=== PATIENT | male | born 1960 | race Caucasian/White ===

== ENCOUNTER 2020-01-16 15:46 | Outpatient (REF) | payer MEDICARE, MEDICAID, SELFPAY ==
[2020-01-16 16:21] LABS: MANUAL DIFF FLAG NO
[2020-01-16 16:27] LABS: Basophils Percent Auto 0.3 % (0-2); Eosinophils Absolute Auto 0.1 X10*3/uL (0.0-0.4); Eosinophils Percent Auto 1.3 % (0-4); Hematocrit 46.7 % (42-52); Hemoglobin 15.1 g/dl (14.0-18.0); Imm Gran Abs Auto 0.04 X10*3/uL (0.00-0.03); Imm Gran Pct Auto 0.4 % (0.0-0.4); Lymphocytes Absolute Auto 2.9 X10*3/uL (1.2-4.9); Lymphocytes Percent Auto 30.2 % (20-40); Mean Corpuscular HGB Conc 32.3 g/dl (31.0-36.0); Mean Corpuscular Hemoglobin 29.9 pg (27.0-33.0); Mean Corpuscular Volume 92.5 fL (80-98); Mean Platelet Volume 12.1 fL (9.4-12.4); Monocytes Absolute Auto 0.7 X10*3/uL (0.1-1.2); Monocytes Percent Auto 6.8 % (2-11); Neutrophils Absolute Auto 5.8 X10*3/uL (2.0-8.3); Platelet Count 210 X10*3/uL (160-400); Red Blood Count 5.05 X10*6/uL (4.60-5.80); Red Cell Distribution Width 13.1 % (11.0-16.0); White Blood Count 9.5 X10*3/uL (4.8-10.8)
[2020-01-16 16:33] LABS: Estimated Average Glucose 209 mg/dL; Hemoglobin A1c % 8.9 %
[2020-01-16 16:48] LABS: Alanine Aminotransferase 24 U/L (0-40); Albumin Level 4.4 g/dL (3.5-5.0); Alkaline Phosphatase 80 U/L (39-117); Anion Gap 12 (12-20); Aspartate Amino Transferase 26 U/L (5-37); Bilirubin Total 0.2 mg/dL (0.0-1.0); Blood Urea Nitrogen 23 mg/dL (9-16); Calcium 9.6 mg/dL (8.4-10.2); Carbon Dioxide 28 mmol/L (22-29); Chloride 101 mmol/L (96-108); Cholesterol 169 mg/dL; Estimated Glomerular Filt Rate 48; Glucose Fasting 219 mg/dL (60-99); HDL Cholesterol 34 mg/dL; LDL Cholesterol Calculated 86 mg/dl; Potassium 4.7 mmol/l (3.3-5.1); Sodium 136 mmol/L (135-145); Total Protein 7.5 g/dL (6.5-8.0); Triglycerides 247 mg/dL
[2020-01-16 17:10] LABS: Prostate Specific Antigen 0.42 ng/mL (<0.05-4.0); TSH reflex Free T4 1.29 mIU/mL (0.32-4.0)
[2020-01-16 17:21] LABS: Folate 9.7 ng/mL (> or = 4.0); Vitamin B12 456 pg/mL (200-900)
[2020-01-16 18:05] LABS: Appearance Urine CLEAR; Color Urine YELLOW; Glucose Urine UA 100 MG/DL (NEG); Leukocyte Esterase Urine NEG (NEG); Nitrite Urine NEG (NEG); PH 5.5 (5.0-8.0); Urine Blood NEG (NEG); Urine Ketones NEG (NEG); Urine Protein NEG (NEG-TRACE)
[2020-01-16 18:33] LABS: Creatinine Urine 167.74 mg/dL; Microalbum/Creatinine Ratio Ur 5.9 ug/mg cr
[2020-01-17 18:37] LABS: Follicle Stimulating Hormone 8.8 mIU/mL (1.6-8.0); Lutenizing Hormone 9.3 mIU/mL (1.6-15.2)
[2020-01-22 12:36] LABS: Testosterone, Total 694 ng/dL (250-1100)
== END 2020-01-16 15:47 | disposition home or self-care (01) ==
LOC: HO.LAB 15:46
PROVIDERS: Absent Provider Urology; PCP Internal Medicine; Visit Provider Internal Medicine
DX: R79.89 Other specified abnormal findings of blood chemistry (principal); E11.22 Type 2 diabetes mellitus with diabetic chronic kidney disease; I12.9 Hypertensive chronic kidney disease with stage 1 through stage 4 chronic kidney disease, or unspecified chronic kidney disease; N18.2 Chronic kidney disease, stage 2 (mild); E78.1 Pure hyperglyceridemia; G62.9 Polyneuropathy, unspecified; K29.50 Unspecified chronic gastritis without bleeding; E66.9 Obesity, unspecified
CPT/HCPCS: 36415; 80053; 80061; 81003; 82043; 82607; 82746; 83001; 83002; 83036; 84153; 84403; 84443; 85025

== ENCOUNTER → 2020-01-27 09:38 | Outpatient (BNVA) | payer MEDICARE, MEDICAID, SELFPAY | PROVIDERS: PCP Internal Medicine; Referring Provider Internal Medicine; Visit Provider Urology | DX: E29.1 Testicular hypofunction (principal); N52.9 Male erectile dysfunction, unspecified | CPT/HCPCS: Q3014 ==

== ENCOUNTER 2020-02-21 14:08 | Outpatient (REF) | payer MEDICARE, MEDICAID, SELFPAY | END 2020-02-21 14:09 | disposition home or self-care (01) | LOC: HO.LAB 14:08 | PROVIDERS: PCP Internal Medicine; Visit Provider Internal Medicine | DX: Z20.828 Contact with and (suspected) exposure to other viral communicable diseases (principal) | CPT/HCPCS: C9803; U0003 ==

== ENCOUNTER 2020-03-05 13:09 | Outpatient (REF) | payer MEDICARE, MEDICAID, SELFPAY ==
--- NOTE | 2020-03-05 13:16 | XR_ITS ---
EXAMINATION: XR CHEST CLINICAL INFORMATION: Cough. COMPARISON: 04/28/2016 chest exam. TECHNIQUE: 2 views of the chest were obtained. FINDINGS: Lungs are well-expanded and clear. The heart size and pulmonary vascularity is normal. Mild spondylosis of dorsal spine is noted. No lytic process. XR/XR chest 2V IMPRESSION: Unremarkable chest exam.
== END 2020-03-05 13:10 | disposition home or self-care (01) ==
LOC: HO.XRAY 13:09
PROVIDERS: PCP Internal Medicine; Visit Provider Internal Medicine
DX: R05 Cough (principal)
CPT/HCPCS: 71046

== ENCOUNTER 2020-05-18 10:48 | Outpatient (REF) | payer MEDICARE, MEDICAID, SELFPAY ==
[2020-05-18 11:27] LABS: MANUAL DIFF FLAG NO
[2020-05-18 11:28] LABS: Basophils Percent Auto 0.4 % (0-2); Eosinophils Absolute Auto 0.1 X10*3/uL (0.0-0.4); Eosinophils Percent Auto 1.4 % (0-4); Hematocrit 43.8 % (42-52); Hemoglobin 14.4 g/dl (14.0-18.0); Imm Gran Abs Auto 0.03 X10*3/uL (0.00-0.03); Imm Gran Pct Auto 0.4 % (0.0-0.4); Lymphocytes Absolute Auto 2.7 X10*3/uL (1.2-4.9); Lymphocytes Percent Auto 36.2 % (20-40); Mean Corpuscular HGB Conc 32.9 g/dl (31.0-36.0); Mean Corpuscular Hemoglobin 30.3 pg (27.0-33.0); Mean Platelet Volume 12.2 fL (9.4-12.4); Monocytes Absolute Auto 0.5 X10*3/uL (0.1-1.2); Monocytes Percent Auto 6.7 % (2-11); Neutrophils Percent Auto 54.9 % (45-73); Platelet Count 236 X10*3/uL (160-400); Red Blood Count 4.76 X10*6/uL (4.60-5.80); Red Cell Distribution Width 13.8 % (11.0-16.0); White Blood Count 7.3 X10*3/uL (4.8-10.8)
[2020-05-18 11:38] LABS: Estimated Average Glucose 283 mg/dL; Hemoglobin A1c % 11.5 %
[2020-05-18 12:13] LABS: Alanine Aminotransferase 19 U/L (0-40); Albumin Level 4.2 g/dL (3.5-5.0); Alkaline Phosphatase 59 U/L (39-117); Anion Gap 15 (12-20); Aspartate Amino Transferase 25 U/L (5-37); Bilirubin Total 0.2 mg/dL (0.0-1.0); Blood Urea Nitrogen 25 mg/dL (9-16); Carbon Dioxide 26 mmol/L (22-29); Chloride 104 mmol/L (96-108); Cholesterol 155 mg/dL; Estimated Glomerular Filt Rate > 60; Glucose Fasting 138 mg/dL (60-99); HDL Cholesterol 33 mg/dL; LDL Cholesterol Calculated 76 mg/dl; Potassium 4.8 mmol/L (3.3-5.1); Sodium 140 mmol/L (135-145); Triglycerides 230 mg/dL
[2020-05-18 12:18] LABS: TSH reflex Free T4 1.18 uIU/mL (0.32-4.0)
[2020-05-18 12:33] LABS: Folate 16.8 ng/mL (> or = 4.0); Vitamin B12 387 pg/mL (200-900)
[2020-05-18 12:39] LABS: Glucose Urine UA NEG (NEG); Leukocyte Esterase Urine NEG (NEG); Nitrite Urine NEG (NEG); Specific Gravity - Urine 1.025 (1.005-1.025); Urine Blood NEG (NEG); Urine Ketones NEG (NEG); Urine Protein NEG (NEG-TRACE)
[2020-05-18 12:51] LABS: Appearance Urine CLEAR; Color Urine YELLOW
== END 2020-05-18 10:49 | disposition home or self-care (01) ==
LOC: HO.LAB 10:48
PROVIDERS: PCP Internal Medicine; Visit Provider Internal Medicine
DX: I12.9 Hypertensive chronic kidney disease with stage 1 through stage 4 chronic kidney disease, or unspecified chronic kidney disease (principal); N18.2 Chronic kidney disease, stage 2 (mild); E11.22 Type 2 diabetes mellitus with diabetic chronic kidney disease; E78.1 Pure hyperglyceridemia; G62.9 Polyneuropathy, unspecified; K29.50 Unspecified chronic gastritis without bleeding; E66.9 Obesity, unspecified; Z79.4 Long term (current) use of insulin
CPT/HCPCS: 36415; 80053; 80061; 81003; 82607; 82746; 83036; 84443; 85025

== ENCOUNTER 2020-10-15 08:04 | Outpatient (REF) | payer MEDICARE, MEDICAID, SELFPAY | END 2020-10-15 08:05 | disposition home or self-care (01) | LOC: HO.HOSX 08:04 | PROVIDERS: Visit Provider Orthopaedic Surgery | DX: Z13.89 Encounter for screening for other disorder (principal) ==

== ENCOUNTER 2020-10-15 10:19 | Emergency (ER) | payer MEDICARE, MEDICAID, SELFPAY ==
--- NOTE | ~2020-10-15 | CT_ITS ---
EXAMINATION: CT HEAD WITHOUT CONTRAST (STROKE PROTOCOL) CLINICAL INFORMATION: Stroke protocol. Left-sided numbness COMPARISON: CT brain 01/20/2016 TECHNIQUE: Contiguous axial imaging was performed from the skull base to vertex without intravenous administration of contrast. This CT examination was performed using dose optimization techniques as appropriate, variously including the following: *Automated exposure control *Adjustment of mA and/or kV according to patient size (this includes techniques or standardized protocols for targeted exams where dose is matched to indication/reason for exam; i.e. extremities or head) *Use of iterative reconstruction technique DLP: 7:30 mGy-cm FINDINGS: There is no intracranial hemorrhage, hematoma, or extra-axial fluid collection. The ventricles are symmetrical and normal size.. There is no hydrocephalus, edema, or mass effect. The aguilera-white matter differentiation appears symmetric. There is no acute infarct in evolution. No edema. There is a hypodense 9 mm lesion in the left CP angle /Ponto cerebellar subarachnoid cyst. Intra-axial parenchymal lesion is considered less likely. The calvarium appears intact. There is no pneumocephalus or orbital emphysema. The visualized sinuses and middle ears and mastoid air cells show no significant mucosal thickening. There are no air-fluid levels. CT/CT head for stroke IMPRESSION: No acute intracranial process seen. Small hypodense round lesion left CP angle/[place]onto cerebellar junction question subarachnoid cyst. Likely more prominent than the previous study. This critical result was discussed with Dr. Ada Ren at 10:58 AM hours on 10/15/2020. It was ascertained that the content and urgency of the report was understood at the time of direct communication.
--- NOTE | ~2020-10-15 | MR_ITS ---
EXAMINATION: MR BRAIN WITHOUT CONTRAST CLINICAL INFORMATION: Paresthesia. Transient ischemic attack. COMPARISON: CT head from 10/15/2020. TECHNIQUE: MRI of the brain was obtained using routine sequences without contrast. FINDINGS: No focal restricted diffusion is demonstrated to suggest acute or subacute cerebral ischemia. No evidence of acute or chronic hemorrhagic products on heme-sensitive imaging. Scattered periventricular and deep white matter T2 FLAIR hyperintensities consistent with mild underlying microangiopathy. Proportional prominence of the ventricles and sulcal spaces without evidence of obstructive hydrocephalus. No abnormal mass effect. No midline shift. Normal appearance of the pituitary gland. No abnormalities of the posterior fossa with normal appearance of the brainstem and cerebellum. Normal arterial and venous vascular flow voids are present. Normal, homogeneous marrow signal. Moderate degenerative spondyloarthropathy at C4-C5. Mild mucosal thickening of the paranasal sinuses. No signal abnormalities within the mastoids. MR/MR head/brain wo con IMPRESSION: 1. No acute intracranial abnormalities. 2. Mild underlying microangiopathy and generalized cerebral volume loss.
--- NOTE | ~2020-10-15 | XR_ITS ---
EXAMINATION: XR CHEST CLINICAL INFORMATION: Stroke symptoms COMPARISON: None TECHNIQUE: Frontal view of the chest was obtained. FINDINGS: No significant abnormality is noted involving the heart, lungs, mediastinum, bony thorax or soft tissues. XR/XR chest 1V IMPRESSION: Unremarkable chest examination.
[2020-10-15 10:33] VITALS: BP 165/100; PULSE 91; RESP 18; TEMP 36.9; O2SAT 99; BMI 31.3
--- NOTE | 2020-10-15 10:36 | ECG_ITS ---
Test Reason : STROKE Blood Pressure : / mmHG Vent. Rate : 090 BPM Atrial Rate : 090 BPM P-R Int : 192 ms QRS Dur : 088 ms QT Int : 354 ms P-R-T Axes : 063 -50 045 degrees QTc Int : 433 ms Normal sinus rhythm Left axis deviation Cannot rule out Anteroseptal infarct (cited on or before 06-MAY-2017) Abnormal ECG When compared with ECG of 06-MAY-2017 11:55, No significant change was found Referred By: Ada Ren Electronically Signed By:MICHAEL LOPEZ
--- NOTE | 2020-10-15 10:40 | ED.NEUROSD ---
HPI - Neuro Symptoms/Deficit General Chief Complaint: Weakness Stated Complaint: facial numbness weakness Time Seen by Provider: 10/15/20 10:24 Source: patient Mode of arrival: ambulatory Limitations: no limitations History of Present Illness HPI Narrative: 59 yo male with hx of HTN, DM - still working on better control, GERD, HLD, pain issues comes in with c/o having an episode of feeling like he was being held down in bed and an electric shock to the point he thought a spirit was in his house, this started at 430am. He also stated he couldn't talk initially. He notes he has been having nightmares recently. Currently he still feels weird, L sided tingling on left face as well as his body feels tight and he has pain in his L elbow. His lyrica Rx wasn't refilled and he hasn't taken it in 2 weeks. Onset (ago): hour(s) (430 am today) Timing confirmed by: other (self) Location: left face and left arm History of same: No Severity: mild Quality: tingling and other (feels pain in left hand) Relieving factors: none Exacerbating factors: none Context: sudden onset and change in medication On Anticoagulants: No Associated symptoms: other (overall doesn't feel well , weird aches, doesn't feel fully back to himself, shaky) Treatments Prior to Arrival: none Related Data Previous Rx's Medication Instructions Recorded lisinopril 30 mg tablet 30 mg PO DAILY 90 Days #90 tab 12/28/19 pen needle, diabetic 31 gauge x #100 ea 12/29/19 5/16 (Ultra-Thin II (Short) Pen NDL) clomiphene citrate 50 mg tablet 25 mg PO .mon,wed,thu 90 Days #45 01/27/20 tab fluticasone propionate 50 2 spray INTRANASAL DAILY PRN 30 05/16/20 mcg/actuation nasal Days #16 g spray,suspension metformin 500 mg tablet 500 mg PO BID #180 tab 07/25/20 tadalafil 20 mg tablet 20 mg PO DAILY 30 Days #30 tab 08/02/20 insulin glargine U-300 conc 300 90 unit SUBCUT BEDTIME #4.5 ml 08/24/20 unit/mL (1.5 mL) subcutaneous pen ([place] SoloStar U-300 Insulin) pioglitazone 45 mg tablet 45 mg PO DAILY #90 tab 08/24/20 famotidine 20 mg tablet 20 mg PO BID PRN #180 tab 09/05/20 oxycodone 15 mg tablet 15 mg PO Q8H PRN 28 Days #84 tab 09/21/20 ibuprofen 800 mg tablet 800 mg PO TID PRN #90 tab 10/02/20 pregabalin 50 mg capsule (Lyrica) 50 mg PO DAILY 30 Days #30 cap 10/02/20 Allergies Allergy/AdvReac Type Severity Reaction Status Date / Time clindamycin [CLINDAMYCIN] Allergy Severe rash Verified 09/26/20 08:51 shellfish derived Allergy Severe ANAPHYLAXIS Verified 09/26/20 08:51 penicillin G Allergy Intermediate HIVES Verified 09/26/20 08:51 Clindamycin HCl Allergy Unknown rash, hives Verified 09/26/20 08:51 Iodinated Contrast Media Allergy Unknown SWELLING Verified 09/26/20 08:51 [IV CONTRAST] penicillin V Allergy Unknown rash, hives Verified 09/26/20 08:51 Review of Systems Review of Systems: Constitutional : No Fever, No Chills, No Fatigue ENT/Mouth : No sore throat, No Rhinorrhea Eyes: No Eye Pain, No Swelling, No Redness Cardiovascular : No Chest Pain, No SOB, No Dyspnea on Exertion Respiratory : No Cough, No Sputum Gastrointestinal : No Nausea, No Vomiting, No Diarrhea, No abdominal Pain Genitourinary : No Dysuria, No Urinary Frequency, No Hematuria, Musculoskeletal : No joint pain, pos Myalgias, No Joint Swelling Skin : No Skin Lesions, No rash Neuro : No Weakness, No Numbness, No Dizziness, positive Headache Psych : pos Anxiety/Panic, No Depression Heme/Lymph: No Bruising, No Bleeding,No Lymphadenopathy Endocrine : No Polyuria, No Polydipsia All other systems reviewed and are negative [facility] Past Medical History Attestation statement: The following information was validated with the patient. Medical History Allergic rhinitis Benign essential hypertension Bilateral knee pain Chronic gastritis without bleeding Chronic kidney disease (CKD), stage II (mild) Constipation Cough Degenerative arthritis of cervical spine Diabetes mellitus Hypertriglyceridemia Lumbar degenerative disc disease Neuropathy Obesity (BMI 30-39.9) Type 2 diabetes mellitus with diabetic chronic kidney disease Surgical History History of colonoscopy History of esophagogastroduodenoscopy (EGD) History of hernia repair History of surgery Family History Family History Father Leukemia Mother Alzheimers disease Daughter Overweight Prediabetes Brother Prostate cancer Other Mental health problem Social History Social History Housing: House Alcohol intake: current Alcohol intake frequency: holidays/special occasions only Patient Tobacco Use Status: Never used Tobacco Second Hand Smoke Exposure: Yes Advance Directives: No Advance Directives Information Provided: No service: Yes Current occupational status: retired and disabled Physical Exam Vital Signs: Vital Signs: Last Vital Signs Temp 98.8 F 10/15/20 14:15 Pulse 88 10/15/20 14:15 Resp 18 10/15/20 14:15 BP 172/96 H 10/15/20 14:15 Pulse Ox 100 10/15/20 14:15 Body Mass Index 31.3 Appearance: Alert. Oriented X3. No acute distress. Anxious, shaking Eyes: Pupils equal, round and reactive to light. ENT: Pharynx normal. Neck: Normal inspection. Neck supple. CVS: Normal heart rate and rhythm. Pulses normal. Respiratory: No respiratory distress. Breath sounds normal. Abdomen: Soft and non-tender. Skin: Skin warm and dry. Normal skin color. Normal skin turgor. Extremities: No lower extremity edema. No calf ttp Neuro: Oriented X 3. No motor deficit. No sensory deficit. Gait steady, no drift Course Course Course Narrative: Radiology 1058am negative for acute pathology, small CP angle 9mm cyst more prominent from 2018 L sided subarachnoid cyst still c/o feeling parasthesias - MRI ordered repeat trop negative, dispo pending MRI if MRI negative would DC home - signed out to Dr. Vigil pending MRI pateint aware of cocaine found in his system MDM - Neuro Symptoms/Deficit MDM Narrative Medical decision making narrative: 59 yo male with HTN, HLD, DM here with vague not feeling well L sided facial numbness - his story seems somewhat concerning for night terror or sleep paralysis. Given his age and risk factors though NIH 0 CT head for stroke ordered, he is allergic IV dye cannot obtain CTA but I doubt LVO, basic labs, EKG, IV ativan for anxiety. Could also be symptoms due to lack of lyrica. Dispo per results and findings. Patient would not be a tPa candidate given onset of 6 hour [employer] Lab Data Result diagrams: 10/15/20 11:11 10/15/20 11:11 Labs: Lab Results 10/15/20 10/15/20 10/15/20 Range/Units 11:11 11:11 11:11 WBC 7.5 (4.8-10.8) X10*3/uL RBC 5.28 (4.60-5.80) X10*6/uL Hgb 16.2 (14.0-18.0) g/dl Hct 47.6 (42-52) % MCV 90.2 (80-98) fL MCH 30.7 (27.0-33.0) pg MCHC 34.0 (31.0-36.0) g/dl RDW 13.0 (11.0-16.0) % Plt Count 226 (160-400) X10*3/uL MPV 11.9 (9.4-12.4) fL Immature Gran % (Auto) 0.7 H (0.0-0.4) % Neut % (Auto) 45.4 (45-73) % Lymph % (Auto) 42.3 H (20-40) % [place] % (Auto) 9.1 (2-11) % Eos % (Auto) 2.1 (0-4) % Baso % (Auto) 0.4 (0-2) % Lymph # (Auto) 3.2 (1.2-4.9) X10*3/uL [place] # (Auto) 0.7 (0.1-1.2) X10*3/uL Eos # (Auto) 0.2 (0.0-0.4) X10*3/uL Baso # (Auto) 0.0 (0.0-0.2) X10*3/uL Abs Immat Gran (auto) 0.05 H (0.00-0.03) X10*3/uL Absolute Neuts (auto) 3.4 (2.0-8.3) X10*3/uL Absolute Nucleated RBC 0.000 (0.0-0.012) X10*3/uL Nucleated RBC % (auto) 0.0 (0.0-0.2) /100WBC PT 10.5 (9.9-13.0) SEC INR 0.9 (0.9-1.1) APTT 33.2 (24.1-38.0) SEC Sodium 141 (135-145) mmol/L Potassium 4.3 (3.3-5.1) mmol/L Chloride 106 (96-108) mmol/L Carbon Dioxide 27 (22-29) mmol/L Anion Gap 12 (12-20) BUN 24 H (9-16) mg/dL Creatinine 1.22 (0.5-1.4) mg/dL Estim Creat Clear Calc 73.6 Estimated GFR > 60 Random Glucose 159 H (60-115) mg/dL Calcium 10.1 D (8.4-10.2) mg/dL Magnesium 1.9 (1.6-2.6) mg/dL Total Bilirubin 0.4 (0.0-1.0) mg/dL Direct Bilirubin < 0.2 (0.0-0.5) mg/dL AST 52 H (5-37) U/L ALT 92 H (0-40) U/L Alkaline Phosphatase 87 D (39-117) U/L Troponin I High Sens (<3.5-35.0) ng/L Total Protein 8.2 H (6.5-8.0) g/dL Albumin 4.8 (3.5-5.0) g/dL Lipase 41 (8-78) U/L TSH 1.92 (0.32-4.0) uIU/mL Urine Color Urine Appearance Urine pH (5.0-8.0) Ur Specific [place] (1.005-1.025) Urine Protein (NEG-TRACE) MG/DL Urine Glucose (UA) (NEG) MG/DL Urine Ketones (NEG) MG/DL Urine Blood (NEG) Urine Nitrite (NEG) Ur Leukocyte Esterase (NEG) Urine Opiates Screen (Not Detect) Urine Fentanyl Screen (Not Detect) Ur Barbiturates Screen (Not Detect) Ur Phencyclidine Scrn (Not Detect) Ur Amphetamines Screen (Not Detect) U Benzodiazepines Scrn (Not Detect) Urine Cocaine Screen (Not Detect) U Marijuana (THC) Screen (Not Detect) COVID-19 (VIRY) (Negative) COVID-19 Clin Com 10/15/20 10/15/20 10/15/20 Range/Units 11:12 11:12 13:06 WBC (4.8-10.8) X10*3/uL RBC (4.60-5.80) X10*6/uL Hgb (14.0-18.0) g/dl Hct (42-52) % MCV (80-98) fL MCH (27.0-33.0) pg MCHC (31.0-36.0) g/dl RDW (11.0-16.0) % Plt Count (160-400) X10*3/uL MPV (9.4-12.4) fL Immature Gran % (Auto) (0.0-0.4) % Neut % (Auto) (45-73) % Lymph % (Auto) (20-40) % [place] % (Auto) (2-11) % Eos % (Auto) (0-4) % Baso % (Auto) (0-2) % Lymph # (Auto) (1.2-4.9) X10*3/uL [place] # (Auto) (0.1-1.2) X10*3/uL Eos # (Auto) (0.0-0.4) X10*3/uL Baso # (Auto) (0.0-0.2) X10*3/uL Abs Immat Gran (auto) (0.00-0.03) X10*3/uL Absolute Neuts (auto) (2.0-8.3) X10*3/uL Absolute Nucleated RBC (0.0-0.012) X10*3/uL Nucleated RBC % (auto) (0.0-0.2) /100WBC PT (9.9-13.0) SEC INR (0.9-1.1) APTT (24.1-38.0) SEC Sodium (135-145) mmol/L Potassium (3.3-5.1) mmol/L Chloride (96-108) mmol/L Carbon Dioxide (22-29) mmol/L Anion Gap (12-20) BUN (9-16) mg/dL Creatinine (0.5-1.4) mg/dL Estim Creat Clear Calc Estimated GFR Random Glucose (60-115) mg/dL Calcium (8.4-10.2) mg/dL Magnesium (1.6-2.6) mg/dL Total Bilirubin (0.0-1.0) mg/dL Direct Bilirubin (0.0-0.5) mg/dL AST (5-37) U/L ALT (0-40) U/L Alkaline Phosphatase (39-117) U/L Troponin I High Sens < 3.5 < 3.5 (<3.5-35.0) ng/L Total Protein (6.5-8.0) g/dL Albumin (3.5-5.0) g/dL Lipase (8-78) U/L TSH (0.32-4.0) uIU/mL Urine Color Urine Appearance Urine pH (5.0-8.0) Ur Specific [place] (1.005-1.025) Urine Protein (NEG-TRACE) MG/DL Urine Glucose (UA) (NEG) MG/DL Urine Ketones (NEG) MG/DL Urine Blood (NEG) Urine Nitrite (NEG) Ur Leukocyte Esterase (NEG) Urine Opiates Screen (Not Detect) Urine Fentanyl Screen (Not Detect) Ur Barbiturates Screen (Not Detect) Ur Phencyclidine Scrn (Not Detect) Ur Amphetamines Screen (Not Detect) U Benzodiazepines Scrn (Not Detect) Urine Cocaine Screen (Not Detect) U Marijuana (THC) Screen (Not Detect) COVID-19 (VIRY) Negative (Negative) COVID-19 Clin Com See Note 10/15/20 10/15/20 Range/Units 13:06 13:06 WBC (4.8-10.8) X10*3/uL RBC (4.60-5.80) X10*6/uL Hgb (14.0-18.0) g/dl Hct (42-52) % MCV (80-98) fL MCH (27.0-33.0) pg MCHC (31.0-36.0) g/dl RDW (11.0-16.0) % Plt Count (160-400) X10*3/uL MPV (9.4-12.4) fL Immature Gran % (Auto) (0.0-0.4) % Neut % (Auto) (45-73) % Lymph % (Auto) (20-40) % [place] % (Auto) (2-11) % Eos % (Auto) (0-4) % Baso % (Auto) (0-2) % Lymph # (Auto) (1.2-4.9) X10*3/uL [place] # (Auto) (0.1-1.2) X10*3/uL Eos # (Auto) (0.0-0.4) X10*3/uL Baso # (Auto) (0.0-0.2) X10*3/uL Abs Immat Gran (auto) (0.00-0.03) X10*3/uL Absolute Neuts (auto) (2.0-8.3) X10*3/uL Absolute Nucleated RBC (0.0-0.012) X10*3/uL Nucleated RBC % (auto) (0.0-0.2) /100WBC PT (9.9-13.0) SEC INR (0.9-1.1) APTT (24.1-38.0) SEC Sodium (135-145) mmol/L Potassium (3.3-5.1) mmol/L Chloride (96-108) mmol/L Carbon Dioxide (22-29) mmol/L Anion Gap (12-20) BUN (9-16) mg/dL Creatinine (0.5-1.4) mg/dL Estim Creat Clear Calc Estimated GFR Random Glucose (60-115) mg/dL Calcium (8.4-10.2) mg/dL Magnesium (1.6-2.6) mg/dL Total Bilirubin (0.0-1.0) mg/dL Direct Bilirubin (0.0-0.5) mg/dL AST (5-37) U/L ALT (0-40) U/L Alkaline Phosphatase (39-117) U/L Troponin I High Sens (<3.5-35.0) ng/L Total Protein (6.5-8.0) g/dL Albumin (3.5-5.0) g/dL Lipase (8-78) U/L TSH (0.32-4.0) uIU/mL Urine Color YELLOW Urine Appearance CLEAR Urine pH 6.0 (5.0-8.0) Ur Specific [place] 1.020 (1.005-1.025) Urine Protein NEG (NEG-TRACE) MG/DL Urine Glucose (UA) 250 H (NEG) MG/DL Urine Ketones NEG (NEG) MG/DL Urine Blood NEG (NEG) Urine Nitrite NEG (NEG) Ur Leukocyte Esterase NEG (NEG) Urine Opiates Screen Not Detected (Not Detect) Urine Fentanyl Screen Not Detected (Not Detect) Ur Barbiturates Screen Not Detected (Not Detect) Ur Phencyclidine Scrn Not Detected (Not Detect) Ur Amphetamines Screen Not Detected (Not Detect) U Benzodiazepines Scrn Not Detected (Not Detect) Urine Cocaine Screen POSITIVE H (Not Detect) U Marijuana (THC) Screen Not Detected (Not Detect) COVID-19 (VIRY) (Negative) COVID-19 Clin Com ECG Data Attestation: I personally reviewed and interpreted this ECG as follows: ECG interpretation date: 10/15/20 ECG interpretation time: 11:11 Interpretation: Rate: 90 Rhythm: NSR [place]: left Normal P waves. Normal SHAUN. Normal QRS complex. Poor R wave progression ST T wave : nonspecific, no CUONG some changes in v1-V2 t waves tall in anterior leads qTC: normal prior studies: no acute ischemia The study has been interpreted contemporaneously by me. . EKG#2 1141am 10/15 Rate: 87 Rhythm: NSR [place]: left Normal P waves. Normal SHAUN. Normal QRS complex. ST T wave : nonspecific, no CUONG qTC: normal prior studies: no acute ischemia The study has been interpreted contemporaneously by me. . NIH Stroke Scale Internal: Initial- Upon Arrival Level of Consciousness: Alert Level of Consciousness Questions: Answers both questions correctly Level of Consciousness Commands: Performs both tasks correctly Best Gaze: Normal Visual: No visual loss Facial Palsy: Normal Motor Arm (Right): No drift Motor Arm (Left): No drift Motor Leg (Right): No drift Motor Leg (Left): No drift Limb Ataxia: Absent Sensory: Normal Best Language: No aphasia Dysarthia: Normal Extinction and Inattention: No abnormality Score: 0 Discharge Plan Discharge Clinical Impression: Paresthesia, Cocaine use Prescriptions: No Action lisinopril 30 mg tablet 30 mg PO DAILY 90 Days Qty: 90 RF: 12 (DME) pen needle, diabetic [Ultra-Thin II (Short) Pen NDL] 31 gauge x 5/16 needle See Rx Instructions .ROUTE .MEDSUPPLY Qty: 100 RF: 12 fluticasone propionate 50 mcg/actuation spray,suspension 2 spray intranasal DAILY PRN (Reason: allergy symptoms) 30 Days Qty: 16 RF: 5 metformin 500 mg tablet 500 mg PO BID Qty: 180 RF: 1 tadalafil 20 mg tablet 20 mg PO DAILY 30 Days Qty: 30 RF: 3 insulin glargine U-300 conc [[place] SoloStar U-300 Insulin] 300 unit/mL (1.5 mL) insulin pen 90 unit subcut BEDTIME Qty: 4.5 RF: 1 pioglitazone 45 mg tablet 45 mg PO DAILY Qty: 90 RF: 1 famotidine 20 mg tablet 20 mg PO BID PRN (Reason: for heartburn) Qty: 180 RF: 1 oxycodone 15 mg tablet 15 mg PO Q8H PRN (Reason: pain) 28 Days Qty: 84 RF: 0 pregabalin [Lyrica] 50 mg capsule 50 mg PO DAILY 30 Days Qty: 30 RF: 0 ibuprofen 800 mg tablet 800 mg PO TID PRN (Reason: for fever) Qty: 90 RF: 1 clomiphene citrate 50 mg tablet 25 mg PO .mon,wed,fri 90 Days Qty: 45 RF: 0
[2020-10-15 11:18] LABS: MANUAL DIFF FLAG NO
[2020-10-15 11:24] LABS: Basophils Percent Auto 0.4 % (0-2); Eosinophils Absolute Auto 0.2 X10*3/uL (0.0-0.4); Eosinophils Percent Auto 2.1 % (0-4); Hematocrit 47.6 % (42-52); Hemoglobin 16.2 g/dl (14.0-18.0); Imm Gran Abs Auto 0.05 X10*3/uL (0.00-0.03); Imm Gran Pct Auto 0.7 % (0.0-0.4); Lymphocytes Absolute Auto 3.2 X10*3/uL (1.2-4.9); Lymphocytes Percent Auto 42.3 % (20-40); Mean Corpuscular Hemoglobin 30.7 pg (27.0-33.0); Mean Corpuscular Volume 90.2 fL (80-98); Mean Platelet Volume 11.9 fL (9.4-12.4); Monocytes Absolute Auto 0.7 X10*3/uL (0.1-1.2); Monocytes Percent Auto 9.1 % (2-11); Neutrophils Absolute Auto 3.4 X10*3/uL (2.0-8.3); Neutrophils Percent Auto 45.4 % (45-73); Platelet Count 226 X10*3/uL (160-400); Red Blood Count 5.28 X10*6/uL (4.60-5.80); White Blood Count 7.5 X10*3/uL (4.8-10.8)
[2020-10-15 11:30] LABS: INTERNATIONAL NORM RATIO 0.9 (0.9-1.1); Prothrombin Time 10.5 SEC (9.9-13.0)
[2020-10-15 11:33] LABS: Partial Thromboplastin Time 33.2 SEC (24.1-38.0)
[2020-10-15 11:40] LABS: COVID-19 Test Negative (Negative)
[2020-10-15] MEDS: 0.9 % Sodium Chloride 1,000 ML 999 ML IVCONT (11:42)
[2020-10-15] MEDS: LORazepam 2 MG/ML VIAL 1 MG IVPUSH ×2 (11:42→16:55)
[2020-10-15 11:44] LABS: Alanine Aminotransferase 92 U/L (0-40); Albumin Level 4.8 g/dL (3.5-5.0); Alkaline Phosphatase 87 U/L (39-117); Anion Gap 12 (12-20); Aspartate Amino Transferase 52 U/L (5-37); Bilirubin Direct < 0.2 mg/dL (0.0-0.5); Bilirubin Total 0.4 mg/dL (0.0-1.0); Blood Urea Nitrogen 24 mg/dL (9-16); Calcium 10.1 mg/dL (8.4-10.2); Carbon Dioxide 27 mmol/L (22-29); Chloride 106 mmol/L (96-108); Creatinine Clr Calc Pharmacy 73.6; Estimated Glomerular Filt Rate > 60; Glucose Random 159 mg/dL (60-115); Lipase 41 U/L (8-78); Magnesium 1.9 mg/dL (1.6-2.6); Potassium 4.3 mmol/L (3.3-5.1); Sodium 141 mmol/L (135-145); Total Protein 8.2 g/dL (6.5-8.0)
[2020-10-15 11:47] LABS: Troponin-I High Sensitivity < 3.5 ng/L (<3.5-35.0)
[2020-10-15 12:05] LABS: TSH reflex Free T4 1.92 uIU/mL (0.32-4.0)
[2020-10-15 13:19] LABS: Glucose Urine UA 250 MG/DL (NEG); Leukocyte Esterase Urine NEG (NEG); Nitrite Urine NEG (NEG); Urine Blood NEG (NEG); Urine Ketones NEG (NEG); Urine Protein NEG (NEG-TRACE)
[2020-10-15 13:20] LABS: Appearance Urine CLEAR; Color Urine YELLOW
[2020-10-15 13:44] LABS: Amphetamine Screen Urine Not Detected (Not Detect); Barbiturates, Urine Not Detected (Not Detect); Benzodiazepines Screen Urine Not Detected (Not Detect); Cannabinoid Screen Urine Not Detected (Not Detect); Cocaine Screen Urine POSITIVE (Not Detect); Fentanyl, urine Not Detected (Not Detect); Opiate Screen Urine Not Detected (Not Detect); Phencyclidine Screen Urine Not Detected (Not Detect)
--- NOTE | 2020-10-15 14:00 | MHC.STROKE ---
I MET WITH THE PATIENT, HE HAD A NORMAL DAY YESTERDAY, WENT TO BED ABOUT 0000 AND WOKE AT 0130 WITH NUMBNESS, AND SLURRED SPEECH ON THE LEFT. HE DID NOT COME TO THE HOSPITAL UNTIL 1019. AT THIS TIME HIS NIHSS = 1 FOR NUMBNESS OTHER SYMPTOMS RESOLVED. HE IS C/O LEFT SIDED CHEST DISCOMFORT THAT HAS ALSO BEEN GOING ON FOR HOURS. WE DID A CT HEAD FOR STROKE. NO BLEED. HE PASSED HIS SWALLOW SCREEN. HE WILL NEED AND MRI BUT IS VERY CLAUSTROPHOBIC. HE WILL BE PRE-MEDICATED. HE IS NOT A CANDIDATE FOR TPA DUE TO DELAY IN ARRIVAL AND + COCAINE SCREEN WHICH JUST CAME BACK. SEE DR CONNELLY'S NOTE.
[2020-10-15] MEDS: oxyCODONE HCl Immed Release 15 MG TABLET PO (14:03)
[2020-10-15 14:14] LABS: Troponin-I High Sensitivity < 3.5 ng/L (<3.5-35.0)
[2020-10-15 14:15] VITALS: BP 172/96; PULSE 88; RESP 18; TEMP 37.1; O2SAT 100
[2020-10-15 16:33] VITALS: BP 160/92; PULSE 86; RESP 15; TEMP 36.4; O2SAT 100
[2020-10-15] MEDS: ondansetron HCL 4 MG/2 ML VIAL IVPUSH (16:55)
[2020-10-15] MEDS: diphenhydrAMINE HCL 50 MG/ML VIAL 25 MG IVPUSH (16:55)
[2020-10-15 18:22] VITALS: BP 159/89; PULSE 87; RESP 18; TEMP 36.4; O2SAT 95
[2020-10-16 12:47] LABS: Lyme Abs Screen <0.90 index
== END 2020-10-15 19:13 | disposition home or self-care (01) ==
PROVIDERS: Emergency Provider Emergency Medicine; PCP Internal Medicine
DX: R20.2 Paresthesia of skin (principal); R53.1 Weakness; F14.10 Cocaine abuse, uncomplicated; E11.9 Type 2 diabetes mellitus without complications; R51.9 Headache, unspecified; I10 Essential (primary) hypertension; R29.700 NIHSS score 0; Z20.822 Contact with and (suspected) exposure to COVID-19; Z79.899 Other long term (current) drug therapy
CPT/HCPCS: 36415; 70450; 70551; 71045; 80048; 80076; 80307; 81003; 83690; 83735; 84443; 84484; 85025; 85610; 85730; 86617; 86618; 87635; 93005; 96361; 96374; 96375; 96376; 99284; 99285; J1200; J2060; J2405

== ENCOUNTER → 2020-10-24 09:11 | Outpatient (BNVA) | payer MEDICARE, MEDICAID, SELFPAY | PROVIDERS: PCP Internal Medicine; Visit Provider Nurse Practitioner Family | DX: M47.812 Spondylosis without myelopathy or radiculopathy, cervical region (principal); M17.0 Bilateral primary osteoarthritis of knee; M96.1 Postlaminectomy syndrome, not elsewhere classified; M47.22 Other spondylosis with radiculopathy, cervical region; G89.29 Other chronic pain | CPT/HCPCS: 99212 ==

== ENCOUNTER 2020-10-26 08:57 | Outpatient (REF) | payer MEDICARE, MEDICAID, SELFPAY ==
--- NOTE | ~2020-10-26 | XR_ITS ---
EXAMINATION: XR KNEE STANDING, BILATERAL XR KNEE, BILATERAL CLINICAL INFORMATION: Bilateral knee pain. COMPARISON: 02/12/2017 and 11/22/2016 TECHNIQUE: AP standing view of both knees. [place] and lateral views of both knees. FINDINGS: There is no evidence of acute fracture or dislocation of the right or left knees. Knee joint spaces are maintained bilaterally. No knee effusion is noted. Patellar spurs sites of insertion of quadriceps tendon seen bilaterally. Spurring about the inferior patella at the patellar tendon insertion noted with some fragmentation which may be related to previous trauma or secondary ossification center. There are small patellar spurs seen about the lateral facets bilaterally with joint spaces maintained. XR/XR knee standing BI IMPRESSION: Small patellar spurs lateral facets bilaterally. Patellar spurs sites of insertion quadriceps tendon and patellar tendon.
--- NOTE | ~2020-10-26 | XR_ITS ---
EXAMINATION: XR KNEE STANDING, BILATERAL XR KNEE, BILATERAL CLINICAL INFORMATION: Bilateral knee pain. COMPARISON: 02/12/2017 and 11/22/2016 TECHNIQUE: AP standing view of both knees. [place] and lateral views of both knees. FINDINGS: There is no evidence of acute fracture or dislocation of the right or left knees. Knee joint spaces are maintained bilaterally. No knee effusion is noted. Patellar spurs sites of insertion of quadriceps tendon seen bilaterally. Spurring about the inferior patella at the patellar tendon insertion noted with some fragmentation which may be related to previous trauma or secondary ossification center. There are small patellar spurs seen about the lateral facets bilaterally with joint spaces maintained. XR/XR knee RT 2V IMPRESSION: Small patellar spurs lateral facets bilaterally. Patellar spurs sites of insertion quadriceps tendon and patellar tendon.
--- NOTE | ~2020-10-26 | XR_ITS ---
EXAMINATION: XR KNEE STANDING, BILATERAL XR KNEE, BILATERAL CLINICAL INFORMATION: Bilateral knee pain. COMPARISON: 02/12/2017 and 11/22/2016 TECHNIQUE: AP standing view of both knees. [place] and lateral views of both knees. FINDINGS: There is no evidence of acute fracture or dislocation of the right or left knees. Knee joint spaces are maintained bilaterally. No knee effusion is noted. Patellar spurs sites of insertion of quadriceps tendon seen bilaterally. Spurring about the inferior patella at the patellar tendon insertion noted with some fragmentation which may be related to previous trauma or secondary ossification center. There are small patellar spurs seen about the lateral facets bilaterally with joint spaces maintained. XR/XR knee LT 2V IMPRESSION: Small patellar spurs lateral facets bilaterally. Patellar spurs sites of insertion quadriceps tendon and patellar tendon.
== END 2020-10-26 08:58 | disposition home or self-care (01) ==
LOC: HO.HOSX 08:57
PROVIDERS: PCP Internal Medicine; Visit Provider Orthopaedic Surgery
DX: M17.0 Bilateral primary osteoarthritis of knee (principal); M47.22 Other spondylosis with radiculopathy, cervical region; M96.1 Postlaminectomy syndrome, not elsewhere classified
CPT/HCPCS: 73560; 73565; 99202

== ENCOUNTER 2020-11-19 12:47 | Outpatient (REF) | payer MEDICARE, MEDICAID, SELFPAY ==
[2020-11-21 04:22] LABS: Follicle Stimulating Hormone 4.6 mIU/mL (1.6-8.0)
[2020-11-23 09:07] LABS: Testosterone, Total 450 ng/dL (250-1100)
== END 2020-11-19 12:48 | disposition home or self-care (01) ==
LOC: HO.LAB 12:47
PROVIDERS: PCP Internal Medicine; Visit Provider Urology
DX: E29.1 Testicular hypofunction (principal)
CPT/HCPCS: 36415; 83001; 84403

== ENCOUNTER 2020-11-23 09:35 | Outpatient (REF) | payer MEDICARE, MEDICAID, SELFPAY ==
--- NOTE | ~2020-11-23 | MR_ITS ---
EXAMINATION: MRI CERVICAL SPINE WITHOUT CONTRAST MRI THORACIC SPINE WITHOUT CONTRAST CLINICAL INFORMATION: Spondylosis with radiculopathy. COMPARISON: Cervical spine radiographs 05/18/2018. Cervical spine CT scan 11/22/2016. TECHNIQUE: Multiplanar MR imaging of the cervical and thoracic spine was performed without contrast. FINDINGS: Cervical spine: There is nonspecific reversal of the cervical lordosis. Slight retrolisthesis of C5 on C6 and slight anterolisthesis of C7 on T1. Vertebral body heights are preserved. Bridging bone fuses the C4 and C5 vertebral segments. There are mixed predominantly type II degenerative endplate changes at C6-C7. There is loss of intervertebral disc height and T2 signal intensity at multiple levels related to disc degeneration. The cervicomedullary junction is normal. Limited visualization of the posterior fossa reveals no abnormal finding. The occipital condyles and lateral C1 masses are intact. There is degenerative arthrosis of the atlantodental joint. C1-C2 articular facets are unremarkable. At C2-C3 the annular contour is normal. No canal or neuroforaminal compromise. At C3-C4 there is a shallow left central protrusion superimposed upon a bulging disc causing mild to moderate canal stenosis. Uncovertebral joint spurring and facet degenerative change causes mild left neuroforaminal encroachment. At C4-C5 there is no canal or neuroforaminal compromise. At C5-C6 there is a diffusely bulging disc causing severe canal stenosis and compression of the cervical spinal cord. There is a short segment of increased intramedullary T2 signal intensity at this level indicating edema or myelomalacia. Uncovertebral joint spurring and facet degenerative change causes severe bilateral neuroforaminal encroachment. At C6-C7 there is a diffusely bulging disc causing severe canal stenosis. Equivocal intramedullary T2 signal hyperintensity. Uncovertebral joint spurring and facet degenerative change causes severe bilateral neuroforaminal encroachment. At C7-T1 there is a bulging disc. Advanced bilateral facet degenerative change. No canal stenosis. Mild bilateral neuroforaminal encroachment. Visualized soft tissues of the neck are normal. Thoracic spine: Alignment is normal. Vertebral body heights are preserved. No acute bone marrow signal changes. There is loss of intervertebral disc height and T2 signal intensity at multiple levels related to disc degeneration. There are a few shallow protrusions and/or bulging discs at multiple levels within the thoracic spine causing indentation of the thecal sac and in some instances abutment on the ventral surface of the thoracic cord. No canal or neuroforaminal compromise. No cord compression or abnormal intramedullary signal changes. Limited visualization of the intrathoracic anatomy reveals no abnormal finding. No paraspinal soft tissue mass or collection. MR/MR cervical spine wo con IMPRESSION: There is multilevel degenerative spondylosis of the cervical spine with slight retrolisthesis of C5 on C6 and slight anterolisthesis of C7 on T1. There is severe canal stenosis and compression of the spinal cord at levels of C5-C6 and C6-C7 and there is a short segment of increased intramedullary T2 signal intensity at C5-C6 that may represent a manifestation of edema or myelomalacia. Mild to moderate canal stenosis at C3-C4 is also noted. There are varying degrees of neuroforaminal encroachment within the cervical spine related to uncovertebral joint spurring and facet degenerative change as described above. Otherwise no canal or neuroforaminal compromise within the thoracic spine. This critical result was discussed with Shanti HUGHES at 11:58 AM on 11/23/2020 and it was ascertained that the content and urgency of the report was understood at the time of direct communication.
== END 2020-11-23 09:36 | disposition home or self-care (01) ==
LOC: HO.MRI 09:35
PROVIDERS: PCP Internal Medicine; Visit Provider Nurse Practitioner Family
DX: M47.22 Other spondylosis with radiculopathy, cervical region (principal); M54.6 Pain in thoracic spine
CPT/HCPCS: 72141; 72146

== ENCOUNTER → 2020-12-04 14:09 | Outpatient (BNVA) | payer MEDICARE, MEDICAID, SELFPAY | PROVIDERS: PCP Internal Medicine; Visit Provider Nurse Practitioner Gerontology | DX: E11.65 Type 2 diabetes mellitus with hyperglycemia (principal); E11.42 Type 2 diabetes mellitus with diabetic polyneuropathy; E11.22 Type 2 diabetes mellitus with diabetic chronic kidney disease; N18.2 Chronic kidney disease, stage 2 (mild); I10 Essential (primary) hypertension; E78.1 Pure hyperglyceridemia; E66.3 Overweight; R35.0 Frequency of micturition; R20.0 Anesthesia of skin; F14.10 Cocaine abuse, uncomplicated; F15.10 Other stimulant abuse, uncomplicated; F12.11 Cannabis abuse, in remission; F19.11 Other psychoactive substance abuse, in remission; Z79.4 Long term (current) use of insulin; Z79.84 Long term (current) use of oral hypoglycemic drugs | CPT/HCPCS: 82947; 99212 ==

== ENCOUNTER → 2020-12-21 10:58 | Outpatient (BNVA) | payer MEDICARE, MEDICAID, SELFPAY | PROVIDERS: PCP Internal Medicine; Visit Provider Urology | DX: Z13.89 Encounter for screening for other disorder (principal) | CPT/HCPCS: Q3014 ==

== ENCOUNTER → 2021-02-25 08:29 | Outpatient (BNVA) | payer MEDICARE, MEDICAID, SELFPAY | PROVIDERS: PCP Internal Medicine; Referring Provider Internal Medicine; Visit Provider Internal Medicine | DX: R07.2 Precordial pain (principal); R94.31 Abnormal electrocardiogram [ECG] [EKG]; I10 Essential (primary) hypertension; E11.8 Type 2 diabetes mellitus with unspecified complications | CPT/HCPCS: 93005; 99202 ==

== ENCOUNTER → 2021-03-04 09:00 | Outpatient (REF) | payer MEDICARE, MEDICAID, SELFPAY ==
--- NOTE | ~2021-03-04 | NM_ITS ---
Exercise Myocardial perfusion study Indication: Precordial chest pain to evaluate for myocardial ischemia Technique: The patient was brought in for an exercise perfusion study on 03/04/2021. Patient performed exercise as per Patrick protocol and was injected 30 mCi of sestamibi was given intravenously one target HR was achieved. Images were obtained using the SPECT gamma camera interlaced with the gating device. Images were obtained in supine position. Resting perfusion study was performed on 03/05/2021. Patient was administered 30 mCi of sestamibi intravenously at rest. Images were then obtained in supine position. Images obtained with and without CT attenuation. Total DLP 95 mGy-cm. Images were processed with the software and compared side to side in short axis, horizontal long axis and vertical long axis views. Findings: The stress perfusion study showed non attenuated images show normal uptake of radiotracer in all segments of LV myocardium. Attenuation corrected images show minimally reduced uptake in the apex of the LV myocardium. The gated study shows normal LV systolic function with calculated LVEF of 64%. LV cavity is normal in size. The gated study shows normal systolic wall thickening and contraction of all segments. There is no transient ischemic dilation. Resting study shows no change in perfusion pattern compared to stress perfusion study. Gating at rest reveals normal systolic wall motion with ejection fraction at 72%. The findings are consistent with normal myocardial perfusion. NM/NM cardiolite stress test Impression: 1. Normal myocardial perfusion 2. Gated LVEF is 64% 3. Transient ischemic dilatation not present Stress EKG is negative for ischemia
--- NOTE | 2021-03-04 09:12 | CA_ITS ---
Acquisition Time: 2021-03-04 09:20:58 Total Exercise Time: 00:06:00 Test Indications: CP Medications: SEE CHART Protocol: YUE Max HR: 144 BPM 90% of Pred: 159 BPM Max BP: 224/084 mmHG Max Work Load: 7.0 METS Exercise stress test with exercise 6 min of Yue protocol, with mild sob, no chest discomfort, with isolated PVC, with hypertensive response to exercise with maxBP 224/84, without EKG changes meeting criteria for ischemia. In recovery BP returned to baseline. He did not take his am Lisinopril. Nuclear images pending. Test reviewed with Dr Aguilar. Referred By: Adithya Aguilar Overread By: RONEY MYERS
== END ==
LOC: HO.CARD 09:00
PROVIDERS: PCP Internal Medicine; Visit Provider Internal Medicine
DX: R07.2 Precordial pain (principal)
CPT/HCPCS: 78452; 93017; A9500

== ENCOUNTER → 2021-04-19 10:41 | Outpatient (BNVA) | payer MEDICARE, MEDICAID, SELFPAY | PROVIDERS: PCP Internal Medicine; Visit Provider Urology | DX: E29.1 Testicular hypofunction (principal); E11.69 Type 2 diabetes mellitus with other specified complication; N52.1 Erectile dysfunction due to diseases classified elsewhere | CPT/HCPCS: Q3014 ==

== ENCOUNTER 2021-04-22 08:01 | Day surgery (SDC) | payer MEDICARE, MEDICAID, SELFPAY ==
--- NOTE | 2021-04-19 10:28 | HO.ANESPROP2 ---
Documented by User: Sandy Ribera NP 04/19/21 10:31 HPI - Anesthesia Eval Consult details Narrative: 60yo M for Colonoscopy Seen by cardiol 02/2021 for CP. Negative stress 02/2021. Previous echo unremarkable. [facility] Active Problems Active Problems: All Active Problems (Updated 04/16/21 @ 10:56 by Shantal Kirkpatrick, SHAHLA) Hypogonadism in male (Acute) Diabetes mellitus (Acute) Bilateral primary osteoarthritis of knee (Acute) Postlaminectomy syndrome, lumbar (Acute) Chronic pain (Acute) Spondylosis of cervical spine with radiculopathy (Acute) Right knee pain (Acute) Right leg weakness (Acute) Subarachnoid cyst (Acute) Cervical spinal cord compression (Acute) Erectile dysfunction associated with type 2 diabetes mellitus (Acute) Precordial chest pain (Acute) Type 2 diabetes mellitus with unspecified complications (Acute) Abnormal EKG (Acute) Essential hypertension (Acute) Long-term current use of insulin for diabetes mellitus (Acute) DM2 (diabetes mellitus, type 2) (Acute) Overweight (BMI 25.0-29.9) (Acute) Type 2 diabetes mellitus with diabetic polyneuropathy (Acute) Bilateral knee pain (Acute) Constipation (Acute) Allergic rhinitis (Acute) Chronic kidney disease (CKD), stage II (mild) (Acute) Obesity (BMI 30-39.9) (Acute) Neuropathy (Acute) Chronic gastritis without bleeding (Acute) Hypertriglyceridemia (Acute) Benign essential hypertension (Acute) Degenerative arthritis of cervical spine (Acute) Type 2 diabetes mellitus with diabetic chronic kidney disease (Acute) Cough (Acute) Lumbar degenerative disc disease (Acute) Past Medical History Medical History Allergic rhinitis Arthritis Benign essential hypertension Bilateral knee pain Chest pain Chronic gastritis without bleeding Chronic kidney disease (CKD), stage II (mild) Constipation Cough Degenerative arthritis of cervical spine DJD (degenerative joint disease) DM2 (diabetes mellitus, type 2) GERD (gastroesophageal reflux disease) HTN (hypertension) Hypertriglyceridemia Long-term current use of insulin for diabetes mellitus Lumbar degenerative disc disease Neuropathy Obesity (BMI 30-39.9) Overweight (BMI 25.0-29.9) 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 Family History Family History Father Leukemia Mother Alzheimers disease Daughter Overweight Prediabetes Brother Prostate cancer Other Mental health problem Surgical History Surgical History History of colonoscopy History of esophagogastroduodenoscopy (EGD) History of hernia repair History of surgery Social History Social History Household Members: None Housing: House Alcohol intake: current Alcohol intake frequency: holidays/special occasions only Patient Tobacco Use Status: Never used Tobacco Second Hand Smoke Exposure: Yes Use of substances other than those prescribed or required for medical reasons: No Substance Use Type: Crack/Cocaine, Former Substance User, Marijuana and Painkillers Advance Directives: No Advance Directives Information Provided: Yes Recently lost weight without trying: No Nutrition Risks: No Nutritional Risk Poor oral hygiene: No service: Yes Current occupational status: retired and disabled Meds Allergies Allergy/AdvReac Type Severity Reaction Status Date / Time clindamycin [CLINDAMYCIN] Allergy Severe rash Verified 04/19/21 11:54 shellfish derived Allergy Severe ANAPHYLAXIS Verified 04/19/21 11:54 Penicillins Allergy Intermediate hives Verified 04/19/21 11:54 Iodinated Contrast Media Allergy Unknown SWELLING Verified 04/19/21 11:54 [IV CONTRAST] dulaglutide [From Trulicity] AdvReac Severe CP, SOB, Verified 04/19/21 11:54 GI UPSET Home Medications Medication Instructions Recorded Confirmed Last Taken Type omeprazole 40 mg capsule,delayed 40 mg PO DAILY 04/16/21 04/16/21 Unknown History release dulaglutide 0.75 mg/0.5 mL mg SUBCUT 04/19/21 Unknown History subcutaneous pen injector ([employer]) gabapentin 300 mg capsule 300 mg PO TID 04/19/21 Unknown History Exam Exam Date and Time: April 19, 2021 1028 Pertinent Lab Results Pertinent Lab Results: Laboratory Tests 10/15/20 10/15/20 11:11 11:11 WBC 7.5 Hgb 16.2 Hct 47.6 Plt Count 226 Sodium 141 Potassium 4.3 Chloride 106 Carbon Dioxide 27 BUN 24 H Creatinine 1.22 Narrative Narrative: EKG 02/2021 sinus tachycardia, 103/Min; left anterior fascicular block and cannot exclude old anterior infarct; normal [place]/QTc NM cardiolite stress test 02/2021 Impression: ? 1.? Normal myocardial perfusion 2.? Gated LVEF is 64% 3. Transient ischemic dilatation not present ? ? Stress EKG is negative for ischemia Echocardiogram from 2018-LVEF 60-65%, mild diastolic dysfunction but otherwise unremarkable. Assessment and Plan Assessment Anesthesia Assessment: Chart Reviewed Documented by User: Ila Crum MD 04/22/21 08:45 [facility] Past Medical History Medical History Allergic rhinitis Arthritis Benign essential hypertension Bilateral knee pain Chest pain Chronic gastritis without bleeding Chronic kidney disease (CKD), stage II (mild) Constipation Cough Degenerative arthritis of cervical spine DJD (degenerative joint disease) DM2 (diabetes mellitus, type 2) GERD (gastroesophageal reflux disease) HTN (hypertension) Hypertriglyceridemia Long-term current use of insulin for diabetes mellitus Lumbar degenerative disc disease Neuropathy Obesity (BMI 30-39.9) Overweight (BMI 25.0-29.9) 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 Functional capacity: independent ambulation Family History Family History Father Leukemia Mother Alzheimers disease Daughter Overweight Prediabetes Brother Prostate cancer Other Mental health problem Family history of problems with anesthesia: No Surgical History Surgical History History of colonoscopy History of esophagogastroduodenoscopy (EGD) History of hernia repair History of surgery History of Problems with Anesthesia: No Social History Social History Household Members: None Housing: House Alcohol intake: current Alcohol intake frequency: holidays/special occasions only Patient Tobacco Use Status: Never used Tobacco Second Hand Smoke Exposure: Yes Use of substances other than those prescribed or required for medical reasons: No Substance Use Type: Crack/Cocaine, Former Substance User, Marijuana and Painkillers Advance Directives: No Advance Directives Information Provided: Yes Recently lost weight without trying: No Nutrition Risks: No Nutritional Risk Poor oral hygiene: No service: Yes Current occupational status: retired and disabled Meds Allergies Allergy/AdvReac Type Severity Reaction Status Date / Time clindamycin [CLINDAMYCIN] Allergy Severe rash Verified 04/19/21 11:54 shellfish derived Allergy Severe ANAPHYLAXIS Verified 04/19/21 11:54 Penicillins Allergy Intermediate hives Verified 04/19/21 11:54 Iodinated Contrast Media Allergy Unknown SWELLING Verified 04/19/21 11:54 [IV CONTRAST] dulaglutide [From Trulicity] AdvReac Severe CP, SOB, Verified 04/19/21 11:54 GI UPSET Home Medications Medication Instructions Recorded Confirmed Last Taken Type omeprazole 40 mg capsule,delayed 40 mg PO DAILY 04/16/21 04/16/21 Unknown History release dulaglutide 0.75 mg/0.5 mL mg SUBCUT 04/19/21 Unknown History subcutaneous pen injector ([employer]) gabapentin 300 mg capsule 300 mg PO TID 04/19/21 Unknown History Exam Airway Mallampati Class: II TM Dist: >3cm Neck ROM: Full Heart: RRR Lungs: CTA Assessment and Plan Final Anesthetic Review Family History of Problems with Anesthesia: No History of Problems with Anesthesia: No ASA Class: II Final Preanesthetic Review: No Changes in Pt Med Stat, Meds/Allgs Chart Reviewed, Consent Obtained/Reviewed and Anes Risks/Benef Reviewed Patient Risk: Low Procedure Risk: Low Anesthetic Plan Anesthetic Plan: MAC: Disposition: Standard PACU
[2021-04-22 08:16] VITALS: BP 145/92; PULSE 100; RESP 17; TEMP 36.2; O2SAT 97; BMI 31.1
[2021-04-22 08:24] LABS: Glucose, Whole Blood 145 mg/dL (60-115)
[2021-04-22] MEDS: Lactated Ringers 1,000 ML 100 ML IVCONT (08:32)
[2021-04-22 09:31] VITALS: BP 101/71; PULSE 93; RESP 16; TEMP 36.1; O2SAT 96
--- NOTE | 2021-04-22 09:36 | PM.OP ---
Brief Operative Note Date of Service: 04/22/21 Pre-op diagnosis: Screening Post-op diagnosis: other (Polyps) Procedure: Colonoscopy to the cecum with hot snare polypectomy of rectal polyp, and bx/removal of polyps Surgeon: Myron Esposito Anesthesia: MAC Was an Intermediate Teacher used for this Procedure?: No Estimated blood loss (mL): 2.0 Pathology: other (A. Ascending colon polyp B. Polyps at 20cm C. Rectal polyp) Condition: stable Disposition: PACU
[2021-04-22 09:45] VITALS: BP 101/70; PULSE 90; RESP 16; TEMP 36.1; O2SAT 97
--- NOTE | 2021-04-22 14:38 | HO.POSTANES ---
Post Anesthesia Evaluation Post Anesthesia Evaluation Vital Signs: Vital Signs Temp Pulse Resp BP Pulse Ox 04/22/21 09:45 97 F 90 16 101/70 97 04/22/21 09:31 96.9 F 93 16 101/71 96 04/22/21 08:16 97.2 F 100 17 145/92 H 97 Anesthesia: Monitored Mental Status: Awake Pain Control: Satisfactory Nausea/Vomiting: None Hydration: Adequate Anesthesia-Related Issues: No Anes. Related Issues
--- NOTE | 2021-04-22 20:29 | OP_ITS ---
SURGEON: Myron Esposito MD INDICATIONS: The patient presents for evaluation of colorectal cancer screening, personal history of tubular adenoma, and family history of colon cancer. Full consent was obtained from him for this, including risks of bleeding and perforation. PREOPERATIVE DIAGNOSIS: POSTOPERATIVE DIAGNOSIS: Colorectal cancer screening, personal history of tubular adenoma of the colon, family history of colon cancer, colon polyps, diverticulosis, and internal hemorrhoids. PROCEDURE PERFORMED: Colonoscopy to the cecum with biopsy and removal of polyps, and hot snare polypectomy. ESTIMATED BLOOD LOSS: COMPLICATIONS: ANESTHESIA: Preop medication used, monitored anesthesia care. ASSISTANTS: SPECIMENS: PREOPERATIVE DIAGNOSES: Colorectal cancer screening, personal history of tubular adenoma of the colon, family history of colon cancer. DESCRIPTION OF PROCEDURE: The patient was placed in the left lateral decubitus position. The digital rectal exam revealed no abnormalities. The Olympus video pediatric colonoscope was entered into the rectum advanced easily to the cecum. Once in the cecum, I did identify a cecal pouch with appendiceal orifice and a normal-appearing ileocecal valve. There was transillumination of light deep in the right lower quadrant. The entire cecum and ileocecal valve appeared normal. The scope was slowly withdrawn assessing all mucosal surfaces carefully. For the most part, preparation was very good, but there were some areas of some liquid stool, which were irrigated and suctioned away as best as possible. In the ascending colon and at 20 cm where less than 5 mm polyps, which were all biopsied and completely removed with the cold biopsy forceps. There was a mild amount of sigmoid diverticulosis. I did not visualize any sign of colitis nor angiodysplasia. In the distal rectum, seen best in the retroflexed position, was an approximately 8 mm polyp, which was removed with a hot snare polypectomy and recovered by suction. The polypectomy site appeared clean, without any sign of residual polyp nor bleeding. There were small internal hemorrhoids noted as well. The scope was straightened and withdrawn from the patient. He tolerated the procedure well and was returned to the recovery area in stable condition. IMPRESSION: 1. Colon polyps. 2. Diverticulosis. 3. Internal hemorrhoids. PLAN: The results of the pathology will be checked. Given his previous history and family history, I would recommend a repeat colonoscopy in 3 years for further surveillance. He was advised not to use any aspirin and NSAIDs for 1 week. He will otherwise see me on a p.r.n. basis. MD DONNIE Jacobs/REYES / [phone]
== END 2021-04-22 10:24 | disposition home or self-care (01) ==
PROVIDERS: PCP Internal Medicine; Visit Provider Internal Medicine
PROC: 0DJD8ZZ Inspection of Lower Intestinal Tract, Via Natural or Artificial Opening Endoscopic (ICD-10-PCS; CPT 45378; principal; 2021-04-22 09:20)
DX: Z12.11 Encounter for screening for malignant neoplasm of colon (principal); Z86.010 Personal history of colon polyps; Z80.0 Family history of malignant neoplasm of digestive organs; D12.2 Benign neoplasm of ascending colon; D12.5 Benign neoplasm of sigmoid colon; D12.8 Benign neoplasm of rectum; K57.30 Diverticulosis of large intestine without perforation or abscess without bleeding; K64.8 Other hemorrhoids; K21.9 Gastro-esophageal reflux disease without esophagitis; I10 Essential (primary) hypertension; E11.22 Type 2 diabetes mellitus with diabetic chronic kidney disease; E11.40 Type 2 diabetes mellitus with diabetic neuropathy, unspecified; I12.9 Hypertensive chronic kidney disease with stage 1 through stage 4 chronic kidney disease, or unspecified chronic kidney disease; N18.2 Chronic kidney disease, stage 2 (mild); Z79.4 Long term (current) use of insulin; Z79.899 Other long term (current) drug therapy; Z88.0 Allergy status to penicillin; Z88.1 Allergy status to other antibiotic agents; Z91.041 Radiographic dye allergy status
CPT/HCPCS: 45385; 45380; 82947; 88305

== ENCOUNTER 2021-10-16 11:20 | Outpatient (REF) | payer MEDICARE, MEDICAID, SELFPAY ==
[2021-10-16 12:44] LABS: Hematocrit 42.5 % (42.0-52.0); Hemoglobin 14.1 g/dl (14.0-18.0); Mean Corpuscular HGB Conc 33.2 g/dl (31.0-36.0); Mean Corpuscular Volume 90.4 fL (80.0-98.0); Mean Platelet Volume 12.2 fL (9.4-12.4); Platelet Count 271 X10*3/uL (160-400); Red Cell Distribution Width 13.2 % (11.0-16.0); White Blood Count 9.9 X10*3/uL (4.8-10.8)
[2021-10-16 13:24] LABS: PSA,Total (Free>4and<10) 0.31 ng/mL (0.00-4.00)
[2021-10-21 17:47] LABS: Testosterone, Total 416 ng/dL (250-1100)
== END 2021-10-16 11:21 | disposition home or self-care (01) ==
LOC: HO.LAB 11:20
PROVIDERS: PCP Internal Medicine; Visit Provider Urology
DX: Z12.5 Encounter for screening for malignant neoplasm of prostate (principal); E29.1 Testicular hypofunction
CPT/HCPCS: 36415; 84153; 84402; 84403; 85027

== ENCOUNTER → 2021-10-22 15:38 | Outpatient (BNVA) | payer MEDICARE, MEDICAID, SELFPAY | PROVIDERS: Visit Provider Urology | DX: E11.69 Type 2 diabetes mellitus with other specified complication (principal); N52.1 Erectile dysfunction due to diseases classified elsewhere | CPT/HCPCS: 99212 ==

== ENCOUNTER 2021-12-04 15:47 | Outpatient (REF) | payer MEDICARE, MEDICAID, SELFPAY ==
--- NOTE | ~2021-12-04 | XR_ITS ---
EXAMINATION: XR LUMBAR AND CERVICAL SPINE. CLINICAL INFORMATION: Low back pain and neck pain. COMPARISON: None TECHNIQUE: Lumbar spine 5 views. Cervical spine 5 views. FINDINGS: LUMBAR SPINE: There is maintained lumbar lordosis. The vertebral heights and alignment is normal. There is loss of L5/S1 disc height with vacuum disc phenomena. No visible acute fracture, subluxation or listhesis seen on oblique views. The paravertebral soft tissues are normal. The SI joints are symmetrical and normal. CERVICAL SPINE: There is mild straightening of the cervical lordosis. There are 0 profile disc prosthesis at C5-C6 and C6-C7 disc levels. Loss of C4-C5 disc height with mild ventral spondylosis noted. The rest of the disc heights are normal. The craniovertebral junction and the C1-C2 alignment is normal. The neural foramina are patent bilaterally on oblique views. The prevertebral soft tissues are normal. Bilateral mastoid sinuses are well-aerated and clear. XR/XR lumbar spine 4V min IMPRESSION: 1. Degenerative disc changes L5-S1 disc level. No visible acute fracture, subluxation or dislocation seen. 2. Disc prosthesis C5-C6 and C6-C7 disc levels with mild ventral spondylosis. No visible acute fracture or dislocation seen. The neural foramina are patent bilaterally. There are degenerative disc changes C4-C5 disc level with ventral spondylosis.
--- NOTE | ~2021-12-04 | XR_ITS ---
EXAMINATION: XR LUMBAR AND CERVICAL SPINE. CLINICAL INFORMATION: Low back pain and neck pain. COMPARISON: None TECHNIQUE: Lumbar spine 5 views. Cervical spine 5 views. FINDINGS: LUMBAR SPINE: There is maintained lumbar lordosis. The vertebral heights and alignment is normal. There is loss of L5/S1 disc height with vacuum disc phenomena. No visible acute fracture, subluxation or listhesis seen on oblique views. The paravertebral soft tissues are normal. The SI joints are symmetrical and normal. CERVICAL SPINE: There is mild straightening of the cervical lordosis. There are 0 profile disc prosthesis at C5-C6 and C6-C7 disc levels. Loss of C4-C5 disc height with mild ventral spondylosis noted. The rest of the disc heights are normal. The craniovertebral junction and the C1-C2 alignment is normal. The neural foramina are patent bilaterally on oblique views. The prevertebral soft tissues are normal. Bilateral mastoid sinuses are well-aerated and clear. XR/XR cervical spine 4V IMPRESSION: 1. Degenerative disc changes L5-S1 disc level. No visible acute fracture, subluxation or dislocation seen. 2. Disc prosthesis C5-C6 and C6-C7 disc levels with mild ventral spondylosis. No visible acute fracture or dislocation seen. The neural foramina are patent bilaterally. There are degenerative disc changes C4-C5 disc level with ventral spondylosis.
== END 2021-12-04 15:48 | disposition home or self-care (01) ==
LOC: HO.XRAY 15:47
PROVIDERS: Visit Provider Psychiatry & Neurology Neurology
DX: M50.90 Cervical disc disorder, unspecified, unspecified cervical region (principal); M51.9 Unspecified thoracic, thoracolumbar and lumbosacral intervertebral disc disorder
CPT/HCPCS: 72050; 72110

== ENCOUNTER 2022-02-04 14:21 | Outpatient (REF) | payer MEDICARE, MEDICAID, SELFPAY ==
--- NOTE | ~2022-02-04 | MR_ITS ---
EXAMINATION: MR LUMBAR SPINE WITHOUT AND WITH CONTRAST CLINICAL INFORMATION: Lumbar disc disease. Bilateral lower extremity numbness and pain. COMPARISON: Lumbar spine radiographs 12/04/2021. Lumbar spine MRI 01/08/2017. TECHNIQUE: Multiplanar MR imaging of the lumbar spine was performed without and with contrast. A total of 10 mL Gadavist was utilized for this examination. FINDINGS: Alignment is normal. Vertebral heights are preserved. There are mixed degenerative endplate changes at L5-S1. There is loss of intervertebral disc height and T2 signal intensity at L5-S1 related to disc degeneration. Disc desiccation at multiple additional levels. The tip of the conus medullaris is located at L1. No mass effect on the conus. Visualized distal cord signal intensity is normal. At L1-L2 there is a slightly bulging disc. No canal stenosis. No mass effect on the traversing or foraminal nerve roots. At L2-L3 there is a slightly bulging disc. Bilateral facet degenerative change. No canal stenosis. No mass effect on the traversing or foraminal nerve roots. At L3-L4 there is a bulging disc. Bilateral facet degenerative change. Moderate canal stenosis. No mass effect on the traversing or foraminal nerve roots. At L4-L5 there are chronic changes of a right hemilaminectomy. There is moderate to severe residual canal stenosis and moderate compression of both L4 foraminal nerve roots. Eccentric epidural enhancement along the right lateral aspect of the canal and encases a short segment of the right traversing L5 nerve root that may represent a manifestation of perineural fibrosis. There is also residual medial displacement and possible compression of the left traversing L5 nerve roots. At L5-S1 there is a diffusely bulging disc abutting facet degenerative change. No canal stenosis. Symmetric subarticular zone narrowing causes displacement and possible compression of both traversing S1 nerve roots. Mild mass effect on both L5 foraminal nerve roots, greater on the right. Limited visualization of the retroperitoneal anatomy reveals no abnormal finding. Psoas and paraspinal muscle groups are symmetric. MR/MR lumbar spine wo/w con IMPRESSION: There are chronic postoperative changes of a right hemilaminectomy at L4-L5. There is moderate to severe residual canal stenosis at L4-L5. Moderate canal stenosis at L3-L4. There are varying degrees of mass effect on the traversing and foraminal segments of the nerve roots as described above. For instance there is moderate compression of both L4 foraminal nerve roots related to degenerative changes at L4-L5. There is eccentric epidural enhancement along the right lateral aspect of the canal at this level that encases a short segment of the right traversing L5 nerve root that may represent a manifestation of perineural fibrosis. No evidence of recurrent disc herniation.
== END 2022-02-04 14:22 | disposition home or self-care (01) ==
LOC: HO.MRI 14:21
PROVIDERS: Visit Provider Psychiatry & Neurology Neurology
DX: M51.9 Unspecified thoracic, thoracolumbar and lumbosacral intervertebral disc disorder (principal)
CPT/HCPCS: 72158

== ENCOUNTER → 2022-05-29 13:20 | Outpatient (BNVA) | payer MEDICARE, MEDICAID, SELFPAY | PROVIDERS: PCP Internal Medicine; Visit Provider Physician Assistant | DX: Z47.89 Encounter for other orthopedic aftercare (principal); M51.36 Other intervertebral disc degeneration, lumbar region | CPT/HCPCS: 99212 ==

== ENCOUNTER 2022-09-04 13:36 | Outpatient (AMB) | payer MEDICARE, MEDICAID, SELFPAY ==
--- NOTE | 2022-09-04 13:38 | MHC.PC.OV ---
Vital Signs 09/04/22 13:40 Height 5 ft 9 in Weight 175 lb 2 oz BMI 25.9 BP 130/70 Blood Pressure Location Lt brachial Position Sitting Pulse 92 Pulse Source Pulse Oximeter Pulse Oximetry (%) 99 Oxygen Delivery Method Room Air Intake Visit Reasons: Follow up on diabetes Intake Note: Patient is here to follow up on DM. Field Service Manager Required: No Narcotics And Vice Detective: Not Required per policy Accompanied by: Self / Same As Patient Allergies clindamycin [CLINDAMYCIN] Allergy (Severe, Verified 09/04/22 14:33) rash shellfish derived Allergy (Severe, Verified 09/04/22 14:33) ANAPHYLAXIS Penicillins Allergy (Intermediate, Verified 09/04/22 14:33) hives Iodinated Contrast Media [IV CONTRAST] Allergy (Unknown, Verified 09/04/22 14:33) SWELLING dulaglutide [From Trulicity] Adverse Reaction (Severe, Verified 09/04/22 14:33) CP, SOB, GI UPSET Medication List - Last Reconciled 09/04/22 by Lico Francisco MD atorvastatin 10 mg PO BEDTIME famotidine 20 mg PO BID PRN flash glucose scanning reader Continuous glucose monitor flash glucose sensor (FreeStyle Lexii 2 Sensor kit) As directed fluticasone propionate 50 mcg/actuation 2 sprays intranasal DAILY PRN gabapentin 300 mg PO TID hydrochlorothiazide 25 mg PO DAILY ibuprofen 800 mg PO TID PRN insulin aspart U-100 (Novolog FlexPen U-100 Insulin aspart) 10 units (0.1 mL) subcut TID insulin glargine U-300 conc (Toujeo Max U-300 SoloStar) 60 units (0.2 mL) subcut DAILY lancets (FreeStyle Lancets) Three times a day lisinopril 30 mg PO DAILY 90 days metformin 1,000 mg (2 x 500 mg) PO BID 90 days omeprazole 40 mg PO DAILY pen needle, diabetic (Ultra-Thin II (Short) Pen NDL) test 4 x a day pioglitazone 30 mg PO DAILY tadalafil 20 mg PO DAILY 90 days Tobacco use date assessed: 09/04/22 Dental Screening Dental Screen Date: 09/04/22 Did you have a dental visit in the last 12 months?: No Did you have a dental problem in the last 6 months where you did not have access to dental care?: No Was dental information given to patient?: Patient has dentist HPI Follow up on diabetes HPI Details 61-year-old male presents to the office to discuss his chronic medical conditions. Patient continues to have pain in the neck and chest area. Sometimes he feels the pain radiating all the way to the leg. Complains of distention in the abdomen with minimal vomiting. No diarrhea. Not sure the dosage of his medications, especially his insulin dosage. Not checking his blood sugars often. [facility] Medical History (Updated 09/04/22 @ 14:38 by Lico Francisco MD) Allergic rhinitis Arthritis Benign essential hypertension Bilateral knee pain Chest pain Chronic gastritis without bleeding Chronic kidney disease (CKD), stage II (mild) Constipation Cough Degenerative arthritis of cervical spine DJD (degenerative joint disease) DM2 (diabetes mellitus, type 2) GERD (gastroesophageal reflux disease) HTN (hypertension) Hypertriglyceridemia Long-term current use of insulin for diabetes mellitus Lumbar degenerative disc disease Neuropathy Obesity (BMI 30-39.9) Overweight (BMI 25.0-29.9) 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 Surgical History History of colonoscopy History of esophagogastroduodenoscopy (EGD) History of hernia repair History of neck surgery History of surgery Family History Father Leukemia Mother Alzheimers disease Daughter Overweight Prediabetes Brother Prostate cancer Other Mental health problem Social History Household Members: None Housing: House Alcohol intake: current Alcohol intake frequency: holidays/special occasions only Patient Tobacco Use Status: Never used Tobacco e-Cigarette/Vaping Use: Never Used Second Hand Smoke Exposure: Yes Substance Use Type: Crack/Cocaine, Former Substance User, Marijuana and Painkillers service: Yes Current occupational status: retired and disabled Cognitive needs: No Hearing needs: No Vision needs: Yes (glasses) Questionnaire PHQ-9 Over the last 2 weeks, how often have you been bothered by any of the following problems? 1. Little interest or pleasure in doing things: not at all 2. Feeling down, depressed, or hopeless: not at all 3. Trouble falling or staying asleep, or sleeping too much: not at all 4. Feeling tired or having little energy: not at all 5. Poor appetite or overeating: not at all 6. Feeling bad about yourself - or that you are a failure or have let yourself or your family down: not at all 7. Trouble concentrating on things, such as reading the newspaper or watching television: not at all 8. Moving or speaking so slowly that other people could have noticed. Or the opposite - being so fidgety or restless that you have been moving around a lot more than usual: not at all 9. Thoughts that you would be better off or of hurting yourself in some way: not at all Total score: 0 Depression Screening Interpretation: Negative Source: Developed by Drs. Myron Jiang, Brinda Stock, Jimmie Alfaro and colleagues, with an educational briana from [employer]. Thrive Questionnaire Date Thrive assessed: 09/04/22 I am a: Patient What is your living situation today?: I have a steady place to live Within the past 12 months, did the food you bought not last and you didn't have the money to get more?: Never true Within the past 12 months, did you worry whether your food would run out before you got money to buy more?: Never true Do you have trouble paying for medicines?: No Do you have trouble getting transportation to medical appointments?: No Do you have trouble paying your heating and electricity bill?: No Do you have trouble taking care of your child, family member or friend?: No Do you have trouble with day-to-day activities such as bathing, preparing meals, shopping, managing finances, etc.?: No Are you currently unemployed and looking for a job?: No Are you interested in more education?: No Currently or been in a relationship where the following occur: no concerns reported AUDIT C Alcohol Use Questionnaire (AUDIT-C) 1. How often do you have a drink containing alcohol?: Monthly or less 2. How many drinks containing alcohol do you have on a typical day when you are drinking?: 1 or 2 Total Score: 1 BASHIR-7 AMB Questionnaire BASHIR-7 Date BASHIR - 7 assessed: 09/04/22 Feeling nervous, anxious, or on edge: 0 = Not at all Not being able to stop or control worryin = Not at all Worrying too much about different things: 0 = Not at all Trouble relaxin = Not at all Being so restless that it is hard to sit still: 0 = Not at all Becoming easily annoyed or irritable: 0 = Not at all Feeling afraid as if something awful might happen: 0 = Not at all Total BASHIR-7 score (0-4 normal; 5-9 mild; 10-14 moderate; 15-21 severe): 0 Source: Developed by Drs. Myron Jiang, Brinda Stock, Jimmie Alfaro and colleagues, with an educational briana from [employer]. Physical exam (Primary Care) Vital Signs: Last Vital Signs Pulse 92 09/04/22 13:40 BP 130/70 09/04/22 13:40 Pulse Ox 99 09/04/22 13:40 Oxygen Delivery Method Room Air 09/04/22 13:40 BMI result Body Mass Index 25.9 Tobacco/Smoking Status: Tobacco use Status Tobacco use date assessed 09/04/22 09/04/22 13:51 Patient Tobacco Use Status Never used Tobacco 09/04/22 13:51 e-Cigarette/Vaping Use Never Used 09/04/22 13:51 PHQ-9: PHQ-9 Score PHQ-9: Total score 0 09/04/22 13:51 Depression Screening Interpretation: Negative Thrive Assessment: Date of Thrive Assessment Date Thrive assessed 09/04/22 09/04/22 13:51 Currently or been in a relationship where the following occur: no concerns reported Const General: cooperative, healthy appearing and comfortable [facility] Head: Yes normal to inspection and Yes atraumatic Eyes General: appearance normal, both eyes and all related structures Neck Neck: Yes normal visual inspection and Yes full ROM Chest Chest palpation & inspection: normal inspection of the chest Resp Effort & Inspection: normal respiratory effort Auscultation: clear to auscultation bilaterally Cardio Jugular venous distension: no JVD Palpation: normal PMI Rate: regular rate Heart sounds: S1 normal heart sound present and S2 normal heart sound present GI Palpation (GI): Soft to palpation and No hepatosplenomegaly present Extrem General: Yes normal to inspection and Yes full ROM Results AMB Hemoglobin A1c AMB Hemoglobin A1c 10.8 % Last Edit by JOYCE rGeene on 09/04/22 13:51 Results Reviewed Results Reviewed: Laboratory Last Values Hgb A1c (Clinic) 10.8 % (4.0-6.0) H 09/04/22 13:38 Assessment and Plan Assessment & Plan (1) Diabetes mellitus: Code(s): E11.9 - Type 2 diabetes mellitus without complications Plan: Patient has uncontrolled blood sugars. He does not seem to understand the various complications of diabetes and uncontrolled blood sugars. I have suggested that he come back in 2 weeks with all his medications and a family member. Spoke at length on the phone with his ex and explained the disease. I suspect patient is also using street drugs. Orders: Orders AMB Hemoglobin A1c Today E11.9 - Type 2 diabetes mellitus without complications Medications: Refilled fluticasone propionate 50 mcg/actuation 2 sprays intranasal DAILY PRN 48 mL 1RF for allergies J30.9 - Allergic rhinitis, unspecified Coding Level of Care Code Est Pt Level 4 (65217) Diagnoses Diabetes mellitus E11.9
[2022-09-04 13:40] VITALS: BP 130/70; PULSE 92; O2SAT 99; BMI 25.9
== END 2022-09-04 14:27 | disposition home or self-care (01) ==
PROVIDERS: PCP Internal Medicine; Visit Provider Internal Medicine
DX: E11.9 Type 2 diabetes mellitus without complications (principal)
CPT/HCPCS: 83036; 99214

== ENCOUNTER 2022-09-05 12:59 | Outpatient (REF) | payer MEDICARE, MEDICAID, SELFPAY ==
[2022-09-05 14:29] LABS: Hematocrit 43.4 % (42.0-52.0); Hemoglobin 14.6 g/dl (14.0-18.0); Mean Corpuscular HGB Conc 33.6 g/dl (31.0-36.0); Mean Corpuscular Hemoglobin 29.6 pg (27.0-33.0); Mean Corpuscular Volume 87.9 fL (80.0-98.0); Mean Platelet Volume 12.8 fL (9.4-12.4); Platelet Count 242 X10*3/uL (160-400); Red Blood Count 4.94 X10*6/uL (4.60-5.80); Red Cell Distribution Width 12.2 % (11.0-16.0); White Blood Count 13.4 X10*3/uL (4.8-10.8)
[2022-09-05 14:33] LABS: Estimated Average Glucose 275 mg/dL; Hemoglobin A1c % 11.2 %
[2022-09-05 15:28] LABS: Alanine Aminotransferase 17 U/L (0-40); Albumin Level 4.3 g/dL (3.5-5.0); Alkaline Phosphatase 66 U/L (39-117); Anion Gap 16 (12-20); Aspartate Amino Transferase 21 U/L (5-37); Blood Urea Nitrogen 45 mg/dL (9-16); Calcium 10.6 mg/dL (8.4-10.2); Carbon Dioxide 27 mmol/L (22-29); Chloride 97 mmol/L (96-108); Cholesterol 141 mg/dL; Estimated Glomerular Filt Rate 36; Glucose Random 231 mg/dL (60-115); HDL Cholesterol 34 mg/dL; LDL Cholesterol Calculated 55 mg/dl; Potassium 4.6 mmol/L (3.3-5.1); Sodium 135 mmol/L (135-145); Total Protein 7.4 g/dL (6.5-8.0); Triglycerides 264 mg/dL
[2022-09-05 15:45] LABS: Creatinine Urine 204.43 mg/dL; Microalbum/Creatinine Ratio Ur 31.3 ug/mg cr
[2022-09-05 15:53] LABS: Thyroid Stimulating Hormone 1.47 uIU/mL (0.32-4.0)
[2022-09-05 16:32] LABS: Bilirubin Direct 0.1 mg/dL (0.0-0.5); Bilirubin Total 0.4 mg/dL (0.0-1.0)
== END 2022-09-05 13:00 | disposition home or self-care (01) ==
LOC: HO.LAB 12:59
PROVIDERS: PCP Internal Medicine; Visit Provider Internal Medicine
DX: E11.9 Type 2 diabetes mellitus without complications (principal); M47.22 Other spondylosis with radiculopathy, cervical region
CPT/HCPCS: 36415; 80048; 80061; 80076; 82043; 83036; 84443; 85027

== ENCOUNTER 2022-10-09 08:52 | Outpatient (AMB) | payer MEDICARE, MEDICAID, SELFPAY ==
--- NOTE | 2022-10-09 09:00 | A.OFFPC_ITS ---
Vital Signs 10/09/22 09:01 Height 5 ft 9 in Weight 186 lb 6 oz BMI 27.5 BP 132/78 Blood Pressure Location Lt brachial Position Sitting Pulse 89 Pulse Source Pulse Oximeter Pulse Oximetry (%) 100 Oxygen Delivery Method Room Air Intake Visit Reasons: worsening kidney function Intake Note: Patient is here to follow up on worsening kidney function. Netbackup Administrator Required: No Lead Quality Control Technician: Not Required per policy Accompanied by: Self / Same As Patient Allergies clindamycin [CLINDAMYCIN] Allergy (Severe, Verified 10/09/22 09:53) rash shellfish derived Allergy (Severe, Verified 10/09/22 09:53) ANAPHYLAXIS Penicillins Allergy (Intermediate, Verified 10/09/22 09:53) hives Iodinated Contrast Media [IV CONTRAST] Allergy (Unknown, Verified 10/09/22 09:53) SWELLING dulaglutide [From Trulicity] Adverse Reaction (Severe, Verified 10/09/22 09:53) CP, SOB, GI UPSET Medication List - Last Reconciled 10/09/22 by Lico Francisco MD atorvastatin 10 mg PO BEDTIME blood sugar diagnostic (FreeStyle Lite Strips) test 3 times per day famotidine 20 mg PO BID PRN flash glucose scanning reader Continuous glucose monitor flash glucose sensor (FreeStyle Lexii 2 Sensor kit) As directed fluticasone propionate 50 mcg/actuation 2 sprays intranasal DAILY PRN gabapentin 300 mg PO TID hydrochlorothiazide 25 mg PO DAILY ibuprofen 800 mg PO TID PRN insulin aspart U-100 (Novolog FlexPen U-100 Insulin aspart) 10 units (0.1 mL) subcut TID insulin glargine U-300 conc (Toujeo Max U-300 SoloStar) 60 units (0.2 mL) subcut DAILY lancets (FreeStyle Lancets) Three times a day lisinopril 30 mg PO DAILY 90 days metformin 1,000 mg (2 x 500 mg) PO BID 90 days omeprazole 40 mg PO DAILY pen needle, diabetic (Ultra-Thin II (Short) Pen NDL) test 4 x a day pioglitazone 30 mg PO DAILY tadalafil 20 mg PO DAILY 90 days Tobacco use date assessed: 09/04/22 HPI worsening kidney function HPI Details 61-year-old male presents to the office to discuss his chronic medical conditions. At my suggestion, I invited his ex- who is very involved in his medical care into the examination room. Patient reports that he has been compliant with his insulin over the last month. His A1c was greater than 10 when it was checked last. Now he is reporting blood sugars in the 120-130 range. [facility] Medical History Allergic rhinitis Arthritis Benign essential hypertension Bilateral knee pain Chest pain Chronic gastritis without bleeding Chronic kidney disease (CKD), stage II (mild) Constipation Cough Degenerative arthritis of cervical spine DJD (degenerative joint disease) DM2 (diabetes mellitus, type 2) GERD (gastroesophageal reflux disease) HTN (hypertension) Hypertriglyceridemia Long-term current use of insulin for diabetes mellitus Lumbar degenerative disc disease Neuropathy Obesity (BMI 30-39.9) Overweight (BMI 25.0-29.9) 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 Surgical History History of colonoscopy History of esophagogastroduodenoscopy (EGD) History of hernia repair History of neck surgery History of surgery Family History Father Leukemia Mother Alzheimers disease Daughter Overweight Prediabetes Brother Prostate cancer Other Mental health problem Social History Household Members: None Housing: House Alcohol intake: current Alcohol intake frequency: holidays/special occasions only Patient Tobacco Use Status: Never used Tobacco e-Cigarette/Vaping Use: Never Used Second Hand Smoke Exposure: Yes Substance Use Type: Crack/Cocaine, Former Substance User, Marijuana and Painkillers service: Yes Current occupational status: retired and disabled Cognitive needs: No Hearing needs: No Vision needs: Yes (glasses) Questionnaire Thrive Questionnaire Date Thrive assessed: 09/04/22 BASHIR-7 AMB Questionnaire BASHIR-7 Date BASHIR - 7 assessed: 09/04/22 Source: Developed by Drs. Myron Jiang, Brinda Stock, Jimmie Alfaro and colleagues, with an educational briana from [employer]. Physical exam (Primary Care) Vital Signs: Last Vital Signs Pulse 89 10/09/22 09:01 BP 132/78 10/09/22 09:01 Pulse Ox 100 10/09/22 09:01 Oxygen Delivery Method Room Air 10/09/22 09:01 Care Plan Goal for BP management: Blood pressure is in range. BMI result Body Mass Index 27.5 Tobacco/Smoking Status: Tobacco use Status Tobacco use date assessed 09/04/22 10/09/22 09:04 Patient Tobacco Use Status Never used Tobacco 10/09/22 09:04 e-Cigarette/Vaping Use Never Used 10/09/22 09:04 Thrive Assessment: Date of Thrive Assessment Date Thrive assessed 09/04/22 10/09/22 09:04 Const General: cooperative, healthy appearing and comfortable HENMT Head: Yes normal to inspection and Yes atraumatic Eyes General: appearance normal, both eyes and all related structures Neck Neck: Yes normal visual inspection and Yes full ROM Chest Chest palpation & inspection: normal inspection of the chest and crepitus Resp Effort & Inspection: normal respiratory effort Auscultation: clear to auscultation bilaterally Cardio Jugular venous distension: no JVD Palpation: normal PMI Rate: regular rate Heart sounds: S1 normal heart sound present and S2 normal heart sound present GI Palpation (GI): Soft to palpation and No hepatosplenomegaly present Extrem General: Yes normal to inspection and Yes full ROM Results AMB Hemoglobin A1c AMB Hemoglobin A1c 8.5 % Last Edit by JOYCE Greene on 10/09/22 09:45 Results Reviewed Results Reviewed: Laboratory Last Values Hgb A1c (Clinic) 8.5 % (4.0-6.0) H 10/09/22 09:37 Assessment and Plan Assessment & Plan (1) Type 2 diabetes mellitus with diabetic chronic kidney disease: Code(s): E11.22 - Type 2 diabetes mellitus with diabetic chronic kidney disease Qualifiers: Diabetes mellitus terminal operations manager insulin use: with assisted use Chronic kidney disease stage: stage 2 (mild) Qualified Code(s): E11.22 - Type 2 diabetes mellitus with diabetic chronic kidney disease; N18.2 - Chronic kidney disease, stage 2 (mild); Z79.4 - assisted (current) use of insulin Plan: Repeat A1c is 8.2. Metformin and pioglitazone have been put on hold. I have increased the insulin to 70 units a day on the long-acting one. Short-acting insulin has been increased to 15 units 3 times of day. Patient was advised to return in 2 weeks with his blood sugar monitor. 20 minutes spent on counseling the importance of adequate diet and exercise. (2) Benign essential hypertension: Code(s): I10 - Essential (primary) hypertension Plan: Blood pressure is in range. Orders: Orders AMB Hemoglobin A1c Today E11.8 - Type 2 diabetes mellitus with unspecified complications, E11.9 - Type 2 diabetes mellitus without complications Coding Level of Care Code Est Pt Level 4 (79497) Diagnoses Type 2 diabetes mellitus with diabetic chronic kidney disease E11.22; N18.2; Z79.4 Diabetes mellitus assisted insulin use: with terminal operations manager use Chronic kidney disease stage: stage 2 (mild) Benign essential hypertension I10
[2022-10-09 09:01] VITALS: BP 132/78; PULSE 89; O2SAT 100; BMI 27.5
== END 2022-10-09 09:50 | disposition home or self-care (01) ==
PROVIDERS: PCP Internal Medicine; Visit Provider Internal Medicine
DX: E11.22 Type 2 diabetes mellitus with diabetic chronic kidney disease (principal); N18.2 Chronic kidney disease, stage 2 (mild); Z79.4 Long term (current) use of insulin; I12.9 Hypertensive chronic kidney disease with stage 1 through stage 4 chronic kidney disease, or unspecified chronic kidney disease
CPT/HCPCS: 83036; 99214

== ENCOUNTER 2022-10-23 08:54 | Outpatient (AMB) | payer MEDICARE, MEDICAID, SELFPAY ==
--- NOTE | 2022-10-23 09:15 | A.OFFPC_ITS ---
Vital Signs 10/23/22 09:16 Height 5 ft 9 in Weight 188 lb 8 oz BMI 27.8 BP 128/72 Blood Pressure Location Lt brachial Position Sitting Pulse 80 Pulse Source Pulse Oximeter Pulse Oximetry (%) 99 Oxygen Delivery Method Room Air Intake Visit Reasons: 2 week f/u Intake Note: Patient is here to follow up on DM. Correspondence Specialist Required: No Ham Boner: Not Required per policy Accompanied by: Self / Same As Patient Allergies clindamycin [CLINDAMYCIN] Allergy (Severe, Verified 10/23/22 10:19) rash shellfish derived Allergy (Severe, Verified 10/23/22 10:19) ANAPHYLAXIS Penicillins Allergy (Intermediate, Verified 10/23/22 10:19) hives Iodinated Contrast Media [IV CONTRAST] Allergy (Unknown, Verified 10/23/22 10:19) SWELLING dulaglutide [From Trulicity] Adverse Reaction (Severe, Verified 10/23/22 10:19) CP, SOB, GI UPSET Medication List - Last Reconciled 10/23/22 by Lico Francisco MD atorvastatin 10 mg PO BEDTIME blood sugar diagnostic (FreeStyle Lite Strips) test 3 times per day famotidine 20 mg PO BID PRN flash glucose scanning reader Continuous glucose monitor flash glucose sensor (FreeStyle Lexii 2 Sensor kit) As directed fluticasone propionate 50 mcg/actuation 2 sprays intranasal DAILY PRN gabapentin 300 mg PO TID hydrochlorothiazide 25 mg PO DAILY ibuprofen 800 mg PO TID PRN insulin aspart U-100 (Novolog FlexPen U-100 Insulin aspart) 15 units (0.15 mL) subcut TID insulin glargine U-300 conc (Toujeo Max U-300 SoloStar) 70 units (0.2333 mL) subcut DAILY lancets (FreeStyle Lancets) Three times a day lisinopril 30 mg PO DAILY 90 days metformin 1,000 mg (2 x 500 mg) PO BID 90 days omeprazole 40 mg PO DAILY pen needle, diabetic (Ultra-Thin II (Short) Pen NDL) test 4 x a day pioglitazone 30 mg PO DAILY tadalafil 20 mg PO DAILY 90 days Tobacco use date assessed: 09/04/22 HPI 2 week f/u HPI Details 61-year-old male presents to the office for a follow-up visit. Since last office visit he has been very compliant with his medications. Returns with his blood sugar machine. His blood sugars have been consistently less than 200. He has stopped the metformin and pioglitazone. [facility] Medical History Allergic rhinitis Arthritis Benign essential hypertension Bilateral knee pain Chest pain Chronic gastritis without bleeding Chronic kidney disease (CKD), stage II (mild) Constipation Cough Degenerative arthritis of cervical spine DJD (degenerative joint disease) DM2 (diabetes mellitus, type 2) GERD (gastroesophageal reflux disease) HTN (hypertension) Hypertriglyceridemia Long-term current use of insulin for diabetes mellitus Lumbar degenerative disc disease Neuropathy Obesity (BMI 30-39.9) Overweight (BMI 25.0-29.9) 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 Surgical History History of colonoscopy History of esophagogastroduodenoscopy (EGD) History of hernia repair History of neck surgery History of surgery Family History Father Leukemia Mother Alzheimers disease Daughter Overweight Prediabetes Brother Prostate cancer Other Mental health problem Social History Household Members: None Housing: House Alcohol intake: current Alcohol intake frequency: holidays/special occasions only Patient Tobacco Use Status: Never used Tobacco e-Cigarette/Vaping Use: Never Used Second Hand Smoke Exposure: Yes Substance Use Type: Crack/Cocaine, Former Substance User, Marijuana and Painkillers service: Yes Current occupational status: retired and disabled Cognitive needs: No Hearing needs: No Vision needs: Yes (glasses) Questionnaire Thrive Questionnaire Date Thrive assessed: 09/04/22 BASHIR-7 AMB Questionnaire BASHIR-7 Date BASHIR - 7 assessed: 09/04/22 Source: Developed by Drs. Myron Jiang, Brinda Stock, Jimmie Alfaro and colleagues, with an educational briana from [employer]. Physical exam (Primary Care) Vital Signs: Last Vital Signs Pulse 80 10/23/22 09:16 BP 128/72 10/23/22 09:16 Pulse Ox 99 10/23/22 09:16 Oxygen Delivery Method Room Air 10/23/22 09:16 BMI result Body Mass Index 27.8 Tobacco/Smoking Status: Tobacco use Status Tobacco use date assessed 09/04/22 10/23/22 09:30 Patient Tobacco Use Status Never used Tobacco 10/23/22 09:30 e-Cigarette/Vaping Use Never Used 10/23/22 09:30 Thrive Assessment: Date of Thrive Assessment Date Thrive assessed 09/04/22 10/23/22 09:30 Const General: cooperative, healthy appearing and comfortable HENNJ Head: Yes normal to inspection and Yes atraumatic Eyes General: appearance normal, both eyes and all related structures Neck Neck: Yes normal visual inspection and Yes full ROM Chest Chest palpation & inspection: normal inspection of the chest Resp Effort & Inspection: normal respiratory effort Auscultation: clear to auscultation bilaterally Cardio Jugular venous distension: no JVD Palpation: normal PMI Rate: regular rate Heart sounds: S1 normal heart sound present and S2 normal heart sound present GI Palpation (GI): Soft to palpation and No hepatosplenomegaly present Extrem General: Yes normal to inspection and Yes full ROM Assessment and Plan Assessment & Plan (1) Type 2 diabetes mellitus with unspecified complications: Code(s): E11.8 - Type 2 diabetes mellitus with unspecified complications Plan: Continue medications at same dosage. Patient was advised to return in a month. A new glucometer will be prescribed. (2) Chronic kidney disease (CKD), stage II (mild): Code(s): N18.2 - Chronic kidney disease, stage 2 (mild) Plan: A nephrology consult has been requested. Orders: Referrals Nephrology Referral E11.8 - Type 2 diabetes mellitus with unspecified complications, N18.2 - Chronic kidney disease, stage 2 (mild) Coding Level of Care Code Est Pt Level 3 (22968) Diagnoses Type 2 diabetes mellitus with unspecified complications E11.8 Chronic kidney disease (CKD), stage II (mild) N18.2
[2022-10-23 09:16] VITALS: BP 128/72; PULSE 80; O2SAT 99; BMI 27.8
== END 2022-10-23 10:07 | disposition home or self-care (01) ==
PROVIDERS: PCP Internal Medicine; Visit Provider Internal Medicine
DX: E11.8 Type 2 diabetes mellitus with unspecified complications (principal); N18.2 Chronic kidney disease, stage 2 (mild)
CPT/HCPCS: 99213

== ENCOUNTER 2022-12-11 09:25 | Outpatient (AMB) | payer MEDICARE, MEDICAID, SELFPAY ==
--- NOTE | 2022-12-11 09:37 | A.OFFPC_ITS ---
Vital Signs 12/11/22 09:38 Height 5 ft 9 in Weight 187 lb 8 oz BMI 27.7 BP 120/70 Blood Pressure Location Lt brachial Position Sitting Pulse 91 Pulse Source Pulse Oximeter Pulse Oximetry (%) 99 Oxygen Delivery Method Room Air Intake Visit Reasons: Annual Exam Intake Note: Patient is here today for a physical. Retail Sales Representative Required: No Senior Systems Architect: Not Required per policy Accompanied by: Self / Same As Patient Allergies clindamycin [CLINDAMYCIN] Allergy (Severe, Verified 12/11/22 10:16) rash shellfish derived Allergy (Severe, Verified 12/11/22 10:16) ANAPHYLAXIS Penicillins Allergy (Intermediate, Verified 12/11/22 10:16) hives Iodinated Contrast Media [IV CONTRAST] Allergy (Unknown, Verified 12/11/22 10:16) SWELLING dulaglutide [[facility]] Adverse Reaction (Severe, Verified 12/11/22 10:16) CP, SOB, GI UPSET Medication List - Last Reconciled 12/11/22 by Lico Francisco MD amlodipine 10 mg PO DAILY atorvastatin 10 mg PO BEDTIME blood sugar diagnostic (FreeStyle Lite Strips) test 3 times per day blood-glucose meter (FreeStyle Lite Meter kit) test 3 times per day dapagliflozin propanediol (Farxiga) 10 mg PO DAILY famotidine 20 mg PO BID PRN flash glucose scanning reader Continuous glucose monitor flash glucose sensor (FreeStyle Lexii 2 Sensor kit) As directed fluticasone propionate 50 mcg/actuation 2 sprays intranasal DAILY PRN gabapentin 300 mg PO TID hydrochlorothiazide 25 mg PO DAILY ibuprofen 800 mg PO TID PRN insulin aspart U-100 (Novolog FlexPen U-100 Insulin aspart) 15 units (0.15 mL) subcut TID insulin glargine U-300 conc (Toujeo Max U-300 SoloStar) 70 units (0.2333 mL) subcut DAILY lancets (FreeStyle Lancets) Three times a day lisinopril 30 mg PO DAILY 90 days omeprazole 40 mg PO DAILY pen needle, diabetic (Ultra-Thin II (Short) Pen NDL) test 4 x a day tadalafil 20 mg PO DAILY 90 days varicella-zoster gE-AS01B (PF) 50 mcg/0.5 mL (Shingrix (PF)) 0.5 mL IM ONCE Tobacco use date assessed: 12/11/22 HPI Annual Exam HPI Details 62-year-old male presents to the office for a follow-up visit. Since last office visit patient has seen the building operator who is monitoring his serum creatinine. He is scheduled for an ultrasound today. Amlodipine and Farxiga have been added to his medications. He is checking his blood sugars at home. Did not bring the machine for my review. He reports that his sugars are less than 200 at all times. He is able to function and do all activities of daily living patient is requesting the flu and shingles vaccination. [facility] Medical History GERD (gastroesophageal reflux disease) DJD (degenerative joint disease) Arthritis Chest pain HTN (hypertension) Long-term current use of insulin for diabetes mellitus DM2 (diabetes mellitus, type 2) Overweight (BMI 25.0-29.9) Type 2 diabetes mellitus with diabetic polyneuropathy Bilateral knee pain Constipation Allergic rhinitis Chronic kidney disease (CKD), stage II (mild) Obesity (BMI 30-39.9) Neuropathy Chronic gastritis without bleeding Hypertriglyceridemia Benign essential hypertension 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 Cough Lumbar degenerative disc disease Surgical History History of neck surgery History of surgery History of colonoscopy History of esophagogastroduodenoscopy (EGD) History of hernia repair Family History Father Leukemia Mother Alzheimers disease Daughter Overweight Prediabetes Brother Prostate cancer Other Mental health problem Social History Household Members: None Housing: House Alcohol intake: current Alcohol intake frequency: holidays/special occasions only Patient Tobacco Use Status: Never used Tobacco e-Cigarette/Vaping Use: Never Used Second Hand Smoke Exposure: Yes Substance Use Type: Crack/Cocaine, Former Substance User, Marijuana and Painkillers service: Yes Current occupational status: retired and disabled Cognitive needs: No Hearing needs: No Vision needs: Yes (glasses) Questionnaire Thrive Questionnaire Date Thrive assessed: 09/04/22 BASHIR-7 AMB Questionnaire BASHIR-7 Date BASHIR - 7 assessed: 09/04/22 Source: Developed by Drs. Myron Jiang, Brinda Stock, Jimmie Alfaro and colleagues, with an educational briana from [employer]. Physical exam (Primary Care) Vital Signs: Last Vital Signs Pulse 91 12/11/22 09:38 BP 120/70 12/11/22 09:38 Pulse Ox 99 12/11/22 09:38 Oxygen Delivery Method Room Air 12/11/22 09:38 BMI result Body Mass Index 27.7 Tobacco/Smoking Status: Tobacco use Status Tobacco use date assessed 12/11/22 12/11/22 09:46 Patient Tobacco Use Status Never used Tobacco 12/11/22 09:46 e-Cigarette/Vaping Use Never Used 12/11/22 09:46 Thrive Assessment: Date of Thrive Assessment Date Thrive assessed 09/04/22 12/11/22 09:46 Const General: cooperative and healthy appearing Nutritional Appearance: well nourished Orientation/consciousness: patient oriented x3 Limitations: no limitations HENMT Head: Yes normal to inspection Eyes General: appearance normal, both eyes and all related structures Neck Neck: Yes normal visual inspection Chest Chest palpation & inspection: normal palpation of entire chest wall Resp Effort & Inspection: normal respiratory effort Neuro General: patient oriented x3 Office Procedures Flu Questionnaire Does the patient have a severe egg allergy?: No Does the patient have severe life threatening allergies?: No Does the patient have a fever or illness today?: No Has the patient ever had Guillain-[place] Syndrome?: No Has the patient ever had any past reaction to a flu shot?: No Results AMB Hemoglobin A1c AMB Hemoglobin A1c 6.8 % Last Edit by JOYCE Greene on 12/11/22 10:21 Immunizations flu vacc [id number] 6mos up(PF) 60 mcg(15 mcgx4)/0.5 mL IM syringe Performing Provider: Lico Francisco MD [facility] [place] Administered by: JOYCE Berger on 12/11/22 10:17 Dose Route Admin Location Dispensed Lot Number Expiration Date NDC Occupational Safety And Health Manager 0.5 mL IM Left Deltoid 0.5 mL [id number] 08/23/23 19066-710-33 [employer] VIS Given Date VIS Provided VIS Publication Date 12/11/22 Single Vaccine 20 Eligibility Eligibility Date Funding Source Not [facility] Eligible 12/11/22 Private Results Reviewed Results Reviewed: Laboratory Last Values Hgb A1c (Clinic) 6.8 % (4.0-6.0) H 12/11/22 09:54 Assessment and Plan Assessment & Plan (1) Diabetes mellitus: Code(s): E11.9 - Type 2 diabetes mellitus without complications Plan: Shingles vaccine ordered and flu vaccine administered. Patient saw the building operator and I agree that he continue his medications of amlodipine and Farxiga. Patient seems to be very forgetful on the names of medications. I encouraged him to bring his medication list along with the glucometer so I can review his readings. Patient verbally understanding. (2) Essential hypertension: Code(s): I10 - Essential (primary) hypertension (3) Chronic kidney disease (CKD), stage II (mild): Code(s): N18.2 - Chronic kidney disease, stage 2 (mild) Orders: Orders Influenza [id number] Immunization Today Z23 - Encounter for immunization AMB Hemoglobin A1c Today E11.8 - Type 2 diabetes mellitus with unspecified complications, E11.9 - Type 2 diabetes mellitus without complications Medications: New varicella-zoster gE-AS01B (PF) 50 mcg/0.5 mL (Shingrix (PF)) 0.5 mL IM ONCE 1 ea 0RF Coding Level of Care Code Est Pt Level 4 (19580) Diagnoses Diabetes mellitus E11.9 Essential hypertension I10 Chronic kidney disease (CKD), stage II (mild) N18.2
[2022-12-11 09:38] VITALS: BP 120/70; PULSE 91; O2SAT 99; BMI 27.7
== END 2022-12-11 10:19 | disposition home or self-care (01) ==
PROVIDERS: PCP Internal Medicine; Visit Provider Internal Medicine
DX: I12.9 Hypertensive chronic kidney disease with stage 1 through stage 4 chronic kidney disease, or unspecified chronic kidney disease (principal); N18.2 Chronic kidney disease, stage 2 (mild); E11.22 Type 2 diabetes mellitus with diabetic chronic kidney disease; Z23 Encounter for immunization
CPT/HCPCS: 83036; 90471; 90686; 99214

== ENCOUNTER 2022-12-14 02:40 | Emergency (ER) | payer MEDICARE, MEDICAID, SELFPAY ==
--- NOTE | ~2022-12-14 | US_ITS ---
EXAMINATION: US VENOUS ULTRASOUND WITH DOPPLER LOWER EXTREMITY, RIGHT CLINICAL INFORMATION: Calf pain COMPARISON: None available. TECHNIQUE: Ultrasound of the deep veins is performed from the hip to the calf with compression sonography and color and pulse Doppler assessment. Spectral analysis with color-flow imaging is performed. FINDINGS: There is normal venous compression and respiratory variation and augmented flow. The visualized common femoral vein, superficial femoral vein, profunda femoral vein, popliteal vein, and the trifurcation region shows no evidence of deep venous thrombosis. There is no significant popliteal fossa cyst. Contralateral common femoral vein is patent. If the patient's symptoms persist, followup ultrasound in 5 days 7 days might be of value to exclude proximal propagation from a non-visualized calf vein. US/US venous duplex LE RT IMPRESSION: No DVT demonstrated in the right lower extremity.
--- NOTE | ~2022-12-14 | XR_ITS ---
EXAMINATION: XR KNEE, RIGHT CLINICAL INFORMATION: Pain status post injury COMPARISON: Right knee radiograph from 10/27/2019 TECHNIQUE: Four views of the right knee. FINDINGS: No acute visible fracture or dislocation. Mild multicompartment arthritic changes. Slight spurring of the tibial spines. Redemonstration of enthesopathy changes along the inferior margin of the patella at the patellar tendon origination site. Enthesopathy at the quadriceps tendon insertion site. Joint spaces and alignment are otherwise maintained. Trace knee joint effusion. Soft tissues are unremarkable. XR/XR knee RT 4V IMPRESSION: 1. No acute visible fracture or dislocation. 2. Mild multicompartment arthritic changes. 3. Redemonstration of enthesopathy changes along the inferior margin of the patella at the patellar tendon origination site.
[2022-12-14 02:43] VITALS: BP 160/79; PULSE 93; RESP 18; TEMP 36.7; O2SAT 100; BMI 28.4
[2022-12-14 06:41] VITALS: BP 138/81; PULSE 91; RESP 17; O2SAT 99
--- NOTE | 2022-12-14 08:07 | ED.EXTPRO ---
HPI - Extremity Problem General Chief complaint: Extremity Injury, Lower Stated complaint: kidney issues, torn meniscus radiates pain Time Seen by Provider: 12/14/22 07:53 Source: patient Mode of arrival: ambulatory Limitations: no limitations History of Present Illness HPI Narrative: 62 yo male with history of DM, CKD, chronic pain with spondylosis of cervical spine s/p surgery, s/p lumbar surgery as well who presents to the ER for evaluation of acute on chronic right knee pain for the last 3 days. He states he had to kneel on his knees to change his tire 3 days ago and since then he has had increased pain with limited ROM. He reports the pain radiates down into the calf. He also reports chronic right lateral thigh pain that is worse. He has seen pain management in the past. He is on gabapentin. He was supposed to f/u with orthopedics for possible right knee surgery but had to have emergent cervical spinal surgery and never got to follow up. MD Complaint: extremity pain and joint pain Pain Consistency: constant Location: right, lower extremity and knee Severity scale (1-10): 10 Quality: stabbing and aching Radiation: proximal and distal Relieving factors: nothing Exacerbating factors: range of motion, weight bearing, walking and palpation Associated symptoms: denies other symptoms Related Data Home Medications Medication Instructions Recorded Confirmed amlodipine 10 mg tablet 10 mg PO DAILY 12/11/22 dapagliflozin propanediol 10 mg 10 mg PO DAILY 12/11/22 tablet (Farxiga) Previous Rx's Medication Instructions Recorded tadalafil 20 mg tablet 20 mg PO DAILY 90 days #90 tabs 10/22/21 flash glucose scanning reader #1 ea 12/27/21 flash glucose sensor (FreeStyle #1 ea 12/31/21 Lexii 2 Sensor kit) famotidine 20 mg tablet 20 mg PO BID PRN for heartburn 05/15/22 #180 tabs hydrochlorothiazide 25 mg tablet 25 mg PO DAILY #90 tabs 05/15/22 omeprazole 40 mg capsule,delayed 40 mg PO DAILY #90 caps 08/04/22 release fluticasone propionate 50 2 spray intranasal DAILY PRN for 09/04/22 mcg/actuation nasal allergies #48 mL spray,suspension lancets 28 gauge (FreeStyle #100 ea 09/09/22 Lancets) pen needle, diabetic 31 gauge x #100 ea 09/09/22/16 (Ultra-Thin II (Short) Pen NDL) blood sugar diagnostic (FreeStyle #100 ea 09/22/22 Lite Strips) insulin aspart U-100 100 unit/mL 15 unit (0.15 mL) subcut TID #15 mL 10/09/22 (3 mL) subcutaneous pen (Novolog FlexPen U-100 Insulin aspart) insulin glargine U-300 conc 300 70 unit (0.2333 mL) subcut DAILY 10/09/22 unit/mL (3 mL) subcutaneous pen #6 mL (Toujeo Max U-300 SoloStar) gabapentin 300 mg capsule 300 mg PO TID #270 caps 10/15/22 ibuprofen 800 mg tablet 800 mg PO TID PRN for fever #30 10/15/22 tabs blood-glucose meter (FreeStyle #1 ea 10/23/22 Lite Meter kit) lisinopril 30 mg tablet 30 mg PO DAILY 90 days #90 tabs 12/03/22 atorvastatin 10 mg tablet 10 mg PO BEDTIME #90 tabs 12/06/22 varicella-zoster glycoE vacc-AS01B 0.5 ml IM ONCE #1 ea 12/11/22 adj(PF) 50 mcg/0.5 mL IM susp, kit (Shingrix (PF)) oxycodone 5 mg tablet 5 mg PO Q8H PRN severe pain (scale 12/14/22 score 7-10) #8 tabs Allergies Allergy/AdvReac Type Severity Reaction Status Date / Time clindamycin [CLINDAMYCIN] Allergy Severe rash Verified 12/14/22 02:45 shellfish derived Allergy Severe ANAPHYLAXIS Verified 12/14/22 02:45 Penicillins Allergy Intermediate hives Verified 12/14/22 02:45 Iodinated Contrast Media Allergy Unknown SWELLING Verified 12/14/22 02:45 [IV CONTRAST] dulaglutide [From [facility]] AdvReac Severe CP, SOB, Verified 12/14/22 02:45 GI UPSET Review of Systems Review of Systems: Yes all other systems are reviewed and are negative PMFSH Past Medical History Medical History GERD (gastroesophageal reflux disease) DJD (degenerative joint disease) Arthritis Chest pain HTN (hypertension) Long-term current use of insulin for diabetes mellitus DM2 (diabetes mellitus, type 2) Overweight (BMI 25.0-29.9) Type 2 diabetes mellitus with diabetic polyneuropathy Bilateral knee pain Constipation Allergic rhinitis Chronic kidney disease (CKD), stage II (mild) Obesity (BMI 30-39.9) Neuropathy Chronic gastritis without bleeding Hypertriglyceridemia Benign essential hypertension 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 Cough Lumbar degenerative disc disease Surgical History History of neck surgery History of surgery History of colonoscopy History of esophagogastroduodenoscopy (EGD) History of hernia repair Family History Family History Father Leukemia Mother Alzheimers disease Daughter Overweight Prediabetes Brother Prostate cancer Other Mental health problem Social History Social History Household Members: None Housing: House Alcohol intake: current Alcohol intake frequency: holidays/special occasions only Patient Tobacco Use Status: Never used Tobacco Smoked in Last 30 Days: No e-Cigarette/Vaping Use: Never Used Second Hand Smoke Exposure: Yes Use of substances other than those prescribed or required for medical reasons: No Substance Use Type: Crack/Cocaine, Former Substance User, Marijuana and Painkillers Advance Directives: No Advance Directives Information Provided: Yes service: Yes Current occupational status: retired and disabled Cognitive needs: No Hearing needs: No Vision needs: Yes (glasses) Physical Exam Vital Signs: Vital Signs: Last Vital Signs Temp 98.1 F 12/14/22 10:18 Pulse 78 12/14/22 10:18 Resp 18 12/14/22 10:18 BP 120/68 12/14/22 10:18 Pulse Ox 98 12/14/22 10:18 O2 Del Method Room Air 12/14/22 10:18 BMI result Body Mass Index 28.4 Appearance: Alert. Oriented X3. No acute distress. HEENT: normal inspection CVS: Normal heart rate and rhythm. Pulses normal. Respiratory: No respiratory distress. Skin: Skin warm and dry. Normal skin color. Normal skin turgor. No rashes. Extremities: right lower extremity held in partial flexion at about 10 degrees, unable to fully extend. limited flexion to <45 degrees, unable to assess for joint laxity. no significant swelling. normal palpation of patella. +left calf tenderness but no erythema or swelling. +tenderness of upper lateral thigh with soft tissue tenderness in the region of the entire IT band. Neuro: Oriented X 3. No motor deficit. No sensory deficit. Medications Administered Discontinued Medications Generic Name Dose Route Start Last Admin Trade Name Renetta PRN Reason Stop Dose Admin Acetaminophen 975 mg 12/14/22 08:17 12/14/22 08:33 Acetaminophen 325 Mg Tablet PO 12/14/22 08:18 975 mg ONCE ONE Administration Oxycodone HCl 5 mg 12/14/22 08:17 12/14/22 08:33 Oxycodone Hcl Immed Release 5 Mg Tablet PO 12/14/22 08:18 5 mg ONCE ONE Administration Medical Decision Making Medical Decision Making MDM Narrative: 62 yo male with history of DM, CKD, chronic pain with spondylosis of cervical spine s/p surgery, s/p lumbar surgery as well who presents to the ER for evaluation of acute on chronic right knee pain for the last 3 days after changing his tire. XR reviewed - OA w/ enthesopathy. LE Doppler negative for DVT patient feeling better after dose of pain meds. we discussed the importance of outpatient follow up with pain management and orthopedics stable for d/c home with follow up and short course of pain medication. Differential Diagnosis Differential Diagnoses: The differential diagnosis associated with the presentation includes knee effusion, ligamentous injury, osteoarthritis, inflammatory arthritis, meniscus injury, less likely DVT Independent Interpretation I performed an independent interpretation of an: Plain X-Ray and Ultrasound Interpretation: xr knee without effusion, fracture, agree w/ radiology read us without acute dvt, agree w/ radiology read Radiology Impression Discussion of test interpretation with radiology: I have reviewed the radiologist's reading. Radiologist Impression: US/US venous duplex LE RT IMPRESSION: No DVT demonstrated in the right lower extremity. XR/XR knee RT 4V IMPRESSION: 1. No acute visible fracture or dislocation. 2. Mild multicompartment arthritic changes. 3. Redemonstration of enthesopathy changes along the inferior margin of the patella at the patellar tendon origination site. External Record Review External record reviewed: Office record, Outpatient record, Prior outpatient labs and Prior outpatient radiology Prescription Management I considered prescription management with: Pain Medication Chronic Conditions Patient?s care impacted by: Diabetes, Hypertension and Other (ckd - unable to prescribe nsaids) Critical Care Time Critical Care Time Critical Care Time: No Discharge Plan Discharge Clinical Impression: Knee pain, right Qualifiers: Chronicity: unspecified Qualified Code(s): M25.561 - Pain in right knee Patient Disposition: Home, Self-Care Instructions: Knee Pain (ED) Additional Instructions: Your ultrasound did not show any evidence of blood clot Your x-ray showed mild arthritic changes and possible tendon issues You need to follow up with Orthopedics for further evaluation and treatment Take the prescribed medication as needed for severe pain only. If you develop new or worsening symptoms call 911 or come back to the ER for further evaluation. Prescriptions: New oxycodone 5 mg tablet 5 mg PO Q8H PRN (Reason: severe pain (scale score 7-10)) Qty: 8 0RF Rx Instructions: Partial Fill upon patient request. No Action (DME) flash glucose scanning reader Misc See Rx Instructions .ROUTE .MEDSUPPLY Qty: 1 0RF Rx Instructions: Continuous glucose monitor (DME) FreeStyle Lexii 2 Sensor Kit See Rx Instructions .Route Qty: 1 0RF Rx Instructions: As directed famotidine 20 mg tablet 20 mg PO BID PRN (Reason: for heartburn) Qty: 180 1RF hydrochlorothiazide 25 mg tablet 25 mg PO DAILY Qty: 90 1RF omeprazole 40 mg capsule,delayed release(DR/EC) 40 mg PO DAILY Qty: 90 1RF (DME) lancets [FreeStyle Lancets] 28 gauge misc See Rx Instructions .ROUTE .MEDSUPPLY Qty: 100 11RF Rx Instructions: Three times a day (DME) pen needle, diabetic [Ultra-Thin II (Short) Pen NDL] 31 gauge x 5/16 needle See Rx Instructions .ROUTE .MEDSUPPLY Qty: 100 12RF Rx Instructions: test 4 x a day (DME) FreeStyle Lite Strips Strip See Rx Instructions .Route Qty: 100 8RF Rx Instructions: test 3 times per day gabapentin 300 mg capsule 300 mg PO TID Qty: 270 1RF ibuprofen 800 mg tablet 800 mg PO TID PRN (Reason: for fever) Qty: 30 0RF (DME) blood-glucose meter [FreeStyle Lite Meter] Kit See Rx Instructions .Route Qty: 1 0RF Rx Instructions: test 3 times per day lisinopril 30 mg tablet 30 mg PO DAILY 90 Days Qty: 90 1RF atorvastatin 10 mg tablet 10 mg PO BEDTIME Qty: 90 1RF fluticasone propionate 50 mcg/actuation spray,suspension 2 spray intranasal DAILY PRN (Reason: for allergies) Qty: 48 1RF Toujeo Max U-300 SoloStar 300 unit/mL (3 mL) insulin pen 70 unit subcut DAILY Qty: 6 6RF insulin aspart U-100 [Novolog FlexPen U-100 Insulin] 100 unit/mL (3 mL) insulin pen 15 unit subcut TID Qty: 15 1RF Farxiga 10 mg tablet 10 mg PO DAILY amlodipine 10 mg tablet 10 mg PO DAILY Shingrix (PF) 50 mcg/0.5 mL suspension for reconstitution 0.5 ml IM ONCE Qty: 1 0RF tadalafil 20 mg tablet 20 mg PO DAILY 90 Days Qty: 90 3RF Ref[place]: [facility] [place] Group] Lico Francisco MD [Primary Care Provider] - Interventions: ED Discharge Assessment Last Done: 12/14/22 10:24 Discharge Date/Time: 12/14/22 10:24
[2022-12-14] MEDS: oxyCODONE HCl Immed Release 5 MG TABLET PO (08:33)
[2022-12-14] MEDS: Acetaminophen 325 MG TABLET 975 MG PO (08:33)
[2022-12-14 10:17] VITALS: RESP 18
[2022-12-14 10:18] VITALS: BP 120/68; PULSE 78; RESP 18; TEMP 36.7; O2SAT 98
== END 2022-12-14 10:24 | disposition home or self-care (01) ==
PROVIDERS: Emergency Provider Emergency Medicine; PCP Internal Medicine
DX: M25.561 Pain in right knee (principal); R60.0 Localized edema; Z79.899 Other long term (current) drug therapy
CPT/HCPCS: 73564; 93971; 99284

== ENCOUNTER 2022-12-26 12:30 | Outpatient (AMB) | payer MEDICARE, MEDICAID, SELFPAY ==
--- NOTE | 2022-12-26 12:48 | A.OFFVIS_ITS ---
Intake Vital Signs 12/26/22 12:56 Height 5 ft 9 in Weight 192 lb BMI 28.4 Intake Visit Reasons: ov- Pain in right knee Intake Note: Kd is a 62 year old female who presents today for a follow up of his right knee. At his last visit he was given a brace. This brace has not been helpful, increased pain recently Allergies clindamycin [CLINDAMYCIN] Allergy (Severe, Verified 12/26/22 12:49) rash shellfish derived Allergy (Severe, Verified 12/26/22 12:49) ANAPHYLAXIS Penicillins Allergy (Intermediate, Verified 12/26/22 12:49) hives Iodinated Contrast Media [IV CONTRAST] Allergy (Unknown, Verified 12/26/22 12:49) SWELLING [facility] Adverse Reaction (Severe, Verified 12/26/22 12:49) CP, SOB, GI UPSET HPI ov- Pain in right knee HPI Details Kd is a 62 year old Diabetic man who presents with complaints of worsening right knee pain. He complains of pain with daily activity, worse with activity. He says his pain worsened ~2 weeks ago while kneeling to change a car tire. He also complains of lateral thigh pain, and pain radiating down into his calf. He describes nubmness and tingling. He was given a knee brace at his last appointment, which he says is not helpful. He has been seen in the past for chronic right knee pain, and at the time had no OA or symptoms of a meniscus tear. He has a hx of lumbar surgery in 2018, including a laminectomy, and has had chronic LB and LE pain since. He found no relief from a nerve ablation done by Pain Management in 2020. He currently takes Gabapentin & Oxycodone for pain relief, as well as NSAIDs. [facility] Medical History GERD (gastroesophageal reflux disease) DJD (degenerative joint disease) Arthritis Chest pain HTN (hypertension) Long-term current use of insulin for diabetes mellitus DM2 (diabetes mellitus, type 2) Overweight (BMI 25.0-29.9) Type 2 diabetes mellitus with diabetic polyneuropathy Bilateral knee pain Constipation Allergic rhinitis Chronic kidney disease (CKD), stage II (mild) Obesity (BMI 30-39.9) Neuropathy Chronic gastritis without bleeding Hypertriglyceridemia Benign essential hypertension 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 Cough Lumbar degenerative disc disease Surgical History History of neck surgery History of surgery History of colonoscopy History of esophagogastroduodenoscopy (EGD) History of hernia repair Family History Father Leukemia Mother Alzheimers disease Daughter Overweight Prediabetes Brother Prostate cancer Other Mental health problem Social History Household Members: None Housing: House Alcohol intake: current Alcohol intake frequency: holidays/special occasions only Patient Tobacco Use Status: Never used Tobacco e-Cigarette/Vaping Use: Never Used Second Hand Smoke Exposure: Yes Substance Use Type: Crack/Cocaine, Former Substance User, Marijuana and Painkillers service: Yes Current occupational status: retired and disabled Cognitive needs: No Hearing needs: No Vision needs: Yes (glasses) Review of Systems Const All systems reviewed & are unremarkable except as noted in HPI and below Physical Exam Vital Signs: BMI result Body Mass Index 28.4 Const General: no acute distress, alert and awake Orientation/consciousness: patient oriented x3 HEENT Head: Yes normocephalic and Yes atraumatic Eyes EOM: EOMs intact bilaterally Resp Effort & Inspection: normal respiratory effort and able to speak in complete sentences Cardio Jugular venous distension: no JVD Skin General skin exam: turgor normal Rashes: no rashes Neuro General: patient oriented x3 Extrem Other: Right Knee: no focal ttp pain not reproduceable on exam and mostly in anterior lower leg Psych Appearance: grossly normal Affect: normal affect Attitude: cooperative Assessment & Plan Assessment & Plan (1) Lumbar degenerative disc disease: Code(s): M51.36 - Other intervertebral disc degeneration, lumbar region (2) Diabetes mellitus: Code(s): E11.9 - Type 2 diabetes mellitus without complications (3) Postlaminectomy syndrome, lumbar: Code(s): M96.1 - Postlaminectomy syndrome, not elsewhere classified (4) Chronic pain: Code(s): G89.29 - Other chronic pain Plan This is a 62 year old man with chronic RLE pain. He has a hx of lumbar DDD & postlaminectomy syndrome. His radiographs are unremarkable and he had no relief following an RFA done in 2020. He takes Gabapentin, Oxycodone, and Ibuprofen, without much relief.I don't have a treatment for his knee pain as his exam and imaging are pretty unremarkable. I think the pain is likely neurogenic but he has been told that is not the case. No orthopedic intervention warranted at this time. If his pain persists we can try an intra-articular injection but he does not want that at this time. Coding Level of Care Code Est Pt Level 4 (60496) Diagnoses Lumbar degenerative disc disease M51.36 Diabetes mellitus E11.9 Postlaminectomy syndrome, lumbar M96.1 Chronic pain G89.29
[2022-12-26 12:56] VITALS: BMI 28.4
== END 2022-12-26 13:56 | disposition home or self-care (01) ==
PROVIDERS: PCP Internal Medicine; Visit Provider Orthopaedic Surgery
DX: G89.29 Other chronic pain (principal); M51.36 Other intervertebral disc degeneration, lumbar region; M96.1 Postlaminectomy syndrome, not elsewhere classified
CPT/HCPCS: 99214

== ENCOUNTER → 2022-12-26 12:30 | Outpatient (BNVA) | payer MEDICARE, MEDICAID, SELFPAY | PROVIDERS: PCP Internal Medicine; Visit Provider Orthopaedic Surgery | DX: M51.36 Other intervertebral disc degeneration, lumbar region (principal); M96.1 Postlaminectomy syndrome, not elsewhere classified; G89.29 Other chronic pain; E11.9 Type 2 diabetes mellitus without complications | CPT/HCPCS: 99212 ==

== ENCOUNTER 2022-12-30 14:47 | Outpatient (AMB) | payer MEDICARE, MEDICAID, SELFPAY ==
--- NOTE | 2022-12-30 15:17 | HO.SPINEOV ---
Intake Intake Visit Reasons: back pain Intake Note: Mr. Chan is here today c/o Recurrent low back pain, now distributing down right leg, outer side. Escalator Constructor Required: No Allergies clindamycin [CLINDAMYCIN] Allergy (Severe, Verified 12/26/22 12:49) rash shellfish derived Allergy (Severe, Verified 12/26/22 12:49) ANAPHYLAXIS Penicillins Allergy (Intermediate, Verified 12/26/22 12:49) hives Iodinated Contrast Media [IV CONTRAST] Allergy (Unknown, Verified 12/26/22 12:49) SWELLING dulaglutide [From Trulicity] Adverse Reaction (Severe, Verified 12/26/22 12:49) CP, SOB, GI UPSET Assessment & Plan Assessment & Plan (1) Lumbar degenerative disc disease: Code(s): M51.36 - Other intervertebral disc degeneration, lumbar region Plan Mr chan is here in the office today to evaluate ongoing pain that he has been having going down the his right leg and in the left side of his low back. This is a patient who previously had an attempted L4-5 decompression done by at [facility]. Postoperatively he had no relief of his symptoms. We saw him in the office, evaluated him for possible ongoing nerve compression. We are considering 2 options, one would be L5-S1 fusion to indirectly decompress the L5 foramen, and the other was to attempt to redo the decompression into the L5 foramen. We chose the latter option in that it was a quicker recovery and would avoid the fusion. He did have improvements after our surgery, however over the last for 6 weeks he has had a progressive return of pain down his right leg going into his right knee and into his right ankle and outer calf. He was in the emergency room a few weeks ago with severe flare-up of this discomfort. As mentioned he also has left-sided low back pain. He has been trying to manage this with [id number] medications as needed, rest, avoidance of stressors for his back. Unfortunately nothing seems to help. On exam his gait and strength are normal. I think at this point since he has been dealing with 2-3 months of ongoing pain we should reimage him with a lumbar MRI. I will not choose to use gadolinium because of his history of kidney disease. We can re-evaluate him in the office once the test is completed. Total amount of time spent in this visit was 20 minutes in discussion of symptoms, ordering imaging and subsequent plan of care Bill Nunez MD,PhD [facility] Orders: Orders MR lumbar spine wo con Today M51.36 - Other intervertebral disc degeneration, lumbar region Medications: New diazepam (Valium) take 30 prior to mri 5 mg PO ONCE PRN 1 tab 0RF anxiety Coding Level of Care Code Est Pt Level 3 (21229) Diagnoses Lumbar degenerative disc disease M51.36
== END 2022-12-30 15:59 | disposition home or self-care (01) ==
PROVIDERS: PCP Internal Medicine; Visit Provider Physician Assistant
DX: M51.36 Other intervertebral disc degeneration, lumbar region (principal)
CPT/HCPCS: 99213

== ENCOUNTER → 2022-12-30 14:47 | Outpatient (BNVA) | payer MEDICARE, MEDICAID, SELFPAY | PROVIDERS: PCP Internal Medicine; Visit Provider Physician Assistant | DX: M51.36 Other intervertebral disc degeneration, lumbar region (principal) | CPT/HCPCS: 99212 ==

== ENCOUNTER 2023-01-20 14:06 | Outpatient (AMB) | payer MEDICARE, MEDICAID, SELFPAY ==
--- NOTE | 2023-01-20 14:41 | A.SPINEOV_ITS ---
Intake Intake Visit Reasons: 3 weeks f/up with MRI Intake Note: Mr. Chan is here today for his 3wk follow up and to discuss the results of his MRI. Cake Decorator Required: No Allergies clindamycin [CLINDAMYCIN] Allergy (Severe, Verified 12/26/22 12:49) rash shellfish derived Allergy (Severe, Verified 12/26/22 12:49) ANAPHYLAXIS Penicillins Allergy (Intermediate, Verified 12/26/22 12:49) hives Iodinated Contrast Media [IV CONTRAST] Allergy (Unknown, Verified 12/26/22 12:49) SWELLING dulaglutide [From Trulicity] Adverse Reaction (Severe, Verified 12/26/22 12:49) CP, SOB, GI UPSET Assessment & Plan Assessment & Plan (1) Lumbar degenerative disc disease: Code(s): M51.36 - Other intervertebral disc degeneration, lumbar region Plan MR Chan is back in the office today to review his MRI done at [facility] on 01/08/2023. Please refer to my previous notes for the specifics of his problem but essentially this is a gentleman who has had now 2 lumbar decompressions at L4-5, the 1st 1 at [facility] in the 2nd 1 done by us earlier this year. He had good relief for a number of months but the last few months he has had complete return of his symptoms of back pain going down both legs into his calves, right greater than left. He has failed conservative treatment and his MRI showing persistent stenosis at the L4-5 level in the foramen as well as centrally as well as the severely collapsed disc at L5-S1 with bilateral L5 foraminal stenosis. He also has significant facet arthropathy on the left at L4-5. Dr. Nunez I met with him, discussed the option of an anterior/oblique lumbar interbody fusion at L4-5 and L5-S1. This should address not only the foraminal stenosis but the central stenosis as well as the bone on bone endplate contact at L5-S1, and should give him significant improvement in his back pain and bilateral leg pain. We will have to coordinate the surgery with Dr. Staton our access surgeon for the retroperitoneal approach. Once we speak to his office we can give Mr. Chan an official date for surgery. Pt was given risk and benefits of surgery including but not limited to infection, hematoma , nerve injury,durotomy, weakness,bowel/bladder injury, persistent pain, as well as the option to continue with conservative treatment and patient wishes to proceed with surgery. Pt is aware they should stop their motrin, aspirin 7 days prior to surgery. All questions were answered to the best of our ability. If there is anything about this patients medical history that we have overlooked or concerns you have about us proceeding with surgery we would appreciate any input you can offer. Total amount of time spent in this visit was 30 minutes in discussion of symptoms, lumbar MRI imaging results, surgical decision making and subsequent plan of care Bill Nunez MD,PhD [facility] Bill Nunez MD, PhD [facility] Coding Level of Care Code Est Pt Level 4 (89370) Diagnoses Lumbar degenerative disc disease M51.36
== END 2023-01-20 15:37 | disposition home or self-care (01) ==
PROVIDERS: PCP Internal Medicine; Visit Provider Physician Assistant
DX: M51.36 Other intervertebral disc degeneration, lumbar region (principal)
CPT/HCPCS: 99214

== ENCOUNTER → 2023-01-20 14:06 | Outpatient (BNVA) | payer MEDICARE, MEDICAID, SELFPAY | PROVIDERS: PCP Internal Medicine; Visit Provider Physician Assistant | DX: M51.36 Other intervertebral disc degeneration, lumbar region (principal) | CPT/HCPCS: 99212 ==

== ENCOUNTER 2023-01-23 15:00 | Outpatient (AMB) | payer MEDICARE, MEDICAID, SELFPAY ==
--- NOTE | 2023-01-23 15:17 | MHC.OFFVIS ---
Intake Intake Visit Reasons: ED- yearly follow up Intake Note: Patient is Present for Follow Up Urology Medication:Tadalafil Antibiotic Allergies: Penicillin, Clindamycin, Blood Thinners: none Patient states he sees a new kidney Dr. Had recent imaging done at [facility] was informed that he has a lot of calcium found in prostate and that his prostate is inflamed. Patient reports some discomfort but not to much pain. Allergies clindamycin [CLINDAMYCIN] Allergy (Severe, Verified 12/26/22 12:49) rash shellfish derived Allergy (Severe, Verified 12/26/22 12:49) ANAPHYLAXIS Penicillins Allergy (Intermediate, Verified 12/26/22 12:49) hives Iodinated Contrast Media [IV CONTRAST] Allergy (Unknown, Verified 12/26/22 12:49) SWE[facility] Adverse Reaction (Severe, Verified 12/26/22 12:49) CP, SOB, GI UPSET HPI HPI Comments History of Present Illness Details Kd is a very pleasant male. He is a patient of Dr. Man. He is seen for the following urologic conditions - hypogonadism - erectile dysfunction High diabetes numbers And restarted insulin Prescription for tadalafil 20 mg daily Repeat T testing in 3 months Male hypogonadism Initial testosterone September 2019 325 - initiate clomiphene Testosterone December 2019 690, 11/13 T 450 Clomiphene stopped T levels - 10/14 420 Diabetic therapy remains a challenge. 09/14 HbA1c 11.2 Erectile dysfunction: Background diabetes He presents today for for continued evaluation and management of erectile dysfunction - insulin-dependent diabetic 2005 Symptoms have been present for/since Ongoing for many years. Procedure(s)/Diagnosis causing dysfunction include diabetes. Current treament includes Viagra/sildenafil - under dosing. Treatment side effects include none. Prior therapies include oral medications. At this time he experiences erections are partial and adequate for vaginal penetration, that undergo rapid detumesence after penetration, DIANELYS 8-11 Moderate ED. Therapeutic plan includes stay on - tadalafil [facility] Medical History GERD (gastroesophageal reflux disease) DJD (degenerative joint disease) Arthritis Chest pain HTN (hypertension) Long-term current use of insulin for diabetes mellitus DM2 (diabetes mellitus, type 2) Overweight (BMI 25.0-29.9) Type 2 diabetes mellitus with diabetic polyneuropathy Bilateral knee pain Constipation Allergic rhinitis Chronic kidney disease (CKD), stage II (mild) Obesity (BMI 30-39.9) Neuropathy Chronic gastritis without bleeding Hypertriglyceridemia Benign essential hypertension 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 Cough Lumbar degenerative disc disease Surgical History History of neck surgery History of surgery History of colonoscopy History of esophagogastroduodenoscopy (EGD) History of hernia repair Family History Father Leukemia Mother Alzheimers disease Daughter Overweight Prediabetes Brother Prostate cancer Other Mental health problem Social History Household Members: None Housing: House Alcohol intake: current Alcohol intake frequency: holidays/special occasions only Patient Tobacco Use Status: Never used Tobacco e-Cigarette/Vaping Use: Never Used Second Hand Smoke Exposure: Yes Substance Use Type: Crack/Cocaine, Former Substance User, Marijuana and Painkillers service: Yes Current occupational status: retired and disabled Cognitive needs: No Hearing needs: No Vision needs: Yes (glasses) Review of Systems Const Denies chills and Denies fever(s) Card Reports no additional complaints and Denies syncope Resp Denies cough GI Denies abdominal pain and Denies heartburn Reports as per HPI and Denies change in libido Neuro Denies syncope Psych Denies change in libido Endo Denies change in libido Physical Exam Const General: cooperative, healthy appearing, comfortable and no acute distress Orientation/consciousness: patient oriented x3 HEENT Face and sinus: Yes normal facial exam Mouth: moist mucous membranes Neck Neck: Yes normal visual inspection, Yes full ROM and Yes trachea midline Chest Chest palpation & inspection: normal inspection of the chest Resp Effort & Inspection: normal respiratory effort, able to speak in complete sentences and no respiratory distress GI Inspection: Yes normal to inspection Back/Spine/Pelvis Cervical Spine: normal cervical lordosis Thoracic/Lumbar Spine: thoracic and lumbar spine normal to inspection Skin General skin exam: no rashes or lesions noted Neuro General: patient oriented x3, gait normal, tone normal and moves all extremities Extrem General: Yes normal to inspection and Yes capillary refill normal Assessment & Plan Assessment & Plan (1) Erectile dysfunction associated with type 2 diabetes mellitus: Code(s): E11.69 - Type 2 diabetes mellitus with other specified complication; N52.1 - Erectile dysfunction due to diseases classified elsewhere Plan 3 month follow-up lab work tele Orders: Orders Testosterone, Free/Total 3 Months E11.69 - Type 2 diabetes mellitus with other specified complication, N52.1 - Erectile dysfunction due to diseases classified elsewhere Hemoglobin A1c 3 Months E11.69 - Type 2 diabetes mellitus with other specified complication, N52.1 - Erectile dysfunction due to diseases classified elsewhere Prostate Specific Antigen 3 Months E11.69 - Type 2 diabetes mellitus with other specified complication, N52.1 - Erectile dysfunction due to diseases classified elsewhere Medications: Refilled tadalafil 20 mg PO DAILY 90 tabs 3RF 90 days N52.9 - Male erectile dysfunction, unspecified Patient Instructions: Imaging studies, laboratory and physical exam results were discussed and reviewed in detail. No major barriers to patient understanding were identified. An opportunity to ask questions regarding the treatment plan was provided. All questions were answered. The patient expressed understanding and agreement with the above treatment plan. The patient is aware they should contact our office by phone for worsening of their current condition or the appearance of new urologic symptoms. Compliance is encouraged with any medications and followup testing that is ordered. It is a privilege to participate in the urologic care of your patient. If you have any questions or concerns regarding treatment for the above conditions, or other urologic issues, please do not hesitate to contact me. The office telephone contact is [phone]. This note is constructed using voice recognition software. While every effort has been made to ensure accuracy endless track vehicle mechanic errors may have been included. Yours sincerely, Dr Dylan Live MD, [facility] Urology Providers of Expert, Compassionate Care for the Genitourinary System Coding Level of Care Code Est Pt Level 4 (41104) Diagnoses Erectile dysfunction associated with type 2 diabetes mellitus E11.69; N52.1
== END 2023-01-23 16:02 | disposition home or self-care (01) ==
PROVIDERS: Visit Provider Urology
DX: E11.69 Type 2 diabetes mellitus with other specified complication (principal); N52.1 Erectile dysfunction due to diseases classified elsewhere
CPT/HCPCS: 99214

== ENCOUNTER → 2023-01-23 15:00 | Outpatient (BNVA) | payer MEDICARE, MEDICAID, SELFPAY | PROVIDERS: Visit Provider Urology | DX: E11.69 Type 2 diabetes mellitus with other specified complication (principal); N52.1 Erectile dysfunction due to diseases classified elsewhere | CPT/HCPCS: 99212 ==

== ENCOUNTER → 2023-01-27 13:12 | Outpatient (BNV) | payer MEDICARE, MEDICAID, SELFPAY | PROVIDERS: Admitting Provider Neurological Surgery; PCP Internal Medicine; Visit Provider Internal Medicine | DX: R94.31 Abnormal electrocardiogram [ECG] [EKG] (principal) | CPT/HCPCS: 93010 ==

== ENCOUNTER 2023-02-09 06:12 | Inpatient (IN) | payer MEDICARE, MEDICAID, SELFPAY ==
--- NOTE | 2023-01-27 | ECG_ITS ---
Test Reason : PREOP Blood Pressure : / mmHG Vent. Rate : 086 BPM Atrial Rate : 086 BPM P-R Int : 196 ms QRS Dur : 090 ms QT Int : 360 ms P-R-T Axes : 066 -50 049 degrees QTc Int : 430 ms Normal sinus rhythm Left axis deviation Cannot exclude old anteroseptal infarct. Abnormal ECG When compared with ECG of 15-OCT-2020 11:40, No significant changes when compared with the previous EKG of Referred By: Sandy Ribera Electronically Signed By:PILAR GARCIA
[2023-01-27 11:53] VITALS: BP 138/75; PULSE 84; RESP 16; O2SAT 100; BMI 29.0
[2023-01-27 13:44] LABS: Hematocrit 43.1 % (42.0-52.0); Hemoglobin 15.1 g/dl (14.0-18.0); Mean Corpuscular Hemoglobin 31.2 pg (27.0-33.0); Platelet Count 252 X10*3/uL (160-400); Red Blood Count 4.84 X10*6/uL (4.60-5.80); Red Cell Distribution Width 13.1 % (11.0-16.0); White Blood Count 8.2 X10*3/uL (4.8-10.8)
[2023-01-27 14:39] LABS: Anion Gap 14 (12-20); Blood Urea Nitrogen 25 mg/dL (9-16); Calcium 9.7 mg/dL (8.4-10.2); Carbon Dioxide 24 mmol/L (22-29); Chloride 105 mmol/L (96-108); Creatinine Clr Calc Pharmacy 66.2; Estimated Glomerular Filt Rate 58; Glucose Random 112 mg/dL (60-115); Potassium 4.7 mmol/L (3.3-5.1); Sodium 138 mmol/L (135-145)
[2023-02-09] VITALS (14 sets, daily range): BP systolic 122–147; BP diastolic 61–82; PULSE 81–112; RESP 12–22; TEMP 36.2–37.2; O2SAT 95–100; BMI 29.8
--- NOTE | ~2023-02-09 | FL_ITS ---
EXAMINATION: XR FLUOROSCOPY WITH IMAGES CLINICAL INFORMATION: ORIF L4-L5 and L5-S1 by Dr. Nunez COMPARISON: None relevant. TECHNIQUE: Fluoroscopy Supervised By: Dr. Nunez. Fluoroscopy Time: 2.5 minutes. Cumulative Dose: 125.4 mGy. DAP: 8.75395 Gycm2. Images: 6 . FINDINGS: Spot images obtained progressive discectomy and placement of disc grafts at L4-L5 and L5-S1. Subsequent placement of transpedicular screws and posterior connecting rods spanning these levels bilaterally. No gross complication evident. FL/FL guidance in OR IMPRESSION: Fluoroscopic guidance during a L4-L5 and L5-S1 fusion and discectomy.
--- NOTE | ~2023-02-09 | XR_ITS ---
EXAMINATION: XR LUMBOSACRAL SPINE CLINICAL INFORMATION: L4-S1 OLIF. COMPARISON: Lumbar spine radiographs 12/04/2021. TECHNIQUE: 3 views of the lumbosacral spine. FINDINGS: Patient is status post oblique lateral interbody fusion with disc spacers seen at L4-L5 and L5-S1. No other abnormality is seen. XR/XR lumbar spine 1V IMPRESSION: Status post interbody fusion L4-L5 and L5-S1.
[2023-02-09] MEDS: Lactated Ringers 1,000 ML 100 ML IVCONT (06:57)
[2023-02-09 07:02] LABS: Glucose, Whole Blood 95 mg/dL (60-115)
[2023-02-09] MEDS: methocarbamoL 750 MG TABLET PO (07:05)
[2023-02-09] MEDS: vancomycin HCL 1,500 MG in 0.9 % Sodium Chloride 500 ML 333.33 MG IV ×2 (07:09→19:14)
--- NOTE | 2023-02-09 07:11 | MHC.SHP ---
Pre-Procedural Eval Section A Date of Service: 02/09/23 The patient is an INPATIENT: No Changes since office visit: No Cold of Flu in the past 2 weeks, No New Medical Problems, No Changes in Medication and No Patient answered all questions The History & Physical has been completed within 30 days and I have reviewed it.: No Section B Chief Complaint: S/P L4-5 and L5-S1 ALIF Allergies: Allergies Allergy/AdvReac Type Severity Reaction Status Date / Time clindamycin [CLINDAMYCIN] Allergy Severe rash, hives Verified 01/26/23 13:33 Iodinated Contrast Media Allergy Severe Anaphylaxis Verified 01/26/23 13:33 [IV CONTRAST] Penicillins Allergy Severe hives, rash Verified 01/26/23 13:33 shellfish derived Allergy Severe ANAPHYLAXIS Verified 01/26/23 13:33 dulaglutide [From Trulicity] AdvReac Severe CP, SOB, Verified 01/26/23 13:33 GI UPSET Review of Systems Sugical H&P ROS: Negative: Constitution, Cardiovascular, Respiratory, Neurological, Psychiatric, Hem-Onc, Allergic/Immunologic, Gastrointestinal, Genitourinary, Musculoskeletal, Integumentary, Endocrine and Eyes/Ears/Nose/Throat Exam Surgical H&P Exam: Not Evaluated: HEENT, Not Evaluated: Heart, Not Evaluated: Lungs, Not Evaluated: Extremities, Not Evaluated: Abdomen, Not Evaluated: Skin and Not Evaluated: Neurological Plan Diagnosis/Plan: Unchanged I have reviewed the history and physical and performed a pertinent physical examination on my patient. No changes have occurred unless specified. L4-5, L5-S1 anterior/oblique lumbar interbody fusion Time Spent With Patient Time: Total time managing care of this patient today _6___ minutes.
--- NOTE | 2023-02-09 07:20 | P.CONAN_ITS ---
Documented by User: Sandy Ribera NP 02/06/23 08:09 HPI - Anesthesia Eval Consult details Narrative: 62yo M for Oblique Lumbar Interbody Fusion Multi / ALIF No recent illness +chronic chest pain. No SOB with very limited activity d/t back pain DM. FBS ~ 100 GERD. Well controlled with daily famotadine Hx chest pain with negative w/u early 2021. Nephro recently started on amlodipine. CKD follows nephro. Last office visit 11/2022 + [facility]. Discussed risks post op Hx polysubstance PMFSH Active Problems Active Problems: All Active Problems (Updated 01/27/23 @ 12:31 by Sully Corbin, RN) Lumbar degenerative disc disease (Acute) Diabetes mellitus (Acute) Essential hypertension (Acute) Abnormal EKG (Acute) Type 2 diabetes mellitus with unspecified complications (Acute) Precordial chest pain (Acute) Erectile dysfunction associated with type 2 diabetes mellitus (Acute) Cervical spinal cord compression (Acute) Subarachnoid cyst (Acute) Right leg weakness (Acute) Right knee pain (Acute) Spondylosis of cervical spine with radiculopathy (Acute) Chronic pain (Acute) Postlaminectomy syndrome, lumbar (Acute) Bilateral primary osteoarthritis of knee (Acute) Hypogonadism in male (Acute) GERD (gastroesophageal reflux disease) (Acute) Long-term current use of insulin for diabetes mellitus (Acute) DM2 (diabetes mellitus, type 2) (Acute) Overweight (BMI 25.0-29.9) (Acute) Type 2 diabetes mellitus with diabetic polyneuropathy (Acute) Bilateral knee pain (Acute) Constipation (Acute) Allergic rhinitis (Acute) Chronic kidney disease (CKD), stage II (mild) (Acute) Obesity (BMI 30-39.9) (Acute) Neuropathy (Acute) Chronic gastritis without bleeding (Acute) Hypertriglyceridemia (Acute) Benign essential hypertension (Acute) Degenerative arthritis of cervical spine (Acute) Type 2 diabetes mellitus with diabetic chronic kidney disease (Acute) Cough (Acute) Lumbar degenerative disc disease (Acute) Past Medical History Medical History (Updated 01/27/23 @ 12:31 by Sully Corbin, SHAHLA) Environmental allergies GERD (gastroesophageal reflux disease) DJD (degenerative joint disease) Arthritis Chest pain HTN (hypertension) Long-term current use of insulin for diabetes mellitus DM2 (diabetes mellitus, type 2) Overweight (BMI 25.0-29.9) Type 2 diabetes mellitus with diabetic polyneuropathy Bilateral knee pain Constipation Allergic rhinitis Chronic kidney disease (CKD), stage II (mild) Obesity (BMI 30-39.9) Neuropathy Chronic gastritis without bleeding Hypertriglyceridemia Benign essential hypertension 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 Cough Lumbar degenerative disc disease Family History Family History Father Leukemia Mother Alzheimers disease Daughter Overweight Prediabetes Brother Prostate cancer Other Mental health problem Family history of problems with anesthesia: No Surgical History Surgical History History of neck surgery History of surgery History of colonoscopy History of esophagogastroduodenoscopy (EGD) History of hernia repair History of Problems with Anesthesia: No Social History Social History (Updated 01/27/23 @ 12:31 by Sully Corbin RN) Household Members: None Household Members Other:: Adult son Housing: House Are you a primary health care specialist to a significant other at home: No Do you presently have visiting nurse or other home services: No Alcohol intake: current Alcohol intake frequency: holidays/special occasions only Patient Tobacco Use Status: Never used Tobacco e-Cigarette/Vaping Use: Never Used Second Hand Smoke Exposure: Yes Use of substances other than those prescribed or required for medical reasons: No Substance Use Type: Crack/Cocaine, Former Substance User, Marijuana and Painkillers Have you been hit, kicked, punched, or otherwise hurt by someone within the past year? If so, by whom?: No Spiritual Healthcare Practices: none Spiritism Healthcare Practices: none Cultural Healthcare Practices: none Are you DNR?: No Advance Directives: No Advance Directives Information Provided: Yes Advance Directives on File: No Recently lost weight without trying: No Nutrition Risks: No Nutritional Risk Poor oral hygiene: No service: Yes Current occupational status: retired and disabled Cognitive needs: No Hearing needs: No Vision needs: Yes (glasses) Meds Allergies Allergy/AdvReac Type Severity Reaction Status Date / Time clindamycin [CLINDAMYCIN] Allergy Severe rash, hives Verified 01/26/23 13:33 Iodinated Contrast Media Allergy Severe Anaphylaxis Verified 01/26/23 13:33 [IV CONTRAST] Penicillins Allergy Severe hives, rash Verified 01/26/23 13:33 shellfish derived Allergy Severe ANAPHYLAXIS Verified 01/26/23 13:33 dulaglutide [From [facility]] AdvReac Severe CP, SOB, Verified 01/26/23 13:33 GI UPSET Home Medications Medication Instructions Recorded Confirmed Last Taken Type amlodipine 10 mg tablet 10 mg PO DAILY 12/11/22 01/26/23 02/09/23 History dapagliflozin propanediol 10 mg 10 mg PO DAILY 12/11/22 02/09/23 02/08/23 History tablet (Farxiga) atorvastatin 10 mg tablet 10 mg PO DAILY 01/26/23 02/09/23 02/08/23 History famotidine 20 mg tablet 20 mg PO DAILY PRN for heartburn 01/26/23 01/26/23 02/09/23 History gabapentin 300 mg capsule 300 mg PO BID 01/26/23 01/26/23 02/09/23 History insulin glargine U-300 conc 300 70 unit subcut BEDTIME 01/26/23 02/09/23 02/08/23 History unit/mL (3 mL) subcutaneous pen (Toujeo Max U-300 SoloStar) tadalafil 20 mg tablet 20 mg PO DAILY PRN Sexual Activity 01/27/23 02/09/23 Unknown History famotidine 20 mg tablet 20 mg PO DAILY 02/09/23 02/09/23 02/08/23 History Exam Height,Weight and Vital Signs: Height 5 ft 9 in Weight 89 kg Last Vital Signs Pulse 84 01/27/23 11:53 Resp 16 01/27/23 11:53 BP 138/75 01/27/23 11:53 Pulse Ox 100 01/27/23 11:53 O2 Del Method Room Air 01/27/23 11:53 Pertinent Lab Results Pertinent Lab Results: Laboratory Tests 12/11/22 09:54 Hgb A1c (Clinic) 6.8 H Lab Results 01/27/23 Range/Units 13:10 WBC 8.2 (4.8-10.8) X10*3/uL RBC 4.84 (4.60-5.80) X10*6/uL Hgb 15.1 (14.0-18.0) g/dl Hct 43.1 (42.0-52.0) % MCV 89.0 (80.0-98.0) fL MCH 31.2 (27.0-33.0) pg MCHC 35.0 (31.0-36.0) g/dl RDW 13.1 (11.0-16.0) % Plt Count 252 (160-400) X10*3/uL MPV 12.0 (9.4-12.4) fL Absolute Nucleated RBC 0.000 (0.0-0.012) X10*3/uL Nucleated RBC % (auto) 0.0 (0.0-0.2) /100WBC Sodium 138 (135-145) mmol/L Potassium 4.7 (3.3-5.1) mmol/L Chloride 105 (96-108) mmol/L Carbon Dioxide 24 (22-29) mmol/L Anion Gap 14 (12-20) BUN 25 H (9-16) mg/dL Creatinine 1.26 (0.5-1.4) mg/dL Estim Creat Clear Calc 66.2 Estimated GFR 58 Random Glucose 112 (60-115) mg/dL Calcium 9.7 D (8.4-10.2) mg/dL Blood Type O Positive Antibody Screen NEGATIVE Narrative Narrative: EKG 01/2023 Vent. Rate : 086 BPM Atrial Rate : 086 BPM P-R Int : 196 ms QRS Dur : 090 ms QT Int : 360 ms P-R-T Axes : 066 -50 049 degrees QTc Int : 430 ms Normal sinus rhythm Left axis deviation Cannot exclude old anteroseptal infarct. Abnormal ECG When compared with ECG of 15-OCT-2020 11:40, No significant changes when compared with the previous EKG of [place] cardiolite stress test 2021 Impression: 1. Normal myocardial perfusion 2. Gated LVEF is 64% 3. Transient ischemic dilatation not present Stress EKG is negative for ischemia Airway Mallampati Class: I TM Dist: >3cm Neck ROM: Limited (s/p cspine fusion ~ 1.5 years ago) Loose/Missing/Broken Teeth: Yes (Molar pulled) Heart: RRR Lungs: CTAB Assessment and Plan Assessment Anesthesia Assessment: Anesthesia Plan Discussed and PAT Visit Final Anesthetic Review Family History of Problems with Anesthesia: No History of Problems with Anesthesia: No Documented by User: Sofi Marquez DO 02/09/23 07:24 [facility] Past Medical History Medical History (Updated 01/27/23 @ 12:31 by Sully Corbin, RN) Environmental allergies GERD (gastroesophageal reflux disease) DJD (degenerative joint disease) Arthritis Chest pain HTN (hypertension) Long-term current use of insulin for diabetes mellitus DM2 (diabetes mellitus, type 2) Overweight (BMI 25.0-29.9) Type 2 diabetes mellitus with diabetic polyneuropathy Bilateral knee pain Constipation Allergic rhinitis Chronic kidney disease (CKD), stage II (mild) Obesity (BMI 30-39.9) Neuropathy Chronic gastritis without bleeding Hypertriglyceridemia Benign essential hypertension 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 Cough Lumbar degenerative disc disease Family History Family History Father Leukemia Mother Alzheimers disease Daughter Overweight Prediabetes Brother Prostate cancer Other Mental health problem Family history of problems with anesthesia: No Surgical History Surgical History History of neck surgery History of surgery History of colonoscopy History of esophagogastroduodenoscopy (EGD) History of hernia repair History of Problems with Anesthesia: No Social History Social History (Updated 01/27/23 @ 12:31 by Sully Corbin RN) Household Members: None Household Members Other:: Adult son Housing: House Are you a primary health care specialist to a significant other at home: No Do you presently have visiting nurse or other home services: No Alcohol intake: current Alcohol intake frequency: holidays/special occasions only Patient Tobacco Use Status: Never used Tobacco e-Cigarette/Vaping Use: Never Used Second Hand Smoke Exposure: Yes Use of substances other than those prescribed or required for medical reasons: No Substance Use Type: Crack/Cocaine, Former Substance User, Marijuana and Painkillers Have you been hit, kicked, punched, or otherwise hurt by someone within the past year? If so, by whom?: No Spiritual Healthcare Practices: none Spiritism Healthcare Practices: none Cultural Healthcare Practices: none Are you DNR?: No Advance Directives: No Advance Directives Information Provided: Yes Advance Directives on File: No Recently lost weight without trying: No Nutrition Risks: No Nutritional Risk Poor oral hygiene: No service: Yes Current occupational status: retired and disabled Cognitive needs: No Hearing needs: No Vision needs: Yes (glasses) Meds Allergies Allergy/AdvReac Type Severity Reaction Status Date / Time clindamycin [CLINDAMYCIN] Allergy Severe rash, hives Verified 01/26/23 13:33 Iodinated Contrast Media Allergy Severe Anaphylaxis Verified 01/26/23 13:33 [IV CONTRAST] Penicillins Allergy Severe hives, rash Verified 01/26/23 13:33 shellfish derived Allergy Severe ANAPHYLAXIS Verified 01/26/23 13:33 [facility] [[facility]] AdvReac Severe CP, SOB, Verified 01/26/23 13:33 GI UPSET Home Medications Medication Instructions Recorded Confirmed Last Taken Type amlodipine 10 mg tablet 10 mg PO DAILY 12/11/22 01/26/23 02/09/23 History dapagliflozin propanediol 10 mg 10 mg PO DAILY 12/11/22 02/09/23 02/08/23 History tablet (Farxiga) atorvastatin 10 mg tablet 10 mg PO DAILY 01/26/23 02/09/23 02/08/23 History famotidine 20 mg tablet 20 mg PO DAILY PRN for heartburn 01/26/23 01/26/23 02/09/23 History gabapentin 300 mg capsule 300 mg PO BID 01/26/23 01/26/23 02/09/23 History insulin glargine U-300 conc 300 70 unit subcut BEDTIME 01/26/23 02/09/23 02/08/23 History unit/mL (3 mL) subcutaneous pen (Toujeo Max U-300 SoloStar) tadalafil 20 mg tablet 20 mg PO DAILY PRN Sexual Activity 01/27/23 02/09/23 Unknown History famotidine 20 mg tablet 20 mg PO DAILY 02/09/23 02/09/23 02/08/23 History Exam Exam Date and Time: February 09, 2023 0720 Height,Weight and Vital Signs: Height 5 ft 9 in Weight 89 kg Last Vital Signs Pulse 84 01/27/23 11:53 Resp 16 01/27/23 11:53 BP 138/75 01/27/23 11:53 Pulse Ox 100 01/27/23 11:53 O2 Del Method Room Air 01/27/23 11:53 Height 5 ft 9 in Weight 91.399 kg Vital Signs Pulse Rate 84 01/27/23 11:53 Respiratory Rate 16 01/27/23 11:53 Blood Pressure 138/75 01/27/23 11:53 Pulse Oximetry 100 01/27/23 11:53 Oxygen Delivery Method Room Air 01/27/23 11:53 Temperature 98.9 F 02/09/23 06:51 Pulse Rate 81 02/09/23 06:51 Respiratory Rate 16 02/09/23 06:51 Blood Pressure 122/82 02/09/23 06:51 Pulse Oximetry 97 02/09/23 06:51 Oxygen Delivery Method Room Air 02/09/23 06:51 Airway Mallampati Class: II TM Dist: >3cm Neck ROM: Limited (s/p cervical fusion) Loose/Missing/Broken Teeth: Yes (molar pulled) Heart: S1S2 Assessment and Plan Assessment Anesthesia Assessment: Anesthesia Plan Discussed and Chart Reviewed Final Anesthetic Review Family History of Problems with Anesthesia: No History of Problems with Anesthesia: No NPO: Yes ASA Class: III Final Preanesthetic Review: No Changes in Pt Med Stat, Meds/Allgs Chart Reviewed, Consent Obtained/Reviewed and Anes Risks/Benef Reviewed Patient Risk: Intermediate Procedure Risk: Intermediate Anesthetic Plan Anesthetic Plan: GA and Agree w/ Assess. and Plan Disposition: Standard PACU
--- NOTE | 2023-02-09 08:07 | PHA.MEDREC ---
Pharmacy Consult ? Medication Reconciliation Pharmacy has completed the medication reconciliation. Reviewed med rec done by nursing
--- NOTE | 2023-02-09 10:27 | W.PM.OPN ---
Operative Note Operative Note Date of Service: 02/09/23 Narrative: The patient was brought to the operating room, positioned on the table supine and general anesthesia was administered. Patient was then turned to the right decubitus position with left side up. C-arm image was obtained in AP and lateral planes and anterior border of the spine and disk space projections were marked on the skin.The abdomen was clipped and then prepped and draped in the usual sterile fashion. After timeout was done, incision was made from 2 cm medial and inferior to the Anterior Superior iliac spine in oblique direction 6 cm long. It was brought through subcutaneous tissue and the external oblique aponeurosis in line with the skin incision and transverse and internal abdominal muscles were split along the fibers. The pre-peritoneal plane was entered, peritoneum was bluntly dissected off and iliac artery pulse was felt. Self-retaining retractor with two deep blades was inserted and peritoneum protected with moist gauzes. Left internal iliac vein was identified and dissection was carried along the medial surface of the iliac vein up to the bifurcation. The middle sacral vessels were transected and L5-S1 disc space was bluntly and sharply dissected using bipolar cautery staying directly on the surface of the spine. The midline of the disk space was marked with C-arm image guide. Dr. Nunez then proceeded with the corpectomy and fusion, which will be dictated separately by him. Exposure to L4-L5 disk was done through the same incision with a separate entry through the abdominal muscles. Discectomy and cage fusion was done by Dr Nunez. After this was done, hemostasis was checked and was excellent. Left ureter was examined prior to closure and was intact. There was good left external iliac artery pulse. Diluted 0.5% Marcaine and Lidocaine was injected in the fascia and subcutaneous tissue. The incision was irrigated and closed by layers using a 2-0 Vicryl for transverse fascia, 0 Maxone for the external oblique, 3-0 Vicryl for subcutaneous tissue and 4-0 Monocryl for skin. Exofin glue was then applied.
[2023-02-09] MEDS: HYDROmorphone HCl 0.5 MG/0.5 ML SYRINGE IVPUSH ×2 (12:34→13:03)
[2023-02-09 12:55] LABS: Glucose, Whole Blood 210 mg/dL (60-115)
[2023-02-09] MEDS: oxyCODONE HCl Immed Release 5 MG TABLET 10 MG PO ×2 (14:09→18:17)
[2023-02-09] MEDS: 0.9 % Sodium Chloride 1,000 ML 75 ML IVCONT (14:11)
--- NOTE | 2023-02-09 14:15 | P.OP_ITS ---
Operative Note Operative Note Date of Service: 02/09/23 Narrative: Preoperative Diagnosis: 1.) L5-S1, L4-5 Lumbar degenerative disc disease L5-S1 and spinal stenosis; lumbar radiculopathy and back pain Procedure: L4-5, L5-S1 discectomy, arthrodesis and implantation cage through an oblique lumbar interbody approach (OLIF) ; anterior instrumentation L4-S1; allograft Indication for Surgery Lumbar degenerative disc disease Consent Informed Consent was obtained for this operation. I have explained the nature, purpose and benefits of the operation. I have discussed the risks and benefit of the operation including possible complications or adverse events with patient/family. Alternative(s) were discussed with the patient with their relative benefits and risks as well as the consequences of not accepting the operation were included in obtaining consent. Surgeon: HANNAH CASTELLANOS MD, PHD Procedure Assisted By: JACOB STATON MD and SAUL Hicks Description of Procedure This 62-year-old male the previous lumbar decompression done which provided not long-lasting relief. MRI reveals ongoing lumbar stenosis L4-5 with hyperintensity of the facet joints and severe degenerative disc disease L5-S1.. The patient was offered an oblique lumbar interbody fusion and posterior L4-S1 L5-S1 instrumented fusion. The procedure and complications were explained. The patient was consented. The patient was brought to the operating room and endotracheally intubated. The patient was put in a lateral position with the left side up. Prep and drape was done followed by timeout. Dr. Staton, co- surgeon, provided the access to the L5-S1 disc space through an anterior oblique approach. He will dictate the approach in a separate operative note. When the L5-S1 disc space was exposed I took over the procedure. An annulotomy was done followed by a partial discectomy. Sequential trial implants were inserted and advanced towards the posterior wall of the disc space. I completed the discectomy and prepare the endplates. Then a 24 x 36 x 12 height and 12 degree lordosis 4 web cage filled with allograft was inserted into the disc space. Anterior instrumentation was added to secure the implant wiith 1 screw s with the length 23 mm inserted into S1 vertebral body. The retractor was removed. Then attention was turned to the L4-5 level. The 3 muscle layers plane bluntly to enter the retroperitoneal space. An initial dilator was placed on the anterior 1/3 of the L4-5 disc space under fluoroscopy. Sequential dilators were placed followed by retractor. The psoas muscle was split to expose the underlying L4-5 disc space. An annulotomy was done after which we then elevated Askew the disc was released from his endplates and the contralateral annulus was perforated. A thorough diskectomy was done followed by placement of trial implants off 8, 10 and 12 mm height. More diskectomy was done after which an 18 x 50 x 12 height and is 0 degree lordosis prep cage was inserted with allograft. A good mandaen of the foramina occurs at both levels. The retractor was r emoved. Hemostasis was done by Dr. Mendosa who closed the incision. This marked first part of the procedure. Accordingly the patient was turned prone on the Jose spine table and 2 C arms were installed for fluoroscopy. Prep and drape was done followed by a second timeout. 2 paramedian incisions were made lateral from the L4-S1 pedicles. The muscle fascia was opened and the musculature was split bluntly to expose the posterolateral gutter. The following steps were taken for pedicle screw placement: The pediguard tap was used to create a transpedicular trajectory into the vertebral body. A K wire was advanced. A specially designed instrument was advanced over the K wire to decorticate the posterolateral gutter. Pedicle screw was advanced after which the K wire was removed. Following the steps pedicle screws were placed in the bilateral L4, L5 and S1 pedicles. Total of 6 screws were placed with the following measurements: 6.5 by 45 mm in the bilateral L4 and L5 pedicles and 6.5 x 40 mm screws in the bilateral S1 pedicles. A 70 mm katy was tunneled bilaterally and locked down with locking caps. The extension towers were removed. The posterolateral fusion was completed by laying down allograft in the posterolateral gutter. Hemostasis was done. The paramedian incisions were closed with an 0 Vicryl to fascia and 3-0 Vicryl to subdermal layer. Steri- Strips were used to approximate the incision. An OpSite with Tegaderm was used to cover the incisions. All sponge and needle counts were correct. The patient was extubated and transported in stable condition to recovery room. The physician traffic assistant was critical for the following aspects of surgery : Interpretation of imaging, partial insertion of the pedicle screws and closure of the paramedian incisions. Anesthesia: General Estimated Blood Loss (ml): 30 mL Duration of Surgery: 3 hours Complications: None Postoperative Plan: Admit to inpatient for observation
[2023-02-09 14:47] LABS: Creatinine Clr Calc Pharmacy 58.2; Estimated Glomerular Filt Rate 49
[2023-02-09] MEDS: Acetaminophen 1,000 MG/100 ML PIGGYBACK 400 MG IV ×2 (14:49→20:46)
[2023-02-09] MEDS: Ketorolac Tromethamine 15 MG/ML VIAL IVPUSH ×2 (14:49→20:25)
[2023-02-09] MEDS: HYDROmorphone HCl 1 MG/ML SYRINGE IVPUSH ×3 (16:16→23:16)
[2023-02-09 16:40] LABS: Glucose, Whole Blood 236 mg/dL (60-115)
[2023-02-09] MEDS: Insulin Lispro 100 UNIT/ML 3 ML VIAL SUBCUT ×2 (17:14→20:46)
[2023-02-09] MEDS: ondansetron HCL 4 MG/2 ML VIAL IVPUSH (20:25)
[2023-02-09 20:26] LABS: Glucose, Whole Blood 206 mg/dL (60-115)
[2023-02-09] MEDS: Insulin Glargine,Hum.rec.anlog 100 UNIT/ML 10 ML VIAL 56 UNIT SUBCUT (20:46)
[2023-02-10] VITALS: BP 134/72; PULSE 92; RESP 18; TEMP 36.6; O2SAT 95
[2023-02-10] MEDS: HYDROmorphone HCl 1 MG/ML SYRINGE IVPUSH ×2 (03:39→07:24)
[2023-02-10] MEDS: Acetaminophen 1,000 MG/100 ML PIGGYBACK 400 MG IV ×2 (03:40→08:23)
[2023-02-10] MEDS: ondansetron HCL 4 MG/2 ML VIAL IVPUSH (03:49)
[2023-02-10 04:00] VITALS: BP 132/75; PULSE 96; RESP 18; TEMP 36.6; O2SAT 96
[2023-02-10] MEDS: 0.9 % Sodium Chloride 1,000 ML 75 ML IVCONT (05:09)
[2023-02-10 07:24] LABS: Glucose, Whole Blood 76 mg/dL (60-115)
[2023-02-10 07:39] VITALS: BP 139/74; PULSE 89; RESP 16; TEMP 36.3; O2SAT 96
[2023-02-10 08:12] VITALS: BP 139/74; PULSE 89; O2SAT 96
[2023-02-10] MEDS: Ketorolac Tromethamine 15 MG/ML VIAL IVPUSH (08:22)
[2023-02-10] MEDS: amLODIPine Besylate 10 MG TABLET PO (08:24)
[2023-02-10] MEDS: Atorvastatin Calcium 10 MG TABLET PO (08:24)
[2023-02-10] MEDS: lisinopriL 10 MG TABLET 30 MG PO (08:24)
[2023-02-10] MEDS: Empagliflozin 10 MG TABLET PO (08:24)
[2023-02-10] MEDS: Docusate Sodium 100 MG CAPSULE PO (08:24)
[2023-02-10] MEDS: Gabapentin 300 MG CAPSULE PO (08:24)
[2023-02-10] MEDS: Famotidine 20 MG TABLET PO (08:24)
--- NOTE | 2023-02-10 09:25 | HO.NEURO.PN ---
Neurosurgery Operative Note Date of Service: 02/10/23 Narrative: postoperative day 1. L4-5, L5-S1 oblique lumbar interbody fusion patient reports his preoperative leg pain is improved, but he is experiencing some numbness of his right foot. He was up walking last evening, when in the hallways. He has been voiding okay. He is tolerating a diet okay. Denies any abdominal pain, nausea vomiting. Afebrile, vital signs are stable physical exam: Patient is awake alert oriented x3, patient seen at bedside with Dr. Nunez, abdomen is mildly distended but no rebound tenderness or guarding. Left lower quadrant incision is clean and dry. Back dressings have a small amount of stating on them but no signs of hematoma. He has full strength of bilateral lower extremities. Impression: Postop day 1. L4-5, L5-S1 oblique lumbar interbody fusion, patient clinically doing well, he had improvement in his preoperative leg pain. He is experiencing back pain but it is manageable. He has been up walking around, he is voiding and tolerating a diet. He will see PT 1 last time today with the plan will be to discharge him home. Patient seen at bedside with Dr. Nunez who agrees with the plan as outlined above.
--- NOTE | 2023-02-10 09:28 | HO.NEUROPN_ITS ---
Neurosurgery Operative Note Date of Service: 02/10/23
--- NOTE | 2023-02-10 09:28 | HO.NEURO.PN ---
Neurosurgery Operative Note Date of Service: 02/10/23
--- NOTE | 2023-02-10 09:28 | MHC.CM.PN ---
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
--- NOTE | 2023-02-10 09:33 | P.DS_ITS ---
DS: Providers Provider Date of Service: 02/09/23 Date of admission: 02/09/23 06:12 Date of discharge: 02/10/23 Primary care physician: Lico Francisco MD Admitting clinician: Filippo Nunez DS: Diagnosis Discharge Diagnosis (1) Lumbar degenerative disc disease: Status: Acute DS: Summary Time Attestation Discharge coordination time: Less than 30 minutes Quality: Safe Use of Opioids Does Pt have an Active Cancer Diagnosis on the Problem List?: No Quality: Stroke Does the patient have a stroke diagnosis?: No Physical Exam Vital Signs: Vital Signs: Last Vital Signs Temp 97.4 F 02/10/23 07:39 Pulse 89 02/10/23 08:12 Resp 16 02/10/23 07:39 BP 139/74 02/10/23 08:12 Pulse Ox 96 02/10/23 08:12 O2 Del Method Room Air 02/10/23 07:39 O2 Flow Rate 2 02/09/23 15:24 BMI result Body Mass Index 29.8 DS: Data Data Completed and Pending Labs on day of discharge: Laboratory Results - last 24 hr 02/09/23 02/09/23 02/09/23 12:51 14:20 16:27 Hold Purple Top SEE NOTE Creatinine 1.45 H Estim Creat Clear Calc 58.2 Estimated GFR 49 POC Glucose 210 H 236 H 02/09/23 02/10/23 20:19 07:08 Hold Purple Top Creatinine Estim Creat Clear Calc Estimated GFR POC Glucose 206 H 76 Discharge Plan Discharge Anticipated Discharge Date/Time: 02/10/23 13:34 Patient Disposition: Home, Self-Care Discharge Diagnosis: L4-5, L5-S1 Degenerative Disk Disease Referrals: Lico Francisco MD [Primary Care Provider] - 1 Week Discharge Medications: New docusate sodium [Colace] 100 mg capsule 100 mg PO BID Qty: 20 0RF oxycodone 5 mg tablet See Rx Instructions .ROUTE .COMPLEX PRN (Reason: pain) Qty: 40 0RF Rx Instructions: 1-2 tabs po q4 hours prn pain; Partial Fill upon patient request. Continued (DME) flash glucose scanning reader Misc See Rx Instructions .ROUTE .MEDSUPPLY Qty: 1 0RF Rx Instructions: Continuous glucose monitor (DME) FreeStyle Lexii 2 Sensor Kit See Rx Instructions .Route Qty: 1 0RF Rx Instructions: As directed (DME) lancets [FreeStyle Lancets] 28 gauge misc See Rx Instructions .ROUTE .MEDSUPPLY Qty: 100 11RF Rx Instructions: Three times a day (DME) pen needle, diabetic [Ultra-Thin II (Short) Pen NDL] 31 gauge x 5/16 needle See Rx Instructions .ROUTE .MEDSUPPLY Qty: 100 12RF Rx Instructions: test 4 x a day (DME) FreeStyle Lite Strips Strip See Rx Instructions .Route Qty: 100 8RF Rx Instructions: test 3 times per day (DME) blood-glucose meter [FreeStyle Lite Meter] Kit See Rx Instructions .Route Qty: 1 0RF Rx Instructions: test 3 times per day lisinopril 30 mg tablet 30 mg PO DAILY 90 Days Qty: 90 1RF insulin aspart U-100 [Novolog FlexPen U-100 Insulin] 100 unit/mL (3 mL) insulin pen 15 unit subcut TID Qty: 15 1RF atorvastatin 10 mg tablet 10 mg PO DAILY famotidine 20 mg tablet 20 mg PO DAILY PRN (Reason: for heartburn) gabapentin 300 mg capsule 300 mg PO BID Toujeo Max U-300 SoloStar 300 unit/mL (3 mL) insulin pen 70 unit subcut BEDTIME tadalafil 20 mg tablet 20 mg PO DAILY PRN (Reason: Sexual Activity) famotidine 20 mg tablet 20 mg PO DAILY Farxiga 10 mg tablet 10 mg PO DAILY amlodipine 10 mg tablet 10 mg PO DAILY Shingrix (PF) 50 mcg/0.5 mL suspension for reconstitution 0.5 ml IM ONCE Qty: 1 0RF Discharge Orders: Discharge Order (Routine); Ordered 02/10/23 Ordered By: Bill Montenegro Diet: Advance to usual diet Activity on Discharge: As tolerated Stand Alone Forms: Patient Portal Discharge page Activity Restrictions/Additional Instructions: After your spinal surgery we ask you to observe the following restrictions/guidelines: Activity: It is normal to feel some discomfort as you increase your activity, but that will improve with time. We ask you avoid heavy lifting or acitivities that cause pain. As a general rule, 8lbs is a safe limit for lifting right after surgery. Walk as much as you feel comfortable but not to exhaustion. You will feel extra tired the first few days after surgery. Stay well hydrated. It is OK to walk up and down stairs You may return to driving when you are off narcotics (such as vicodin, oxycodone, dilaudid, etc), and you are back to normal functional capacity. If you have any concerns please check with office before driving. Return to work is specific to each patient and each surgery, so please speak with your doctor/PA at first follow up. Please bring paperwork such as FMLA at that time if you need it filled out. Medications: For optimum pain control, it is best to start with a combination of 500 mg of Tylenol every 4 hours with 600 mg of Motrin every 8 hours, and use narcotics as needed in between for breakthrough pain. We will give you a short supply of narcotics after surgery (usually one weeks worth). If you need more please call the office but do not use more than p rescribed. You will need to give our office 48 hours notice if you need narcotics refilled and we do not fill narcotics on weekends or evenings. If you are on a narcotic, it is a good idea to take a stool softener such as colace or senna to avoid constipation If you take blood thinner such as aspirin, Plavix, Coumadin, Effient, Eliquis etc for conditions such as Afib, DVT, Pulmonary embolus, coronary disease, stents etc please speak with your surgeon about specific details as to when you can resume these medications. You can resume NSAIDs on post op day 1 (eg: Motrin, Naproxen, etc). Follow up: Please call the office, , after surgery to arrange a 3 week follow up for wound check. Wound Care: You may remove your dressing on the first day after surgery. You may leave open to air. Please do not remove the steri strips underneath. they will fall off on their own in one week. IT IS NORMAL FOR THE WOUND TO OOZE OR BE BLOODY FOR A FEW DAYS AFTER SURGERY. IF THIS HAPPENS JUST PLACE NEW DRESSING OVER IT TO AVOID STAINING CLOTHES. You may shower on post op day # 1 We ask that you do not let the water soak the wound. If it does get wet, just towel dry lightly. Please do not scrub your incision or place any type of chemical/ointment on the wound. No tub baths, pools or jacuzzis for one month. If you have any leaking or redness from your wound, or fevers, please call office Care Plan Goals: discharge home Health Concerns: none Plan of Treatment: discharge home Assessment: stable
--- NOTE | 2023-02-10 09:42 | MHC.CM.PN ---
DP: PT HAS BEEN MEDICALLY CLEARED FOR DC HOME, NO SERVICES. PT HAS OWN RIDE HOME.
--- NOTE | 2023-02-10 13:58 | HO.POSTANES ---
Post Anesthesia Evaluation Post Anesthesia Evaluation Date of Service: 02/10/23 Vital Signs: Vital Signs Temp Pulse Resp BP Pulse Ox O2 Del Method 02/10/23 08:12 89 139/74 96 02/10/23 07:39 97.4 F 89 16 139/74 96 Room Air 02/10/23 04:00 97.8 F 96 18 132/75 96 Room Air Anesthesia: General Endotracheal-GETA Mental Status: Awake Pain Control: Satisfactory Nausea/Vomiting: None Hydration: Adequate Anesthesia-Related Issues: No Anes. Related Issues
== END 2023-02-10 11:23 | disposition home or self-care (01) | DRG 460 ==
LOC: HO.SSSA 06:15 → HO.S3 12:55
PROVIDERS: Nurse Practitioner; Physician Assistant; Admitting Provider Physician Assistant; PCP Internal Medicine; Visit Provider Neurological Surgery
PROC: 0SG30A0 Fusion of Lumbosacral Joint with Interbody Fusion Device, Anterior Approach, Anterior Column, Open Approach (ICD-10-PCS; principal; 2023-02-09 07:30)
DX: M51.37 Other intervertebral disc degeneration, lumbosacral region (principal); M48.07 Spinal stenosis, lumbosacral region; M51.36 Other intervertebral disc degeneration, lumbar region; Z91.041 Radiographic dye allergy status; Z79.4 Long term (current) use of insulin; Z79.899 Other long term (current) drug therapy
CPT/HCPCS: 36415; 72020; 80048; 82565; 82947; 85027; 86850; 86900; 86901; 93005; 97161; 99024; C1713; J0131; J1100; J1170; J1885; J2250; J2371; J2405; J2598; J2704; J3010; J3371; L8699

== ENCOUNTER → 2023-02-09 06:12 | Outpatient (BNV) | payer MEDICARE, MEDICAID, SELFPAY | PROVIDERS: Admitting Provider Physician Assistant; PCP Internal Medicine; Visit Provider Surgery | DX: M51.36 Other intervertebral disc degeneration, lumbar region (principal) | CPT/HCPCS: 20930; 22558; 22585; 22612; 22614; 22840; 22853; 99499 ==

== ENCOUNTER 2023-02-24 13:08 | Emergency (ER) | payer MEDICARE, SELFPAY ==
--- NOTE | ~2023-02-24 | XR_ITS ---
EXAMINATION: XR ABDOMEN KUB CLINICAL INDICATION: No bowel movements in 12 days COMPARISON: None available. TECHNIQUE: AP view of the abdomen. FINDINGS: There is moderate stool and gas seen throughout the colon without any distention. The small bowel loops are normal caliber. No organomegaly. No radiopaque calculi seen. There are multiple phleboliths in pelvis. There is L4-L5 and L5-S1 disc prosthesis stabilized with bilateral L4, L5 and S1 pedicular screws with interconnecting rods. XR/XR KUB IMPRESSION: Unremarkable KUB examination.
[2023-02-24 13:31] VITALS: BP 158/86; PULSE 112; RESP 18; TEMP 37.6; O2SAT 99; BMI 25.6
--- NOTE | 2023-02-24 13:34 | ED.ABDPAIN ---
HPI - Abdominal Pain General Chief Complaint: General Medical Stated Complaint: Small bowel obstruction had surgery on 02/09 Related Data Home Medications Medication Instructions Recorded Confirmed amlodipine 10 mg tablet 10 mg PO DAILY 12/11/22 01/26/23 dapagliflozin propanediol 10 mg 10 mg PO DAILY 12/11/22 02/09/23 tablet (Farxiga) atorvastatin 10 mg tablet 10 mg PO DAILY 01/26/23 02/09/23 famotidine 20 mg tablet 20 mg PO DAILY PRN for heartburn 01/26/23 01/26/23 insulin glargine U-300 conc 300 70 unit subcut BEDTIME 01/26/23 02/09/23 unit/mL (3 mL) subcutaneous pen (Toujeo Max U-300 SoloStar) tadalafil 20 mg tablet 20 mg PO DAILY PRN Sexual Activity 01/27/23 02/09/23 famotidine 20 mg tablet 20 mg PO DAILY 02/09/23 02/09/23 Previous Rx's Medication Instructions Recorded flash glucose scanning reader #1 ea 12/27/21 flash glucose sensor (FreeStyle #1 ea 12/31/21 Lexii 2 Sensor kit) lancets 28 gauge (FreeStyle #100 ea 09/09/22 Lancets) pen needle, diabetic 31 gauge x #100 ea 09/09/2207/08 (Ultra-Thin II (Short) Pen NDL) blood sugar diagnostic (FreeStyle #100 ea 09/22/22 Lite Strips) blood-glucose meter (FreeStyle #1 ea 10/23/22 Lite Meter kit) lisinopril 30 mg tablet 30 mg PO DAILY 90 days #90 tabs 12/03/22 varicella-zoster glycoE [id number] 0.5 ml IM ONCE #1 ea 12/11/22 adj(PF) 50 mcg/0.5 mL IM susp, kit (Shingrix (PF)) insulin aspart U-100 100 unit/mL 15 unit (0.15 mL) subcut TID #15 mL 01/06/23 (3 mL) subcutaneous pen (Novolog FlexPen U-100 Insulin aspart) acetaminophen 500 mg tablet 1,000 mg (2 x 500 mg) PO Q8H #42 02/18/23 tabs hydromorphone 2 mg tablet 2 mg PO Q6H PRN pain, severe #24 02/19/23 tabs docusate sodium 100 mg capsule 100 mg PO BID #20 caps 02/26/23 (Colace) gabapentin 300 mg capsule 300 mg PO TID #90 caps 02/27/23 magnesium citrate (Citrate of 150 ml PO BID PRN constipation 02/27/23 Magnesia oral) #296 mL Allergies Allergy/AdvReac Type Severity Reaction Status Date / Time clindamycin [CLINDAMYCIN] Allergy Severe rash, hives Verified 02/25/23 15:23 Iodinated Contrast Media Allergy Severe Anaphylaxis Verified 02/25/23 15:23 [IV CONTRAST] Penicillins Allergy Severe hives, rash Verified 02/25/23 15:23 shellfish derived Allergy Severe ANAPHYLAXIS Verified 02/25/23 15:23 dulaglutide [From Trulicity] AdvReac Severe CP, SOB, Verified 02/25/23 15:23 GI UPSET PMFSH Past Medical History Onset Date is defined in the Problem List Problems that require an onset date and time if occurred within 24 hrs of arrival to the ED Aortic Dissection and Rupture; Neurologic impairment; Cardiopulmonary Arrest; Endotracheal Intubation; Insertion or Replacement of Mechanical Circulatory Assist Device Medical History (Updated 03/08/23 @ 23:58 by SAUL Santoro) Environmental allergies GERD (gastroesophageal reflux disease) DJD (degenerative joint disease) Arthritis Chest pain HTN (hypertension) Long-term current use of insulin for diabetes mellitus DM2 (diabetes mellitus, type 2) Overweight (BMI 25.0-29.9) Type 2 diabetes mellitus with diabetic polyneuropathy Bilateral knee pain Constipation Allergic rhinitis Chronic kidney disease (CKD), stage II (mild) Obesity (BMI 30-39.9) Neuropathy Chronic gastritis without bleeding Hypertriglyceridemia Benign essential hypertension 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 Cough Lumbar degenerative disc disease Surgical History (Updated 02/25/23 @ 14:58 by SAUL Hicks) History of neck surgery History of surgery History of colonoscopy History of esophagogastroduodenoscopy (EGD) History of hernia repair Family History Family History Father Leukemia Mother Alzheimers disease Daughter Overweight Prediabetes Brother Prostate cancer Other Mental health problem Social History Social History (Updated 01/27/23 @ 12:31 by Sully Corbin RN) Household Members: None 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 Housing: House Are you a primary patient care director to a significant other at home: No Do you presently have visiting nurse or other home services: Yes Alcohol intake: current Alcohol intake frequency: holidays/special occasions only Patient Tobacco Use Status: Never used Tobacco e-Cigarette/Vaping Use: Never Used Second Hand Smoke Exposure: Yes Substance Use Type: Crack/Cocaine, Former Substance User, Marijuana and Painkillers service: No Current occupational status: retired and disabled Cognitive needs: No Hearing needs: No Vision needs: Yes (glasses) Physical Exam ED Vital Signs: BMI result Body Mass Index 25.6 Course Course Course Narrative: This is an RME: Additional HPI, ROS, PE not included below will be deferred to primary provider. This is a 40-eqsg-nho-male, with a hx of DDD, DM, HTN, GERD, presenting to the emergency department with a complaint of abdominal pain and constipation. He had a Oblique Lumbar Interbody Fusion Multi / ALIF on 02/06/2023. Has been on diluadid and oxycodone with bowel regimen without any relief. Pt has bowel sounds. No bowel movement in 10 days. Plan: Labs, KUB Reevaluation(s) Reevaluation #1: pt left prior to completing treatment. Discharge Plan Discharge Clinical Impression: Abdominal pain Patient Disposition: Left W/O Completing Treatment Prescriptions: No Action (DME) flash glucose scanning reader Misc See Rx Instructions .ROUTE .MEDSUPPLY Qty: 1 0RF Rx Instructions: Continuous glucose monitor (DME) FreeStyle Lexii 2 Sensor Kit See Rx Instructions .Route Qty: 1 0RF Rx Instructions: As directed (DME) lancets [FreeStyle Lancets] 28 gauge misc See Rx Instructions .ROUTE .MEDSUPPLY Qty: 100 11RF Rx Instructions: Three times a day (DME) pen needle, diabetic [Ultra-Thin II (Short) Pen NDL] 31 gauge x 5/16 needle See Rx Instructions .ROUTE .MEDSUPPLY Qty: 100 12RF Rx Instructions: test 4 x a day (DME) FreeStyle Lite Strips Strip See Rx Instructions .Route Qty: 100 8RF Rx Instructions: test 3 times per day (DME) blood-glucose meter [FreeStyle Lite Meter] Kit See Rx Instructions .Route Qty: 1 0RF Rx Instructions: test 3 times per day lisinopril 30 mg tablet 30 mg PO DAILY 90 Days Qty: 90 1RF insulin aspart U-100 [Novolog FlexPen U-100 Insulin] 100 unit/mL (3 mL) insulin pen 15 unit subcut TID Qty: 15 1RF acetaminophen 500 mg tablet 1,000 mg PO Q8H Qty: 42 0RF hydromorphone 2 mg tablet 2 mg PO Q6H PRN (Reason: pain, severe) Qty: 24 0RF Rx Instructions: Partial Fill upon patient request. docusate sodium [Colace] 100 mg capsule 100 mg PO BID Qty: 20 0RF gabapentin 300 mg capsule 300 mg PO TID Qty: 90 11RF magnesium citrate [Citrate of Magnesia] Solution 150 ml PO BID PRN (Reason: constipation) Qty: 296 0RF Rx Instructions: drink half a bottle x 1, repeat 12 hours later if no BM atorvastatin 10 mg tablet 10 mg PO DAILY famotidine 20 mg tablet 20 mg PO DAILY PRN (Reason: for heartburn) Toujeo Max U-300 SoloStar 300 unit/mL (3 mL) insulin pen 70 unit subcut BEDTIME tadalafil 20 mg tablet 20 mg PO DAILY PRN (Reason: Sexual Activity) famotidine 20 mg tablet 20 mg PO DAILY Farxiga 10 mg tablet 10 mg PO DAILY amlodipine 10 mg tablet 10 mg PO DAILY Shingrix (PF) 50 mcg/0.5 mL suspension for reconstitution 0.5 ml IM ONCE Qty: 1 0RF Interventions: LWBS Worksheet Last Done: 02/24/23 21:17 Discharge Date/Time: 02/24/23 21:34
== END 2023-02-24 21:34 | disposition left against medical advice (07) ==
LOC: HO.ED 21:22
PROVIDERS: Emergency Provider Emergency Medicine; PCP Internal Medicine
DX: R10.9 Unspecified abdominal pain (principal); K59.00 Constipation, unspecified; E11.9 Type 2 diabetes mellitus without complications; I10 Essential (primary) hypertension; K21.9 Gastro-esophageal reflux disease without esophagitis
CPT/HCPCS: 74018; 99281; 99283

== ENCOUNTER 2023-02-25 13:34 | Outpatient (AMB) | payer MEDICARE, MEDICAID, SELFPAY ==
--- NOTE | 2023-02-24 13:40 | HO.SPINEOV ---
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: No Allergies clindamycin [CLINDAMYCIN] Allergy (Severe, Verified 01/26/23 13:33) rash, hives Iodinated Contrast Media [IV CONTRAST] Allergy (Severe, Verified 01/26/23 13:33) Anaphylaxis Penicillins Allergy (Severe, Verified 01/26/23 13:33) hives, rash shellfish derived Allergy (Severe, Verified 01/26/23 13:33) ANAPHYLAXIS dulaglutide [From Trulicity] Adverse Reaction (Severe, Verified 01/26/23 13:33) CP, SOB, GI UPSET Assessment & Plan Assessment & Plan (1) S/P spinal fusion: Code(s): Z98.1 - Arthrodesis status Plan Procedure: L4-5, L5-S1 Oblique Lumbar Interbody Fusion Kd comes in today for his 1st postoperative visit. Unfortunately he has had a complicated postoperative course. He has had significant pain originating in his right thigh shooting down the lateral aspect of his right leg terminating in the right lateral tibialis. He states that the pain is severe and is worse than before surgery. In addition to this he reports that he has not been able to make a bowel movement since his surgery. He has continued to pass gas, but no actual stool. No issues with urination (retention, production, or otherwise). He reports that his stomach hurts him and feels harder than normal. He reports he only eats 1 bowl of soup per day because he is not hungry. He called our office yesterday, and after some discussion was encouraged to go to the emergency department at [facility] for a CT scan of his abdomen/spine, and for evaluation of possible SBO. He did go to the emergency department, however left after getting a KUB x-ray (unremarkable). He states that his reason for leaving before further testing could be completed was that he had to wait too long and there was a lot of commotion in the ED. Today he came in for a scheduled follow up appointment. He reports that his pain continues to be severe nature, and states that his lack of appetite and constipation continues. He reports no subjective fevers at home, however he is now reporting that he has night sweats overnight and wakes up covered in sweat. He reports subjective weight loss of 23 lbs in the last 1 month. On examination today the patient appears fatigued. Strength testing is not accurate at this time due to his pain. Abdominal palpation reveals a soft non-tender abdomen. No pain to McBurney's point. (-) Rovsing's sign. (-) straight leg raise. The patient is able to rise from a seated position without assistance. He ambulates with the use of a cane. At this time would like to get a CT of the abdomen without contrast to evaluate both the lumbar spine and associated instrumentation and the peritoneal space for any sign of pathology that would correlate with his history and physical. We would like a CBC with diff as a baseline for the patient. He was informed that we will follow-up with them once we get the results of his CT scan. Boston Nunez MD,PhD [facility] Coding Level of Care Code Global (58211) Diagnoses S/P spinal fusion Z98.1
--- NOTE | 2023-02-24 13:40 | ...WebTmpl.AM.PHNO ---
Nursing Note I called and spoke with Kd after discussion of his persistent pain and reduced bowel function symptoms with Dr. Nunez. We would like him to be seen in the emergency department here at [facility] for workup of potential small-bowel obstruction, given that he reports no bowel movement since his surgery on 02/09/23. Importantly he did report that he has been passing gas, but states it is not consistent. He also reports reduction in his eating patterns, which is additionally concerning. While he is in the ED would also like a CT scan of his lumbar spine performed to evaluate for potential etiology of his low back and leg pain. He does have an active prescription of Dilaudid at home which he is choosing to not take at this time. We will see him tomorrow if he is still in the hospital, if not we will follow up with him in clinic. Boston Nunez MD,PhD [facility]
== END 2023-02-25 14:23 | disposition home or self-care (01) ==
PROVIDERS: PCP Internal Medicine; Visit Provider Physician Assistant
DX: Z98.1 Arthrodesis status (principal)
CPT/HCPCS: 99024

== ENCOUNTER → 2023-02-25 13:34 | Outpatient (BNVA) | payer MEDICARE, MEDICAID, SELFPAY | PROVIDERS: PCP Internal Medicine; Visit Provider Physician Assistant | DX: Z47.89 Encounter for other orthopedic aftercare (principal); Z98.1 Arthrodesis status | CPT/HCPCS: 99212 ==

== ENCOUNTER 2023-02-25 14:31 | Emergency (ER) | payer MEDICARE, MEDICAID, SELFPAY ==
[2023-02-25 15:19] VITALS: BP 149/92; PULSE 102; RESP 18; TEMP 36.6; O2SAT 100; BMI 26.6
--- NOTE | 2023-02-25 15:19 | ED_ITS ---
HPI - General Adult General Chief complaint: General Medical Stated complaint: Back Pain S/P Lumbar Surgery 2 Wks Ago Related Data Home Medications Medication Instructions Recorded Confirmed amlodipine 10 mg tablet 10 mg PO DAILY 12/11/22 01/26/23 dapagliflozin propanediol 10 mg 10 mg PO DAILY 12/11/22 02/09/23 tablet (Farxiga) atorvastatin 10 mg tablet 10 mg PO DAILY 01/26/23 02/09/23 famotidine 20 mg tablet 20 mg PO DAILY PRN for heartburn 01/26/23 01/26/23 insulin glargine U-300 conc 300 70 unit subcut BEDTIME 01/26/23 02/09/23 unit/mL (3 mL) subcutaneous pen (Toujeo Max U-300 SoloStar) tadalafil 20 mg tablet 20 mg PO DAILY PRN Sexual Activity 01/27/23 02/09/23 famotidine 20 mg tablet 20 mg PO DAILY 02/09/23 02/09/23 Previous Rx's Medication Instructions Recorded flash glucose scanning reader #1 ea 12/27/21 flash glucose sensor (FreeStyle #1 ea 12/31/21 Lexii 2 Sensor kit) lancets 28 gauge (FreeStyle #100 ea 09/09/22 Lancets) pen needle, diabetic 31 gauge x #100 ea 09/09/2207/08 (Ultra-Thin II (Short) Pen NDL) blood sugar diagnostic (FreeStyle #100 ea 09/22/22 Lite Strips) blood-glucose meter (FreeStyle #1 ea 10/23/22 Lite Meter kit) lisinopril 30 mg tablet 30 mg PO DAILY 90 days #90 tabs 12/03/22 varicella-zoster glycoE [id number] 0.5 ml IM ONCE #1 ea 12/11/22 adj(PF) 50 mcg/0.5 mL IM susp, kit (Shingrix (PF)) insulin aspart U-100 100 unit/mL 15 unit (0.15 mL) subcut TID #15 mL 01/06/23 (3 mL) subcutaneous pen (Novolog FlexPen U-100 Insulin aspart) acetaminophen 500 mg tablet 1,000 mg (2 x 500 mg) PO Q8H #42 02/18/23 tabs hydromorphone 2 mg tablet 2 mg PO Q6H PRN pain, severe #24 02/19/23 tabs docusate sodium 100 mg capsule 100 mg PO BID #20 caps 02/26/23 (Colace) gabapentin 300 mg capsule 300 mg PO TID #90 caps 02/27/23 magnesium citrate (Citrate of 150 ml PO BID PRN constipation 02/27/23 Magnesia oral) #296 mL Allergies Allergy/AdvReac Type Severity Reaction Status Date / Time clindamycin [CLINDAMYCIN] Allergy Severe rash, hives Verified 02/25/23 15:23 Iodinated Contrast Media Allergy Severe Anaphylaxis Verified 02/25/23 15:23 [IV CONTRAST] Penicillins Allergy Severe hives, rash Verified 02/25/23 15:23 shellfish derived Allergy Severe ANAPHYLAXIS Verified 02/25/23 15:23 dulaglutide [From Trulicity] AdvReac Severe CP, SOB, Verified 02/25/23 15:23 GI UPSET PMFSH Past Medical History Onset Date is defined in the Problem List Problems that require an onset date and time if occurred within 24 hrs of arrival to the ED Aortic Dissection and Rupture; Neurologic impairment; Cardiopulmonary Arrest; Endotracheal Intubation; Insertion or Replacement of Mechanical Circulatory Assist Device Medical History (Updated 03/01/23 @ 14:01 by SAUL Tompkins) Environmental allergies GERD (gastroesophageal reflux disease) DJD (degenerative joint disease) Arthritis Chest pain HTN (hypertension) Long-term current use of insulin for diabetes mellitus DM2 (diabetes mellitus, type 2) Overweight (BMI 25.0-29.9) Type 2 diabetes mellitus with diabetic polyneuropathy Bilateral knee pain Constipation Allergic rhinitis Chronic kidney disease (CKD), stage II (mild) Obesity (BMI 30-39.9) Neuropathy Chronic gastritis without bleeding Hypertriglyceridemia Benign essential hypertension 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 Cough Lumbar degenerative disc disease Surgical History (Updated 02/25/23 @ 14:58 by SAUL Hicks) History of neck surgery History of surgery History of colonoscopy History of esophagogastroduodenoscopy (EGD) History of hernia repair Family History Family History Father Leukemia Mother Alzheimers disease Daughter Overweight Prediabetes Brother Prostate cancer Other Mental health problem Social History Social History (Updated 01/27/23 @ 12:31 by Sully Corbin RN) Household Members: None 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 Housing: House Are you a primary adult day care worker to a significant other at home: No Do you presently have visiting nurse or other home services: Yes Alcohol intake: current Alcohol intake frequency: holidays/special occasions only Patient Tobacco Use Status: Never used Tobacco e-Cigarette/Vaping Use: Never Used Second Hand Smoke Exposure: Yes Substance Use Type: Crack/Cocaine, Former Substance User, Marijuana and Painkillers service: No Current occupational status: retired and disabled Cognitive needs: No Hearing needs: No Vision needs: Yes (glasses) Physical Exam ED Vital Signs: BMI result Body Mass Index 26.6 Course Course Course Narrative: RME: 62 yo w/ PMHx L4-5, L5-S1 Oblique Lumbar Interbody Fusion 2 weeks ago (Dr. Nunez) presenting to the ED sent in by Neuro Spine office for decreased appetitie, weight loss (23lbs in 2 weeks), constipation w/o BM in 2 weeks. Is passing flatus. Denies incontinence/fever Labs, UA, CT ordered Full HPI, ROS and PE to be performed by primary ED provider. Discharge Plan Discharge Clinical Impression: Weight loss Patient Disposition: Left W/O Completing Treatment Prescriptions: No Action (DME) flash glucose scanning reader Misc See Rx Instructions .ROUTE .MEDSUPPLY Qty: 1 0RF Rx Instructions: Continuous glucose monitor (DME) FreeStyle Lexii 2 Sensor Kit See Rx Instructions .Route Qty: 1 0RF Rx Instructions: As directed (DME) lancets [FreeStyle Lancets] 28 gauge misc See Rx Instructions .ROUTE .MEDSUPPLY Qty: 100 11RF Rx Instructions: Three times a day (DME) pen needle, diabetic [Ultra-Thin II (Short) Pen NDL] 31 gauge x 5/16 needle See Rx Instructions .ROUTE .MEDSUPPLY Qty: 100 12RF Rx Instructions: test 4 x a day (DME) FreeStyle Lite Strips Strip See Rx Instructions .Route Qty: 100 8RF Rx Instructions: test 3 times per day (DME) blood-glucose meter [FreeStyle Lite Meter] Kit See Rx Instructions .Route Qty: 1 0RF Rx Instructions: test 3 times per day lisinopril 30 mg tablet 30 mg PO DAILY 90 Days Qty: 90 1RF insulin aspart U-100 [Novolog FlexPen U-100 Insulin] 100 unit/mL (3 mL) insulin pen 15 unit subcut TID Qty: 15 1RF acetaminophen 500 mg tablet 1,000 mg PO Q8H Qty: 42 0RF hydromorphone 2 mg tablet 2 mg PO Q6H PRN (Reason: pain, severe) Qty: 24 0RF Rx Instructions: Partial Fill upon patient request. docusate sodium [Colace] 100 mg capsule 100 mg PO BID Qty: 20 0RF gabapentin 300 mg capsule 300 mg PO TID Qty: 90 11RF magnesium citrate [Citrate of Magnesia] Solution 150 ml PO BID PRN (Reason: constipation) Qty: 296 0RF Rx Instructions: drink half a bottle x 1, repeat 12 hours later if no BM atorvastatin 10 mg tablet 10 mg PO DAILY famotidine 20 mg tablet 20 mg PO DAILY PRN (Reason: for heartburn) Toujeo Max U-300 SoloStar 300 unit/mL (3 mL) insulin pen 70 unit subcut BEDTIME tadalafil 20 mg tablet 20 mg PO DAILY PRN (Reason: Sexual Activity) famotidine 20 mg tablet 20 mg PO DAILY Farxiga 10 mg tablet 10 mg PO DAILY amlodipine 10 mg tablet 10 mg PO DAILY Shingrix (PF) 50 mcg/0.5 mL suspension for reconstitution 0.5 ml IM ONCE Qty: 1 0RF Stand Alone Forms: Against Medical Advice Discharge Date/Time: 02/25/23 19:59
== END 2023-02-25 19:59 | disposition left against medical advice (07) ==
PROVIDERS: Emergency Provider Emergency Medicine; PCP Internal Medicine
DX: M54.89 Other dorsalgia (principal); R63.4 Abnormal weight loss; Z68.26 Body mass index [BMI] 26.0-26.9, adult
CPT/HCPCS: 99281

== ENCOUNTER 2023-02-26 13:03 | Outpatient (REF) | payer MEDICARE, MEDICAID, SELFPAY | END 2023-02-26 13:04 | disposition home or self-care (01) | LOC: HO.CT 13:03 | PROVIDERS: PCP Internal Medicine; Visit Provider Physician Assistant | DX: K59.00 Constipation, unspecified (principal) | CPT/HCPCS: 74176 ==

== ENCOUNTER 2023-03-25 09:28 | Outpatient (AMB) | payer MEDICARE, MEDICAID, SELFPAY ==
--- NOTE | 2023-03-25 09:33 | A.OFFPC_ITS ---
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: No Director Operations Broadcast: Not Required per policy Accompanied by: Self / Same As Patient Allergies clindamycin [CLINDAMYCIN] Allergy (Severe, Verified 03/25/23 09:35) rash, hives Iodinated Contrast Media [IV CONTRAST] Allergy (Severe, Verified 03/25/23 09:35) Anaphylaxis Penicillins Allergy (Severe, Verified 03/25/23 09:35) hives, rash shellfish derived Allergy (Severe, Verified 03/25/23 09:35) ANAPHYLAXIS dulaglutide [From Trulicity] Adverse Reaction (Severe, Verified 03/25/23 09:35) CP, SOB, GI UPSET Tobacco use date assessed: 03/25/23 Dental Screening Dental Screen Date: 03/25/23 Did you have a dental visit in the last 12 months?: Yes Did you have a dental problem in the last 6 months where you did not have access to dental care?: No Was dental information given to patient?: Patient has dentist HPI 3 month f/u HPI Details 62-year-old male presents to the office to discuss his chronic medical conditions. Four weeks ago patient underwent spinal surgery at [facility]. According to the patient 3 surgical disc were removed. Patient continues to have a lot of pain in the lower back radiating down into the leg. He saw his neurologist for the pain and the gabapentin was increased to 300 mg thrice daily. In addition he has been given a 30 day prescription of 10 mg oxycodone. Pain symptoms are still not fully controlled. Patient continues to be constipated. He is having difficulty passing bowel movements. He has been trying various [id number] measures with minimal relief. [facility] Medical History Environmental allergies GERD (gastroesophageal reflux disease) DJD (degenerative joint disease) Arthritis Chest pain HTN (hypertension) Long-term current use of insulin for diabetes mellitus DM2 (diabetes mellitus, type 2) Overweight (BMI 25.0-29.9) Type 2 diabetes mellitus with diabetic polyneuropathy Bilateral knee pain Constipation Allergic rhinitis Chronic kidney disease (CKD), stage II (mild) Obesity (BMI 30-39.9) Neuropathy Chronic gastritis without bleeding Hypertriglyceridemia Benign essential hypertension 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 Cough Lumbar degenerative disc disease Surgical History History of back surgery History of neck surgery History of surgery History of colonoscopy History of esophagogastroduodenoscopy (EGD) History of hernia repair Family History Father Leukemia Mother Alzheimers disease Daughter Overweight Prediabetes Brother Prostate cancer Other Mental health problem Social History Household Members: None 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 Housing: House Are you a primary health care consultant to a significant other at home: No Do you presently have visiting nurse or other home services: Yes Alcohol intake: current Alcohol intake frequency: holidays/special occasions only Patient Tobacco Use Status: Never used Tobacco e-Cigarette/Vaping Use: Never Used Second Hand Smoke Exposure: Yes Substance Use Type: Crack/Cocaine, Former Substance User, Marijuana and Painkillers service: No Current occupational status: retired and disabled Cognitive needs: Yes (Cane) Hearing needs: No Vision needs: Yes (glasses) Questionnaire PHQ-9 Over the last 2 weeks, how often have you been bothered by any of the following problems? 1. Little interest or pleasure in doing things: not at all 2. Feeling down, depressed, or hopeless: not at all 3. Trouble falling or staying asleep, or sleeping too much: not at all 4. Feeling tired or having little energy: not at all 5. Poor appetite or overeating: not at all 6. Feeling bad about yourself - or that you are a failure or have let yourself or your family down: not at all 7. Trouble concentrating on things, such as reading the newspaper or watching television: not at all 8. Moving or speaking so slowly that other people could have noticed. Or the opposite - being so fidgety or restless that you have been moving around a lot more than usual: not at all 9. Thoughts that you would be better off or of hurting yourself in some way: not at all Total score: 0 Depression Screening Interpretation: Negative Depression Screening Done: Yes Source: Developed by Drs. Myron Jiang, Brinda Stock, Jimmie Alfaro and colleagues, with an educational briana from [employer]. Thrive Questionnaire Date Thrive assessed: 03/25/23 I am a: Patient What is your living situation today?: I have a steady place to live Within the past 12 months, did the food you bought not last and you didn't have the money to get more?: Never true Within the past 12 months, did you worry whether your food would run out before you got money to buy more?: Never true Do you have trouble paying for medicines?: No Do you have trouble getting transportation to medical appointments?: No Do you have trouble paying your heating and electricity bill?: No Do you have trouble taking care of your child, family member or friend?: No Do you have trouble with day-to-day activities such as bathing, preparing meals, shopping, managing finances, etc.?: No Are you currently unemployed and looking for a job?: No Are you interested in more education?: No Currently or been in a relationship where the following occur: no concerns reported THRIVE Score: 0 AUDIT C Alcohol Use Questionnaire (AUDIT-C) 1. How often do you have a drink containing alcohol?: Monthly or less 2. How many drinks containing alcohol do you have on a typical day when you are drinking?: 1 or 2 Total Score: 1 BASHIR-7 AMB Questionnaire BASHIR-7 Date BASHIR - 7 assessed: 03/25/23 Feeling nervous, anxious, or on edge: 0 = Not at all Not being able to stop or control worryin = Not at all Worrying too much about different things: 0 = Not at all Trouble relaxin = Not at all Being so restless that it is hard to sit still: 0 = Not at all Becoming easily annoyed or irritable: 0 = Not at all Feeling afraid as if something awful might happen: 0 = Not at all Total BASHIR-7 score (0-4 normal; 5-9 mild; 10-14 moderate; 15-21 severe): 0 Source: Developed by Drs. Myron Jiang, Brinda Stock, Jimmie Alfaro and colleagues, with an educational briana from [employer]. Physical exam (Primary Care) Vital Signs: Last Vital Signs Pulse 75 03/25/23 09:35 BP 112/72 03/25/23 09:35 Pulse Ox 99 03/25/23 09:35 Oxygen Delivery Method Room Air 03/25/23 09:35 Care Plan Goal for BP management: Blood pressure is in range. Continue current medications. BMI result Body Mass Index 27.8 Tobacco/Smoking Status: Tobacco use Status Tobacco use date assessed 03/25/23 03/25/23 09:41 Patient Tobacco Use Status Never used Tobacco 03/25/23 09:41 e-Cigarette/Vaping Use Never Used 03/25/23 09:41 PHQ-9: PHQ-9 Score PHQ-9: Total score 0 03/25/23 10:14 Depression Screening Interpretation: Negative Thrive Assessment: Date of Thrive Assessment Date Thrive assessed 03/25/23 03/25/23 09:41 Currently or been in a relationship where the following occur: no concerns reported Const Other: Patient prefers to stand, giving him relief from pain. He is walking with the help of crutches. This is new after surgery. General: cooperative and healthy appearing Nutritional Appearance: well nourished Orientation/consciousness: patient oriented x3 HENMT Head: Yes normal to inspection Eyes General: appearance normal, both eyes and all related structures Neck Neck: Yes normal visual inspection Chest Chest palpation & inspection: normal palpation of entire chest wall Resp Effort & Inspection: normal respiratory effort Back/Spine/Pelvis Other: Back: Surgical scar appears to have healed. Neuro General: patient oriented x3 Results AMB Hemoglobin A1c AMB Hemoglobin A1c 8.6 % Last Edit by JOYCE Greene on 03/25/23 09:59 Results Reviewed Results Reviewed: Laboratory Last Values Hgb A1c (Clinic) 8.6 % (4.0-6.0) H 03/25/23 09:32 Assessment and Plan Assessment & Plan (1) Lumbar degenerative disc disease: Code(s): M51.36 - Other intervertebral disc degeneration, lumbar region Plan: Patient was cautioned against getting addicted to opioids. I advised him to move to non opioid medications. Muscle relaxant added to the regimen. (2) Essential hypertension: Code(s): I10 - Essential (primary) hypertension Plan: Blood pressure is stable. Continue current medications. (3) Type 2 diabetes mellitus with unspecified complications: Code(s): E11.8 - Type 2 diabetes mellitus with unspecified complications Plan: A1c is elevated at 8.6. This could be due to the stress of surgery and uncontrolled blood sugars. The dosages on the insulin have not been changed. Will review in 3 months. Orders: Orders AMB Hemoglobin A1c Today E11.8 - Type 2 diabetes mellitus with unspecified complications Medications: Refilled blood sugar diagnostic (FreeStyle Lite Strips) test 3 times per day 100 ea 8RF E11.22 - Type 2 diabetes mellitus with diabetic chronic kidney disease, N18.2 - Chronic kidney disease, stage 2 (mild), Z79.4 - intermediate frame tender (current) use of insulin docusate sodium (Colace) 100 mg PO BID 20 caps 0RF Coding Level of Care Code Est Pt Level 4 (24480) Diagnoses Lumbar degenerative disc disease M51.36 Essential hypertension I10 Type 2 diabetes mellitus with unspecified complications E11.8
[2023-03-25 09:35] VITALS: BP 112/72; PULSE 75; O2SAT 99; BMI 27.8
== END 2023-03-25 10:43 | disposition home or self-care (01) ==
PROVIDERS: PCP Internal Medicine; Visit Provider Internal Medicine
DX: M51.36 Other intervertebral disc degeneration, lumbar region (principal); I10 Essential (primary) hypertension; E11.8 Type 2 diabetes mellitus with unspecified complications
CPT/HCPCS: 83036; 99214

== ENCOUNTER 2023-04-02 10:15 | Outpatient (AMB) | payer OTHER, MEDICARE, MEDICAID, SELFPAY ==
[2023-04-02 10:25] VITALS: BP 124/70; PULSE 99; TEMP 36.6; O2SAT 99; BMI 28.2
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
== END 2023-04-02 11:17 | disposition home or self-care (01) ==
PROVIDERS: PCP Internal Medicine; Visit Provider Nurse Practitioner Family
DX: Z98.1 Arthrodesis status (principal); M51.36 Other intervertebral disc degeneration, lumbar region
CPT/HCPCS: 99212

== ENCOUNTER 2023-04-02 12:42 | Outpatient (REF) | payer MEDICARE, MEDICAID, OTHER, SELFPAY | END 2023-04-02 12:43 | disposition home or self-care (01) | LOC: HO.HOSX 12:42 | PROVIDERS: Visit Provider Physician Assistant | DX: Z13.89 Encounter for screening for other disorder (principal) ==

== ENCOUNTER 2023-04-03 13:47 | Outpatient (AMB) | payer OTHER, MEDICARE, MEDICAID, SELFPAY ==
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
== END 2023-04-03 14:57 | disposition home or self-care (01) ==
PROVIDERS: PCP Internal Medicine; Visit Provider Physician Assistant
DX: Z98.1 Arthrodesis status (principal)
CPT/HCPCS: 99024

== ENCOUNTER → 2023-04-03 13:47 | Outpatient (BNVA) | payer OTHER, MEDICARE, MEDICAID, SELFPAY | PROVIDERS: PCP Internal Medicine; Visit Provider Physician Assistant ==

== ENCOUNTER 2023-04-03 13:49 | Outpatient (REF) | payer OTHER, MEDICARE, MEDICAID, SELFPAY ==
--- NOTE | ~2023-04-03 | XR_ITS ---
EXAMINATION: XR LUMBOSACRAL SPINE WITH OBLIQUES CLINICAL INFORMATION: Arthrodesis status. COMPARISON: Lumbar spine radiographs of 02/09/2023 and 12/04/2021. MR lumbar spine 02/04/2022. KUB of 02/24/2023. TECHNIQUE: 4 views of the lumbar spine inclusive of neutral, flexion, extension and AP views. FINDINGS: Redemonstration of postsurgical changes status post interbody fusion with disc spacers at L4-L5 and L5-S1. Hardware appears intact. Minimal retrolisthesis of L3 on L4 with flexion and extension. Limited views of bilateral hips demonstrate moderate degenerative changes. Rounded pelvic calcifications are likely vascular. Degenerative changes with sclerosis in the bilateral sacroiliac joints. XR/XR lumbar spine 4V min IMPRESSION: 1. Redemonstration of postsurgical changes status post interbody fusion with disc spacers at L4-L5 and L5-S1. Hardware appears intact. 2. Minimal retrolisthesis of L3 on L4 with flexion and extension.
== END 2023-04-03 13:50 | disposition home or self-care (01) ==
LOC: HO.HOSX 13:49
PROVIDERS: Visit Provider Physician Assistant
DX: Z98.1 Arthrodesis status (principal)
CPT/HCPCS: 72110

== ENCOUNTER 2023-04-15 11:18 | Outpatient (AMB) | payer MEDICARE, MEDICAID, SELFPAY ==
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
== END 2023-04-15 12:13 | disposition home or self-care (01) ==
PROVIDERS: PCP Internal Medicine; Visit Provider Neurological Surgery
DX: Z98.1 Arthrodesis status (principal); G57.91 Unspecified mononeuropathy of right lower limb
CPT/HCPCS: 99024

== ENCOUNTER → 2023-04-15 11:18 | Outpatient (BNVA) | payer MEDICARE, SELFPAY | PROVIDERS: PCP Internal Medicine; Visit Provider Neurological Surgery | DX: Z47.89 Encounter for other orthopedic aftercare (principal); G57.91 Unspecified mononeuropathy of right lower limb; Z98.1 Arthrodesis status | CPT/HCPCS: 99212 ==

== ENCOUNTER 2023-04-29 14:06 | Outpatient (AMB) | payer MEDICARE, SELFPAY ==
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
[2023-04-29 14:38] VITALS: BP 130/76; PULSE 97; O2SAT 97; BMI 28.1
== END 2023-04-29 15:24 | disposition home or self-care (01) ==
PROVIDERS: PCP Internal Medicine; Visit Provider Internal Medicine
DX: E11.42 Type 2 diabetes mellitus with diabetic polyneuropathy (principal); Z79.4 Long term (current) use of insulin; M51.36 Other intervertebral disc degeneration, lumbar region
CPT/HCPCS: 99214

== ENCOUNTER 2023-05-06 13:33 | Outpatient (REF) | payer MEDICARE, MEDICAID, SELFPAY ==
--- NOTE | 2023-05-06 13:39 | EMG_ITS ---
Chief complaint: History of lumbar surgeries x3, continued numbness from right knee down to right foot. Severe pain right leg. Review of Dr. Arechiga's notes in the past showed that patient has prior history of painful diabetic neuropathy. EMG done in the past but not available for my review. Reason for referral: Evaluate for radiculopathy versus neuropathy Referred by: Dr. Nunez Procedure done: Right lower extremity NCS/EMG, left for comparison Precautions and/or limitations: Severe pain The limb temperature was monitored continuously and remained between 32-36 degrees C during the performance of the NCS. Nerve Conduction Studies Anti Sensory Summary Table ?Stim Site NR Onset (ms) Norm Onset (ms) Peak (ms) Norm Peak (ms) O-P Amp (?V) Norm O-P Amp Site1 Site2 Delta-0 (ms) Dist (cm) Colten (m/s) Norm Colten (m/s) Left Sural Anti Sensory (Lat Mall) Calf NR <4.0 >5.0 Calf Lat Mall 14.0 Right Sural Anti Sensory (Lat Mall) Calf NR <4.0 >5.0 Calf Lat Mall 14.0 Motor Summary Table ?Stim Site NR Onset (ms) Norm Onset (ms) O-P Amp (mV) Norm O-P Amp iAmp (mV) Amp (1st) (%) Site1 Site2 Delta-0 (ms) Dist (cm) Colten (m/s) Norm Colten (m/s) Right Peroneal Motor (Ext Dig Brev) Ankle NR <4.0 >2.5 Ankle Ext Dig Brev 0.0 B Fib NR B Fib Ankle 0.0 >40 Poplt NR Poplt B Fib 0.0 >40 Left Tibial Motor (Abd Interiano Brev) Ankle ? 4.1 <5 1.1 >2.5 1.3 100.0 Ankle Abd Interiano Brev 4.1 0.0 Knee ? 19.8 0.8 0.9 72.7 Knee Ankle 15.7 42.0 27 >40 Right Tibial Motor (Abd Interiano Brev) Ankle NR <5 >2.5 Ankle Abd Interiano Brev 0.0 Knee NR Knee Ankle 0.0 >40 EMG ?Side Muscle Nerve Root Ins Act Fibs Psw Amp Dur Poly Recrt Int Pat Comment Right MedGastroc Tibial S1-2 Nml Nml Nml Nml Nml 0 Nml Complete FINDINGS: Absent response from right peroneal nerve and right tibial nerve. Left tibial nerve showed very small amplitudes. No conduction block seen. Absent sural responses, bilateral. Concentric needle EMG was attempted. Patient could not tolerate rest of study. IMPRESSION: 1. NCS findings consistent with sensorimotor distal polyneuropathy, bilateral and symmetric.. 3. Patient unable to tolerate full needle EMG. Thank you for your kind referral. Dulce Kelsey MD, BILLY Board Certified, [place] Board of Physical Medicine and Rehabilitation (ABPMR) Board Certified, [place] Board of Electrodiagnostic Medicine (ABEM) CODIN [id number] [facility]
== END 2023-05-06 13:34 | disposition home or self-care (01) ==
LOC: HO.NEURO 13:33
PROVIDERS: PCP Internal Medicine; Visit Provider Neurological Surgery
DX: G57.91 Unspecified mononeuropathy of right lower limb (principal); Z98.1 Arthrodesis status
CPT/HCPCS: 95885; 95909

== ENCOUNTER → 2023-05-06 13:39 | Outpatient (BNV) | payer MEDICARE, MEDICAID, SELFPAY | PROVIDERS: PCP Internal Medicine; Visit Provider Physical Medicine & Rehabilitation | DX: M79.604 Pain in right leg (principal); R20.0 Anesthesia of skin | CPT/HCPCS: 95885; 95909 ==

== ENCOUNTER 2023-05-14 13:16 | Outpatient (AMB) | payer MEDICARE, MEDICAID, SELFPAY ==
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
[2023-05-14 13:32] VITALS: BP 122/68; PULSE 99; RESP 16; O2SAT 100; BMI 28.7
== END 2023-05-14 14:03 | disposition home or self-care (01) ==
PROVIDERS: PCP Internal Medicine; Visit Provider Anesthesiology
DX: M16.11 Unilateral primary osteoarthritis, right hip (principal)
CPT/HCPCS: 99213

== ENCOUNTER 2023-05-14 13:16 | Outpatient (REF) | payer MEDICARE, MEDICAID, SELFPAY ==
--- NOTE | ~2023-05-14 | XR_ITS ---
EXAMINATION: XR HIP, RIGHT CLINICAL INFORMATION: Unilateral osteoarthritis right hip. COMPARISON: None available. TECHNIQUE: Two views of the right hip. FINDINGS: [id number] narrowing of the right hip joint with hypertrophic change. Bones are diffusely demineralized. Alignment preserved. Interbody fusion hardware in the lower lumbar spine better demonstrated on lumbar spine radiographs of 02/12/2023. Degenerative changes on limited images of the right sacroiliac joint. XR/XR hip RT min 2V IMPRESSION: [id number] degenerative changes in the right hip.
== END 2023-05-14 13:17 | disposition home or self-care (01) ==
LOC: HO.XRAY 13:16
PROVIDERS: PCP Internal Medicine; Visit Provider Anesthesiology
DX: M16.11 Unilateral primary osteoarthritis, right hip (principal); M25.561 Pain in right knee
CPT/HCPCS: 73502

== ENCOUNTER 2023-05-26 10:12 | Outpatient (AMB) | payer MEDICARE, MEDICAID, SELFPAY ==
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
[2023-05-26 10:26] VITALS: BP 110/66; PULSE 96; BMI 29.3
== END 2023-05-26 10:59 | disposition home or self-care (01) ==
PROVIDERS: PCP Internal Medicine; Visit Provider Internal Medicine
DX: R07.2 Precordial pain (principal); E11.8 Type 2 diabetes mellitus with unspecified complications; I10 Essential (primary) hypertension; R94.31 Abnormal electrocardiogram [ECG] [EKG]
CPT/HCPCS: 99214

== ENCOUNTER → 2023-05-26 10:12 | Outpatient (BNVA) | payer OTHER, MEDICARE, MEDICAID, SELFPAY | PROVIDERS: PCP Internal Medicine; Visit Provider Internal Medicine | DX: R07.2 Precordial pain (principal); E11.8 Type 2 diabetes mellitus with unspecified complications; I10 Essential (primary) hypertension; R94.31 Abnormal electrocardiogram [ECG] [EKG] | CPT/HCPCS: 99212 ==

== ENCOUNTER 2023-06-10 10:29 | Outpatient (AMB) | payer MEDICARE, MEDICAID, SELFPAY ==
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
[2023-06-10 10:54] VITALS: BP 124/68; PULSE 79; RESP 16; O2SAT 99; BMI 29.2
== END 2023-06-10 11:40 | disposition home or self-care (01) ==
LOC: HO.PMC 10:29
PROVIDERS: PCP Internal Medicine; Visit Provider Anesthesiology
DX: M16.11 Unilateral primary osteoarthritis, right hip (principal); M25.551 Pain in right hip; G57.91 Unspecified mononeuropathy of right lower limb; Z98.1 Arthrodesis status; M51.36 Other intervertebral disc degeneration, lumbar region
CPT/HCPCS: 99213

== ENCOUNTER → 2023-06-10 10:29 | Outpatient (BNVA) | payer MEDICARE, MEDICAID, SELFPAY | PROVIDERS: PCP Internal Medicine; Visit Provider Anesthesiology | DX: M16.11 Unilateral primary osteoarthritis, right hip (principal); M25.551 Pain in right hip; M51.36 Other intervertebral disc degeneration, lumbar region; G57.91 Unspecified mononeuropathy of right lower limb; Z98.1 Arthrodesis status | CPT/HCPCS: 99212 ==

== ENCOUNTER 2023-06-18 08:51 | Outpatient (AMB) | payer MEDICARE, MEDICAID, SELFPAY ==
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
[2023-06-18 08:59] VITALS: BP 140/80; PULSE 88; O2SAT 99; BMI 29.0
[2023-06-18 09:07] VITALS: BP 130/68
== END 2023-06-18 11:26 | disposition home or self-care (01) ==
PROVIDERS: PCP Internal Medicine; Visit Provider Internal Medicine
DX: E11.42 Type 2 diabetes mellitus with diabetic polyneuropathy (principal); Z79.4 Long term (current) use of insulin; M51.36 Other intervertebral disc degeneration, lumbar region; M65.30 Trigger finger, unspecified finger
CPT/HCPCS: 83036; 99214

== ENCOUNTER → 2023-06-24 08:36 | Outpatient (REF) | payer MEDICARE, MEDICAID, SELFPAY ==
--- NOTE | ~2023-06-24 | NM_ITS ---
Lexiscan Myocardial perfusion study Indication: Chest pain, assess for coronary disease and ischemia Technique: The patient was brought in for a Lexiscan perfusion study on 06/24/2023 and was injected 0.4 mg of Lexiscan intravenously. Within a minute of this injection 30 mCi of sestamibi was given intravenously. Images were obtained using the SPECT gamma camera interlaced with the gating device. Images were obtained in supine position. Resting perfusion study was performed on 06/26/2023. Patient was administered 30 mCi of sestamibi intravenously at rest. Images were then obtained in supine position. Images were processed with the software and compared side to side in short axis, horizontal long axis and vertical long axis views. Total DLP 94mGy-cm. Findings: Raw acquisition reviewed. The stress perfusion study showed no significant perfusion of normality. Both uncorrected as well as CT attenuation corrected images were reviewed. The gated study shows normal LV systolic function with calculated LVEF of 72%. LV cavity is normal in size. The gated study shows normal wall thickening and contraction of segments. Resting study shows no significant perfusion abnormality. Gating at rest reveals normal wall motion with ejection fraction at 62%. The findings are consistent with no clear reversible or fixed perfusion of normality. NM/NM cardiolite stress test Impression: 1. Myocardial perfusion imaging study shows normal myocardial perfusion. 2. Gated LVEF is 72% during stress and 62% during rest. 3. Transient ischemic dilatation not present. EKG component of the test reported separately.
--- NOTE | 2023-06-24 08:41 | CA_ITS ---
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 Study Quality: Fair/Contrast ECG Rhythm: Sinus Conclusions: - The left ventricular systolic function is normal. The calculated ejection fraction is 60% by biplane method. - No obvious valvular pathology seen on this study. Findings Procedure Information Contrast agent, definity, is being given per protocol without apparent complications. Left Ventricle Normal left ventricular cavity size. The left ventricular systolic function is normal. The calculated ejection fraction is 60% by biplane method. There is no evidence of regional wall motion abnormalities. Evidence suggests grade I (mild) diastolic dysfunction. There is mild septal and mild basal asymmetric hypertrophy. Right Ventricle Mildly increased right ventricular cavity size. There is normal right ventricular systolic function. Atria Both atria are normal in size. Aortic Valve There is a normal trileaflet aortic valve. There is no aortic valve stenosis. There is no aortic valve regurgitation. Mitral Valve The mitral valve appears normal. There is no mitral valve regurgitation. There is no mitral valve stenosis. Pulmonic Valve The pulmonic valve is likely normal. Tricuspid Valve There is mild tricuspid valve regurgitation. There is no evidence of pulmonary hypertension. Great Vessels The asc aorta is normal in size. Venous The inferior vena cava is normal in size and collapses greater than 50% with inspiration. Pericardium/Pleural There is no evidence of pericardial effusion. Prior Study Comparison No significant change compared to prior study dated: 06/19/2017. Recommendations, Care & Conclusions No obvious valvular pathology seen on this study. Measurements 2D Linear Measurements IVSd: 1.31 0.6-0.9/0.6-1.0 cm LVIDd: 4.37 3.9-5.3/4.2-5.9 cm LVIDd Index: 2.11 2.4-3.2/2.2-3.1 cm/m2 LVIDs: 2.87 2.0-3.6 cm LVPWd: 0.79 0.7-1.1 cm LA Diam: 3.50 2.7-3.8/3.0-4.0 cm LAIDs Index: 1.69 1.5-2.3 cm/m2 LV Mass: 195.40 67-162/88-224 g LV Mass Index: 94.40 43-95/49-115 g/m2 LVOT Diam: 2.30 3.0+(-)1.3 cm 2D Systolic Function EF 4C: 58.40 >55% EF 2C: 58.80 >55% EF BiP: 59.80 >55% Mitral Valve MV Pk E: 0.84 MV PK A: 0.95 MV Decel Time: 161.00 E/A: 0.90 E'Lateral: 8.16 E'Medial: 6.31 E/E' Med: 13.30 E/E' Lat: 10.30 PHT: 47.00 MVA PHT: 4.68 Decel [place]: 5.21 Aortic Valve AoV Pk [place]: 1.74 AoV Mn Colten: 1.10 AoV VTI: 0.30 AoV Pk Grad: 12.00 Aov Mn Grad: 5.00 JEREMIAH Cont.VTI: 2.53 LVOT LVOT Pk Colten: 0.92 LVOT Mn Colten: 0.66 LVOT VTI: 0.18 LVOT Pk Grad: 3.00 LVOT Mn Grad: 2.00 LVOT Diam: 2.30 LVOT Area: 4.15 Diastolic Function MV Pk E: 0.84 MV Pk A: 0.95 E/A: 0.90 E'Medial: 6.31 E/E' Med: 13.30 E' Laterial: 8.16 E/E' Lat: 10.30 Right Ventricle TAPSE (mm): 21.20 TVS' Colten: 14.80 Tricuspid Valve TR Pk Colten: 2.54 TR Pk Grad: 26.00 RA Press: 3.00 RVSP: 29.00 Great Vessels Aorta Sinus of Valsalva: 3.33 2.0-3.5 cm Ao Asc: 3.80 2.1-3.4 cm Updated in Other Vendor System with Status of Final Adithya Aguilar MD electronically signed on 06/26/2023 2:53:24 PM with status of Final
--- NOTE | 2023-06-24 08:41 | CA_ITS ---
Acquisition Time: 2023-06-24 10:04:03 Total Exercise Time: 00:02:00 Test Indications: ABN EKG, CP Medications: Protocol: LEXISCAN Max HR: 099 BPM 63% of Pred: 157 BPM Max BP: 144/056 mmHG Max Work Load: 1.0 METS Pharmacological stress test with Lexiscan injection while sitting and marching in place, with 5/10 chest pressure at baseline. no change, without shortness of breath, without arrhythmias, with normotensive response to injection, with nondiagnoisitic EKGs. Nuclear images pending. Test reviewed with Dr. Aguilar. Referred By: Adithya Aguilar Overread By: Faith Rosales
== END ==
LOC: HO.CARD 08:36
PROVIDERS: PCP Internal Medicine; Visit Provider Internal Medicine
DX: R07.2 Precordial pain (principal); I25.119 Atherosclerotic heart disease of native coronary artery with unspecified angina pectoris
CPT/HCPCS: 78452; 93017; 93306; A9500; J0280; J2785; Q9957

== ENCOUNTER → 2023-06-24 08:41 | Outpatient (BNV) | payer MEDICARE, MEDICAID, SELFPAY | PROVIDERS: PCP Internal Medicine; Visit Provider Nurse Practitioner | DX: R07.9 Chest pain, unspecified (principal) | CPT/HCPCS: 78452; 93016; 93018; 93350; 93352 ==

== ENCOUNTER 2023-07-16 15:03 | Outpatient (REF) | payer MEDICARE, MEDICAID, SELFPAY | END 2023-07-16 15:04 | disposition home or self-care (01) | LOC: HO.HOSX 15:03 | PROVIDERS: Visit Provider Physician Assistant | DX: Z13.89 Encounter for screening for other disorder (principal) ==

== ENCOUNTER 2023-07-24 14:43 | Outpatient (AMB) | payer MEDICARE, MEDICAID, SELFPAY ==
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
== END 2023-07-24 15:31 | disposition home or self-care (01) ==
PROVIDERS: PCP Internal Medicine; Visit Provider Physician Assistant
DX: M47.22 Other spondylosis with radiculopathy, cervical region (principal)
CPT/HCPCS: 99213

== ENCOUNTER → 2023-07-24 14:43 | Outpatient (BNVA) | payer MEDICARE, MEDICAID, SELFPAY | PROVIDERS: PCP Internal Medicine; Visit Provider Physician Assistant ==

== ENCOUNTER 2023-07-24 14:46 | Outpatient (REF) | payer MEDICARE, MEDICAID, SELFPAY ==
--- NOTE | ~2023-07-24 | XR_ITS ---
EXAMINATION: XR CERVICAL SPINE CLINICAL INFORMATION: Cord compression. COMPARISON: 12/04/2021. TECHNIQUE: 5 views of the cervical spine. FINDINGS: Mild straightening of the cervical lordosis. Disc prostheses at C5-C6 and C6-C7. Advanced degenerative changes with loss of disc space height and hypertrophic change at C4-C5. Limited visualization of C7 due to overlying soft tissues. XR/XR cervical spine 4V IMPRESSION: 1. Disc prostheses at C5-C6 and C6-C7. 2. Advanced degenerative changes at C4-C5.
== END 2023-07-24 14:47 | disposition home or self-care (01) ==
LOC: HO.HOSX 14:46
PROVIDERS: Visit Provider Physician Assistant
DX: M47.22 Other spondylosis with radiculopathy, cervical region (principal); Z98.1 Arthrodesis status
CPT/HCPCS: 72050; 99212

== ENCOUNTER 2023-07-30 15:03 | Outpatient (AMB) | payer MEDICARE, MEDICAID, SELFPAY ==
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
== END 2023-07-30 16:23 | disposition home or self-care (01) ==
PROVIDERS: PCP Internal Medicine; Visit Provider Orthopaedic Surgery
DX: M16.11 Unilateral primary osteoarthritis, right hip (principal)
CPT/HCPCS: 99214

== ENCOUNTER → 2023-07-30 15:03 | Outpatient (BNVA) | payer MEDICARE, MEDICAID, SELFPAY | PROVIDERS: PCP Internal Medicine; Visit Provider Orthopaedic Surgery | DX: M16.11 Unilateral primary osteoarthritis, right hip (principal) | CPT/HCPCS: 99212 ==

== ENCOUNTER 2023-08-04 14:03 | Outpatient (AMB) | payer MEDICARE, MEDICAID, SELFPAY ==
[2023-08-04 14:07] VITALS: BP 120/68; PULSE 95; BMI 29.0
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
== END 2023-08-04 14:33 | disposition home or self-care (01) ==
PROVIDERS: PCP Internal Medicine; Visit Provider Nurse Practitioner
DX: R07.9 Chest pain, unspecified (principal)
CPT/HCPCS: 99213

== ENCOUNTER → 2023-08-04 14:03 | Outpatient (BNVA) | payer MEDICARE, MEDICAID, SELFPAY | PROVIDERS: PCP Internal Medicine; Visit Provider Nurse Practitioner | DX: R07.9 Chest pain, unspecified (principal) | CPT/HCPCS: 99212 ==

== ENCOUNTER 2023-08-20 14:04 | Outpatient (AMB) | payer MEDICARE, SELFPAY ==
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
[2023-08-20 14:07] VITALS: BP 110/60; PULSE 96; O2SAT 97; BMI 29.7
== END 2023-08-20 15:09 | disposition home or self-care (01) ==
PROVIDERS: PCP Internal Medicine; Visit Provider Internal Medicine
DX: E11.42 Type 2 diabetes mellitus with diabetic polyneuropathy (principal); H66.90 Otitis media, unspecified, unspecified ear
CPT/HCPCS: 83036; 99214; G2211

== ENCOUNTER → 2023-10-06 09:10 | Outpatient (BNVA) | payer MEDICARE, MEDICAID, SELFPAY | PROVIDERS: PCP Internal Medicine | DX: Z01.818 Encounter for other preprocedural examination (principal) ==

== ENCOUNTER 2023-10-12 08:45 | Outpatient (AMB) | payer MEDICARE, MEDICAID, SELFPAY ==
[2023-10-12 08:48] VITALS: BP 126/72; PULSE 84; O2SAT 97
--- NOTE | 2023-10-12 08:48 | MHC.PC.OV ---
Vital Signs 10/12/23 08:48 Height 5 ft 9 in Weight 203 lb BMI 30.0 BP 126/72 Blood Pressure Location Lt brachial Position Sitting Pulse 84 Pulse Source Pulse Oximeter Pulse Oximetry (%) 97 Oxygen Delivery Method Room Air Intake Visit Reasons: KIP 11/03/23 Intake Note: Patient is here for a Pre-op for KIP scheduled with Dr. Nunes on 11/03/23 Allergies clindamycin [CLINDAMYCIN] Allergy (Severe, Verified 10/12/23 09:50) rash, hives Iodinated Contrast Media [IV CONTRAST] Allergy (Severe, Verified 10/12/23 09:50) Anaphylaxis Penicillins Allergy (Severe, Verified 10/12/23 09:50) hives, rash shellfish derived Allergy (Severe, Verified 10/12/23 09:50) ANAPHYLAXIS dulaglutide [From Trulicity] Adverse Reaction (Severe, Verified 10/12/23 09:50) CP, SOB, GI UPSET Medication List - Last Reconciled 10/12/23 by Lico Francisco MD amlodipine 10 mg PO DAILY atorvastatin 10 mg PO DAILY blood sugar diagnostic (ModbookTouch Ultra Test strips) As directed three times per day blood-glucose meter (ModbookTouch Ultra2 Meter) As directed dapagliflozin propanediol (Farxiga) 10 mg PO DAILY furosemide 20 mg PO DAILY gabapentin 600 mg (2 x 300 mg) PO TID 30 days gabapentin 800 mg PO TID insulin aspart U-100 (Novolog FlexPen U-100 Insulin aspart) 20 units (0.2 mL) subcut TID 90 days insulin glargine U-300 conc (Toujeo Max U-300 SoloStar) 80 units (0.2667 mL) subcut BEDTIME 90 days lancets (ModbookTouch UltraSoft 2 Lancet) As directed three times per day lisinopril 30 mg PO DAILY 90 days pen needle, diabetic (Ultra-Thin II (Short) Pen NDL) test 4 x a day walker Folding Front wheeled walker Tobacco use date assessed: 08/20/23 Dental Screening Dental Screen Date: 03/25/23 HPI KIP 11/03/23 HPI Details 62-year-old male presents to the office requesting preop clearance. Patient is scheduled for a total hip replacement on the right side. Date of surgery: 11/03/2023. Procedures to be scheduled under general anesthesia. Patient has been trying to check and control his blood sugars. Compliant with his medications. Under emotional stress as his financial situation is deteriorating. Patient would be applying for low-income housing soon. Requesting that I fill his form. [facility] Medical History Trigger finger of right hand Environmental allergies GERD (gastroesophageal reflux disease) DJD (degenerative joint disease) Arthritis Chest pain HTN (hypertension) Long-term current use of insulin for diabetes mellitus Overweight (BMI 25.0-29.9) Type 2 diabetes mellitus with diabetic polyneuropathy Bilateral knee pain Constipation Allergic rhinitis Chronic kidney disease (CKD), stage II (mild) Obesity (BMI 30-39.9) Neuropathy Chronic gastritis without bleeding Hypertriglyceridemia Benign essential hypertension 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 Cough Lumbar degenerative disc disease Surgical History History of back surgery History of neck surgery History of surgery History of colonoscopy History of esophagogastroduodenoscopy (EGD) History of hernia repair Family History Father Leukemia Mother Alzheimers disease Daughter Overweight Prediabetes Brother Prostate cancer Other Mental health problem Social History Household Members: None 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 Housing: House Are you a primary ocular care aide to a significant other at home: No Do you presently have visiting nurse or other home services: Yes Alcohol intake: current Alcohol intake frequency: holidays/special occasions only Patient Tobacco Use Status: Never used Tobacco e-Cigarette/Vaping Use: Never Used Second Hand Smoke Exposure: Yes Substance Use Type: Crack/Cocaine, Former Substance User, Marijuana and Painkillers service: No Current occupational status: retired and disabled Cognitive needs: Yes (Cane) Hearing needs: No Vision needs: Yes (glasses) Questionnaire Thrive Questionnaire Date Thrive assessed: 03/25/23 AUDIT C Alcohol Use Questionnaire (AUDIT-C) 1. How often do you have a drink containing alcohol?: Monthly or less 2. How many drinks containing alcohol do you have on a typical day when you are drinking?: 1 or 2 Total Score: 1 BASHIR-7 AMB Questionnaire BASHIR-7 Date BASHIR - 7 assessed: 03/25/23 Source: Developed by Drs. Myron Jiang, Brinda Stock, Jimmie Alfaro and colleagues, with an educational briana from [employer]. Physical exam (Primary Care) Vital Signs: Last Vital Signs Pulse 84 10/12/23 08:48 BP 126/72 10/12/23 08:48 Pulse Ox 97 10/12/23 08:48 Oxygen Delivery Method Room Air 10/12/23 08:48 Care Plan Goal for BP management: Blood pressure is stable. BMI result Body Mass Index 30.0 Tobacco/Smoking Status: Tobacco use Status Tobacco use date assessed 08/20/23 10/12/23 08:50 Patient Tobacco Use Status Never used Tobacco 10/12/23 08:50 e-Cigarette/Vaping Use Never Used 10/12/23 08:50 Thrive Assessment: Date of Thrive Assessment Date Thrive assessed 03/25/23 10/12/23 08:50 Const General: cooperative and healthy appearing Nutritional Appearance: well nourished Orientation/consciousness: patient oriented x3 Limitations: no limitations HENMT Head: Yes normal to inspection Eyes General: appearance normal, both eyes and all related structures Neck Neck: Yes normal visual inspection Chest Chest palpation & inspection: normal palpation of entire chest wall Resp Effort & Inspection: normal respiratory effort Neuro General: patient oriented x3 Results AMB Hemoglobin A1c AMB Hemoglobin A1c 8.0 % Last Edit by JOYCE Deleon on 10/12/23 09:10 Results Reviewed Results Reviewed: Laboratory Last Values Hgb A1c (Clinic) 8.0 % (4.0-6.0) H 10/12/23 09:00 Assessment and Plan Assessment & Plan (1) Right hip pain: Code(s): M25.551 - Pain in right hip Plan: Blood work and EKG has been ordered. (2) Cervical spinal cord compression: Code(s): G95.20 - Unspecified cord compression Plan: Anesthesiologist to review x-rays and surgical procedure before intubating the patient. 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 Patient was encouraged to be compliant with medications. (4) Preoperative clearance: Code(s): Z01.818 - Encounter for other preprocedural examination Plan: Clearance after blood work and EKGs reviewed. Orders: Orders AMB Hemoglobin A1c Today E11.42 - Type 2 diabetes mellitus with diabetic polyneuropathy Coding Level of Care Code Est Pt Level 4 (71832) Diagnoses Right hip pain M25.551 Cervical spinal cord compression G95.20 Type 2 diabetes mellitus with stage 2 chronic kidney disease, with long-term current use of insulin E11.22; N18.2; Z79.4 Diabetes mellitus care home insulin use: with regional intermodal truck driver use Chronic kidney disease stage: stage 2 (mild) Preoperative clearance Z01.818
== END 2023-10-12 09:41 | disposition home or self-care (01) ==
PROVIDERS: PCP Internal Medicine; Visit Provider Internal Medicine
DX: Z01.818 Encounter for other preprocedural examination (principal); N18.2 Chronic kidney disease, stage 2 (mild); E11.22 Type 2 diabetes mellitus with diabetic chronic kidney disease; E11.42 Type 2 diabetes mellitus with diabetic polyneuropathy; G95.20 Unspecified cord compression; Z79.4 Long term (current) use of insulin; M25.551 Pain in right hip
CPT/HCPCS: 83036; 99214

== ENCOUNTER 2023-10-29 12:33 | Outpatient (AMB) | payer MEDICARE, MEDICAID, SELFPAY ==
--- NOTE | 2023-10-29 12:36 | A.OFFVIS_ITS ---
Vital Signs 10/29/23 12:37 Height 5 ft 9 in Intake Visit Reasons: Pre-Op: R KIP w/NE 11/03/23 Intake Note: Kd a 62 year old male who presents today for a preoperative visit for right KIP on 11/03/23 NE. Pain management agreement reviewed and signed. Allergies clindamycin [CLINDAMYCIN] Allergy (Severe, Verified 10/29/23 12:39) rash, hives Iodinated Contrast Media [IV CONTRAST] Allergy (Severe, Verified 10/29/23 12:39) Anaphylaxis Penicillins Allergy (Severe, Verified 10/29/23 12:39) hives, rash shellfish derived Allergy (Severe, Verified 10/29/23 12:39) ANAPHYLAXIS [facility]ulaglut[facility] [[facility] Adverse Reaction (Severe, Verified 10/29/23 12:39) CP, SOB, GI UPSET Medication List - Last Reconciled 10/29/23 by Jake Castillo PA-C amlodipine 10 mg PO QAM atorvastatin 10 mg PO QAM blood sugar diagnostic (OneTouch Ultra Test strips) As directed three times per day blood-glucose meter ([employer] ExpressTouch Ultra2 Meter) As directed dapagliflozin propanediol (Farxiga) 10 mg PO QAM furosemide 20 mg PO QAM gabapentin 800 mg PO QAM insulin aspart U-100 (Novolog FlexPen U-100 Insulin aspart) 20 units (0.2 mL) subcut TID 90 days insulin glargine U-300 conc (Toujeo Max U-300 SoloStar) 80 units (0.2667 mL) subcut BEDTIME 90 days lancets ([employer] ExpressTouch UltraSoft 2 Lancet) As directed three times per day lisinopril 30 mg PO QAM pen needle, diabetic (Ultra-Thin II (Short) Pen NDL) test 4 x a day walker Folding Front wheeled walker HPI Comments Details: Mr Chan presents to the office today for preop visit. He is scheduled for right total hip arthroplasty with Dr. Nunes. He continues to have ongoing pain and difficulty with ambulation in the right hip, which is affecting his quality of life; therefore, he has elected to move forward with surgery. [facility] Medical History (Updated 10/28/23 @ 12:22 by Kita Avila RN) Trigger finger of right hand Environmental allergies GERD (gastroesophageal reflux disease) DJD (degenerative joint disease) Arthritis Chest pain HTN (hypertension) Long-term current use of insulin for diabetes mellitus Overweight (BMI 25.0-29.9) Type 2 diabetes mellitus with diabetic polyneuropathy Bilateral knee pain Constipation Allergic rhinitis Chronic kidney disease (CKD), stage II (mild) Obesity (BMI 30-39.9) Neuropathy Chronic gastritis without bleeding Hypertriglyceridemia Benign essential hypertension 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 Lumbar degenerative disc disease Surgical History History of back surgery History of neck surgery History of surgery History of colonoscopy History of esophagogastroduodenoscopy (EGD) History of hernia repair Family History Father Leukemia Mother Alzheimers disease Daughter Overweight Prediabetes Brother Prostate cancer Other Mental health problem Social History Household Members: None 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 Housing: House Are you a primary farm or ranch animal caretaker to a significant other at home: No Do you presently have visiting nurse or other home services: Yes (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 If so, by whom?: No Are you DNR?: No Advance Directives Information Provided: Yes (as above noted) Advance Directives on File: No Recently lost weight without trying: No Eating poorly because of decreased appetite: No Nutrition Risks: No Nutritional Risk Poor oral hygiene: No (one extracted tooth lower left) service: No Current occupational status: retired and disabled Cognitive needs: Yes (Cane) Hearing needs: No Vision needs: Yes (glasses) Review of Systems Const All systems reviewed & are unremarkable except as noted in HPI and below Physical Exam Const General: cooperative and no acute distress Orientation/consciousness: patient oriented x3 HEENT Head: Yes normal to inspection, Yes normocephalic and Yes atraumatic Eyes General: appearance normal, both eyes and all related structures Neck Neck: Yes normal visual inspection and Yes no lymphadenopathy Resp Effort & Inspection: normal respiratory effort and able to speak in complete sentences Cardio Rate: regular rate Peripheral pulses: Peripheral pulses 2+ throughout GI Inspection: Yes normal to inspection Palpation (GI): Soft to palpation Skin General skin exam: no rashes or lesions noted Neuro General: patient oriented x3 Extrem Other: + gait antalgia severe pain with internal rotation while flexed Psych Appearance: grossly normal Mental Status: mental status grossly normal Assessment & Plan Assessment & Plan (1) Osteoarthritis of right hip: Code(s): M16.11 - Unilateral primary osteoarthritis, right hip Category: Medical Plan I discussed in detail the procedure and what to expect pre and post operatively. We discussed the risks, benefits and alternatives to the surgery as well as the rehabilitation course. The risks; which include, but are not limited to infection, bleeding, nerve injury, ongoing pain, swelling, and stiffness, perioperative risk of injury to bones and soft tissues, and blood clots. I?ve answered all questions and with their understanding they have consented to move forward with Right total hip arthroplasty with Dr. Nunes Team rehab for Post op PT ASA x6 weeks Orders: Orders XR hip RT min 2V Today M25.551 - Pain in right hip Patient Instructions: Scribed for Jake Castillo PA-C, by Sin Borjas dental assistant medical assistant, on 10/29/2023 at 1:15 PM EST.? I, Jake Castillo PA-C, have personally reviewed and agree with the information entered by the scribe. Coding Level of Care Code Est Pt Level 3 (54691) Complex EM visit Add On G2211 Diagnoses Osteoarthritis of right hip M16.11
== END 2023-10-29 14:15 | disposition home or self-care (01) ==
PROVIDERS: PCP Internal Medicine; Visit Provider Physician Assistant
DX: M16.11 Unilateral primary osteoarthritis, right hip (principal)
CPT/HCPCS: 99024

== ENCOUNTER → 2023-10-29 12:33 | Outpatient (BNVA) | payer MEDICARE, MEDICAID, SELFPAY | PROVIDERS: PCP Internal Medicine; Visit Provider Physician Assistant | DX: Z01.818 Encounter for other preprocedural examination (principal); M16.11 Unilateral primary osteoarthritis, right hip | CPT/HCPCS: 99212 ==

== ENCOUNTER 2023-11-04 09:03 | Day surgery (SDC) | payer MEDICARE, MEDICAID, SELFPAY ==
[2023-10-28 12:29] VITALS: BP 130/76; PULSE 89; RESP 18; O2SAT 98; BMI 29.7
[2023-10-28 14:23] LABS: MRSA Nasal PCR NEGATIVE (Negative); SA Nasal PCR POSITIVE (Negative)
[2023-10-29 10:15] LABS: Hematocrit 41.9 % (42.0-52.0); Hemoglobin 14.2 g/dl (14.0-18.0); Mean Corpuscular HGB Conc 33.9 g/dl (31.0-36.0); Mean Corpuscular Hemoglobin 29.9 pg (27.0-33.0); Mean Corpuscular Volume 88.2 fL (80.0-98.0); Mean Platelet Volume 11.1 fL (9.4-12.4); Platelet Count 250 X10*3/uL (160-400); Red Blood Count 4.75 X10*6/uL (4.60-5.80); Red Cell Distribution Width 13.3 % (11.0-16.0); White Blood Count 8.3 X10*3/uL (4.8-10.8)
[2023-10-29 10:29] LABS: Alanine Aminotransferase 23 U/L (0-40); Albumin Level 4.3 g/dL (3.5-5.0); Alkaline Phosphatase 74 U/L (39-117); Anion Gap 13 (12-20); Aspartate Amino Transferase 26 U/L (5-37); Bilirubin Total 0.4 mg/dL (0.0-1.0); Blood Urea Nitrogen 24 mg/dL (9-16); Carbon Dioxide 27 mmol/L (22-29); Chloride 104 mmol/L (96-108); Creatinine Clr Calc Pharmacy 64.3; Estimated Glomerular Filt Rate 55; Glucose Random 136 mg/dL (60-115); Potassium 4.2 mmol/L (3.3-5.1); Sodium 140 mmol/L (135-145); Total Protein 7.4 g/dL (6.5-8.0)
[2023-10-29 10:41] LABS: Estimated Average Glucose 166 mg/dL; Hemoglobin A1c % 7.4 % (<6.0)
--- NOTE | 2023-11-03 12:30 | P.CONAN_ITS ---
Documented by User: Sandy Ribera NP 11/03/23 12:33 HPI - Anesthesia Eval Consult details Narrative: 62yo M for Right Hip Total Replacement PAT 10/28/[address] Marquez Awaiting PCP clearance Cardiac optimized PMFSH Active Problems Active Problems: All Active Problems Right hip pain (Acute) Osteoarthritis of right hip (Acute) Neuropathy of right lower extremity (Acute) S/P spinal fusion (Acute) Lumbar degenerative disc disease (Acute) Essential hypertension (Acute) Abnormal EKG (Acute) Precordial chest pain (Acute) Erectile dysfunction associated with type 2 diabetes mellitus (Acute) Cervical spinal cord compression (Acute) Subarachnoid cyst (Acute) Right leg weakness (Acute) Right knee pain (Acute) Spondylosis of cervical spine with radiculopathy (Acute) Chronic pain (Acute) Postlaminectomy syndrome, lumbar (Acute) Bilateral primary osteoarthritis of knee (Acute) Cough (Acute) Hypogonadism in male (Acute) Chest pain (Acute) Trigger finger of right hand (Acute) GERD (gastroesophageal reflux disease) (Acute) Long-term current use of insulin for diabetes mellitus (Acute) Overweight (BMI 25.0-29.9) (Acute) Type 2 diabetes mellitus with diabetic polyneuropathy (Acute) Bilateral knee pain (Acute) Constipation (Acute) Allergic rhinitis (Acute) Chronic kidney disease (CKD), stage II (mild) (Acute) Obesity (BMI 30-39.9) (Acute) Neuropathy (Acute) Chronic gastritis without bleeding (Acute) Hypertriglyceridemia (Acute) Benign essential hypertension (Acute) Degenerative arthritis of cervical spine (Acute) Type 2 diabetes mellitus with diabetic chronic kidney disease (Acute) Lumbar degenerative disc disease (Acute) Past Medical History Medical History (Updated 10/28/23 @ 12:22 by Kita Avila RN) Trigger finger of right hand Environmental allergies GERD (gastroesophageal reflux disease) DJD (degenerative joint disease) Arthritis Chest pain HTN (hypertension) Long-term current use of insulin for diabetes mellitus Overweight (BMI 25.0-29.9) Type 2 diabetes mellitus with diabetic polyneuropathy Bilateral knee pain Constipation Allergic rhinitis Chronic kidney disease (CKD), stage II (mild) Obesity (BMI 30-39.9) Neuropathy Chronic gastritis without bleeding Hypertriglyceridemia Benign essential hypertension 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 Lumbar degenerative disc disease Family History Family History Father Leukemia Mother Alzheimers disease Daughter Overweight Prediabetes Brother Prostate cancer Other Mental health problem Family history of problems with anesthesia: No Surgical History Surgical History History of back surgery History of neck surgery History of surgery History of colonoscopy History of esophagogastroduodenoscopy (EGD) History of hernia repair History of Problems with Anesthesia: No Social History Social History Household Members: None 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 Housing: House Are you a primary hearing care practitioner to a significant other at home: No Do you presently have visiting nurse or other home services: Yes (COPY CHIEF) Alcohol intake: current Alcohol intake frequency: holidays/special occasions only Patient Tobacco Use Status: Never used Tobacco e-Cigarette/Vaping Use: Never Used Second Hand Smoke Exposure: Yes Substance Use Type: Crack/Cocaine, Former Substance User, Marijuana and Painkillers Substance Use Type Other:: edible marijuana on occasion Substance Use Frequency: Occasionally Have you been hit, kicked, punched, or otherwise hurt by someone within the past year? If so, by whom?: No Are you DNR?: No Advance Directives Information Provided: Yes (as above noted) Advance Directives on File: No Recently lost weight without trying: No Eating poorly because of decreased appetite: No Nutrition Risks: No Nutritional Risk Poor oral hygiene: No (one extracted tooth lower left) service: No Current occupational status: retired and disabled Cognitive needs: Yes (Cane) Hearing needs: No Vision needs: Yes (glasses) Meds Allergies Allergy/AdvReac Type Severity Reaction Status Date / Time clindamycin [CLINDAMYCIN] Allergy Severe rash, hives Verified 10/29/23 12:39 Iodinated Contrast Media Allergy Severe Anaphylaxis Verified 10/29/23 12:39 [IV CONTRAST] Penicillins Allergy Severe hives, rash Verified 10/29/23 12:39 shellfish derived Allergy Severe ANAPHYLAXIS Verified 10/29/23 12:39 dulaglutide [From Trulicity] AdvReac Severe CP, SOB, Verified 10/29/23 12:39 GI UPSET Home Medications ?Medication ?Instructions ?Recorded ?Confirmed ?Last Taken ?Type amlodipine 10 mg tablet 10 mg PO QAM 12/11/22 10/29/23 11/04/23 History dapagliflozin propanediol 10 mg 10 mg PO QAM 12/11/22 10/29/23 02/08/23 History tablet (Farxiga) furosemide 20 mg tablet 20 mg PO QAM 07/30/23 10/29/23 Unknown History gabapentin 800 mg tablet 800 mg PO QAM 07/30/23 10/29/23 Unknown History atorvastatin 10 mg tablet 10 mg PO QAM 10/28/23 10/29/23 Unknown History lisinopril 30 mg tablet 30 mg PO QAM 10/28/23 10/29/23 Unknown History Exam Height,Weight and Vital Signs: Height 5 ft 9.5 in Weight 92.533 kg Last Vital Signs Pulse 89 10/28/23 12:29 Resp 18 10/28/23 12:29 BP 130/76 10/28/23 12:29 Pulse Ox 98 10/28/23 12:29 O2 Del Method Room Air 10/28/23 12:29 Pertinent Lab Results Pertinent Lab Results: Laboratory Tests 10/28/23 10/29/23 10/29/23 12:25 10:00 10:01 WBC 8.3 RBC 4.75 Hgb 14.2 Hct 41.9 L MCV 88.2 MCH 29.9 MCHC 33.9 RDW 13.3 Plt Count 250 MPV 11.1 Absolute Nucleated RBC 0.000 Nucleated RBC % (auto) 0.0 Sodium 140 Potassium 4.2 Chloride 104 Carbon Dioxide 27 Anion Gap 13 BUN 24 H Creatinine 1.32 Estim Creat Clear Calc 64.3 Estimated GFR 55 Random Glucose 136 H Estimat Average Glucose 166 Hemoglobin A1c % 7.4 H Calcium 10.0 Total Bilirubin 0.4 AST 26 ALT 23 Alkaline Phosphatase 74 Total Protein 7.4 Albumin 4.3 Nasal Screen MRSA (PCR) NEGATIVE Nasal S. aureus Screen POSITIVE A Nasal MRSA/S.aureus Interp SEE NOTE Blood Type O Positive Antibody Screen NEGATIVE Narrative Narrative: ECHO 06/2023 Conclusions: - The left ventricular systolic function is normal. The calculated ejection fraction is 60% by biplane method. - No obvious valvular pathology seen on this study. NM cardiolite stress test 06/2023 Impression: 1. Myocardial perfusion imaging study shows normal myocardial perfusion. 2. Gated LVEF is 72% during stress and 62% during rest. 3. Transient ischemic dilatation not present. EKG component of the test reported separately EKG 05/2023 ST @ 106 LAD ? anteroseptal infarct (old per cardiology office visit note). Assessment and Plan Assessment Anesthesia Assessment: Chart Reviewed Final Anesthetic Review Family History of Problems with Anesthesia: No History of Problems with Anesthesia: No Documented by User: Regina Rehman MD 11/04/23 09:55 PMFSH Past Medical History Medical History (Updated 10/28/23 @ 12:22 by Kita Avila RN) Trigger finger of right hand Environmental allergies GERD (gastroesophageal reflux disease) DJD (degenerative joint disease) Arthritis Chest pain HTN (hypertension) Long-term current use of insulin for diabetes mellitus Overweight (BMI 25.0-29.9) Type 2 diabetes mellitus with diabetic polyneuropathy Bilateral knee pain Constipation Allergic rhinitis Chronic kidney disease (CKD), stage II (mild) Obesity (BMI 30-39.9) Neuropathy Chronic gastritis without bleeding Hypertriglyceridemia Benign essential hypertension 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 Lumbar degenerative disc disease Family History Family History Father Leukemia Mother Alzheimers disease Daughter Overweight Prediabetes Brother Prostate cancer Other Mental health problem Surgical History Surgical History History of back surgery History of neck surgery History of surgery History of colonoscopy History of esophagogastroduodenoscopy (EGD) History of hernia repair Social History Social History Household Members: None 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 Housing: House Are you a primary hearing care practitioner to a significant other at home: No Do you presently have visiting nurse or other home services: Yes (COPY CHIEF) Alcohol intake: current Alcohol intake frequency: holidays/special occasions only Patient Tobacco Use Status: Never used Tobacco e-Cigarette/Vaping Use: Never Used Second Hand Smoke Exposure: Yes Substance Use Type: Crack/Cocaine, Former Substance User, Marijuana and Painkillers Substance Use Type Other:: edible marijuana on occasion Substance Use Frequency: Occasionally Have you been hit, kicked, punched, or otherwise hurt by someone within the past year? If so, by whom?: No Are you DNR?: No Advance Directives Information Provided: Yes (as above noted) Advance Directives on File: No Recently lost weight without trying: No Eating poorly because of decreased appetite: No Nutrition Risks: No Nutritional Risk Poor oral hygiene: No (one extracted tooth lower left) service: No Current occupational status: retired and disabled Cognitive needs: Yes (Cane) Hearing needs: No Vision needs: Yes (glasses) Meds Allergies Allergy/AdvReac Type Severity Reaction Status Date / Time clindamycin [CLINDAMYCIN] Allergy Severe rash, hives Verified 10/29/23 12:39 Iodinated Contrast Media Allergy Severe Anaphylaxis Verified 10/29/23 12:39 [IV CONTRAST] Penicillins Allergy Severe hives, rash Verified 10/29/23 12:39 shellfish derived Allergy Severe ANAPHYLAXIS Verified 10/29/23 12:39 [facility] AdvReac Severe CP, SOB, Verified 10/29/23 12:39 GI UPSET Home Medications ?Medication ?Instructions ?Recorded ?Confirmed ?Last Taken ?Type amlodipine 10 mg tablet 10 mg PO QAM 12/11/22 10/29/23 11/04/23 History dapagliflozin propanediol 10 mg 10 mg PO QAM 12/11/22 10/29/23 02/08/23 History tablet (Farxiga) furosemide 20 mg tablet 20 mg PO QAM 07/30/23 10/29/23 Unknown History gabapentin 800 mg tablet 800 mg PO QAM 07/30/23 10/29/23 Unknown History atorvastatin 10 mg tablet 10 mg PO QAM 10/28/23 10/29/23 Unknown History lisinopril 30 mg tablet 30 mg PO QAM 10/28/23 10/29/23 Unknown History Exam Airway Mallampati Class: II TM Dist: >3cm Neck ROM: Full Heart: rrr Lungs: cta Assessment and Plan Assessment Anesthesia Assessment: Anesthesia Plan Discussed Final Anesthetic Review NPO: Yes ASA Class: III Final Preanesthetic Review: No Changes in Pt Med Stat, Meds/Allgs Chart Reviewed, Consent Obtained/Reviewed and Anes Risks/Benef Reviewed Patient Risk: Intermediate Procedure Risk: Intermediate Anesthetic Plan Anesthetic Plan: GA
[2023-11-04] VITALS (12 sets, daily range): BP systolic 115–140; BP diastolic 66–77; PULSE 75–97; RESP 14–22; TEMP 36.3–36.9; O2SAT 95–99; BMI 29.8
--- NOTE | ~2023-11-04 | XR_ITS ---
EXAMINATION: XR PELVIS CLINICAL INFORMATION: Status post right total hip arthroplasty COMPARISON: Pelvic and right hip radiograph 10/30/2023 TECHNIQUE: AP view of the pelvis. FINDINGS: Status post total right hip arthroplasty. The prosthetic components are adequately aligned. No periprosthetic fracture. Small amount of postoperative gas and edema in the surrounding soft tissues. Cutaneous susan along the right lateral hip. The pubic symphysis is intact. The left hip is adequately aligned. Partially visualized lumbar fusion hardware. XR/XR pelvis 1-2V IMPRESSION: Status post total right hip arthroplasty with expected postoperative changes and adequate alignment of surgical hardware. Electronically signed by: Harley Ellison MD 11/04/2023 04:41 PM EDT
--- NOTE | ~2023-11-04 | XR_ITS ---
EXAMINATION: XR HIP, RIGHT CLINICAL INFORMATION: Right hip pain. COMPARISON: Right hip radiographs dated 05/14/2023. TECHNIQUE: Two views of the right hip. FINDINGS: Moderate right hip joint space narrowing with marginal osteophytes and mild femoral neck buttressing. Findings are similar when compared to the prior examination. Redemonstration of distal gluteal calcific tendinitis. No acute fracture or dislocation. No concerning lytic or blastic osseous lesion. No evidence of femoral head avascular necrosis. XR/XR hip RT min 2V IMPRESSION: 1. Moderate right hip osteoarthritis with femoral neck buttressing, similar when compared to the prior examination. 2. Distal gluteal calcific tendinitis, unchanged. Electronically signed by: Theodore Mesa MD 11/05/2023 01:45 PM EDT
--- NOTE | ~2023-11-04 | US_ITS ---
EXAMINATION: US TRIPLEX LOWER EXTREMITY, RIGHT CLINICAL INFORMATION: Pain, swelling COMPARISON: Right lower extremity duplex and 12/14/2022 TECHNIQUE: Color-flow triplex imaging with spectral analysis and compression Doppler were performed on the right lower extremity. FINDINGS: Respiratory variation, normal compression and augmented flow are noted throughout the distal right lower extremity. The visualized common femoral vein, superficial femoral vein, profunda femoral vein, popliteal vein and midcalf peroneal and posterior tibial venous segments show no evidence of deep venous thrombosis. The patient was unable to tolerate compression of the common femoral vein and proximal femoral vein secondary to recent surgical intervention at this site. There is no Rojas's cyst. US/US venous duplex LE RT IMPRESSION: No evidence of deep venous thrombosis involving the right lower extremity. Electronically signed by: Dacia Mcclain MD 11/05/2023 03:49 PM EDT
--- NOTE | 2023-11-04 09:30 | MHC.SHP ---
Pre-Procedural Eval Section A - 24 Hr Update-Section A only Date of Service: 11/04/23 The patient is an INPATIENT: No Changes since office visit: No Cold of Flu in the past 2 weeks, No New Medical Problems, No Changes in Medication and No Patient answered all questions The patient has been examined within 24 hours of the surgical procedure. The History & Physical has been completed within 30 days and I have reviewed it.: Yes Section B - Complete if H&P > 30 days Chief Complaint: Unilateral primary osteoarthritis, right hip Allergies: Allergies Allergy/AdvReac Type Severity Reaction Status Date / Time clindamycin [CLINDAMYCIN] Allergy Severe rash, hives Verified 10/29/23 12:39 Iodinated Contrast Media Allergy Severe Anaphylaxis Verified 10/29/23 12:39 [IV CONTRAST] Penicillins Allergy Severe hives, rash Verified 10/29/23 12:39 shellfish derived Allergy Severe ANAPHYLAXIS Verified 10/29/23 12:39 dulaglutide [From Trulicity] AdvReac Severe CP, SOB, Verified 10/29/23 12:39 GI UPSET Plan I have reviewed the history and physical and performed a pertinent physical examination on my patient. No changes have occurred unless specified. Time Spent With Patient Time: Total time managing care of this patient today ____ minutes.
[2023-11-04 10:02] LABS: Glucose, Whole Blood 176 mg/dL (60-115)
[2023-11-04] MEDS: oxyCODONE HCl ER 10 MG TAB.ER.12H PO ×2 (10:09→20:28)
[2023-11-04] MEDS: Lactated Ringers 1,000 ML 100 ML IVCONT ×2 (10:10→16:04)
[2023-11-04] MEDS: vancomycin HCL 1,500 MG in 0.9 % Sodium Chloride 500 ML 333.33 MG IV ×2 (10:23→20:50)
[2023-11-04] MEDS: HYDROmorphone HCl 0.5 MG/0.5 ML SYRINGE 0.25 MG IVPUSH ×3 (13:21→16:03)
--- NOTE | 2023-11-04 14:07 | PM.OP ---
Brief Operative Note Date of Service: 11/04/23 Pre-op diagnosis: Right hip OA Post-op diagnosis: same Procedure: Right KIP Implants: Rishabh [id number] Rishabh Accolade#[id number] #[id number] with +0 36 ceramic Surgeon: Keegan Nunes MD Anesthesia: GETA and local Was an Machine Tool Mechanic used for this Procedure?: Yes Machine Tool Mechanic: Nely Elliott Estimated blood loss (mL): 300 IV fluids (mL): 1,000 Pathology: other Condition: stable Disposition: PACU
--- NOTE | 2023-11-04 14:18 | P.CONHOSP_ITS ---
History of Present Illness Data of Consult Service Date: 11/04/23 Primary Care Provider: Lico Francisco MD HPI 62-year-old man with history of hypertension, diabetes mellitus, diabetic neuropathy admitted by Orthopedic surgery and is status post right total hip arthroplasty. Surgery was unremarkable. Patient is hemodynamically stable, no acute medical complaints. Review of Systems 2 Review of Systems: Denies any recent fever chills or decrease in appetite respiratory denies any shortness of breath or cough cardiovascular no chest pain gastrointestinal denies any dysphagia abdominal pain nausea vomiting or diarrhea genitourinary denies any dysuria frequency or hematuria musculoskeletal KIP neuropsych denies any weakness or seizures all other systems reviewed are negative [facility] Medical History (Updated 11/14/23 @ 00:02 by [facility] Da[facility]) Osteoarthritis of right hip Trigger finger of right hand Environmental allergies GERD (gastroesophageal reflux disease) DJD (degenerative joint disease) Arthritis Chest pain HTN (hypertension) Long-term current use of insulin for diabetes mellitus Overweight (BMI 25.0-29.9) Type 2 diabetes mellitus with diabetic polyneuropathy Bilateral knee pain Constipation Allergic rhinitis Chronic kidney disease (CKD), stage II (mild) Obesity (BMI 30-39.9) Neuropathy Chronic gastritis without bleeding Hypertriglyceridemia Benign essential hypertension 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 Lumbar degenerative disc disease Family History Father Leukemia Mother Alzheimers disease Daughter Overweight Prediabetes Brother Prostate cancer Other Mental health problem Surgical History History of back surgery History of neck surgery History of surgery History of colonoscopy History of esophagogastroduodenoscopy (EGD) History of hernia repair Social History Household Members: Spouse 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 Housing: House Are you a primary pet care assistant to a significant other at home: No Do you presently have visiting nurse or other home services: No Alcohol intake: current Alcohol intake frequency: holidays/special occasions only Patient Tobacco Use Status: Never used Tobacco e-Cigarette/Vaping Use: Never Used Second Hand Smoke Exposure: Yes Substance Use Type: Crack/Cocaine, Former Substance User, Marijuana and Painkillers service: No Current occupational status: retired and disabled Cognitive needs: Yes (Cane) Hearing needs: No Vision needs: Yes (glasses) Meds Allergies Allergy/AdvReac Type Severity Reaction Status Date / Time clindamycin [CLINDAMYCIN] Allergy Severe rash, hives Verified 11/19/23 13:29 Iodinated Contrast Media Allergy Severe Anaphylaxis Verified 11/19/23 13:29 [IV CONTRAST] Penicillins Allergy Severe hives, rash Verified 11/19/23 13:29 shellfish derived Allergy Severe ANAPHYLAXIS Verified 11/19/23 13:29 dulaglutide [From [facility]] AdvReac Severe CP, SOB, Verified 11/19/23 13:29 GI UPSET Active Medications: Current Medications Acetaminophen (Acetaminophen 325 Mg Tablet) 650 mg PO Q6H PRN PRN Reason: Pain, Mild (Pain Scale 1-3), fever or headache Amlodipine Besylate (Amlodipine Besylate 10 Mg Tablet) 10 mg PO [facility]; Protocol Aspirin (Aspirin 325 Mg Tablet) 325 mg PO BID [facility] Atorvastatin Calcium (Atorvastatin Calcium 10 Mg Tablet) 10 mg PO QAM [facility] Celecoxib (Celecoxib 200 Mg Capsule) 200 mg PO BID [facility] (F[facility] 20 Mg Tablet) [facility] [place] Protocol Gabapentin (Gabapentin 400 Mg Capsule) 800 mg PO [facility] Hydromorphone HCl (Hydromorphone Hcl 0.5 Mg/0.5 Ml Syringe) 0.25 mg IVPUSH Q5M PRN PRN Reason: Pain, Moderate to Severe (Pain Scale 4-10) Stop: 11/04/23 15:55 Last Admin: 11/04/23 13:26 Dose: 0.25 mg Hydromorphone HCl (Hydromorphone Hcl 0.5 Mg/0.5 Ml Syringe) 0.25 mg IVPUSH Q4H PRN; Protocol PRN Reason: Pain, Severe (Pain Scale 7-10) Lactated Ringer's (Lr) 1,000 mls @ 100 mls/hr IVCONT .Q10H [facility] Last Admin: 11/04/23 10:10 Dose: 100 mls/hr Vancomycin HCl 1,500 mg/ (Sodium Chloride) 500 mls @ 333.333 mls/hr IV POSTOP ONE Stop: 11/04/23 15:43 Lisinopril (Lisinopril 10 Mg Tablet) [facility] [place] Protocol Melatonin (Melatonin 3 Mg Tablet) 6 mg PO BEDTIME PRN PRN Reason: Insomnia Naloxone HCl (Naloxone Hcl 0.4 Mg/Ml Vial) 0.04 mg IVPUSH Q5M PRN PRN Reason: Excessive sedation or RR < 8 Non-Formulary Medication (Dapagliflozin Propanediol [Farxiga]) 10 mg PO QAM [facility] Non-Formulary Medication (Insulin Aspart U-100 [Novolog Flexpen U-100 Insulin]) 20 unit SUBCUT TID [facility] Non-Formulary Medication (Insulin Glargine U-300 Conc [Toujeo Max U-300 Solostar]) 80 unit SUBCUT BEDTIME [facility] Ondansetron HCl (Ondansetron Hcl 4 Mg/2 Ml Vial) 4 mg IVPUSH ONCE PRN PRN Reason: Nausea and Vomiting Stop: 11/04/23 15:55 Ondansetron HCl (Ondansetron Hcl 4 Mg/2 Ml Vial) 4 mg IVPUSH Q8H PRN PRN Reason: Nausea and Vomiting Oxycodone HCl (Oxycodone Hcl Er 10 Mg Tab.Er.12h) 10 mg PO BID [facility] Oxycodone HCl (Oxycodone Hcl Immed Release 5 Mg Tablet) 5 mg PO Q4H PRN PRN Reason: Pain, Moderate(Pain Scale 4-6) Pharmacy Consult (Consult Rx Vancomycin Dosing) 1 each MISCELLANE DAILY PRN PRN Reason: Consult order Senna (Sennosides 8.6 Mg Tablet) 17.2 mg PO BEDTIME [facility] Sodium Chloride (0.9 % Sodium Chloride Flush 3 Ml Syringe) [facility] Medications ?Medication ?Instructions ?Recorded ?Confirmed ?Last Taken ?Type amlodipine 10 mg tablet 10 mg PO DAILY 12/11/22 11/19/23 11/04/23 History dapagliflozin propanediol 10 mg 10 mg PO DAILY 12/11/22 11/19/23 10/30/23 History tablet (Farxiga) furosemide 20 mg tablet 20 mg PO DAILY 07/30/23 11/19/23 11/03/23 History gabapentin 800 mg tablet 800 mg PO TID PRN Pain 07/30/23 11/19/23 11/03/23 History lisinopril 30 mg tablet 30 mg PO DAILY 0911/19/23 11/03/23 History tadalafil 20 mg tablet 20 mg PO DAILY PRN Erectile 11/04/23 11/19/23 Unknown History Dysfunction Physical Exam 2 Vital Signs and Narrative: Vital Signs: Last Vital Signs Temp 98.1 F 11/04/23 13:46 Pulse 80 11/04/23 13:46 Resp 14 11/04/23 13:46 BP 116/76 11/04/23 13:46 Pulse Ox 97 11/04/23 13:46 O2 Del Method Nasal Cannula 11/04/23 13:46 O2 Flow Rate 2 11/04/23 13:46 BMI result Body Mass Index 29.8 Appearing in no acute distress head is normocephalic atraumatic eyes pupils are PERRLA sclera is anicteric mouth throat mucous membranes are intact and moist neck is supple no lymphadenopathy, no JVD noted lung sounds are clear to auscultation heart regular rate rhythm, clear S1, S2 positive bowel sounds, abdomen is soft, nontender neuro patient is alert x3, no focal deficits Results Labs 11/06/23 05:34 11/06/23 05:34 Labs: Laboratory Results - last 24 hr 11/04/23 09:56 POC Glucose 176 H Assessment and Plan (1) Osteoarthritis of right hip: Status: Inactive Plan 62 year old man admitted by Orthopedic surgery and is status post right total hip arthroplasty Right total hip arthroplasty Management as per surgical team Hypertension Stable blood pressure Continue amlodipine and lisinopril Diabetes mellitus POC, ADA diet, scheduled insulin Diabetic neuropathy Continue Neurontin CKD stage 2 Baseline Hyperlipidemia Continue statin DVT prophylaxis full-dose aspirin Full code
[2023-11-04] MEDS: diphenhydrAMINE HCL 50 MG/ML VIAL 12.5 MG IVPUSH (15:55)
[2023-11-04 16:46] LABS: Glucose, Whole Blood 221 mg/dL (60-115)
--- NOTE | 2023-11-04 17:02 | PHA.MEDREC ---
Addendum entered by Rodger Lowery RPh 11/04/23 17:39: Med rec was reviewed by [facility]. Original Note: Pharmacy Consult ? Medication Reconciliation Pharmacy has reviewed the medication reconciliation. Spoke to patient to confirm med list.Patient states he is not taking Furosemide 20 mg, however last fill date for 90 days. Patient states he stopped Farxiga 10 mg 4 days prior to surgery. Novolog is 20 units tid and Insulin Glargine is 80 units at bedtime, Gabapentin is 800 mg tid prn.
[2023-11-04] MEDS: Insulin Lispro 100 UNIT/ML 3 ML VIAL SUBCUT ×2 (17:19→20:34)
[2023-11-04] MEDS: diphenhydrAMINE HCL 50 MG/ML VIAL 25 MG IVPUSH (20:23)
[2023-11-04] MEDS: Cyclobenzaprine HCl 10 MG TABLET PO (20:25)
[2023-11-04] MEDS: Sennosides 8.6 MG TABLET 17.2 MG PO (20:25)
[2023-11-04 20:27] LABS: Glucose, Whole Blood 250 mg/dL (60-115)
[2023-11-04] MEDS: Celecoxib 200 MG CAPSULE PO (20:28)
[2023-11-04] MEDS: Insulin Glargine,Hum.rec.anlog 100 UNIT/ML 10 ML VIAL 64 UNIT SUBCUT (20:35)
[2023-11-05] VITALS (7 sets, daily range): BP systolic 130–148; BP diastolic 67–75; PULSE 97–110; RESP 14–18; TEMP 36.7–37.9; O2SAT 95–97
[2023-11-05] MEDS: diphenhydrAMINE HCL 50 MG/ML VIAL 12.5 MG IVPUSH ×2 (01:01→11:49)
[2023-11-05] MEDS: Lactated Ringers 1,000 ML 100 ML IVCONT ×3 (02:38→19:53)
[2023-11-05] MEDS: HYDROmorphone HCl 0.5 MG/0.5 ML SYRINGE IVPUSH ×3 (02:38→12:55)
[2023-11-05 06:11] LABS: MANUAL DIFF FLAG NO
[2023-11-05 06:31] LABS: Basophils Percent Auto 0.3 % (0-2); Eosinophils Absolute Auto 0.1 X10*3/uL (0.0-0.4); Eosinophils Percent Auto 0.5 % (0-4); Hemoglobin 11.1 g/dl (14.0-18.0); Imm Gran Abs Auto 0.03 X10*3/uL (0.00-0.03); Imm Gran Pct Auto 0.3 % (0.0-0.4); Lymphocytes Absolute Auto 1.3 X10*3/uL (1.2-4.9); Mean Corpuscular HGB Conc 32.6 g/dl (31.0-36.0); Mean Corpuscular Hemoglobin 29.4 pg (27.0-33.0); Mean Corpuscular Volume 89.9 fL (80.0-98.0); Mean Platelet Volume 11.7 fL (9.4-12.4); Monocytes Percent Auto 10.2 % (2-11); Neutrophils Absolute Auto 7.6 x10*3/uL (2.0-8.3); Neutrophils Percent Auto 75.7 % (45-73); Platelet Count 206 X10*3/uL (160-400); Red Blood Count 3.78 X10*6/uL (4.60-5.80); Red Cell Distribution Width 13.4 % (11.0-16.0); White Blood Count 10.1 X10*3/uL (4.8-10.8)
[2023-11-05 06:46] LABS: Anion Gap 11 (12-20); Blood Urea Nitrogen 20 mg/dL (9-16); Calcium 8.6 mg/dL (8.4-10.2); Carbon Dioxide 23 mmol/L (22-29); Chloride 107 mmol/L (96-108); Estimated Glomerular Filt Rate > 60; Potassium 3.7 mmol/L (3.3-5.1); Sodium 137 mmol/L (135-145)
[2023-11-05 07:27] LABS: Glucose Fasting 58 mg/dL (60-99)
[2023-11-05 08:03] LABS: Glucose, Whole Blood 67 mg/dL (60-115)
[2023-11-05 08:06] LABS: Glucose, Whole Blood 48 mg/dL (60-115)
[2023-11-05] MEDS: oxyCODONE HCl ER 10 MG TAB.ER.12H PO ×2 (09:00→19:11)
[2023-11-05] MEDS: Celecoxib 200 MG CAPSULE PO ×2 (09:00→19:10)
[2023-11-05] MEDS: lisinopriL 10 MG TABLET 30 MG PO (09:00)
[2023-11-05] MEDS: Atorvastatin Calcium 10 MG TABLET PO (09:01)
[2023-11-05] MEDS: Empagliflozin 10 MG TABLET PO (09:01)
[2023-11-05] MEDS: amLODIPine Besylate 10 MG TABLET PO (09:02)
[2023-11-05] MEDS: 0.9 % Sodium Chloride Flush 3 ML SYRINGE IVFLUSH (09:02)
[2023-11-05 11:25] LABS: Glucose, Whole Blood 84 mg/dL (60-115)
[2023-11-05] MEDS: Aspirin 325 MG TABLET PO ×2 (11:44→19:10)
--- NOTE | 2023-11-05 13:07 | PC.NURSE ---
Addendum entered by Irish Palmer RN 11/05/23 14:32: Per SAUL Soto, new orders for US of RLL. Pt aware of plan. Original Note: Pt continues to endorse right knee pain, trace edema noted at right knee, pain with flexing of foot/toes, no redness noted. SAUL Soto made aware. No new orders at this time, PRN pain medication given, pending effectiveness.
--- NOTE | 2023-11-05 13:30 | HO.POSTANES ---
Post Anesthesia Evaluation Post Anesthesia Evaluation Date of Service: 11/04/23 Vital Signs: Vital Signs Temp Pulse Resp BP Pulse Ox O2 Del Method 11/05/23 09:55 Room Air 11/05/23 08:47 105 H 138/67 95 11/05/23 07:41 98.0 F 105 H 16 138/67 95 Room Air 11/05/23 03:41 98.8 F 98 14 147/73 H 97 Room Air Anesthesia: General Endotracheal-GETA Mental Status: Awake Pain Control: Satisfactory Nausea/Vomiting: None Hydration: Adequate Anesthesia-Related Issues: No Anes. Related Issues
--- NOTE | 2023-11-05 14:39 | MHC.CM.PN ---
IMM delivered. 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 Has a walker and shower chair. PCP Lico Francisco MD No HCP. CM provided education and offered assistance. Patient declined. DP: PT recommending STR, 2 person assist. CM discussed w/ patient at length. Patient declining STR and any referrals for STR at this time. Prefers home w/ VNA for PT services through [facility]. Will need BLS transport. CM will continue to follow.
[2023-11-05] MEDS: oxyCODONE HCl Immed Release 5 MG TABLET 10 MG PO ×2 (14:45→19:10)
[2023-11-05 16:02] LABS: Glucose, Whole Blood 49 mg/dL (60-115)
--- NOTE | 2023-11-05 16:14 | PC.NURSE ---
Ortho team and Hospitalist (MD Woodward), made aware pt has had two episodes of hypoglycemia this shift, Pt responding well to 8oz of juice to correct blood sugar. Pt asymptomatic a&Ox4 for both events. Pt states he has had poor PO intake because he does not like the food at this facility. Adjusting long acting insulin.
--- NOTE | 2023-11-05 16:18 | PM.DS ---
DS: Providers Provider Date of Service: 11/06/23 Primary care physician: Lico Francisco MD Consults: 11/04/23 14:14 Consult to Hospitalist Routine Comment: Consulting Provider: Hospitalist Reason For Exam: Routine medical management DS: Diagnosis Discharge Diagnosis (1) Osteoarthritis of right hip: Status: Inactive DS: Summary Hospital Course Hospital Course: The patient underwent a successful right total hip arthroplasty, they were transferred to PACU and then to the floor to recover. During their stay, their vitals were stable, afebrile at 98.0. Labs were unremarkable, H/H 11.9/36.5. POD 1 they were started on Aspirin 325mg po bid for DVT ppx, they also received Physical Therapy services twice a day. Prior to discharge, their dressing was clean dry and intact, and the plan was to be discharged home with VNA services. Time Attestation Discharge Coordination Time (in mins): 30 Quality: Safe Use of Opioids Does Pt have an Active Cancer Diagnosis on the Problem List?: No Quality: Stroke Does the patient have a stroke diagnosis?: No Physical Exam Vital Signs: Vital Signs: Last Vital Signs Temp 98.1 F 11/05/23 15:34 Pulse 97 11/05/23 15:34 Resp 18 11/05/23 15:34 BP 130/67 11/05/23 15:34 Pulse Ox 96 11/05/23 15:34 O2 Del Method Room Air 11/05/23 15:34 O2 Flow Rate 2.0 11/04/23 14:27 BMI result Body Mass Index 29.8 Const: General: cooperative, healthy appearing and no acute distress Resp: Effort & Inspection: normal respiratory effort and able to speak in complete sentences Cardio: Rate: regular rate Peripheral pulses: Peripheral pulses 2+ throughout GI: Palpation (GI): Soft to palpation Skin: Lesions: no lesions Rashes: no rashes Extrem: Other: right hip dressing is c/d/i. Able to dorsi/plantar flex. Calf is supple and nontender. Sensation intact. Pedal pulse intact. DS: Data Data Completed and Pending Completed studies during hospitalization [Text1]: Procedures Excision of Lumbosacral Disc, Open Approach (02/09/23) Fusion of Lumbar Vertebral Joint with Interbody Fusion Device, Anterior Approach, Anterior Column, Open Approach (12/18/23) Fusion of Lumbosacral Joint with Interbody Fusion Device, Anterior Approach, Anterior Column, Open Approach (02/09/23) Insertion of Interspinous Process Spinal Stabilization Device into Lumbosacral Joint, Open Approach (02/09/23) Pending studies at discharge: Pending at discharge 11/04/23 12:30 Surgical [PTH] Routine Labs on day of discharge: Laboratory Results - last 24 hr 11/04/23 11/04/23 11/05/23 16:11 20:23 05:47 WBC 10.1 RBC 3.78 L D Hgb 11.1 L D Hct 34.0 L MCV 89.9 MCH 29.4 MCHC 32.6 RDW 13.4 Plt Count 206 MPV 11.7 Immature Gran % (Auto) 0.3 Neut % (Auto) 75.7 H Lymph % (Auto) 13.0 L [place] % (Auto) 10.2 Eos % (Auto) 0.5 Baso % (Auto) 0.3 Lymph # (Auto) 1.3 [place] # (Auto) 1.0 Eos # (Auto) 0.1 Baso # (Auto) 0.0 Abs Immat Gran (auto) 0.03 Absolute Neuts (auto) 7.6 Absolute Nucleated RBC 0.000 Nucleated RBC % (auto) 0.0 Sodium 137 Potassium 3.7 Chloride 107 Carbon Dioxide 23 Anion Gap 11 L BUN 20 H Creatinine 1.09 Estim Creat Clear Calc 78.0 Estimated GFR > 60 POC Glucose 221 H 250 H Fasting Glucose 58 L* Calcium 8.6 D 11/05/23 11/05/23 11/05/23 07:36 07:58 11:06 WBC RBC Hgb Hct MCV MCH MCHC RDW Plt Count MPV Immature Gran % (Auto) Neut % (Auto) Lymph % (Auto) [place] % (Auto) Eos % (Auto) Baso % (Auto) Lymph # (Auto) [place] # (Auto) Eos # (Auto) Baso # (Auto) Abs Immat Gran (auto) Absolute Neuts (auto) Absolute Nucleated RBC Nucleated RBC % (auto) Sodium Potassium Chloride Carbon Dioxide Anion Gap BUN Creatinine Estim Creat Clear Calc Estimated GFR POC Glucose 48 L* 67 84 Fasting Glucose Calcium 11/05/23 15:58 WBC RBC Hgb Hct MCV MCH MCHC RDW Plt Count MPV Immature Gran % (Auto) Neut % (Auto) Lymph % (Auto) [place] % (Auto) Eos % (Auto) Baso % (Auto) Lymph # (Auto) [place] # (Auto) Eos # (Auto) Baso # (Auto) Abs Immat Gran (auto) Absolute Neuts (auto) Absolute Nucleated RBC Nucleated RBC % (auto) Sodium Potassium Chloride Carbon Dioxide Anion Gap BUN Creatinine Estim Creat Clear Calc Estimated GFR POC Glucose 49 L* Fasting Glucose Calcium Discharge Plan Discharge Patient Disposition: Home, Self-Care Referrals: Jake Castillo PA-C [[facility]] - 11/19/23 1:00 pm Discharge Medications: New celecoxib 200 mg Capsule 200 mg PO BID 30 Days Qty: 60 0RF acetaminophen 325 mg Tablet 650 mg PO Q6H PRN (Reason: Pain, Mild (Pain Scale 1-3), fever or headache) 30 Days Qty: 240 0RF aspirin 325 mg Tablet 325 mg PO BID 42 Days Qty: 84 0RF oxycodone 10 mg tablet 10 mg PO Q4H PRN (Reason: Pain, Moderate(Pain Scale 4-6)) 7 Days Qty: 42 0RF Rx Instructions: Partial Fill upon patient request. sennosides [Senna Lax] 8.6 mg Tablet 17.2 mg PO BEDTIME 30 Days Qty: 60 0RF Continued (DME) pen needle, diabetic [Ultra-Thin II (Short) Pen NDL] 31 gauge x 5/16 needle See Rx Instructions .ROUTE .MEDSUPPLY Qty: 100 12RF Rx Instructions: test 4 x a day (DME) blood-glucose meter [OneTouch Ultra2 Meter] [facility] [place] See Rx Instructions .Route Qty: 1 0RF Rx Instructions: As directed (DME) OneTouch Ultra Test Strip See Rx Instructions .Route Qty: 100 0RF Rx Instructions: As directed three times per day (DME) lancets [OneTouch UltraSoft 2 Lancet] 30 gauge misc See Rx Instructions .Route Qty: 200 0RF Rx Instructions: As directed three times per day (DME) walker Misc See Rx Instructions .MEDSUPPLY Qty: 1 0RF Rx Instructions: Folding Front wheeled walker atorvastatin 10 mg tablet 10 mg PO DAILY lisinopril 30 mg tablet 30 mg PO DAILY tadalafil 20 mg tablet 20 mg PO DAILY PRN (Reason: Erectile Dysfunction) Rx Instructions: TAKE 1 TABLET BY MOUTH 1 HOUR BEFORE DESIRED ACTIVITY. TAKE 30 MINUTES BEFORE ANY MEAL. Farxiga 10 mg tablet 10 mg PO DAILY amlodipine 10 mg tablet 10 mg PO DAILY insulin aspart U-100 [Novolog FlexPen U-100 Insulin] 100 unit/mL (3 mL) insulin pen 20 unit subcut TID 90 Days Qty: 54 1RF insulin glargine U-300 conc [Toujeo Max U-300 SoloStar] 300 unit/mL (3 mL) insulin pen 80 unit subcut BEDTIME 90 Days Qty: 24.003 1RF furosemide 20 mg tablet 20 mg PO DAILY gabapentin 800 mg tablet 800 mg PO TID PRN (Reason: Pain) Discharge Orders: Discharge Order (Routine); Ordered 11/06/23 Ordered By: Nely Elliott Diet: Advance to usual diet Activity on Discharge: Use cane or walker Activity Restrictions/Additional Instructions: Physical Therapy for total hip arthroplasty: posterior precautions, gait training, ROM, strength Limit stair climbing No showering, no tub bath-keep dressing clean, dry and intact No driving x6 weeks Continue Aspirin tabs once a day x 6 weeks Follow up with [facility] in 2 weeks Print Language: Burundian
--- NOTE | 2023-11-05 16:19 | W.MHC.F2F ---
Service Date Service Date: 11/05/23 Encounter Date of encounter: 11/06/23 Reasons for Services Signs and symptoms assessed: s/p RTHA Pt. is considered homebound due to recent surgery. Unable to drive, poor balance, poor gait mechanics. Reason for physical therapy: home safety and mobility, therapeutic exercises, restore joint function, gait/transfer training, assess need for DME and ADL training Reason for occupational therapy: home safety and mobility, therapeutic exercises, restore joint function, gait/transfer training, assess need for DME and ADL training Homebound: Leaving the home is medically contraindicated at this time without the asist of a device and/or another person due th the listed conditions above and below. Reason homebound: unsteady gait / fall risk, leg weakness, pain with ambulation, pain with transfers, poor balance / fall risk and unable to drive Certification: Based on the above findings, I certify that this patient is confined to the home and needs intermittent long term care, physical therapy and/or speech therapy, or continues to need occupational therapy. The patient is under my care, and I have initiated the establishment of the plan of care. The patient will be followed by a physician who will periodically review the plan of care. Time Spent With Patient Time: Total time managing care of this patient today ____ minutes.
[2023-11-05 16:25] LABS: Glucose, Whole Blood 88 mg/dL (60-115)
[2023-11-05] MEDS: LORazepam 2 MG/ML VIAL 1 MG IVPUSH (16:41)
--- NOTE | 2023-11-05 18:54 | P.PNOP_ITS ---
Subjective Subjective Date of Service: 11/05/23 Interval history: Patient is a 62-year-old male admitted to the hospital status post right total hip arthroplasty DOS 11/03/2023 Patient is resting comfortably in bed Patient reports that he did have an episode of significant itching that pre vented him from sleeping overnight, but that he is not experiencing any significant pain in his right hip at this time Patient states that he has been working with physical therapy, and then he has been ambulating The patient also states that he would like to be discharged home with VNA services upon discharge No acute complaints or concerns at this time. Physical Exam Vital Signs: Vital Signs: Last Vital Signs Temp 98.1 F 11/05/23 15:34 Pulse 97 11/05/23 15:34 Resp 18 11/05/23 15:34 BP 130/67 11/05/23 15:34 Pulse Ox 96 11/05/23 15:34 O2 Del Method Room Air 11/05/23 15:34 O2 Flow Rate 2.0 11/04/23 14:27 BMI result Body Mass Index 29.8 Extrem: Other: Dressing on right hip clean, dry, intact No surrounding erythema No saturation of dressing Compartments soft, nontender Distal sensation intact Capillary refill brisk Procedures Date of Service Date of Service: 11/05/23 Progress Note: A&P Assessment and plan (1) Status post total hip replacement, right: Status: Acute Plan 1. Status post right total hip arthroplasty Patient appears to be recovering well postoperatively Patient is educated about the typical recovery course Continue current pain management Start anticoagulation with aspirin 325 mg b.i.d. Continue work with PT/OT Anticipate discharge in the next 1-2 days Discharge disposition per PT and OT recommendations Time Spent With Patient Time: Total time managing care of this patient today ____ minutes. Quality Stroke Does the patient have a stroke diagnosis?: No VTE Prior VTE?: No VTE Risk Level:: Surgical - very high VTE Device Contraindication: N/A - Device Ordered VTE Drug Contraindication: N/A - Med Ordered
[2023-11-05] MEDS: Sennosides 8.6 MG TABLET 17.2 MG PO (19:10)
[2023-11-05 20:17] LABS: Glucose, Whole Blood 147 mg/dL (60-115)
[2023-11-05] MEDS: Acetaminophen 325 MG TABLET 650 MG PO (20:30)
--- NOTE | 2023-11-05 20:47 | MHC.PIE ---
p; staff reports pt seeing kids in room and unable to remember his daughters name earlier- note; there are no kids in room or in hallway at this time. pt assessed, pt noted confused on time and date, forgetfully and vague. when asked, pt reports not seeing little kids but little monsters in room and was trying walk home. note; iv ativan given by previous shift. poc 147. temp 100.2. i; prn tylenol given, lantus held for pt not refusing food at this time. camera placed in room for safety i; dr rader notified e; will cot to monitor
[2023-11-06] MEDS: Lactated Ringers 1,000 ML 100 ML IVCONT (01:53)
[2023-11-06 04:00] VITALS: BP 142/74; PULSE 102; RESP 16; TEMP 36.6; O2SAT 97
[2023-11-06] MEDS: oxyCODONE HCl Immed Release 5 MG TABLET 10 MG PO (05:39)
[2023-11-06 06:03] LABS: MANUAL DIFF FLAG NO
[2023-11-06 06:18] LABS: Basophils Absolute Auto 0.1 X10*3/uL (0.0-0.2); Basophils Percent Auto 0.4 % (0-2); Eosinophils Absolute Auto 0.1 X10*3/uL (0.0-0.4); Hematocrit 36.5 % (42.0-52.0); Hemoglobin 11.9 g/dl (14.0-18.0); Imm Gran Abs Auto 0.05 X10*3/uL (0.00-0.03); Imm Gran Pct Auto 0.4 % (0.0-0.4); Lymphocytes Absolute Auto 3.9 X10*3/uL (1.2-4.9); Mean Corpuscular HGB Conc 32.6 g/dl (31.0-36.0); Mean Corpuscular Hemoglobin 29.5 pg (27.0-33.0); Mean Corpuscular Volume 90.6 fL (80.0-98.0); Mean Platelet Volume 11.9 fL (9.4-12.4); Monocytes Absolute Auto 1.4 X10*3/uL (0.1-1.2); Monocytes Percent Auto 10.6 % (2-11); Neutrophils Absolute Auto 7.9 x10*3/uL (2.0-8.3); Neutrophils Percent Auto 58.6 % (45-73); Platelet Count 211 X10*3/uL (160-400); Red Blood Count 4.03 X10*6/uL (4.60-5.80); Red Cell Distribution Width 13.3 % (11.0-16.0); White Blood Count 13.5 X10*3/uL (4.8-10.8)
[2023-11-06 06:23] LABS: Anion Gap 13 (12-20); Blood Urea Nitrogen 13 mg/dL (9-16); Calcium 9.4 mg/dL (8.4-10.2); Carbon Dioxide 24 mmol/L (22-29); Chloride 104 mmol/L (96-108); Creatinine Clr Calc Pharmacy 75.3; Estimated Glomerular Filt Rate > 60; Glucose Fasting 106 mg/dL (60-99); Potassium 3.9 mmol/L (3.3-5.1); Sodium 137 mmol/L (135-145)
[2023-11-06 07:29] LABS: Glucose, Whole Blood 104 mg/dL (60-115)
[2023-11-06 07:33] VITALS: BP 127/73; PULSE 104; RESP 16; TEMP 36.6; O2SAT 95
[2023-11-06] MEDS: Atorvastatin Calcium 10 MG TABLET PO (08:25)
[2023-11-06] MEDS: Celecoxib 200 MG CAPSULE PO (08:25)
[2023-11-06] MEDS: lisinopriL 10 MG TABLET 30 MG PO (08:25)
[2023-11-06] MEDS: Aspirin 325 MG TABLET PO (08:25)
[2023-11-06] MEDS: Empagliflozin 10 MG TABLET PO (08:26)
[2023-11-06] MEDS: oxyCODONE HCl ER 10 MG TAB.ER.12H PO (08:26)
[2023-11-06] MEDS: 0.9 % Sodium Chloride Flush 3 ML SYRINGE IVFLUSH (08:26)
[2023-11-06] MEDS: amLODIPine Besylate 10 MG TABLET PO (08:26)
--- NOTE | 2023-11-06 08:42 | MHC.CM.PN ---
Patient medically cleared for dc home w/ services through [facility]. Continues to decline STR. BLS transport scheduled for 9am to [facility] @ [address] [place] [address] per request, as she will be assisting. RN aware.
--- NOTE | 2023-11-17 06:58 | W.PM.OPN ---
Operative Note Operative Note Date of Service: 11/04/23 Narrative: Date of Service: 11/04/23 Pre-op diagnosis: Right hip OA Post-op diagnosis: same Procedure: Right KIP Implants: Bend Trident2 52 Bend Accolade#2 #6 132 with +0 36 ceramic Surgeon: Keegan Nunes MD Anesthesia: GETA and local Was an Pcb Design Engineer used for this Procedure?: Yes Pcb Design Engineer: Nely Elliott Estimated blood loss (mL): 300 IV fluids (mL): 1,000 Pathology: other Condition: stable Disposition: PACU Patient was brought into the operating room and placed in the right lateral decubitus position. All bony prominences were well padded and the limb was prepped and draped in standard sterile fashion. A time-out was called to identify proper site procedure proper surgeon IV antibiotics and 1 g of tranexamic acid were administered. I began by making a curvilinear incision over the posterolateral aspect of the greater trochanter. Dissection was taken down to the tensor fascia which was incised in line with the incision and a Charnley retractor was placed. Cautery was used to maintain hemostasis. The hip was internally rotated and the external rotators were identified. The vessels were cauterized and a full-thickness capsular/external rotator layer was developed starting just proximal to the piriformis. This layer was tagged and a dull Hohmann retractor was placed underneath the neck in the hip was dislocated. A neck cut was made 1 cm proximal to the lesser trochanter and the head and neck were removed and measured ~48mm on the back table. The head was worn superiorly.. I then removed the labrum and cauterized the fovea. I started with a 44 reamer and medialized to the inner table. I sequentially reamed up to a size 52 and impacted a 52mm cup at 45 degrees of inclination and 25 degrees of version. I then placed a 20 deg posterior lipped liner and turned my attention to the femur. I identified the piriformis insertion and used this as a starting point for my zoran cutter. The medius tendon was protected with a Hibs retractor. A Charnley awl was inserted in the canal and a curved curette used to remove the lateral bone. I irrigated copiously. I then sequentially broached in the patient's natural version to a size 6 and placed my trial implants. I used a #6/132/+0 based on my pre-operative template. I was satisfied with the stability and length, I removed all instrumentation and copiously irrigated. I placed my final femoral implant and again took the hip through range of motion and was satisfied with the stability and length. The final +0 implant was impacted in place and the hip reduced. I then irrigated copiously and placed 1 g of local tranexamic acid. I performed a capsular closure with 2.0 fiberwire, Katty's fascia with 0 Vicryl, subcuticular with 2-0 Vicryl and the skin with susan. Patient was placed into a sterile dressing. Patient was extubated brought to the recovery room in stable condition. There were no known complications.
== END 2023-11-06 09:27 | disposition home health service (06) ==
LOC: HO.SSS 09:03 → HO.S3 13:19
PROVIDERS: Anesthesiology; Physician Assistant; PCP Internal Medicine; Visit Provider Orthopaedic Surgery
PROC: (CPT 27130; principal; 2023-11-04 11:20)
DX: M16.11 Unilateral primary osteoarthritis, right hip (principal); M76.01 Gluteal tendinitis, right hip; M25.551 Pain in right hip; Z96.641 Presence of right artificial hip joint; E11.42 Type 2 diabetes mellitus with diabetic polyneuropathy; E11.22 Type 2 diabetes mellitus with diabetic chronic kidney disease; I12.9 Hypertensive chronic kidney disease with stage 1 through stage 4 chronic kidney disease, or unspecified chronic kidney disease; N18.2 Chronic kidney disease, stage 2 (mild); K21.9 Gastro-esophageal reflux disease without esophagitis; J30.9 Allergic rhinitis, unspecified; M79.661 Pain in right lower leg; Z79.4 Long term (current) use of insulin; Z79.899 Other long term (current) drug therapy; F14.11 Cocaine abuse, in remission; F19.11 Other psychoactive substance abuse, in remission; Z88.0 Allergy status to penicillin; Z88.8 Allergy status to other drugs, medicaments and biological substances; Z91.041 Radiographic dye allergy status; Z98.890 Other specified postprocedural states
CPT/HCPCS: 27130; 36415; 72170; 73502; 80048; 80053; 82947; 83036; 85025; 85027; 86850; 86900; 86901; 87640; 87641; 88304; 88311; 93971; 97110; 97116; 97162; 97166; 97530; 97535; C1776; J0131; J1170; J1200; J2060; J2371; J2405; J2704; J2795; J3010; J3371; J7120

== ENCOUNTER → 2023-11-04 09:03 | Outpatient (BNV) | payer MEDICARE, MEDICAID, SELFPAY | PROVIDERS: PCP Internal Medicine; Visit Provider Nurse Practitioner Acute Care | DX: I10 Essential (primary) hypertension (principal); M16.11 Unilateral primary osteoarthritis, right hip | CPT/HCPCS: 99221 ==

== ENCOUNTER → 2023-11-04 09:03 | Outpatient (BNV) | payer MEDICARE, MEDICAID, SELFPAY | PROVIDERS: PCP Internal Medicine; Visit Provider Orthopaedic Surgery | DX: Z47.1 Aftercare following joint replacement surgery (principal); Z96.641 Presence of right artificial hip joint | CPT/HCPCS: 27130; 99024; G0180 ==

== ENCOUNTER 2023-11-19 12:57 | Outpatient (AMB) | payer MEDICARE, MEDICAID, SELFPAY ==
--- NOTE | 2023-11-19 13:23 | A.OFFVIS_ITS ---
Intake Visit Reasons: 2WK PO: R KIP w/NE 11/03/23 Intake Note: Kd a 62 year old male who presents today for a post operative RT KIP on 11/03/23 NE. Patient reports he is doing well, states having pain in his right knee after surgery. He needs a refill on his pain medication. Allergies clindamycin [CLINDAMYCIN] Allergy (Severe, Verified 11/19/23 13:29) rash, hives Iodinated Contrast Media [IV CONTRAST] Allergy (Severe, Verified 11/19/23 13:29) Anaphylaxis Penicillins Allergy (Severe, Verified 11/19/23 13:29) hives, rash shellfish derived Allergy (Severe, Verified 11/19/23 13:29) ANAPHYLAXIS dulaglutide [From Trulicity] Adverse Reaction (Severe, Verified 11/19/23 13:29) CP, SOB, GI UPSET Medication List - Last Reconciled 11/19/23 by Jake Castillo PA-C acetaminophen 650 mg (2 x 325 mg) PO Q6H PRN 30 days amlodipine 10 mg PO DAILY aspirin 325 mg PO BID 42 days atorvastatin 10 mg PO DAILY blood sugar diagnostic ([employer] Ultra Test strips) As directed three times per day blood-glucose meter (Focal TherapeuticsTouch Ultra2 Meter) As directed celecoxib 200 mg PO BID 30 days dapagliflozin propanediol (Farxiga) 10 mg PO DAILY furosemide 20 mg PO DAILY gabapentin 800 mg PO TID PRN insulin aspart U-100 (Novolog FlexPen U-100 Insulin aspart) 20 units (0.2 mL) subcut TID 90 days insulin glargine U-300 conc (Toujeo Max U-300 SoloStar) 80 units (0.2667 mL) subcut BEDTIME 90 days lancets (Focal TherapeuticsTouch UltraSoft 2 Lancet) As directed three times per day lisinopril 30 mg PO DAILY oxycodone 10 mg PO Q4H PRN 7 days pen needle, diabetic (Ultra-Thin II (Short) Pen NDL) test 4 x a day sennosides (Senna Lax) 17.2 mg (2 x 8.6 mg) PO BEDTIME 30 days tadalafil 20 mg PO DAILY PRN walker Folding Front wheeled walker HPI HPI 2WK PO: R KIP w/NE 9/10/24: Details: 62-year-old male who returns to the office today for post-op right KIP, 11/03/[address] Nunes. He states he has pain in his right knee since the surgery however he is doing well otherwise. He also experiences difficulty sleeping at night. He has been working on physical therapy as instructed. He has no other c oncerns today. [facility] Medical History (Updated 11/14/23 @ 00:02 by Linda Escalera) Osteoarthritis of right hip Trigger finger of right hand Environmental allergies GERD (gastroesophageal reflux disease) DJD (degenerative joint disease) Arthritis Chest pain HTN (hypertension) Long-term current use of insulin for diabetes mellitus Overweight (BMI 25.0-29.9) Type 2 diabetes mellitus with diabetic polyneuropathy Bilateral knee pain Constipation Allergic rhinitis Chronic kidney disease (CKD), stage II (mild) Obesity (BMI 30-39.9) Neuropathy Chronic gastritis without bleeding Hypertriglyceridemia Benign essential hypertension 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 Lumbar degenerative disc disease Surgical History History of back surgery History of neck surgery History of surgery History of colonoscopy History of esophagogastroduodenoscopy (EGD) History of hernia repair Family History Father Leukemia Mother Alzheimers disease Daughter Overweight Prediabetes Brother Prostate cancer Other Mental health problem Social History Household Members: Spouse 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 Housing: House Are you a primary palliative care specialist to a significant other at home: No Do you presently have visiting nurse or other home services: No Alcohol intake: current Alcohol intake frequency: holidays/special occasions only Patient Tobacco Use Status: Never used Tobacco e-Cigarette/Vaping Use: Never Used Second Hand Smoke Exposure: Yes Substance Use Type: Crack/Cocaine, Former Substance User, Marijuana and Painkillers service: No Current occupational status: retired and disabled Cognitive needs: Yes (Cane) Hearing needs: No Vision needs: Yes (glasses) Review of Systems Const All systems reviewed & are unremarkable except as noted in HPI and below Physical Exam Extrem Other: Right hip: Incision clean, dry and intact. No redness or drainage. No pain with ROM of hip. NVI. Assessment & Plan Assessment & Plan (1) Status post total hip replacement, right: Code(s): Z96.641 - Presence of right artificial hip joint Category: Surgical Plan Charly removed, steri strips applied. He will begin to transition to Outpatient PT to continue working on Gait training, ROM and quad strength. No driving for another 4 weeks. He will require ppx abx for dental procedures. He will f/u in 4 weeks, sooner if needed. Orders: Orders PT Evaluation and Treatment Today Z96.641 - Presence of right artificial hip joint Medications: Changed From oxycodone Partial Fill upon patient request. 10 mg PO Q4H 7 days PRN 42 tabs 0RF Pain, Moderate(Pain Scale 4-6) To oxycodone Partial Fill upon patient request. 5 mg PO Q4H PRN 42 tabs 0RF Pain, Moderate(Pain Scale 4-6) 7 days Patient Instructions: Scribed for Jake Castillo PA-C, by Sin Borjas certified medical transcriptionist, on 11/19/2023 at 1:00 PM EST.? I, Jake Castillo PA-C, have personally reviewed and agree with the information entered by the scribe. Coding Level of Care Code Global (33447) Diagnoses Status post total hip replacement, right Z96.641
== END 2023-11-19 14:04 | disposition home or self-care (01) ==
PROVIDERS: PCP Internal Medicine; Visit Provider Physician Assistant
DX: Z96.641 Presence of right artificial hip joint (principal)
CPT/HCPCS: 99024

== ENCOUNTER → 2023-11-19 12:57 | Outpatient (BNVA) | payer MEDICARE, MEDICAID, SELFPAY | PROVIDERS: PCP Internal Medicine; Visit Provider Physician Assistant | DX: Z47.1 Aftercare following joint replacement surgery (principal); Z96.641 Presence of right artificial hip joint | CPT/HCPCS: 99212 ==

== ENCOUNTER 2023-11-26 12:14 | Outpatient (AMB) | payer MEDICARE, MEDICAID, SELFPAY ==
--- NOTE | 2023-11-26 12:36 | A.OFFPC_ITS ---
Vital Signs 11/26/23 12:37 Height 5 ft 9.5 in Weight 199 lb BMI 29.0 BP 130/72 Blood Pressure Location Lt brachial Position Sitting Pulse 94 Pulse Source Pulse Oximeter Pulse Oximetry (%) 98 Oxygen Delivery Method Room Air Intake Visit Reasons: 3 Month Follow Up Intake Note: Patient is here for a follow-up after surgery. 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 Required: No Oyster Unloader: Not Required per policy Accompanied by: Self / Same As Patient Allergies clindamycin [CLINDAMYCIN] Allergy (Severe, Verified 11/26/23 12:37) rash, hives Iodinated Contrast Media [IV CONTRAST] Allergy (Severe, Verified 11/26/23 12:37) Anaphylaxis Penicillins Allergy (Severe, Verified 11/26/23 12:37) hives, rash shellfish derived Allergy (Severe, Verified 11/26/23 12:37) ANAPHYLAXIS dulaglutide [From Trulicity] Adverse Reaction (Severe, Verified 11/26/23 12:37) CP, SOB, GI UPSET Tobacco use date assessed: 11/26/23 Dental Screening Dental Screen Date: 03/25/23 HPI 3 Month Follow Up HPI Details 62-year-old male presents to the office after recent surgery. Patient underwent a right total hip replacement on November 05. Recovery has been uneventful except for knee pain. The orthopedic surgeon feels that the knee pain is transient and should subside. Is scheduled to start rehab next week. Compliant with medications. Able to ambulate with a cane. Not checking his blood sugars. [facility] Medical History (Updated 11/14/23 @ 00:02 by Linda Escalera) Osteoarthritis of right hip Trigger finger of right hand Environmental allergies GERD (gastroesophageal reflux disease) DJD (degenerative joint disease) Arthritis Chest pain HTN (hypertension) Long-term current use of insulin for diabetes mellitus Overweight (BMI 25.0-29.9) Type 2 diabetes mellitus with diabetic polyneuropathy Bilateral knee pain Constipation Allergic rhinitis Chronic kidney disease (CKD), stage II (mild) Obesity (BMI 30-39.9) Neuropathy Chronic gastritis without bleeding Hypertriglyceridemia Benign essential hypertension 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 Lumbar degenerative disc disease Surgical History (Updated 11/26/23 @ 12:44 by JOYCE Greene) History of right hip replacement History of back surgery History of neck surgery History of surgery History of colonoscopy History of esophagogastroduodenoscopy (EGD) History of hernia repair Family History Father Leukemia Mother Alzheimers disease Daughter Overweight Prediabetes Brother Prostate cancer Other Mental health problem Social History Household Members: Spouse 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 Housing: House Are you a primary care administrative tech to a significant other at home: No Do you presently have visiting nurse or other home services: No Alcohol intake: current Alcohol intake frequency: holidays/special occasions only Patient Tobacco Use Status: Never used Tobacco e-Cigarette/Vaping Use: Never Used Second Hand Smoke Exposure: Yes Substance Use Type: Crack/Cocaine, Former Substance User, Marijuana and Painkillers service: No Current occupational status: retired and disabled Cognitive needs: Yes (Cane) Hearing needs: No Vision needs: Yes (glasses) Questionnaire Thrive Questionnaire Date Thrive assessed: 11/05/23 Are you currently unemployed and looking for a job?: I choose not to answer this question BASHIR-7 AMB Questionnaire BASHIR-7 Date BASHIR - 7 assessed: 03/25/23 Source: Developed by Drs. Myron Jiang, Brinda Stock, Jimmie Alfaro and colleagues, with an educational briana from [employer]. Physical exam (Primary Care) Vital Signs: Last Vital Signs Pulse 94 11/26/23 12:37 BP 130/72 11/26/23 12:37 Pulse Ox 98 11/26/23 12:37 Oxygen Delivery Method Room Air 11/26/23 12:37 BMI result Body Mass Index 29.0 Tobacco/Smoking Status: Tobacco use Status Tobacco use date assessed 11/26/23 11/26/23 12:45 Patient Tobacco Use Status Never used Tobacco 11/26/23 12:45 e-Cigarette/Vaping Use Never Used 11/26/23 12:45 Thrive Assessment: Date of Thrive Assessment Date Thrive assessed 11/05/23 11/26/23 12:45 Const General: cooperative and healthy appearing Nutritional Appearance: well nourished Orientation/consciousness: patient oriented x3 Limitations: no limitations HENMT Head: Yes normal to inspection Eyes General: appearance normal, both eyes and all related structures Neck Neck: Yes normal visual inspection Chest Chest palpation & inspection: normal palpation of entire chest wall Resp Effort & Inspection: normal respiratory effort Neuro General: patient oriented x3 Office Procedures Flu Questionnaire Does the patient have a severe egg allergy?: No Does the patient have severe life threatening allergies?: No Does the patient have a fever or illness today?: No Has the patient ever had Guillain-[place] Syndrome?: No Has the patient ever had any past reaction to a flu shot?: No Immunizations Fluarix Triv [id number] (PF) 45 mcg (15 mcg x 3)/0.5 mL IM syringe Performing Provider: Lico Francisco MD [facility] [place] [facility] Administered by: Vidhya Escobar LPN on 11/26/23 12:56 Dose Route Admin Location Dispensed Lot Number Expiration Date NDC Business Development Executive 0.5 mL IM Left Deltoid 0.5 mL [id number] 08/22/24 59851-830-97 [employer] VIS Given Date VIS Provided VIS Publication Date 11/26/23 Single Vaccine 20 Eligibility Eligibility Date Funding Source Not [facility] Eligible 11/26/23 Private Coding Level of Care Code Est Pt Level 3 (71237) Complex EM visit Add On G2211 Diagnoses Status post total hip replacement, right Z96.641 Assessment & Plan Assessment & Plan (1) Status post total hip replacement, right: Code(s): Z96.641 - Presence of right artificial hip joint Category: Medical Plan: Patient is slowly returning to baseline. Encouraged patient to start physical therapy next week. Orders: Orders Influenza [id number] Immunization Today Z23 - Encounter for immunization
[2023-11-26 12:37] VITALS: BP 130/72; PULSE 94; O2SAT 98; BMI 29.0
== END 2023-11-26 13:00 | disposition home or self-care (01) ==
PROVIDERS: PCP Internal Medicine; Visit Provider Internal Medicine
DX: Z23 Encounter for immunization (principal); Z96.641 Presence of right artificial hip joint

== ENCOUNTER → 2023-11-26 12:14 | Outpatient (BNVA) | payer MEDICARE, MEDICAID, SELFPAY | PROVIDERS: PCP Internal Medicine; Visit Provider Internal Medicine | DX: Z23 Encounter for immunization (principal); Z96.641 Presence of right artificial hip joint; I10 Essential (primary) hypertension; E11.22 Type 2 diabetes mellitus with diabetic chronic kidney disease; N18.2 Chronic kidney disease, stage 2 (mild) | CPT/HCPCS: 90471; 90656; 99212 ==

== ENCOUNTER 2023-12-10 12:27 | Outpatient (REF) | payer MEDICARE, MEDICAID, SELFPAY ==
--- NOTE | ~2023-12-10 | XR_ITS ---
EXAMINATION: XR PELVIS 2 VIEWS CLINICAL INFORMATION: Pain in unspecified hip M25.559. COMPARISON: XR Pelvis 11/04/2023 TECHNIQUE: 1 view, 2 images of the pelvis. FINDINGS: There is a total right hip arthroplasty. The femoral component articulates appropriately with the acetabular component. No periprosthetic lucency or fracture. The left hip is well aligned. The pelvis is intact. The sacroiliac joints and pubic symphysis are well aligned. Lumbosacral spinal fusion hardware. XR/XR pelvis 1-2V IMPRESSION: Total right hip arthroplasty without evidence of failure. Unremarkable appearance of the left hip. Electronically signed by: Hemant Whitt MD 02/03/2024 08:12 AM [place]
== END 2023-12-10 12:28 | disposition home or self-care (01) ==
LOC: HO.HOSX 12:27
PROVIDERS: Visit Provider Orthopaedic Surgery
DX: M25.559 Pain in unspecified hip (principal); Z96.641 Presence of right artificial hip joint
CPT/HCPCS: 72170; 99212

== ENCOUNTER 2023-12-10 13:23 | Outpatient (AMB) | payer MEDICARE, MEDICAID, SELFPAY ==
--- NOTE | 2023-12-10 13:46 | MHC.OFFVIS ---
Intake Visit Reasons: 6WK PO: R KIP w/NE 11/03/23 Intake Note: Kd is a 62 year old male who presents today for a post operative appointment s/p RT KIP on 11/03/23. Patient reports that he is doing well with some mild pain Allergies clindamycin [CLINDAMYCIN] Allergy (Severe, Verified 11/26/23 12:37) rash, hives Iodinated Contrast Media [IV CONTRAST] Allergy (Severe, Verified 11/26/23 12:37) Anaphylaxis Penicillins Allergy (Severe, Verified 11/26/23 12:37) hives, rash shellfish derived Allergy (Severe, Verified 11/26/23 12:37) ANAPHYLAXIS dulaglutide [From Trulicity] Adverse Reaction (Severe, Verified 11/26/23 12:37) CP, SOB, GI UPSET HPI HPI 6WK PO: R KIP w/NE 11/03/23: Details: Kd is a 62 year old male who presents today for a post operative appointment s/p RT KIP on 11/03/23. Patient reports that he is doing well with some mild pain PFSH Medical History (Updated 11/14/23 @ 00:02 by Linda Escalera) Osteoarthritis of right hip Trigger finger of right hand Environmental allergies GERD (gastroesophageal reflux disease) DJD (degenerative joint disease) Arthritis Chest pain HTN (hypertension) Long-term current use of insulin for diabetes mellitus Overweight (BMI 25.0-29.9) Type 2 diabetes mellitus with diabetic polyneuropathy Bilateral knee pain Constipation Allergic rhinitis Chronic kidney disease (CKD), stage II (mild) Obesity (BMI 30-39.9) Neuropathy Chronic gastritis without bleeding Hypertriglyceridemia Benign essential hypertension 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 Lumbar degenerative disc disease Surgical History (Updated 11/26/23 @ 12:44 by JOYCE Greene) History of right hip replacement History of back surgery History of neck surgery History of surgery History of colonoscopy History of esophagogastroduodenoscopy (EGD) History of hernia repair Family History Father Leukemia Mother Alzheimers disease Daughter Overweight Prediabetes Brother Prostate cancer Other Mental health problem Social History Household Members: Spouse 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 Housing: House Are you a primary critical care technician to a significant other at home: No Do you presently have visiting nurse or other home services: No Alcohol intake: current Alcohol intake frequency: holidays/special occasions only Patient Tobacco Use Status: Never used Tobacco e-Cigarette/Vaping Use: Never Used Second Hand Smoke Exposure: Yes Substance Use Type: Crack/Cocaine, Former Substance User, Marijuana and Painkillers service: No Current occupational status: retired and disabled Cognitive needs: Yes (Cane) Hearing needs: No Vision needs: Yes (glasses) Physical Exam Extrem Other: Minimal Trendelenburg gait Range of motion without pain Assessment & Plan Assessment & Plan (1) Status post total hip replacement, right: Code(s): Z96.641 - Presence of right artificial hip joint Category: Surgical Plan: Doing very well status post right hip replacement. Follow up in 6 weeks. Continue physical therapy. Orders: Orders XR pelvis 1-2V 12/10/23 M25.559 - Pain in unspecified hip Coding Level of Care Code Global (44905) Diagnoses Status post total hip replacement, right Z96.641
== END 2023-12-10 14:02 | disposition home or self-care (01) ==
PROVIDERS: PCP Internal Medicine; Visit Provider Orthopaedic Surgery
DX: Z96.641 Presence of right artificial hip joint (principal)
CPT/HCPCS: 99024

== ENCOUNTER 2023-12-28 13:08 | Outpatient (AMB) | payer MEDICARE, MEDICAID, SELFPAY ==
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
== END 2023-12-28 14:35 | disposition home or self-care (01) ==
LOC: HO.HNS 13:11
PROVIDERS: PCP Internal Medicine; Visit Provider Physician Assistant
DX: G56.20 Lesion of ulnar nerve, unspecified upper limb (principal)
CPT/HCPCS: 99213

== ENCOUNTER → 2023-12-28 13:08 | Outpatient (BNVA) | payer MEDICARE, MEDICAID, SELFPAY | PROVIDERS: PCP Internal Medicine; Visit Provider Physician Assistant | DX: G56.21 Lesion of ulnar nerve, right upper limb (principal) | CPT/HCPCS: 99212 ==

== ENCOUNTER 2024-01-25 10:57 | Outpatient (AMB) | payer MEDICARE, MEDICAID, SELFPAY ==
--- NOTE | 2024-01-25 11:11 | A.OFFVIS_ITS ---
Intake Visit Reasons: PO: R KIP w/NE 11/03/23 Intake Note: Kd is a 62 year old male who presents today for a post operative appointment s/p RT KIP on 11/03/23. Patient reports that he is doing well, He continues to have some pain in the right knee. Continues to work with Physical therapy Allergies clindamycin [CLINDAMYCIN] Allergy (Severe, Verified 01/25/24 11:14) rash, hives Iodinated Contrast Media [IV CONTRAST] Allergy (Severe, Verified 01/25/24 11:14) Anaphylaxis Penicillins Allergy (Severe, Verified 01/25/24 11:14) hives, rash shellfish derived Allergy (Severe, Verified 01/25/24 11:14) ANAPHYLAXIS dulaglutide [From Trulicity] Adverse Reaction (Severe, Verified 01/25/24 11:14) CP, SOB, GI UPSET HPI HPI PO: R KIP w/NE 11/03/23: Details: Kd is a 62 year old male who presents today for a post operative appointment s/p RT KIP on 11/03/23. Patient reports that he is doing well, He continues to have some pain in the right knee. Continues to work with Physical therapy. [facility] Medical History (Updated 12/28/23 @ 14:32 by SAUL Novak) Osteoarthritis of right hip Trigger finger of right hand Environmental allergies GERD (gastroesophageal reflux disease) DJD (degenerative joint disease) Arthritis Chest pain HTN (hypertension) Long-term current use of insulin for diabetes mellitus Overweight (BMI 25.0-29.9) Type 2 diabetes mellitus with diabetic polyneuropathy Bilateral knee pain Constipation Allergic rhinitis Chronic kidney disease (CKD), stage II (mild) Obesity (BMI 30-39.9) Neuropathy Chronic gastritis without bleeding Hypertriglyceridemia Benign essential hypertension 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 Lumbar degenerative disc disease Surgical History (Updated 11/26/23 @ 12:44 by JOYCE Greene) History of right hip replacement History of back surgery History of neck surgery History of surgery History of colonoscopy History of esophagogastroduodenoscopy (EGD) History of hernia repair Family History Father Leukemia Mother Alzheimers disease Daughter Overweight Prediabetes Brother Prostate cancer Other Mental health problem Social History Household Members: Spouse 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 Housing: House Are you a primary career services coordinator to a significant other at home: No Do you presently have visiting nurse or other home services: No Alcohol intake: current Alcohol intake frequency: holidays/special occasions only Patient Tobacco Use Status: Never used Tobacco e-Cigarette/Vaping Use: Never Used Second Hand Smoke Exposure: Yes Substance Use Type: Crack/Cocaine, Former Substance User, Marijuana and Painkillers service: No Current occupational status: retired and disabled Cognitive needs: Yes (Cane) Hearing needs: No Vision needs: Yes (glasses) Physical Exam Extrem Other: Walking well with no pain with hip range of motion. Assessment & Plan Assessment & Plan (1) Status post total hip replacement, right: Code(s): Z96.641 - Presence of right artificial hip joint Category: Surgical Plan: Status post right KIP doing well. Discussed precautions and dental prophylaxis. May follow up in 9 months or sooner if needed. Coding Level of Care Code Global (38156) Diagnoses Status post total hip replacement, right Z96.641
== END 2024-01-25 12:00 | disposition home or self-care (01) ==
PROVIDERS: PCP Internal Medicine; Visit Provider Orthopaedic Surgery
DX: Z96.641 Presence of right artificial hip joint (principal)
CPT/HCPCS: 99024

== ENCOUNTER → 2024-01-25 10:57 | Outpatient (BNVA) | payer MEDICARE, MEDICAID, SELFPAY | PROVIDERS: PCP Internal Medicine; Visit Provider Orthopaedic Surgery ==

== ENCOUNTER 2024-01-25 11:38 | Outpatient (REF) | payer MEDICARE, MEDICAID, SELFPAY ==
[2024-01-25 12:04] LABS: MANUAL DIFF FLAG NO
[2024-01-25 12:21] LABS: Basophils Percent Auto 0.4 % (0-2); Eosinophils Absolute Auto 0.1 X10*3/uL (0.0-0.4); Eosinophils Percent Auto 1.6 % (0-4); Hematocrit 44.5 % (42.0-52.0); Hemoglobin 14.4 g/dl (14.0-18.0); Imm Gran Abs Auto 0.03 X10*3/uL (0.00-0.03); Imm Gran Pct Auto 0.4 % (0.0-0.4); Lymphocytes Absolute Auto 2.4 X10*3/uL (1.2-4.9); Lymphocytes Percent Auto 29.4 % (20-40); Mean Corpuscular HGB Conc 32.4 g/dl (31.0-36.0); Mean Corpuscular Hemoglobin 28.3 pg (27.0-33.0); Mean Corpuscular Volume 87.6 fL (80.0-98.0); Mean Platelet Volume 11.4 fL (9.4-12.4); Monocytes Absolute Auto 0.6 X10*3/uL (0.1-1.2); Monocytes Percent Auto 7.7 % (2-11); Neutrophils Absolute Auto 4.9 x10*3/uL (2.0-8.3); Neutrophils Percent Auto 60.5 % (45-73); Platelet Count 260 X10*3/uL (160-400); Red Blood Count 5.08 X10*6/uL (4.60-5.80); Red Cell Distribution Width 14.2 % (11.0-16.0); White Blood Count 8.2 X10*3/uL (4.8-10.8)
[2024-01-25 13:24] LABS: Anion Gap 13 (12-20); Blood Urea Nitrogen 23 mg/dL (9-16); Calcium 9.5 mg/dL (8.4-10.2); Carbon Dioxide 26 mmol/L (22-29); Chloride 105 mmol/L (96-108); Estimated Glomerular Filt Rate 51; Potassium 4.4 mmol/L (3.3-5.1); Sodium 140 mmol/L (135-145)
[2024-01-25 13:40] LABS: Vitamin D 25-OH Total 19.4 ng/mL (>30)
[2024-01-25 14:09] LABS: Microalbumin Urine < 5.0 mg/L; Total Protein Urine Random < 7 mg/dL (<12)
== END 2024-01-25 11:39 | disposition home or self-care (01) ==
LOC: HO.LAB 11:38
PROVIDERS: PCP Internal Medicine; Visit Provider Internal Medicine Nephrology
DX: R80.9 Proteinuria, unspecified (principal); I10 Essential (primary) hypertension; Z96.641 Presence of right artificial hip joint; Z79.899 Other long term (current) drug therapy
CPT/HCPCS: 36415; 80051; 82043; 82306; 82310; 82565; 82570; 83970; 84156; 84520; 85025; 99212

== ENCOUNTER 2024-02-11 13:01 | Outpatient (AMB) | payer MEDICARE, MEDICAID, SELFPAY ==
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
[2024-02-11 13:05] VITALS: BP 140/68; PULSE 97; BMI 30.3
== END 2024-02-11 13:47 | disposition home or self-care (01) ==
PROVIDERS: PCP Internal Medicine; Visit Provider Internal Medicine
DX: R07.2 Precordial pain (principal); R94.31 Abnormal electrocardiogram [ECG] [EKG]; E11.22 Type 2 diabetes mellitus with diabetic chronic kidney disease; N18.2 Chronic kidney disease, stage 2 (mild); Z79.4 Long term (current) use of insulin; I12.9 Hypertensive chronic kidney disease with stage 1 through stage 4 chronic kidney disease, or unspecified chronic kidney disease
CPT/HCPCS: 93010; 99214

== ENCOUNTER → 2024-02-11 13:01 | Outpatient (BNVA) | payer MEDICARE, MEDICAID, SELFPAY | PROVIDERS: PCP Internal Medicine; Visit Provider Internal Medicine | DX: I12.9 Hypertensive chronic kidney disease with stage 1 through stage 4 chronic kidney disease, or unspecified chronic kidney disease (principal); E11.22 Type 2 diabetes mellitus with diabetic chronic kidney disease; N18.2 Chronic kidney disease, stage 2 (mild); E78.5 Hyperlipidemia, unspecified; R07.2 Precordial pain; R94.31 Abnormal electrocardiogram [ECG] [EKG]; Z79.4 Long term (current) use of insulin | CPT/HCPCS: 93005; 99212 ==

== ENCOUNTER 2024-02-15 10:02 | Day surgery (SDC) | payer MEDICARE, MEDICAID, SELFPAY ==
--- OUTSIDE RECORDS SUMMARY | 2024-02-04 14:16 | XMS_ITS | Clinical Summary ---
Author Organization Unknown Care Team Providers Care Oil Well Shooter Name Role Phone AMY ADDISON, MEDINA Unavailable Unavailable RUMA PT, RADHA Unavailable Unavailable MY LITTLE, DANIEL Unavailable Unavailable Payers Payer Name Policy Type Policy Number Effective Date Expira tion Date [facility] [id number] Problems Condition Name Condition Details Condition Category Status Onset Date Resolution Date Last Treatment Date Treating Clinician Comments AFTERCARE FOLLOWING JOINT REPLACEMENT SURGERY Active 11-02 00:00: 00 PRESENCE OF RIGHT ARTIFICIAL HIP JOINT Active 11-02 00:00: 00 UNSPECIFIED OSTEOARTHRIT IS, UNSPECIFIED SITE Active 02-23 00:00: 00 TYPE 2 DIABETES MELLITUS WITH DIABETIC POLYNEUROPAT HY Active 02-23 00:00: 00 HYPERTENSIVE CHRONIC KIDNEY DISEASE W STG 1-4/UNSP CHR KDNY Active 02-23 00:00: 00 TYPE 2 DIABETES MELLITUS W DIABETIC CHRONIC KIDNEY DISEASE Active 02-23 00:00: 00 CHRONIC KIDNEY DISEASE, STAGE 2 (MILD) Active 02-23 00:00: 00 SPONDYLOSIS W/O MYELOPATHY OR RADICULOPATH Y, CERVICAL REGION Active 02-23 00:00: 00 OTHER INTERVERTEBR AL DISC DEGENERATION , LUMBAR REGION Active 02-23 00:00: 00 OTHER SEASONAL ALLERGIC RHINITIS Active 02-23 00:00: 00 GASTRO-ESOPH AGEAL REFLUX DISEASE WITHOUT ESOPHAGITIS Active 02-23 00:00: 00 PAIN IN RIGHT KNEE Active 02-23 00:00: 00 PAIN IN LEFT KNEE Active 02-23 00:00: 00 UNSPECIFIED CHRONIC GASTRITIS WITHOUT BLEEDING Active 02-23 00:00: 00 TRIGGER FINGER, UNSPECIFIED FINGER Active 02-23 00:00: 00 CONSTIPATION , UNSPECIFIED Active 02-23 00:00: 00 PURE HYPERCHOLEST EROLEMIA, UNSPECIFIED Active 02-23 00:00: 00 OVERWEIGHT Active 02-23 00:00: 00 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 Active 02-23 00:00: 00 ARTHRODESIS STATUS Active 02-23 00:00: 00 HISTORY OF FALLING Active 02-23 00:00: 00 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 Active 02-23 00:00: 00 BODY MASS INDEX [BMI] 29.0-29.9, ADULT Active 02-23 00:00: 00 Allergies, Adverse Reactions, Alerts Allergy Name Allergy Type Status Severity Reaction(s) Onset Date Inactive Date Treating Clinician Comments IVP DYE, IODINE CONTAINING Propensity to adverse reactions Active 10-05 11:20: 37 PENICILLINS Propensity to adverse reactions Active 10-05 11:20: 45 CLINDAMYCIN Propensity to adverse reactions Active 10-05 11:20: 55 SHELLFISH Propensity to adverse reactions Active 10-05 11:21: 03 DULAGLUTIDE Propensity to adverse reactions Active 10-05 11:21: 13 Medications Ordered Medication Name Filled Medication Name Start Date Stop Date Current Medication? Ordering Clinician Indication Dosage Frequency Signature (SIG) Comments Components Toujeo Max U-300 SoloStar 300 unit/mL (3 mL) subcutaneou s insulin pen 10-05 00:00: 00 Yes [id number] DM 80 unit BEDTIME 80 unit BEDTIME (route: subcutaneo us) Med Classific ation: Endocrine Novolog FlexPen U-100 Insulin aspart 100 unit/mL (3 mL) subcutaneou s 09-30 00:00: 00 Yes [id number] DM Per instruc tions 3 TIMES DAILY Per instructio ns 3 TIMES DAILY (route: subcutaneo us) Med Classific ation: Endocrine tadalafil 20 mg tablet 09-27 00:00: 00 Yes [id number] ED Per instruc tions 30 MINUTES Per instructio ns 30 MINUTES (route: oral) Med Classific ation: Drugs to treat Erectile Dysfuncti on amlodipine 10 mg tablet 11-06 00:00: 00 Yes [id number] BP 1 tablet DAILY 1 tablet DAILY (route: oral) Med Classific ation: Cardiovas cular Therapy Agents atorvastati n 10 mg tablet 11-06 00:00: 00 Yes [id number] CHOLESTEROL 1 tablet DAILY 1 tablet DAILY (route: oral) Med Classific ation: Cardiovas cular Therapy Agents Farxiga 10 mg tablet 11-06 00:00: 00 Yes [id number] KIDNEY 1 tablet DAILY 1 tablet DAILY (route: oral) Med Classific ation: Endocrine furosemide 20 mg tablet 11-06 00:00: 00 Yes [id number] HEART DISEASE 1 tablet DAILY 1 tablet DAILY (route: oral) Med Classific ation: Cardiovas cular Therapy Agents gabapentin 300 mg capsule 11-06 00:00: 00 Yes [id number] PAIN 2 capsule 3 TIMES DAILY 2 capsule 3 TIMES DAILY (route: oral) Med Classific ation: Central Nervous System Agents lisinopril 30 mg tablet 11-06 00:00: 00 Yes [id number] BP 1 tablet DAILY 1 tablet DAILY (route: oral) Med Classific ation: Cardiovas cular Therapy Agents oxycodone 5 mg tablet 11-06 00:00: 00 11-12 23:59 :00 No [id number] PAIN 1-2 tablet EVERY 4 HOURS 1-2 tablet EVERY 4 HOURS (route: oral) Med Classific ation: Analgesic , Anti-infl ammatory or Antipyret ic Tylenol 325 mg capsule 11-06 00:00: 00 Yes [id number] PAIN 2 capsule EVERY 6 HOURS 2 capsule EVERY 6 HOURS (route: oral) Med Classific ation: Analgesic , Anti-infl ammatory or Antipyret ic celecoxib 200 mg capsule 11-06 00:00: 00 Yes [id number] pain 1 capsule 2 TIMES DAILY 1 capsule 2 TIMES DAILY (route: oral) Med Classific ation: Analgesic , Anti-infl ammatory or Antipyret ic aspirin 325 mg tablet 11-06 00:00: 00 12-17 23:59 :00 No [id number] anticoagula nt 1 tablet 2 TIMES DAILY 1 tablet 2 TIMES DAILY (route: oral) Med Classific ation: Analgesic , Anti-infl ammatory or Antipyret ic Vital Signs Vital Name Observation Time Observation Value Commen ts Temperature 2023-11-20 14:06:00.000 97.9 [degF] Temperature 2023-11-17 09:45:00.000 97.7 [degF] Temperature 2023-11-10 12:24:00.000 97.5 [degF] Temperature 2023-11-07 08:55:00.000 97.7 [degF] BMI (%) 2023-11-07 08:55:00.000 29 kg/m2 Height 2023-11-07 08:55:00.000 70 [in_us] Pulse 2023-11-20 14:06:00.000 93 /min Pulse 2023-11-17 09:45:00.000 86 /min Pulse 2023-11-10 12:24:00.000 77 /min Pulse 2023-11-07 08:55:00.000 74 /min Respirations 2023-11-20 14:06:00.000 18 /min Respirations 2023-11-17 09:45:00.000 17 /min Respirations 2023-11-10 12:24:00.000 17 /min Respirations 2023-11-07 08:55:00.000 18 /min Weight (lbs) 2023-11-07 08:55:00.000 207 [lb_av] Systolic Blood Pressure 2023-11-20 14:06:00.000 108 mm [Hg] Systolic Blood Pressure 2023-11-17 09:45:00.000 140 mm [Hg] Systolic Blood Pressure 2023-11-10 12:24:00.000 170 mm [Hg] Systolic Blood Pressure 2023-11-07 08:55:00.000 134 mm [Hg] Diastolic Blood Pressure 2023-11-20 14:06:00.000 58 mm [Hg] Diastolic Blood Pressure 2023-11-17 09:45:00.000 84 mm [Hg] Diastolic Blood Pressure 2023-11-10 12:24:00.000 84 mm [Hg] Diastolic Blood Pressure 2023-11-07 08:55:00.000 74 mm [Hg] Plan of Treatment Planned Activity Planned Date Details Comments Future Scheduled Test PT/WHIZZER HAND TO PROVIDE GAIT TRAINING FOR IMPROVED MOBILITY AND /OR TO NORMALIZE GAIT PATTERN [code = PT/WHIZZER HAND TO PROVIDE GAIT TRAINING FOR IMPROVED MOBILITY AND /OR TO NORMALIZE GAIT PATTERN] Future Scheduled Test PT/WHIZZER HAND TO IDENTIFY FALL RISK FACTORS; EDUCATE THE PATIENT/CAREGIVER ON WAYS TO REDUCE FALL RISK FACTORS AND ESTABLISH HOME EXERCISE PROGRAM TO MINIMIZE FALL RISK. MAY TEACH THE PATIENT FLOOR RECOVERY WHEN CLINICALLY APPROPRIATE [code = PT/WHIZZER HAND TO IDENTIFY FALL RISK FACTORS; EDUCATE THE PATIENT/CAREGIVER ON WAYS TO REDUCE FALL RISK FACTORS AND ESTABLISH HOME EXERCISE PROGRAM TO MINIMIZE FALL RISK. MAY TEACH THE PATIENT FLOOR RECOVERY WHEN CLINICALLY APPROPRIATE] Future Scheduled Test PT/WHIZZER HAND TO PROVIDE STAIR TRAINING [code = PT/WHIZZER HAND TO PROVIDE STAIR TRAINING] Future Scheduled Test BED TRANSF ERS (PT/WHIZZER HAND) [code = BED TRANSFERS (PT/WHIZZER HAND)] Future Scheduled Test SIT TO/FRO M STAND TRANSFERS (PT/WHIZZER HAND) [code = SIT TO/FROM STAND TRANSFERS (PT/WHIZZER HAND)] Future Scheduled Test PT / WHIZZER HAND T O MONITOR AND EDUCATE ON OXYGEN SATURATION DURING ADLS/IADLS, NOTIFY PHYSICIAN AND/OR THE RN CLINICAL CHILD PROTECTION SPECIALIST FOR PHYSICIAN NOTIFICATION AND IF O2 SATS BELOW PHYSICIAN ORDERED PARAMETERS AFTER 10 MIN OF REST [code = PT / WHIZZER HAND TO MONITOR AND EDUCATE ON OXYGEN SATURATION DURING ADLS/IADLS, NOTIFY PHYSICIAN AND/OR THE RN CLINICAL CHILD PROTECTION SPECIALIST FOR PHYSICIAN NOTIFICATION AND IF O2 SATS BELOW PHYSICIAN ORDERED PARAMETERS AFTER 10 MIN OF REST] Future Scheduled Test PT / WHIZZER HAND M AY EDUCATE ON PAIN MANAGEMENT CLINICALLY INDICATED, INCLUDING NON-PHARMACOLOGICAL PAIN REDUCTION TECHNIQUES. [code = PT / WHIZZER HAND MAY EDUCATE ON PAIN MANAGEMENT CLINICALLY INDICATED, INCLUDING NON-PHARMACOLOGICAL PAIN REDUCTION TECHNIQUES.] Future Scheduled Test AGENCY MAY PERFORM A RESUMPTION OF CARE VISIT FOLLOWING ANY HOSPITAL ADMISSION. PT TO EVALUATE, OBSERVE / ASSESS, AND MONITOR, WHIZZER HAND TO OBSERVE AND MONITOR, PROVIDE SKILLED THERAPEUTIC INTERVENTION, ACTIVITY, EDUCATION, AND TRAINING TO ADDRESS; [code = AGENCY MAY PERFORM A RESUMPTION OF CARE VISIT FOLLOWING ANY HOSPITAL ADMISSION. PT TO EVALUATE, OBSERVE / ASSESS, AND MONITOR, WHIZZER HAND TO OBSERVE AND MONITOR, PROVIDE SKILLED THERAPEUTIC INTERVENTION, ACTIVITY, EDUCATION, AND TRAINING TO ADDRESS;] Future Scheduled Test PT / WHIZZER HAND T O EDUCATE ON HIP REPLACEMENT SELF-MANAGEMENT [code = PT / WHIZZER HAND TO EDUCATE ON HIP REPLACEMENT SELF-MANAGEMENT] Future Scheduled Test PT / WHIZZER HAND T O OBSERVE WOUND/INCISION AND/OR INTACT DRESSING ON R HIP AND REPORT EARLY SIGNS AND SYMPTOMS OF WOUND DETERIORATION, COMPLICATIONS, OR INFECTION TO PHYSICIAN AND/OR THE RN CLINICAL CHILD PROTECTION SPECIALIST FOR PHYSICIAN NOTIFICATION. [code = PT / WHIZZER HAND TO OBSERVE WOUND/INCISION AND/OR INTACT DRESSING ON R HIP AND REPORT EARLY SIGNS AND SYMPTOMS OF WOUND DETERIORATION, COMPLICATIONS, OR INFECTION TO PHYSICIAN AND/OR THE RN CLINICAL CHILD PROTECTION SPECIALIST FOR PHYSICIAN NOTIFICATION.] Goal 2023-11-20 Patient Goal - I WANT TO HAVE LESS PAIN Goal Provider Goal - PATIENT WILL IMPROVE HOUSEHOLD GAIT AND STAIRS FROM CGA AND MIN A TO INDEPENDENT IN 3 WEEKS TO PROMOTE IMPROVED FUNCTIONAL MOBILITY Goal Provider Goal - PT LTG: PATIENT/CAREGIVER WILL DEMONSTRATE ADHERENCE TO FALL REDUCTION SELF-MANAGEMENT AND REDUCING FALL RISK FACTORS TO MINIMIZE FALL RISK BY END OF EPISODE PT LTG: PATIENT WILL BE INDEPENDENT WITH IMPLEMENTATION OF HEP WITHIN 2 WEEKS PT LTG: CAREGIVER WILL BE INDEPENDENT ASSISTING PATIENT TO COMPLETE HEP WITHIN 2 WEEKS Goal Provider Goal - Goal Provider Goal - Goal Provider Goal - PATIENT WILL IMPROVE HOUSEHOLD TRANSFERS FROM MIN A TO INDEPENDENT IN 3 WEEKS TO PROMOTE IMPROVED FUNCTIONAL MOBILITY Goal Provider Goal - PT LTG: PATIENT WILL MAINTAIN OXYGEN SATURATION WITHIN PHYSICIAN ORDERED PARAMETERS THROUGHOUT EPISODE OF CARE. Goal Provider Goal - PT GOAL: PATIENT WILL DEMONSTRATE UNDERSTANDING OF PAIN MANAGEMENT TECHNIQUES. Goal Provider Goal - Goal Provider Goal - PT GOAL: PATIENT WILL DEMONSTRATE OPTIMAL OUTCOMES INCLUDING INCREASED ROM AND STRENGTH WITH NO COMPLICATIONS FOLLOWING HIP SURGERY BY END OF EPISODE. Goal Provider Goal - PT GOAL: THE PATIENT WILL NOT DEMONSTRATE ANY WOUND COMPLICATIONS DURING THE EPISODE OF CARE. MD TO REMOVE BANDAGE [id number] FOLLOW UP Reason for Visit INDEPENDENT IN THE HOME Encounters Start Date/Time End Date/Time Encounter Type Admission Type Attending [facility] Care Department Encounter ID Discharge Date Discharge Status Discharge Condition Discharge Reason Percent Goals Met 2023-11-07 00:00:00 2023-11-20 00:00:00 Outpatient NEW ADMISSION RADHA HENDRIX [facility] [id number] 2023-11-20 00:00:00 DISCHARGE TO HOME OR SELF CARE INDEPENDEN T IN THE HOME HH ONLY - OUT PATIENT 100.00
[2024-02-11 09:03] VITALS: BMI 29.8
--- NOTE | 2024-02-11 10:34 | P.CONAN_ITS ---
Documented by User: Sandy Ribera NP 02/11/24 10:37 HPI - Anesthesia Eval Consult details Narrative: 63yo M for Right Release Ulnar Nerve s/p total hip 10/2023 with GA-ETT 7.5 Anesthesia Pre-Procedure Meds Is the patient on any of the following meds?: GLP1/DPP4 PMFSH Active Problems Active Problems: All Active Problems Ulnar neuropathy (Acute) Status post total hip replacement, right (Acute) Right hip pain (Acute) Neuropathy of right lower extremity (Acute) S/P spinal fusion (Acute) Lumbar degenerative disc disease (Acute) Essential hypertension (Acute) Abnormal EKG (Acute) Precordial chest pain (Acute) Erectile dysfunction associated with type 2 diabetes mellitus (Acute) Cervical spinal cord compression (Acute) Subarachnoid cyst (Acute) Right leg weakness (Acute) Right knee pain (Acute) Spondylosis of cervical spine with radiculopathy (Acute) Chronic pain (Acute) Postlaminectomy syndrome, lumbar (Acute) Bilateral primary osteoarthritis of knee (Acute) Cough (Acute) Hypogonadism in male (Acute) Chest pain (Acute) Trigger finger of right hand (Acute) GERD (gastroesophageal reflux disease) (Acute) Long-term current use of insulin for diabetes mellitus (Acute) Overweight (BMI 25.0-29.9) (Acute) Type 2 diabetes mellitus with diabetic polyneuropathy (Acute) Bilateral knee pain (Acute) Constipation (Acute) Allergic rhinitis (Acute) Chronic kidney disease (CKD), stage II (mild) (Acute) Obesity (BMI 30-39.9) (Acute) Neuropathy (Acute) Chronic gastritis without bleeding (Acute) Hypertriglyceridemia (Acute) Benign essential hypertension (Acute) Degenerative arthritis of cervical spine (Acute) Type 2 diabetes mellitus with diabetic chronic kidney disease (Acute) Lumbar degenerative disc disease (Acute) Past Medical History Medical History (Updated 12/28/23 @ 14:32 by SAUL Novak) Osteoarthritis of right hip Trigger finger of right hand Environmental allergies GERD (gastroesophageal reflux disease) DJD (degenerative joint disease) Arthritis Chest pain HTN (hypertension) Long-term current use of insulin for diabetes mellitus Overweight (BMI 25.0-29.9) Type 2 diabetes mellitus with diabetic polyneuropathy Bilateral knee pain Constipation Allergic rhinitis Chronic kidney disease (CKD), stage II (mild) Obesity (BMI 30-39.9) Neuropathy Chronic gastritis without bleeding Hypertriglyceridemia Benign essential hypertension 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 Lumbar degenerative disc disease Family History Family History Father Leukemia Mother Alzheimers disease Daughter Overweight Prediabetes Brother Prostate cancer Other Mental health problem Family history of problems with anesthesia: No Surgical History Surgical History History of right hip replacement History of back surgery History of neck surgery History of surgery History of colonoscopy History of esophagogastroduodenoscopy (EGD) History of hernia repair History of Problems with Anesthesia: No Social History Social History Household Members: Spouse 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: House Are you a primary healthcare corporate account director to a significant other at home: No Do you presently have visiting nurse or other home services: No Alcohol intake: current Alcohol intake frequency: holidays/special occasions only Patient Tobacco Use Status: Never used Tobacco e-Cigarette/Vaping Use: Never Used Second Hand Smoke Exposure: Yes Use of substances other than those prescribed or required for medical reasons: No Substance Use Type: Crack/Cocaine, Former Substance User, Marijuana and Painkillers Substance Use Frequency: Occasionally Have you been hit, kicked, punched, or otherwise hurt by someone within the past year? If so, by whom?: No Are you DNR?: No Advance Directives: No Advance Directives Information Provided: Yes Recently lost weight without trying: No Nutrition Risks: No Nutritional Risk Poor oral hygiene: No service: No Current occupational status: retired and disabled Cognitive needs: Yes (Cane) Hearing needs: No Vision needs: Yes (glasses) Meds Allergies Allergy/AdvReac Type Severity Reaction Status Date / Time clindamycin [CLINDAMYCIN] Allergy Severe rash, hives Verified 01/25/24 11:14 Iodinated Contrast Media Allergy Severe Anaphylaxis Verified 01/25/24 11:14 [IV CONTRAST] Penicillins Allergy Severe hives, rash Verified 01/25/24 11:14 shellfish derived Allergy Severe ANAPHYLAXIS Verified 01/25/24 11:14 [facility]lutide [facility] AdvReac Severe CP, SOB, Verified 01/25/24 11:14 GI UPSET Home Medications ?Medication ?Instructions ?Recorded ?Confirmed ?Last Taken ?Type amlodipine 10 mg tablet 10 mg PO DAILY 12/11/22 02/15/24 02/15/24 History dapagliflozin propanediol 10 mg 10 mg PO DAILY 12/11/22 02/15/24 02/08/24 History tablet (Farxiga) lisinopril 30 mg tablet 30 mg PO DAILY 10/28/23 02/15/24 02/15/24 History tadalafil 20 mg tablet 20 mg PO DAILY PRN Erectile 11/04/23 02/11/24 Unknown History Dysfunction furosemide 20 mg tablet 20 mg PO DAILY PRN 02/11/24 02/11/24 Unknown History gabapentin 800 mg tablet 800 mg PO TID Pain 02/11/24 02/15/24 02/15/24 History Exam Height,Weight and Vital Signs: Height 5 ft 9.5 in Weight 92.9 kg Pertinent Lab Results Pertinent Lab Results: Laboratory Tests 01/25/24 12:02 WBC 8.2 Hgb 14.4 D Hct 44.5 D Plt Count 260 Sodium 140 Potassium 4.4 Chloride 105 Carbon Dioxide 26 BUN 23 H Creatinine 1.39 Narrative Narrative: EKG 05/2023 sinus tach @ 106 LAD possible anterosept infarct Echocardiogram 2023 Conclusions: - The left ventricular systolic function is normal. The calculated ejection fraction is 60% by biplane method. - No obvious valvular pathology seen on this study. NM/NM cardiolite stress test 2023 Impression: 1. Myocardial perfusion imaging study shows normal myocardial perfusion. 2. Gated LVEF is 72% during stress and 62% during rest. 3. Transient ischemic dilatation not present. Assessment and Plan Assessment Anesthesia Assessment: Chart Reviewed Final Anesthetic Review Family History of Problems with Anesthesia: No History of Problems with Anesthesia: No Documented by User: Joie Murdock MD 02/15/24 11:29 [facility] Past Medical History Medical History (Updated 12/28/23 @ 14:32 by SAUL Novak) Osteoarthritis of right hip Trigger finger of right hand Environmental allergies GERD (gastroesophageal reflux disease) DJD (degenerative joint disease) Arthritis Chest pain HTN (hypertension) Long-term current use of insulin for diabetes mellitus Overweight (BMI 25.0-29.9) Type 2 diabetes mellitus with diabetic polyneuropathy Bilateral knee pain Constipation Allergic rhinitis Chronic kidney disease (CKD), stage II (mild) Obesity (BMI 30-39.9) Neuropathy Chronic gastritis without bleeding Hypertriglyceridemia Benign essential hypertension 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 Lumbar degenerative disc disease Family History Family History Father Leukemia Mother Alzheimers disease Daughter Overweight Prediabetes Brother Prostate cancer Other Mental health problem Surgical History Surgical History History of right hip replacement History of back surgery History of neck surgery History of surgery History of colonoscopy History of esophagogastroduodenoscopy (EGD) History of hernia repair Social History Social History Household Members: Spouse 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: House Are you a primary healthcare corporate account director to a significant other at home: No Do you presently have visiting nurse or other home services: No Alcohol intake: current Alcohol intake frequency: holidays/special occasions only Patient Tobacco Use Status: Never used Tobacco e-Cigarette/Vaping Use: Never Used Second Hand Smoke Exposure: Yes Use of substances other than those prescribed or required for medical reasons: No Substance Use Type: Crack/Cocaine, Former Substance User, Marijuana and Painkillers Substance Use Frequency: Occasionally Have you been hit, kicked, punched, or otherwise hurt by someone within the past year? If so, by whom?: No Are you DNR?: No Advance Directives: No Advance Directives Information Provided: Yes Recently lost weight without trying: No Nutrition Risks: No Nutritional Risk Poor oral hygiene: No service: No Current occupational status: retired and disabled Cognitive needs: Yes (Cane) Hearing needs: No Vision needs: Yes (glasses) Meds Allergies Allergy/AdvReac Type Severity Reaction Status Date / Time clindamycin [CLINDAMYCIN] Allergy Severe rash, hives Verified 01/25/24 11:14 Iodinated Contrast Media Allergy Severe Anaphylaxis Verified 01/25/24 11:14 [IV CONTRAST] Penicillins Allergy Severe hives, rash Verified 01/25/24 11:14 shellfish derived Allergy Severe ANAPHYLAXIS Verified 01/25/24 11:14 dulaglutide [From [facility]] AdvReac Severe CP, SOB, Verified 01/25/24 11:14 GI UPSET Home Medications ?Medication ?Instructions ?Recorded ?Confirmed ?Last Taken ?Type amlodipine 10 mg tablet 10 mg PO DAILY 12/11/22 02/15/24 02/15/24 History dapagliflozin propanediol 10 mg 10 mg PO DAILY 12/11/22 02/15/24 02/08/24 History tablet (Farxiga) lisinopril 30 mg tablet 30 mg PO DAILY 10/28/23 02/15/24 02/15/24 History tadalafil 20 mg tablet 20 mg PO DAILY PRN Erectile 11/04/23 02/11/24 Unknown History Dysfunction furosemide 20 mg tablet 20 mg PO DAILY PRN 02/11/24 02/11/24 Unknown History gabapentin 800 mg tablet 800 mg PO TID Pain 02/11/24 02/15/24 02/15/24 History Exam Airway Mallampati Class: II (missing a. ouple nothing loose) TM Dist: >3cm Neck ROM: Full Heart: rrr Lungs: cta Assessment and Plan Assessment Anesthesia Assessment: Anesthesia Plan Discussed Final Anesthetic Review NPO: Yes ASA Class: III Final Preanesthetic Review: No Changes in Pt Med Stat, Meds/Allgs Chart Reviewed and Consent Obtained/Reviewed Patient Risk: Intermediate Procedure Risk: Low Anesthetic Plan Anesthetic Plan: MAC: Disposition: Standard PACU
[2024-02-15 10:15] VITALS: BMI 30.1
[2024-02-15] MEDS: methocarbamoL 750 MG TABLET PO (10:39)
[2024-02-15] MEDS: vancomycin HCL 1,500 MG in 0.9 % Sodium Chloride 500 ML 333.33 MG IV (10:50)
--- NOTE | 2024-02-15 10:51 | P.HPSUR_ITS ---
Pre-Procedural Eval Section A - 24 Hr Update-Section A only Date of Service: 02/15/24 The patient is an INPATIENT: No Section B - Complete if H&P > 30 days Chief Complaint: Lesion of ulnar nerve, unspecified upper limb Details of Present Illness: Right ulnar neuropathy Allergies: Allergies Allergy/AdvReac Type Severity Reaction Status Date / Time clindamycin [CLINDAMYCIN] Allergy Severe rash, hives Verified 01/25/24 11:14 Iodinated Contrast Media Allergy Severe Anaphylaxis Verified 01/25/24 11:14 [IV CONTRAST] Penicillins Allergy Severe hives, rash Verified 01/25/24 11:14 shellfish derived Allergy Severe ANAPHYLAXIS Verified 01/25/24 11:14 dulaglutide [From Trulicity] AdvReac Severe CP, SOB, Verified 01/25/24 11:14 GI UPSET Review of Systems Sugical H&P ROS: Negative: Constitution, Cardiovascular, Respiratory, Neurological, Psychiatric, Hem-Onc, Allergic/Immunologic, Gastrointestinal, Genitourinary, Musculoskeletal, Integumentary, Endocrine and Eyes/Ears/Nose/Throat Exam Surgical H&P Exam: Normal: HEENT, Normal: Heart, Normal: Lungs, Normal: Extrem ities, Normal: Abdomen, Normal: Skin and Normal: Neurological Plan Diagnosis/Plan: Unchanged I have reviewed the history and physical and performed a pertinent physical examination on my patient. No changes have occurred unless specified. Right ulnar nerve decompression Time Spent With Patient Time: Total time managing care of this patient today __5__ minutes.
[2024-02-15 10:58] VITALS: BP 144/80; PULSE 92; RESP 14; TEMP 36.8; O2SAT 98
[2024-02-15 11:07] LABS: Glucose, Whole Blood 100 mg/dL (60-115)
--- NOTE | 2024-02-15 11:47 | PM.DS ---
DS: Providers Provider Date of Service: 02/15/24 Date of discharge: 02/15/24 Primary care physician: Lico Francisco MD Admitting clinician: Filippo Nunez DS: Diagnosis Discharge Diagnosis (1) Ulnar neuropathy: Status: Acute DS: Summary Time Attestation Discharge Coordination Time (in mins): 5 Quality: Safe Use of Opioids Does Pt have an Active Cancer Diagnosis on the Problem List?: No Quality: Stroke Does the patient have a stroke diagnosis?: No Physical Exam Vital Signs: Vital Signs: Last Vital Signs Temp 98.3 F 02/15/24 10:58 Pulse 92 02/15/24 10:58 Resp 14 02/15/24 10:58 BP 144/80 H 02/15/24 10:58 Pulse Ox 98 02/15/24 10:58 O2 Del Method Room Air 02/15/24 10:58 BMI result Body Mass Index 30.1 DS: Data Data Completed and Pending Completed studies during hospitalization [Text1]: Procedures Excision of Lumbosacral Disc, Open Approach (02/09/23) Fusion of Lumbar Vertebral Joint with Interbody Fusion Device, Anterior Approach, Anterior Column, Open Approach (02/09/23) Fusion of Lumbosacral Joint with Interbody Fusion Device, Anterior Approach, Anterior Column, Open Approach (02/09/23) Insertion of Interspinous Process Spinal Stabilization Device into Lumbosacral Joint, Open Approach (02/09/23) Labs on day of discharge: Laboratory Results - last 24 hr 02/15/24 11:03 POC Glucose 100 Discharge Plan Discharge Patient Disposition: Home, Self-Care Referrals: Lico Francisco MD [Primary Care Provider] - 1 Week Discharge Medications: New docusate sodium [Colace] 100 mg capsule 100 mg PO BID Qty: 20 0RF oxycodone 5 mg tablet 5 mg PO Q4H PRN (Reason: pain) Qty: 20 0RF Rx Instructions: Partial Fill upon patient request. Continued (DME) pen needle, diabetic [Ultra-Thin II (Short) Pen NDL] 31 gauge x 5/16 needle See Rx Instructions .ROUTE .MEDSUPPLY Qty: 100 12RF Rx Instructions: test 4 x a day (DME) blood-glucose meter [OneTouch Ultra2 Meter] Misc See Rx Instructions .Route Qty: 1 0RF Rx Instructions: As directed (DME) lancets [OneTouch UltraSoft 2 Lancet] 30 gauge misc See Rx Instructions .Route Qty: 200 0RF Rx Instructions: As directed three times per day (DME) walker Misc See Rx Instructions .MEDSUPPLY Qty: 1 0RF Rx Instructions: Folding Front wheeled walker atorvastatin 10 mg tablet 10 mg PO DAILY Qty: 90 1RF (DME) OneTouch Ultra Test Strip See Rx Instructions .Route Qty: 100 0RF Rx Instructions: As directed three times per day insulin aspart U-100 [Novolog FlexPen U-100 Insulin] 100 unit/mL (3 mL) insulin pen 20 unit subcut TID 90 Days Qty: 54 1RF lisinopril 30 mg tablet 30 mg PO DAILY tadalafil 20 mg tablet 20 mg PO DAILY PRN (Reason: Erectile Dysfunction) Rx Instructions: TAKE 1 TABLET BY MOUTH 1 HOUR BEFORE DESIRED ACTIVITY. TAKE 30 MINUTES BEFORE ANY MEAL. celecoxib 200 mg Capsule 200 mg PO BID 30 Days Qty: 60 0RF acetaminophen 325 mg Tablet 650 mg PO Q6H PRN (Reason: Pain, Mild (Pain Scale 1-3), fever or headache) 30 Days Qty: 240 0RF Farxiga 10 mg tablet 10 mg PO DAILY amlodipine 10 mg tablet 10 mg PO DAILY insulin glargine U-300 conc [Toujeo Max U-300 SoloStar] 300 unit/mL (3 mL) insulin pen 80 unit subcut BEDTIME 90 Days Qty: 24.003 1RF furosemide 20 mg tablet 20 mg PO DAILY PRN gabapentin 800 mg tablet 800 mg PO TID Discharge Orders: Discharge Order (Routine); Ordered 02/15/24 Ordered By: Bill Montenegro Diet: Advance to usual diet Activity on Discharge: As tolerated Activity Restrictions/Additional Instructions: You may remove your chava wrap on post op day 3, as well as the dressing underneath it Your wound is closed with steri strips. There are no sutures to remove. The steri strips should fall off in one week. If they have not you may take them off. You can use your arrm as much as you like, however, please avoid straining or heavy lifting To decrease swelling in your arm, keep it elevated when you are not using it. You can shower on post op day 1, but please keep wound dry for 3 days. After you remove the outer chava wrap and dressing it is OK to get the wound wet You can drive when you feel comfortable and are off narcotics If you experience any signs of infection such as fever, chills or redness/discharge from your wound,please call office right away We would like to see you in the office for a follow up in 3 weeks ; please call to arrange that appt. Print Language: Comoran
--- NOTE | 2024-02-15 12:21 | W.PM.OPN ---
Operative Note Operative Note Date of Service: 02/15/24 Narrative: Diagnosis: Right ulnar entrapment syndrome at the with a tunnel Procedure: Release of the ulnar nerve at the cubital tunnel, right side Surgeon: Filippo Nunez MD PhD Description procedure: This 63 year old male is suffering from a right ulnar entrapment syndrome at the elbow with weakness of the m. flexor carpi ulnaris he was offered a decompression. The procedure complications were explained. The patient was consented. He was brought to the operating room, where moderate sedation was applied. Prepping and draping was done followed by time-out. Marcaine was injected into the cubital region. A semi circular incision was made above the epicondylar medialis. The dissection was carried out towards the nerve. The aponeurosis and fascia was opened expose the underlying nerve. The nerve was decompressed proximally and distally where it disappeared under the flexor carpi ulnaris muscle. Hemostasis was done. The incision was closed with 3 interrupted sutures. A compressive CLAYTON wrap was used for hemostasis. All sponge and needle counts were correct. Patient was transported to the recovery room. Anesthesia: Moderate sedation and local anesthetic Blood loss: Minimal Complications: None Disposition: Discharge home
[2024-02-15 12:24] VITALS: BP 121/72; PULSE 83; RESP 16; TEMP 36.7; O2SAT 98
[2024-02-15 12:29] VITALS: BP 120/67; PULSE 81; RESP 18; O2SAT 97
[2024-02-15 12:39] VITALS: BP 129/74; PULSE 84; RESP 17; O2SAT 97
[2024-02-15 12:44] LABS: Glucose, Whole Blood 83 mg/dL (60-115)
[2024-02-15 12:54] VITALS: BP 128/84; PULSE 83; RESP 17; TEMP 36.4; O2SAT 98
== END 2024-02-15 13:35 | disposition home or self-care (01) ==
PROVIDERS: PCP Internal Medicine; Visit Provider Neurological Surgery
PROC: (CPT 64718; principal; 2024-02-15 14:20)
DX: G56.21 Lesion of ulnar nerve, right upper limb (principal); R20.0 Anesthesia of skin; R53.1 Weakness; E11.42 Type 2 diabetes mellitus with diabetic polyneuropathy; E11.22 Type 2 diabetes mellitus with diabetic chronic kidney disease; I12.9 Hypertensive chronic kidney disease with stage 1 through stage 4 chronic kidney disease, or unspecified chronic kidney disease; N18.2 Chronic kidney disease, stage 2 (mild); Z79.4 Long term (current) use of insulin; Z79.899 Other long term (current) drug therapy; Z88.0 Allergy status to penicillin; Z88.1 Allergy status to other antibiotic agents; Z88.8 Allergy status to other drugs, medicaments and biological substances; Z91.041 Radiographic dye allergy status; Z96.641 Presence of right artificial hip joint; Z98.1 Arthrodesis status; Z98.890 Other specified postprocedural states
CPT/HCPCS: 64718; 82947; J0131; J2003; J2250; J2704; J3010; J3371

== ENCOUNTER → 2024-02-15 10:02 | Outpatient (BNV) | payer MEDICARE, MEDICAID, SELFPAY | PROVIDERS: PCP Internal Medicine; Visit Provider Physician Assistant | DX: G56.20 Lesion of ulnar nerve, unspecified upper limb (principal) | CPT/HCPCS: 64718; 99499 ==

== ENCOUNTER 2024-03-25 11:37 | Outpatient (AMB) | payer MEDICARE, MEDICAID, SELFPAY ==
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
--- OUTSIDE RECORDS SUMMARY | 2024-03-25 12:18 | XMS_ITS | Encounter Summary ---
Author Organization [facility] Address [address] [place] [address] Phone Care Team Providers Care Nurse Clinician Name Role Phone Lico Francisco MD Primary Care Provider + Encounter Details Date Type Department Care Team (Late st Contact Info) Description 12/21/2023 Office Communication [facility]. [address] [phone] Ramon Damon MD [address] [phone] Social History Tobacco Use Types Packs/Day Years Used Date Smoking Tobacco: Never Smokeless Tobacco: Never Alcohol Use Standard Drinks/Week Comments Never 0 (1 standard drink = 0.6 oz pur e alcohol) ocass. Sex and Gender Information Value Date Recorded Sex Assigned at Not on file Legal Sex Male 3:03 PM EDT Gender Identity Not on file Sexual Orientation Not on file documented as of this encounter Miscellaneous Notes * Telephone Encounter - Trish Calderon - 12/22/2023 9:35 AM EDT Estelle will be contacting the patients daughter * Telephone Encounter - Ramon Damon MD - 12/21/2023 5:57 PM EDT Pls schedule f/u with Yaa in 3-4 weeks Pls call Jc Godinez-- ([phone]) his daughter re med ication---? Need PA for farxiga documented in this encounter Plan of Treatment Upcoming Encounters Date Type Department Care Team (Late st Contact Info) Description 10/12/2024 11:30 AM EDT Office Visit [facility] [address] [phone] Palma Santiago ARNP [address] [phone] documented as of this encounter Visit Diagnoses Not on filedocumented in this encounter Care Teams Nurse Clinician Relationship Specialty Start Date End Date Lico Francisco MD [address] , [facility] [address] [place] [address] PCP - General Internal Medicine 04/03/23 documented as of this encounter
--- OUTSIDE RECORDS SUMMARY | 2024-03-25 12:18 | XMS_ITS | Clinical Summary ---
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 Name Role Phone Lico Francisco MD Primary Care Provider + Allergies Active Allergy Reactions Criticality Noted Date Comments Clindamycin Rash High 01/21/2023 Iodinated Contrast Media Swelling High 01/21/2023 Dulaglutide Shortness of breath High 01/21/2023 Gi upset/cp Erythromycin Rash High 12/03/2022 Penicillins Rash High 12/03/2022 Shellfish-Derived Products Anaphylaxis High 01/22/20 23 Medications gabapentin (NEURONTIN) 300 MG capsule Take 300 mg by mouth 10/19/19 23 Active NovoLOG FLEXPEN 100 UNIT/ML injection 15 UNIT (0.15 ML) SUBCUTANEOUSLY 3 TIMES A DAY 11/04/19 23 Active Toujeo Max SoloStar 300 UNIT/ML solution pen-injector 70 UNIT (0.2333 ML) SUBCUTANEOUSLY DAILY 11/04/19 23 Active atorvastatin (LIPITOR) 10 MG tablet Take 10 mg by mouth 1 (one) time each day in the evening 12/07/19 23 Active diazePAM (VALIUM) 5 MG tablet 12/31/19 23 Active omeprazole OTC (PriLOSEC OTC) 20 MG EC tablet Take 30 mg by mouth 1 (one) time each day Do not crush, chew, or split. Active famotidine (PEPCID) 20 MG tablet Take 20 mg by mouth 1 (one) time Active polyethylene glycol (GLYCOLAX) 17 g packet Take 17 g by mouth in the morning and 17 g in the evening. 72 packet 04/03/19 24 025 Active Additional Information Patient not taking.Reported on 01/13/2024 Dapagliflozin Propanediol (Farxiga) 10 MG tablet Take 10 mg by mouth 1 (one) time each day in the morning 90 tablet 3 12/21/19 24 Active furosemide (LASIX) 20 MG tablet Take 20 mg by mouth 1 (one) time each day if needed (for leg swelling) 11/24/19 24 Active lisinopril (PRINIVIL,ZESTR IL) 30 MG tablet Take 30 mg by mouth 1 (one) time each day 11/24/19 24 Active tadalafil (CIALIS) 20 MG tablet Take 20 mg by mouth 1 (one) time each day if needed 12/25/19 24 Active amLODIPine (NORVASC) 10 MG tabletIndicatio ns:Hypertension Take 1 tablet (10 mg total) by mouth 1 (one) time each day 90 tablet 3 02/10/20 24 025 Active Cholecalciferol (Vitamin D3) 50 MCG (1999 UT) tabletIndicatio ns:Vitamin D deficiency, not otherwise specified Take 2,000 Units by mouth 1 (one) time each day 30 tablet 11 02/10/20 24 025 Active Active Problems Problem Noted Date Diagnosed Date Encounter for screening for malignant neoplasm o f colon 01/21/2023 01/21/2023 Abdominal pain, epigastric 12/03/202212/03 Diverticulosis of colon 12/03/2022 12/04/19 23 Gastro-esophageal reflux disease without esophag itis 12/03/2022 12/03/2022 History of adenomatous polyp of colon 12/03/2022 12/03/2022 Stage 3b chronic kidney disease 12/03/2022 Proteinuria 12/03/2022 Hypertension 12/03/2022 Hypercalcemia 12/03/2022 Encounters Date Type Department Care Team Description 02/09/2024 Office Communication [facility]. [address] [phone] Alexandra Pennington 01/13/2024 11:30 AM EST Office Visit [facility]. [address] [phone] Palma Santiago ARNP Stage 3b chronic kidney disease (HCC) (Primary Dx); Hypertension from Last 3 Months Immunizations Name Administration Dates Next Due Influenza, Unspecified 12/17/2017 Family History Medical History Relation Comments Cancer Father Relation Status Comments Father Mother Social History Tobacco Use Types Packs/Day Years Used Date Smoking Tobacco: Never Smokeless Tobacco: Never Tobacco Cessation:Counseling Given: Not Answered Alcohol Use Standard Drinks/Week Comments Never 0 (1 standard drink = 0.6 oz pur e alcohol) ocass. Sex and Gender Information Value Date Recorded Sex Assigned at Not on file Legal Sex Male 3:03 PM EDT Gender Identity Not on file Sexual Orientation Not on file Last Filed Vital Signs Vital Sign Reading Time Taken Comments Blood Pressure 130/80 01/13/2024 12:07 PM EST Pulse 103 01/13/2024 11:40 AM EST Temperature 36.6 ??C (97.8 ??F) 02/02/2023 1:20 PM ES T Respiratory Rate - - Oxygen Saturation 98% 01/13/2024 11:40 AM EST Inhaled Oxygen Concentration - - Weight 92.5 kg (204 lb) 01/13/2024 11:40 AM EST Height 175.3 cm (5' 9 ) 02/02/2023 1:20 PM EST Body Mass Index 30.13 02/02/2023 1:20 PM EST Plan of Treatment Upcoming Encounters Date Type Department Care Team (Late st Contact Info) Description 10/12/2024 11:30 AM EDT Office Visit [facility].. [address] [phone] Palma Santiago ARNP [address] [phone] Health Maintenance Due Date Last Done Comments Pneumococcal Vaccine: Pediat rics (0 to 5 Years) and At-Risk Patients (6 to 64 Years) (1 of 2 - PCV) 11/29/1966 Colorectal Cancer Screening: Annual FOBT 11/29/2008 Colorectal Cancer Screening: Colonoscopy 11/29/2008 Colorectal Cancer Screening: Sigmoidoscopy 11/29/2008 Influenza Vaccine (#1) 2023 12/17/2017 Hepatitis B Vaccine Aged Out No longe r eligible based on patient's age to complete this topic Insurance [place] ([id number]) MEDIC[place] ([id number]) MEDICAID [place] Care Teams Manufacturing Plant Technician Relationship Specialty Start Date End Date Lico Francisco MD [facility] [address] [place] [address] CUONG BARRAZA BETHANIE CURRAN [phone] PCP - General Internal Medicine 04/03/23
== END 2024-03-25 12:15 | disposition home or self-care (01) ==
PROVIDERS: PCP Internal Medicine; Visit Provider Neurological Surgery
DX: G56.20 Lesion of ulnar nerve, unspecified upper limb (principal); Z98.1 Arthrodesis status
CPT/HCPCS: 99024

== ENCOUNTER 2024-03-25 11:37 | Outpatient (REF) | payer MEDICARE, MEDICAID, SELFPAY ==
--- NOTE | ~2024-03-25 | XR_ITS ---
EXAMINATION: XR CERVICAL SPINE 2-3 VIEWS HISTORY: Z98.1 - Arthrodesis status COMPARISON: Comparison is made with the prior examination dated 07/24/2023. FINDINGS: AP and lateral views of the cervical spine are submitted. The patient is again noted to be status post arthrodesis at C5-6 and C6-7. The hardware is intact and unchanged in position. There is straightening of the normal cervical lordosis. There is severe degenerative change at C4-5 with disc space narrowing and osteophyte formation. There is no prevertebral soft tissue swelling. XR/XR cervical spine 2V IMPRESSION: That is post arthrodesis at C5-6 and C6-7 without change. Electronically signed by: Myron Alberto MD 03/25/2024 03:48 PM [place]
--- OUTSIDE RECORDS SUMMARY | 2024-03-25 12:42 | XMS_ITS | Encounter Summary ---
Author Organization [facility] Address [address] [facility] [address] [place] [address] Phone Care Team Providers Care Aqua Ammonia Operator Name Role Phone Lico Francisco MD Primary Care Provider + Encounter Details Date Type Department Care Team (Late st Contact Info) Description 12/21/2023 Office Communication [facility]. [address] [address] Ramon Damon MD [address] [address] Social History Tobacco Use Types [...] in 3-4 weeks Pls call Jc Godinez-- ([phone]) his daughter re med ication---? Need PA for farxiga documented in this encounter Plan of Treatment Upcoming Encounters Date Type Department Care Team (Late st Contact Info) Description 10/12/2024 11:30 AM EDT Office Visit [facility] [address] [address] Palma Santiago ARNP [address] [address] documented as of this encounter Visit Diagnoses Not on filedocumented in this encounter Care Teams Aqua Ammonia Operator Relationship Specialty Start Date End Date Lico Francisco MD [address] , [facility] [place] [address] [place] [address] PCP - General Internal Medicine 04/03/23 documented as of this encounter
--- OUTSIDE RECORDS SUMMARY | 2024-03-25 12:42 | XMS_ITS | Clinical Summary ---
Author Organization [facility] Address [address] [place] [address] Phone Care Team Providers Care Flight Engineer Performance Qualified Name Role Phone Lico Francisco MD Primary [...] Office Communication [facility]. [address] [address] Alexandra Pennington 01/13/2024 11:30 AM EST Office Visit [facility]. [address] [phone] Palma Santiago ARNP Stage 3b chronic kidney [...] Office Visit [facility] P.. [address] [address] Palma Santiago ARNP [address] [address] Health Maintenance Due Date Last [...] age to complete this topic [place] ([id number]) [place] ([id number]) MEDICAID [place] Care Teams Flight Engineer Performance Qualified Relationship Specialty Start Date End Date Lico Francisco MD [facility] [address] [place] [address] [address] BETHANIE CURRAN [id number] PCP - General Internal Medicine 04/03/23
== END 2024-03-25 11:38 | disposition home or self-care (01) ==
LOC: HO.HOSX 11:37
PROVIDERS: PCP Internal Medicine; Visit Provider Physician Assistant
DX: Z98.1 Arthrodesis status (principal); G56.20 Lesion of ulnar nerve, unspecified upper limb
CPT/HCPCS: 72040; 99212

== ENCOUNTER → 2024-03-25 12:16 | Outpatient (BNV) | payer MEDICARE, MEDICAID, SELFPAY | PROVIDERS: PCP Internal Medicine; Visit Provider Radiology Diagnostic Radiology | DX: Z98.1 Arthrodesis status (principal) | CPT/HCPCS: 72040 ==

== ENCOUNTER 2024-05-19 09:06 | Outpatient (AMB) | payer MEDICARE, MEDICAID, SELFPAY ==
--- NOTE | 2024-05-19 09:29 | MHC.PC.OV ---
Vital Signs 05/19/24 09:31 Height 5 ft 9 in Weight 203 lb 2 oz BMI 30.0 BP 130/70 Blood Pressure Location Lt brachial Position Sitting Pulse 96 Pulse Source Pulse Oximeter Temp 97.3 F Temp Source Temporal Artery Scan Pulse Oximetry (%) 97 Oxygen Delivery Method Room Air Intake Visit Reasons: 6 Month F/U Intake Note: Patient is here to follow up on DM, HTN, Chronic pain. Stitchdowns Toe Former Required: No Refrigerating Oiler: Not Required per policy Accompanied by: Self / Same As Patient Allergies clindamycin [CLINDAMYCIN] Allergy (Severe, Verified 05/20/24 17:04) rash, hives Iodinated Contrast Media [IV CONTRAST] Allergy (Severe, Verified 05/20/24 17:04) Anaphylaxis Penicillins Allergy (Severe, Verified 05/20/24 17:04) hives, rash shellfish derived Allergy (Severe, Verified 05/20/24 17:04) ANAPHYLAXIS dulaglutide [From Trulicity] Adverse Reaction (Severe, Verified 05/20/24 17:04) CP, SOB, GI UPSET Medication List - Last Reconciled 05/20/24 by Lico Francisco MD amlodipine 10 mg PO DAILY atorvastatin 10 mg PO DAILY blood sugar diagnostic (Cau[employer] TechnologiesTouch Ultra Test strips) As directed three times per day blood-glucose meter ([employer] TechnologiesTouch Ultra2 Meter) As directed cyclobenzaprine 10 mg PO BEDTIME furosemide 20 mg PO DAILY PRN gabapentin 800 mg PO TID insulin aspart U-100 (Novolog FlexPen U-100 Insulin aspart) 20 units (0.2 mL) subcut TID 90 days insulin glargine U-300 conc (Toujeo Max U-300 SoloStar) 80 units (0.2667 mL) subcut BEDTIME 90 days lancets ([employer] TechnologiesTouch UltraSoft 2 Lancet) As directed three times per day lisinopril 30 mg PO DAILY pen needle, diabetic (Ultra-Thin II (Short) Pen NDL) test 4 x a day Tobacco use date assessed: 05/19/24 Fall risk assessment: No Falls in past year Last assessed Fall Risk: 05/19/24 Dental Screening Dental Screen Date: 05/19/24 Did you have a dental visit in the last 12 months?: Yes Did you have a dental problem in the last 6 months where you did not have access to dental care?: No Was dental information given to patient?: Patient has dentist HPI 6 Month F/U HPI Details 63 yr old male presents to the office to discuss his chronic medical conditions. Since last ov, pt has had surgery in the cervical spine and is scheduled for more surgery. Complains of pain in the lower ext, around the thigh. Cramping in nature. Blood sugars are in range per pt. He checks them and reports 100-200 range. He believes the steroid injected has caused elevated Blood Sugars. Able to function and do all ADL.s [facility] Medical History (Updated 12/28/23 @ 14:32 by SAUL Novak) Osteoarthritis of right hip Trigger finger of right hand Environmental allergies GERD (gastroesophageal reflux disease) DJD (degenerative joint disease) Arthritis Chest pain HTN (hypertension) Long-term current use of insulin for diabetes mellitus Overweight (BMI 25.0-29.9) Type 2 diabetes mellitus with diabetic polyneuropathy Bilateral knee pain Constipation Allergic rhinitis Chronic kidney disease (CKD), stage II (mild) Obesity (BMI 30-39.9) Neuropathy Chronic gastritis without bleeding Hypertriglyceridemia Benign essential hypertension 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 Lumbar degenerative disc disease Surgical History (Updated 05/19/24 @ 09:42 by JOYCE Greene) History of hand surgery History of elbow surgery History of right hip replacement History of back surgery History of neck surgery History of surgery History of colonoscopy History of esophagogastroduodenoscopy (EGD) History of hernia repair Family History Father Leukemia Mother Alzheimers disease Daughter Overweight Prediabetes Brother Prostate cancer Other Mental health problem Social History Household Members: Spouse Household Members Other:: language path Housing: House Are you a primary care manager to a significant other at home: No Do you presently have visiting nurse or other home services: No Alcohol intake: current Alcohol intake frequency: holidays/special occasions only Patient Tobacco Use Status: Never used Tobacco e-Cigarette/Vaping Use: Never Used Second Hand Smoke Exposure: Yes Substance Use Type: Crack/Cocaine, Former Substance User, Marijuana and Painkillers service: No Current occupational status: retired and disabled Cognitive needs: Yes (Cane) Hearing needs: No Vision needs: Yes (glasses) Questionnaire PHQ-9 Over the last 2 weeks, how often have you been bothered by any of the following problems? 1. Little interest or pleasure in doing things: not at all 2. Feeling down, depressed, or hopeless: not at all 3. Trouble falling or staying asleep, or sleeping too much: not at all 4. Feeling tired or having little energy: not at all 5. Poor appetite or overeating: not at all 6. Feeling bad about yourself - or that you are a failure or have let yourself or your family down: not at all 7. Trouble concentrating on things, such as reading the newspaper or watching television: not at all 8. Moving or speaking so slowly that other people could have noticed. Or the opposite - being so fidgety or restless that you have been moving around a lot more than usual: not at all 9. Thoughts that you would be better off or of hurting yourself in some way: not at all Total score: 0 Depression Screening Interpretation: Negative Depression Screening Done: Yes Source: Developed by Drs. Myron Jiang, Brinda Stock, Jimmie Alfaro and colleagues, with an educational briana from [employer]. Thrive Questionnaire Date Thrive assessed: 05/19/24 I am a: Patient What is your living situation today?: I have a steady place to live Within the past 12 months, did the food you bought not last and you didn't have the money to get more?: Never true Within the past 12 months, did you worry whether your food would run out before you got money to buy more?: Never true Do you have trouble paying for medicines?: No Do you have trouble getting transportation to medical appointments?: No Do you have trouble paying your heating and electricity bill?: No Do you have trouble taking care of your child, family member or friend?: No Do you have trouble with day-to-day activities such as bathing, preparing meals, shopping, managing finances, etc.?: No Are you currently unemployed and looking for a job?: No Are you interested in more education?: No Please select the resources that you would like help with: None Currently or been in a relationship where the following occur: No concerns reported THRIVE Score: 0 AUDIT C Alcohol Use Questionnaire (AUDIT-C) 1. How often do you have a drink containing alcohol?: Monthly or less 2. How many drinks containing alcohol do you have on a typical day when you are drinking?: 1 or 2 Total Score: 1 BASHIR-7 AMB Questionnaire BASHIR-7 Date BASHIR - 7 assessed: 05/19/24 Feeling nervous, anxious, or on edge: 0 = Not at all Not being able to stop or control worryin = Not at all Worrying too much about different things: 0 = Not at all Trouble relaxin = Not at all Being so restless that it is hard to sit still: 0 = Not at all Becoming easily annoyed or irritable: 0 = Not at all Feeling afraid as if something awful might happen: 0 = Not at all Total BASHIR-7 score (0-4 normal; 5-9 mild; 10-14 moderate; 15-21 severe): 0 Source: Developed by Drs. Myron Jiang, Brinda Stock, Jimmie Alfaro and colleagues, with an educational briana from [employer]. Physical exam (Primary Care) Vital Signs: Last Vital Signs Temp 97.3 F 05/19/24 09:31 Pulse 96 05/19/24 09:31 BP 130/70 05/19/24 09:31 Pulse Ox 97 05/19/24 09:31 Oxygen Delivery Method Room Air 05/19/24 09:31 BMI result Body Mass Index 30.0 Tobacco/Smoking Status: Tobacco use Status Tobacco use date assessed 05/19/24 05/19/24 09:43 Patient Tobacco Use Status Never used Tobacco 05/19/24 09:43 e-Cigarette/Vaping Use Never Used 05/19/24 09:43 PHQ-9: PHQ-9 Score PHQ-9: Total score 0 05/19/24 09:43 Depression Screening Interpretation: Negative Thrive Assessment: Date of Thrive Assessment Date Thrive assessed 05/19/24 05/19/24 09:43 Currently or been in a relationship where the following occur: No concerns reported Const General: cooperative and healthy appearing Nutritional Appearance: well nourished Orientation/consciousness: patient oriented x3 Limitations: no limitations HENMT Head: Yes normal to inspection Eyes General: appearance normal, both eyes and all related structures Neck Neck: Yes normal visual inspection Chest Chest palpation & inspection: normal palpation of entire chest wall Resp Effort & Inspection: normal respiratory effort Neuro General: patient oriented x3 Results AMB Hemoglobin A1c AMB Hemoglobin A1c 9.1 % Last Edit by JOYCE Greene on 05/19/24 09:44 Results Reviewed Results Reviewed: Laboratory Last Values Hgb A1c (Clinic) 9.1 % (4.0-6.0) H 05/19/24 09:28 Coding Level of Care Code Est Pt Level 4 (62034) Complex EM visit Add On G2211 Diagnoses Type 2 diabetes mellitus with stage 2 chronic kidney disease, with long-term current use of insulin E11.22; N18.2; Z79.4 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 mellitus long 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 mining machine helper insulin use: with senior living use Chronic kidney disease stage: stage 2 (mild) Postlaminectomy syndrome, lumbar M96.1 Assessment & Plan Assessment & Plan (1) Type 2 diabetes mellitus with diabetic chronic kidney disease: Code(s): E11.22 - Type 2 diabetes mellitus with diabetic chronic kidney disease Category: Medical Qualifiers: Diabetes mellitus senior living insulin use: with long wall mining machine helper use Chronic kidney disease stage: stage 2 (mild) Qualified Code(s): E11.22 - Type 2 diabetes mellitus with diabetic chronic kidney disease; N18.2 - Chronic kidney disease, stage 2 (mild); 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 Patient [facility] it is transitory due to the steroid injections. Will not increase hte medication dosage (2) Postlaminectomy syndrome, lumbar: Code(s): M96.1 - Postlaminectomy syndrome, not elsewhere classified Category: Medical Plan: Continue current mgt Orders: Orders AMB Hemoglobin A1c 05/19/24 E11.42 - Type 2 diabetes mellitus with diabetic polyneuropathy Medications: New cyclobenzaprine 10 mg PO BEDTIME 14 tabs 0RF Refilled insulin glargine U-300 conc (Toujeo Max U-300 SoloStar) 80 units (0.2667 mL) subcut BEDTIME 24.003 mL 1RF 90 days atorvastatin 10 mg PO DAILY 90 tabs 1RF insulin aspart U-100 (Novolog FlexPen U-100 Insulin aspart) 20 units (0.2 mL) subcut TID 54 mL 1RF 90 days lisinopril 30 mg PO DAILY 90 tabs 1RF Discontinued oxycodone Partial Fill upon patient request. Discontinued Reason: Doctor's Order 5 mg PO Q4H PRN 20 tabs 0RF pain
[2024-05-19 09:31] VITALS: BP 130/70; PULSE 96; TEMP 36.3; O2SAT 97
--- OUTSIDE RECORDS SUMMARY | 2024-05-19 10:33 | XMS_ITS | Clinical Summary ---
Author Organization [facility] Address [address] [place] [address] Phone Care Team Providers Care In Home Caregiver Name Role Phone Lico Francisco MD Primary [...] mg by mouth 1 (one) time Active Dapagliflozin Propanediol (Farxiga) 10 MG tablet Take [...] 025 Active Cholecalciferol (Vitamin D3) 50 MCG (1999) tabletIndicatio ns:Vitamin D deficiency, not otherwise specified Take 2,000 Units by mouth 1 (one) time each day 30 tablet 11 02/10/20 24 025 Active Active Problems Problem Noted Date Diagnosed Date Encounter for screening for malignant neoplasm o f colon 01/21/2023 01/21/2023 Abdominal pain, epigastric 12/03/202212/03 Diverticulosis of colon 12/03/2022 12/04/19 Gastro-esophageal reflux disease without esophag itis 12/03/2022 12/03/2022 History of adenomatous polyp of colon 12/03/2022 12/03/2022 Stage 3b chronic kidney disease 12/03/2022 Proteinuria 12/03/2022 Hypertension 12/03/2022 Hypercalcemia 12/03/2022 Immunizations Name Administration Dates Next Due Influenza, [...] Office Visit [facility] [address] [address] Palma Santiago ARNP [address] [address] Health Maintenance Due Date Last [...] age to complete this topic Insurance [place]ID [place] ([id number]) MED[place]ARE [place]ID [place] AET[place] [facility] ADV PPO ([id number]) MEDICAID [place] Care Teams In Home Caregiver Relationship Specialty Start Date End Date Lico Francisco MD [address] [address] PCP - General Internal Medicine 04/03/23
--- OUTSIDE RECORDS SUMMARY | 2024-05-19 10:33 | XMS_ITS | Clinical Summary ---
Author Organization [facility] Address [address] [place] [address] Care Team Providers Care Agile Java Developer Name Role Phone Alcides Man MD Primary Care Provider [phone] Social History Tobacco Use Types Packs/Day Years Used Date Smoking Tobacco: Never Assessed Sex and Gender Information Value Date Recorded Sex Assigned at Not on file Gender Identity Not on file Sexual Orientation Not on file Job Start Date Occupation Industry Not on file Not on file Not on file Plan of Treatment Health Maintenance Due Date Last Done Comments Hepatitis C Screening 1960 COVID-19 Vaccine (#1) 05/30/1960 Depression Screening 1971 Preventative Health Evaluation 11/29/1977 DTap / Tdap / Td (1 - Tdap) 11/29/1978 Colon Cancer Screening (Colonoscopy) 11/29/2004 Shingrix-Zoster Vaccine (1 of 2) 11/29/2009 Influenza Vaccine (#1) 2023 Pneumococcal Vaccine (1 of 1 - PCV) 11/29/2024 RSV Adult > 60+ Yrs or Pregn ant (1 - 1-dose 75+ series) 11/29/2034 Hepatitis B Vaccines Aged Out No long er eligible based on patient's age to complete this topic Pneumococcal Vaccine Aged Out No long er eligible based on patient's age to complete this topic RSV Ped < 20 months Aged Out No longe r eligible based on patient's age to complete this topic Care Teams Agile Java Developer Relationship Specialty Start Date End Date Alcides Man MD [address] [place] [address] [place] [address] PCP - General Internal Medicine 12/10/20
--- OUTSIDE RECORDS SUMMARY | 2024-05-19 10:33 | XMS_ITS | Patient Health Record ---
Author Organization [facility] Address [address] [place] [address] Care Team Providers Care Mine Safety Manager Name Role Phone FARIBA WINTERS Primary Care Provider Myron Phillips Unavailable [phone] Allergies Allergen (clinical drug ingredient) Drug/Non Drug Allergy documented on EMR Reaction Allergy Type Onset Date Status Penicillin Unknown Drug Allergy Active IV dye (uncoded) Unknown Allergy Act shreya Reason For Referral No Information Medications Medication SIG (Take, Route, Frequency, Duration) Notes Start Date End Date Status Toujeo Max SoloStar 300 UNIT/ML Subcutaneous for 90 Active Gabapentin 400 MG 3 capsule Orally thr ee x a day Active Ibuprofen 800 MG 1 tablet with food o r milk as needed Orally Three times a day Active Actos 15 MG 1 tablet Orally Once a day for 30 day(s) Active Atorvastatin Calcium 10 MG Oral for 90 Active Lisinopril 20 MG 1 tablet Orally Once a day Active metFORMIN HCl 500 MG 1 tablet with meals Orally twice a day Active Famotidine 20 MG as directed Orally O nce a day Active Omeprazole 40 MG TAKE 1 CAPSULE BY [facility] EVERY MORNING for 90 Active Immunizations Vaccine Route Administration Date Status Comme nts Influenza Unknown 12/17/2017 Administered Social History Tobacco Use: Social History Observation Description Date Details (start date - stop date) Never Smoker NA - NA Tobacco Use/Smoking Question Answer Notes Patient is a nonsmoker Alcohol Screen Question Answer Notes Did you have a drink contain ing alcohol in the past year? Yes How often did you have a dri nk containing alcohol in the past year? Monthly or less (1 point) How many drinks did you have on a typical day when you were drinking in the past year? 1 or 2 drinks (0 point) How often did you have 6 or more drinks on one occasion in the past year? Never (0 point) Points 1 Interpretation Negative Section Notes: Nonsmoker; no sig alcohol Nonsmoker; no sig alcohol Nonsmoker; no sig alcohol Problems Problem Type SNOMED Code ICD Code Onset Dates Problem Status W/U Status Risk Notes Problem 446921104 Encounter for screening for malignant neoplasm of colon (Z12.11) Active confirmed Problem 331987025 History of adenomatous polyp of colon (Z86.010) Active confirmed Problem 60317441 Abdominal pain, epigastric (R10.13) Active confirmed Problem 952524436 Gastroesophageal reflux disease without esophagitis (K21.9) Active confirmed Problem 171878308 Gastroesophageal reflux disease, esophagitis presence not specified (K21.9) Active confirmed Problem Diverticulosis of colon (248995574) Diverticulosis of colon (K57.30) Active confirmed Plan Of Treatment Pending Test Test Name Order Date LIVER PROFILE 04/08/2018 AMYLASE 04/08/2018 LIPASE 04/08/2018 CBC w DIFF 04/08/2018 US ABD 04/08/2018 Future Test Test Name Order Date UPPER GI ENDOSCOPY 05/14/2017 COLONOSCOPY 05/14/2017 COLONOSCOPY 03/14/2021 Next Appt Details Provider Name:Myron Esposito , 06/09/2024 10:40:00 AM, [address] [place] [address], [address], [place], [address], Insurance Providers Payer Name Payer Address Payer Phone Subscriber Number Group Number Insured Name Patient Relationship to Insured Coverage Start Date Coverage End Date MEDICARE OF [place] [address] [place]UEL[place] VIVAR [id number] [phone] [id number] JOSH YUN Self - patient is the insured MEDICAID OF [facility] [address] [place] [address] [id number] JOSH YUN Self - patient is the insured Medical (General) History Medical History History ICD Code IDDM GERD-EGD in 02/2018 with a small HH and m inimal gastritis-bx neg for Hpylori Hypertension Denies ME,CVA,Lung disease,renal disease Lower back pain--discs--surgery planned for 05/21/[address] Santos Neuropathy from the DM Arthritis Colonoscopy 02/2018-multiple tubular sade omas removed Stage 2 kidney disease Neg ETT 02/[address] Aguilar Surgical History Surgery Date(Month/Year) Hernia repair--left inguinal Lower back surgery scheduled for 05/21/[address] Santos Abdominal wall surgery for a brown spide r bite C-spine neck fusion 01/2021
== END 2024-05-19 10:51 | disposition home or self-care (01) ==
LOC: HO.HMCH 09:07
PROVIDERS: PCP Internal Medicine; Visit Provider Internal Medicine
DX: E11.42 Type 2 diabetes mellitus with diabetic polyneuropathy (principal)

== ENCOUNTER → 2024-05-19 09:06 | Outpatient (BNVA) | payer MEDICARE, MEDICAID, SELFPAY | PROVIDERS: PCP Internal Medicine; Visit Provider Internal Medicine | DX: E11.22 Type 2 diabetes mellitus with diabetic chronic kidney disease (principal); N18.2 Chronic kidney disease, stage 2 (mild); Z79.4 Long term (current) use of insulin; M96.1 Postlaminectomy syndrome, not elsewhere classified | CPT/HCPCS: 83036; 99212 ==

== ENCOUNTER 2024-07-01 10:51 | Outpatient (AMB) | payer OTHER, SELFPAY ==
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
--- OUTSIDE RECORDS SUMMARY | 2024-07-01 11:20 | XMS_ITS | Clinical Summary ---
Author Organization [facility] Address [address] [place] [address] Care Team Providers Care Director Fundraising Name Role Phone Alcides Man MD Primary Care Provider +1- [phone] Social History Tobacco Use Types Packs/Day Years [...] age to complete this topic Care Teams Director Fundraising Relationship Specialty Start Date End Date Alcides Man MD [address] [place] [address] [place] [address] PCP - General Internal Medicine 12/10/20
--- OUTSIDE RECORDS SUMMARY | 2024-07-01 11:20 | XMS_ITS | Clinical Summary ---
Author Organization [facility] Address [address] [place] [address] Phone Care Team Providers Care Cooking Show Host Name Role Phone Lico Francisco MD Primary [...] Proteinuria 12/03/2022 Hypertension 12/03/2022 Hypercalcemia 12/03/2022 Immunizations Immunization Administration Dates Next Due Influenza, Unspecified 12/17/2017 [...] Office Visit [facility] [address] [phone] Palma Santiago ARNP [address] [phone] Health Maintenance Due Date Last Done Comments Pneumococcal Vaccine: 50+ Ye ars (1 of 2 - PCV) 11/29/1978 Colorectal Cancer Screening: Annual FOBT 11/29/2008 Colorectal Cancer Screening: Colonoscopy 11/29/2008 Colorectal Cancer Screening: Sigmoidoscopy 11/29/2008 Influenza Vaccine (Season Ended) 2024 12/18/19 18 Hepatitis B Vaccine Aged Out No longe r eligible based on patient's age to complete this topic Insurance [place] Aet[place] MCR [place]PO ([id number]) [place] Care Teams Cooking Show Host Relationship Specialty Start Date End Date Lico Francisco MD [address] , [address] [address] PCP - General Internal Medicine 04/03/23
== END 2024-07-01 11:46 | disposition home or self-care (01) ==
PROVIDERS: PCP Internal Medicine; Visit Provider Physician Assistant
DX: M51.369 Other intervertebral disc degeneration, lumbar region without mention of lumbar back pain or lower extremity pain (principal)
CPT/HCPCS: 99213

== ENCOUNTER 2024-07-10 10:30 | Outpatient (REF) | payer MEDICARE, SELFPAY ==
--- OUTSIDE RECORDS SUMMARY | 2024-07-10 10:33 | XMS_ITS | Clinical Summary ---
Author Organization [facility] Address [address] [place] [address] Phone Care Team Providers Care Power Generating Plant Operator Name Role Phone Lico Francisco MD [...] Office Visit [facility] [address] [phone] Palma Santiago ARNP [address] [phone] Health Maintenance Due Date Last [...] [place] ([id number]) [place] Care Teams Power Generating Plant Operator Relationship Specialty Start Date End Date Lico Francisco MD [address] , [address] [address] PCP - General Internal Medicine 04/03/23
== END 2024-07-10 10:31 | disposition home or self-care (01) ==
LOC: HO.MRI 10:30
PROVIDERS: PCP Internal Medicine; Visit Provider Physician Assistant
DX: Z13.89 Encounter for screening for other disorder (principal)

== ENCOUNTER 2024-09-05 09:17 | Day surgery (SDC) | payer MEDICARE, SELFPAY ==
--- OUTSIDE RECORDS SUMMARY | 2024-08-22 12:46 | XMS_ITS | Clinical Summary ---
Author Organization [facility] Address [address] [place] [address] Phone Care Team Providers Care Bowling Ball Molder Name Role Phone Lico Francisco MD Primary [...] 103 01/13/2024 11:40 AM EST Temperature 36.6 C (97.8 F) 02/02/2023 1:20 PM EST Respiratory Rate - - Oxygen Saturation 98% [...] Office Visit [facility] [address] [phone] Palma Santiago ARNP [address] [phone] Health Maintenance Due Date Last Done Comments [...] [place] ([id number]) [place] Care Teams Bowling Ball Molder Relationship Specialty Start Date End Date Lico Francisco MD [address] , [address] [address] PCP - General Internal Medicine 04/03/23
--- OUTSIDE RECORDS SUMMARY | 2024-08-22 12:46 | XMS_ITS | Clinical Summary ---
Author Organization [employer] [facility] Address [address] [place] [address] Care Team Providers Care Fire Fighter Name Role Phone Alcides Man MD Primary Care Provider +1- [phone] Social History Tobacco Use Types Packs/Day Years [...] Vaccine (1 of 2) 11/29/2009 Influenza Vaccine (Season Ended) 2024 Pneumococcal Vaccine (1 of 1 - PCV) [...] age to complete this topic Care Teams Fire Fighter Relationship Specialty Start Date End Date Alcides Man MD [address] [place] [address] [place] [address] PCP - General Internal Medicine 12/10/20
[2024-09-01 12:30] VITALS: BMI 30.9
--- NOTE | 2024-09-02 12:36 | HO.ANESPROP2 ---
Documented by User: Sandy Ribera NP 09/02/24 12:41 HPI - Anesthesia Eval Consult details Narrative: 63yo M for Upper Endoscopy and Colonoscopy Anesthesia Pre-Procedure Meds Is the patient on any of the following meds?: SGLT2 Inhib PMFSH Active Problems Active Problems: All Active Problems Status post cervical spinal fusion (Acute) Ulnar neuropathy (Acute) Status post total hip replacement, right (Acute) Right hip pain (Acute) Neuropathy of right lower extremity (Acute) S/P spinal fusion (Acute) Lumbar degenerative disc disease (Acute) Essential hypertension (Acute) Abnormal EKG (Acute) Precordial chest pain (Acute) Erectile dysfunction associated with type 2 diabetes mellitus (Acute) Cervical spinal cord compression (Acute) Subarachnoid cyst (Acute) Right leg weakness (Acute) Right knee pain (Acute) Spondylosis of cervical spine with radiculopathy (Acute) Chronic pain (Acute) Postlaminectomy syndrome, lumbar (Acute) Bilateral primary osteoarthritis of knee (Acute) Cough (Acute) Hypogonadism in male (Acute) Chest pain (Acute) Trigger finger of right hand (Acute) GERD (gastroesophageal reflux disease) (Acute) Long-term current use of insulin for diabetes mellitus (Acute) Overweight (BMI 25.0-29.9) (Acute) Type 2 diabetes mellitus with diabetic polyneuropathy (Acute) Bilateral knee pain (Acute) Constipation (Acute) Allergic rhinitis (Acute) Chronic kidney disease (CKD), stage II (mild) (Acute) Obesity (BMI 30-39.9) (Acute) Neuropathy (Acute) Chronic gastritis without bleeding (Acute) Hypertriglyceridemia (Acute) Benign essential hypertension (Acute) Degenerative arthritis of cervical spine (Acute) Type 2 diabetes mellitus with diabetic chronic kidney disease (Acute) Lumbar degenerative disc disease (Acute) Past Medical History Medical History Back pain Osteoarthritis of right hip Trigger finger of right hand Environmental allergies GERD (gastroesophageal reflux disease) DJD (degenerative joint disease) Arthritis Chest pain HTN (hypertension) Long-term current use of insulin for diabetes mellitus Overweight (BMI 25.0-29.9) Type 2 diabetes mellitus with diabetic polyneuropathy Bilateral knee pain Constipation Allergic rhinitis Chronic kidney disease (CKD), stage II (mild) Obesity (BMI 30-39.9) Neuropathy Chronic gastritis without bleeding Hypertriglyceridemia Benign essential hypertension 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 Lumbar degenerative disc disease Family History Family History Father Leukemia Mother Alzheimers disease Daughter Overweight Prediabetes Brother Prostate cancer Other Mental health problem Family history of problems with anesthesia: No Surgical History Surgical History History of hand surgery History of elbow surgery History of right hip replacement History of back surgery History of neck surgery History of surgery History of colonoscopy (~04/22/21) History of esophagogastroduodenoscopy (EGD) History of hernia repair History of Problems with Anesthesia: No Social History Social History Household Members: Spouse 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 Housing: House Are you a primary intensive care unit registered nurse to a significant other at home: No Do you presently have visiting nurse or other home services: No Alcohol intake: current Alcohol intake frequency: holidays/special occasions only Patient Tobacco Use Status: Never used Tobacco e-Cigarette/Vaping Use: Never Used Second Hand Smoke Exposure: No Use of substances other than those prescribed or required for medical reasons: No Substance Use Type: Crack/Cocaine, Former Substance User, Marijuana and Painkillers Have you been hit, kicked, punched, or otherwise hurt by someone within the past year? If so, by whom?: No Are you DNR?: No Advance Directives: Yes Advance Directives Information Provided: No Advance Directives on File: Yes Advance Directives Date on File: 09/05/24 Poor oral hygiene: No service: No Current occupational status: retired and disabled Cognitive needs: Yes (Cane) Hearing needs: No Vision needs: Yes (glasses) Meds Allergies Allergy/AdvReac Type Severity Reaction Status Date / Time clindamycin (CLINDAMYCIN) Allergy Severe rash, hives Verified 07/01/24 11:09 Iodinated Contrast Media (IV Allergy Severe Anaphylaxis Verified 07/01/24 11:09 CONTRAST) Penicillins Allergy Severe hives, rash Verified 07/01/24 11:09 shellfish derived Allergy Severe ANAPHYLAXIS Verified 07/01/24 11:09 dulaglutide (From [facility]) AdvReac Severe CP, SOB, Verified 07/01/24 11:09 GI UPSET Home Medications ?Medication ?Instructions ?Recorded ?Confirmed ?Last Taken ?Type gabapentin 800 mg tablet 800 mg PO TID Pain 02/11/24 09/01/24 02/15/24 History dapagliflozin propanediol 10 mg 10 mg PO QAM 09/01/24 09/01/24 Unknown History tablet (Farxiga) Exam Height,Weight and Vital Signs: Height 5 ft 9 in Weight 94.801 kg Narrative Narrative: EKG 01/2024 EKG Details: EKG with underlying sinus rhythm at 97/Min; can not exclude old anteroseptal infarct but could be from body habitus; normal NM and corrected QT. EKG changes are chronic. Per 01/2024 Cardiac office eval Chronic findings of anteroseptal infarct but can be related to body habitus. Myocardial perfusion imaging study from 2023 shows normal perfusion. A prior study from 2021 as well as from 2017 are also within normal limits. Echocardiogram from 2023 with LVEF of 60%. Mild basal/septal hypertrophy. No significant valvular findings. Assessment and Plan Assessment Anesthesia Assessment: Chart Reviewed Final Anesthetic Review Family History of Problems with Anesthesia: No History of Problems with Anesthesia: No Documented by User: Regina Rehman MD 09/05/24 09:40 [facility] Past Medical History Medical History Back pain Osteoarthritis of right hip Trigger finger of right hand Environmental allergies GERD (gastroesophageal reflux disease) DJD (degenerative joint disease) Arthritis Chest pain HTN (hypertension) Long-term current use of insulin for diabetes mellitus Overweight (BMI 25.0-29.9) Type 2 diabetes mellitus with diabetic polyneuropathy Bilateral knee pain Constipation Allergic rhinitis Chronic kidney disease (CKD), stage II (mild) Obesity (BMI 30-39.9) Neuropathy Chronic gastritis without bleeding Hypertriglyceridemia Benign essential hypertension 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 Lumbar degenerative disc disease Family History Family History Father Leukemia Mother Alzheimers disease Daughter Overweight Prediabetes Brother Prostate cancer Other Mental health problem Surgical History Surgical History History of hand surgery History of elbow surgery History of right hip replacement History of back surgery History of neck surgery History of surgery History of colonoscopy (~04/22/21) History of esophagogastroduodenoscopy (EGD) History of hernia repair Social History Social History Household Members: Spouse 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 Housing: House Are you a primary intensive care unit registered nurse to a significant other at home: No Do you presently have visiting nurse or other home services: No Alcohol intake: current Alcohol intake frequency: holidays/special occasions only Patient Tobacco Use Status: Never used Tobacco e-Cigarette/Vaping Use: Never Used Second Hand Smoke Exposure: No Use of substances other than those prescribed or required for medical reasons: No Substance Use Type: Crack/Cocaine, Former Substance User, Marijuana and Painkillers Have you been hit, kicked, punched, or otherwise hurt by someone within the past year? If so, by whom?: No Are you DNR?: No Advance Directives: Yes Advance Directives Information Provided: No Advance Directives on File: Yes Advance Directives Date on File: 09/05/24 Poor oral hygiene: No service: No Current occupational status: retired and disabled Cognitive needs: Yes (Cane) Hearing needs: No Vision needs: Yes (glasses) Meds Allergies Allergy/AdvReac Type Severity Reaction Status Date / Time clindamycin (CLINDAMYCIN) Allergy Severe rash, hives Verified 07/01/24 11:09 Iodinated Contrast Media (IV Allergy Severe Anaphylaxis Verified 07/01/24 11:09 CONTRAST) Penicillins Allergy Severe hives, rash Verified 07/01/24 11:09 shellfish derived Allergy Severe ANAPHYLAXIS Verified 07/01/24 11:09 dulaglutide (From [facility]) AdvReac Severe CP, SOB, Verified 07/01/24 11:09 GI UPSET Home Medications ?Medication ?Instructions ?Recorded ?Confirmed ?Last Taken ?Type gabapentin 800 mg tablet 800 mg PO TID Pain 02/11/24 09/01/24 02/15/24 History dapagliflozin propanediol 10 mg 10 mg PO QAM 09/01/24 09/01/24 Unknown History tablet (Farxiga) Exam Airway Mallampati Class: II TM Dist: >3cm Neck ROM: Full Heart: rrr Lungs: cta Assessment and Plan Assessment Anesthesia Assessment: Anesthesia Plan Discussed Final Anesthetic Review NPO: Yes ASA Class: III Final Preanesthetic Review: No Changes in Pt Med Stat, Meds/Allgs Chart Reviewed, Consent Obtained/Reviewed and Anes Risks/Benef Reviewed Patient Risk: Intermediate Procedure Risk: Low Anesthetic Plan Anesthetic Plan: MAC: Disposition: Standard PACU
[2024-09-05 09:31] VITALS: BP 156/78; PULSE 86; RESP 16; TEMP 36.3; O2SAT 99
[2024-09-05 09:42] LABS: Glucose, Whole Blood 165 mg/dL (60-115)
[2024-09-05] MEDS: Lactated Ringers 1,000 ML 100 ML IVCONT (09:45)
[2024-09-05 11:40] VITALS: BP 101/65; PULSE 75; RESP 17; TEMP 36.4; O2SAT 98
--- NOTE | 2024-09-05 11:44 | PM.OP ---
Brief Operative Note Date of Service: 09/05/24 Pre-op diagnosis: GERD, Screening Post-op diagnosis: other (Hiatal hernia, Polyps) Procedure: EGD with biopsies, Colonoscopy to the cecum with cold snare polypectomy x 2 Surgeon: Myron Esposito MD Anesthesia: MAC Was an Tunnel Elastic Operator Zigzag used for this Procedure?: No Estimated blood loss (mL): 2.0 Pathology: other (A. EG Junction at 38cm B. Cecal polyps) Condition: stable Disposition: PACU
[2024-09-05 11:55] VITALS: BP 105/65; PULSE 71; RESP 16; TEMP 36.4; O2SAT 98
--- NOTE | 2024-09-06 07:14 | OP_ITS ---
DATE OF SERVICE: 09/05/2024 SURGEON: Myron Esposito MD PREOPERATIVE DIAGNOSIS: POSTOPERATIVE DIAGNOSIS: PROCEDURE PERFORMED: Esophagogastroduodenoscopy with biopsies and colonoscopy to cecum with cold snare polypectomy x2. Indications: The patient presents for evaluation of gastroesophageal reflux, personal history of tubular adenoma of the colon, and need for colorectal cancer screening. Full consent was obtained from him for this, including risks of bleeding and perforation. ESTIMATED BLOOD LOSS: COMPLICATIONS: ANESTHESIA: Medication used, monitored anesthesia care. ASSISTANTS: SPECIMENS: PREOPERATIVE DIAGNOSES: Gastroesophageal reflux, tubular adenoma of the colon, colorectal cancer screening. POSTOPERATIVE DIAGNOSES: Gastroesophageal reflux, tubular adenoma of the colon, colorectal cancer screening, small hiatal hernia, colon polyps, diverticulosis, and internal hemorrhoids. DESCRIPTION OF PROCEDURE: The patient was placed in left side decubitus position. The Olympus video gastroscope was passed into the posterior oropharynx and upper esophagus under direct vision. The scope was passed slowly to the distal esophagus. The gastroesophageal junction appeared at 38 cm. There was some very minimal irregularity consistent with reflux, but no evidence of esophagitis nor any definitive Damon mucosa. There were no lesions. The scope entered into the stomach. There was a small hiatal hernia. The scope was advanced to the pylorus and the duodenum was cannulated to the descending portion. The duodenum including the bulb appeared normal without mass or ulceration. The scope was withdrawn back into the stomach. The gastric antrum and body appeared normal with good peristalsis. The scope was retroflexed visualizing the proximal stomach carefully, which appeared normal, without any sign of mass or ulceration. The scope was withdrawn back to the esophagus. Biopsies were obtained at the EG junction at 38 cm. Proximal to this, the esophageal mucosa appeared normal. The scope was withdrawn from the patient. He was turned around for the colonoscopy. The digital rectal exam revealed no abnormalities. The Olympus video pediatric colonoscope was entered into the rectum and advanced to the cecum with the assistance of abdominal pressure. Once in the cecum, after a lot of irrigation and suctioning. I was able to visualize the ileocecal valve and appendiceal orifice, both of which appeared normal. In the cecum, were 2 approximately 5 mm polyps, both of which were removed by cold snare polypectomy and recovered by suction. The polypectomy sites appeared clean, without any sign of residual polyp nor significant bleeding. The scope was then slowly withdrawn, assessing all mucosal surfaces carefully. Prep was good in most parts of the colon, but other portions had some residual stool and debris that was difficult to remove. I did not visualize any other polyps, colitis, nor angiodysplasia. There was a mild amount of sigmoid diverticulosis. In the rectum the scope was retroflexed visualizing internal hemorrhoids, but no other pathology. The rectal mucosa appeared normal. The scope was straightened and withdrawn from the patient. He tolerated the procedure well and was returned to the recovery area in stable condition. IMPRESSION: 1. Small hiatal hernia, gastroesophageal reflux. 2. Colon polyps. 3. Diverticulosis. 4. Internal hemorrhoids. PLAN: The results of biopsies will be checked. I shall send him a prescription to start omeprazole 20 mg daily to see if that gives him symptomatic relief of his reflux. I would recommend a repeat colonoscopy within 3 years for further screening given his history of polyps and the somewhat limited prep today. He was advised not to use any aspirin and NSAIDs for 1 week. He was advised to see me in the interim on a p.r.n. basis. I would recommend a 2 day prep for his next colonoscopy. MD DONNIE Jacobs/REYES / [id number] NEL
== END 2024-09-05 12:25 | disposition home or self-care (01) ==
PROVIDERS: PCP Internal Medicine; Visit Provider Internal Medicine
PROC: (CPT 45385; principal; 2024-09-05 10:10)
DX: Z12.11 Encounter for screening for malignant neoplasm of colon (principal); Z86.0101 Personal history of adenomatous and serrated colon polyps; D12.0 Benign neoplasm of cecum; K57.30 Diverticulosis of large intestine without perforation or abscess without bleeding; K64.8 Other hemorrhoids; K21.9 Gastro-esophageal reflux disease without esophagitis; K44.9 Diaphragmatic hernia without obstruction or gangrene; K22.89 Other specified disease of esophagus; B96.81 Helicobacter pylori [H. pylori] as the cause of diseases classified elsewhere; E11.42 Type 2 diabetes mellitus with diabetic polyneuropathy; E11.22 Type 2 diabetes mellitus with diabetic chronic kidney disease; I12.9 Hypertensive chronic kidney disease with stage 1 through stage 4 chronic kidney disease, or unspecified chronic kidney disease; N18.2 Chronic kidney disease, stage 2 (mild); M51.369 Other intervertebral disc degeneration, lumbar region without mention of lumbar back pain or lower extremity pain; Z79.4 Long term (current) use of insulin; Z79.84 Long term (current) use of oral hypoglycemic drugs; Z79.899 Other long term (current) drug therapy; Z98.890 Other specified postprocedural states
CPT/HCPCS: 45385; 43239; 82947; 88305; 88313; 88342; J2003; J2704; J3010

== ENCOUNTER 2024-11-16 09:59 | Outpatient (AMB) | payer MEDICARE, MEDICAID, SELFPAY ==
[2024-11-16 10:26] VITALS: BP 120/60; PULSE 86; RESP 18; TEMP 36.2; O2SAT 98; BMI 30.4
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
--- OUTSIDE RECORDS SUMMARY | 2024-11-16 12:13 | XMS_ITS | Clinical Summary ---
Author Organization [facility] Address [address] [address] Phone Care Team Providers Care Application Coordinator Name Role Phone Lico Francisco MD Primary [...] Care Team (Late st Contact Info) Description 11/29/2024 2:15 PM EDT Office Visit [facility] [address] [phone] Palma Santiago ARNP [address] [address] Health Maintenance Due Date Last Done Comments Pneumococcal Vaccine: 50+ Years (1 of 2 - PCV) 11/29/1978 Colorectal Cancer Screening: Annual FOBT 11/29/2008 Colorectal Cancer Screening: Colonoscopy 11/29/2008 Colorectal Cancer Screening: Sigmoidoscopy 11/29/2008 Influenza Vaccine (#1) 2024 8, 11/07/2010, 11/17/2008, Additional history exists Hepatitis B Vaccine Aged Out No longe r eligible based on patient's age to complete this topic Insurance Medicaid [place] [facility] Medicare Care Teams Application Coordinator Relationship Specialty Start Date End Date Lico Francisco MD [address] [place] [address] PCP - General Internal Medicine 04/03/23
--- OUTSIDE RECORDS SUMMARY | 2024-11-16 12:13 | XMS_ITS | Clinical Summary ---
Author Organization [facility] Address [address] [place] [address] Care Team Providers Care Police Officer Crime Prevention Name Role Phone Alcides Man MD Primary Care Provider +1- [phone] Social History Tobacco Use Types Packs/Day Years [...] (1 of 2) 11/29/2009 Influenza Vaccine (#1) 2024 Pneumococcal Vaccine (1 of 1 - [...] age to complete this topic Care Teams Police Officer Crime Prevention Relationship Specialty Start Date End Date Alcides Man MD [address] [place] [address] [place] [address] PCP - General Internal Medicine 12/10/20
== END 2024-11-16 11:20 | disposition home or self-care (01) ==
LOC: HO.HMCH 09:59
PROVIDERS: PCP Internal Medicine; Visit Provider Internal Medicine
DX: E11.22 Type 2 diabetes mellitus with diabetic chronic kidney disease (principal); N18.2 Chronic kidney disease, stage 2 (mild); E11.69 Type 2 diabetes mellitus with other specified complication; Z79.4 Long term (current) use of insulin; E66.3 Overweight; N52.1 Erectile dysfunction due to diseases classified elsewhere; M25.551 Pain in right hip; M25.561 Pain in right knee; M25.562 Pain in left knee; R22.30 Localized swelling, mass and lump, unspecified upper limb; R25.2 Cramp and spasm; R25.1 Tremor, unspecified

== ENCOUNTER → 2024-11-16 09:59 | Outpatient (BNVA) | payer MEDICARE, MEDICAID, SELFPAY | PROVIDERS: PCP Internal Medicine; Visit Provider Internal Medicine | DX: E11.22 Type 2 diabetes mellitus with diabetic chronic kidney disease (principal); Z79.4 Long term (current) use of insulin; N18.2 Chronic kidney disease, stage 2 (mild); E66.3 Overweight; N52.1 Erectile dysfunction due to diseases classified elsewhere; M25.561 Pain in right knee; M25.562 Pain in left knee; M25.551 Pain in right hip; R22.31 Localized swelling, mass and lump, right upper limb; R25.2 Cramp and spasm; R25.1 Tremor, unspecified | CPT/HCPCS: 83036; 99212 ==

== ENCOUNTER 2024-12-08 10:58 | Outpatient (REF) | payer MEDICARE, MEDICAID, SELFPAY ==
[2024-12-08 11:29] LABS: MANUAL DIFF FLAG NO
[2024-12-08 12:18] LABS: Hematocrit 45.6 % (42.0-52.0); Hemoglobin 15.0 g/dl (14.0-18.0); Imm Gran Abs Auto 0.03 X10*3/uL (0.00-0.03); Imm Gran Pct Auto 0.3 % (0.0-0.4); Lymphocytes Absolute Auto 2.8 X10*3/uL (1.2-4.9); Mean Corpuscular HGB Conc 32.9 g/dl (31.0-36.0); Mean Corpuscular Hemoglobin 28.7 pg (27.0-33.0); Mean Corpuscular Volume 87.4 fL (80.0-98.0); NRBC Abs Auto 0.040 X10*3/uL (0.0-0.012); NRBC Pct Auto 0.4 /100WBC (0.0-0.2); Platelet Count 237 X10*3/uL (160-400); Red Blood Count 5.22 X10*6/uL (4.60-5.80); White Blood Count 9.2 X10*3/uL (4.8-10.8)
[2024-12-08 12:49] LABS: Total Protein Urine Random < 7 mg/dL (<12)
[2024-12-08 12:53] LABS: Parathyroid Hormone Intact 106.3 pg/mL (8.7-77.1)
[2024-12-08 12:54] LABS: Cholesterol 139 mg/dL (<200); HDL Cholesterol 33 mg/dL (>40); Triglycerides 212 mg/dL (<150)
[2024-12-08 13:08] LABS: Prostate Specific Antigen 0.68 ng/mL (<0.05-4.0)
[2024-12-08 13:12] LABS: HBS Num1 0.01 mIU/mL (0-7.99); HBc Num1 0.24 S/CO (0.00-0.79); HBsAGNum1 0.33 S/CO (0.00-0.99); HIV Num 1 0.05 S/CO (0.00-0.99); Hepatitis B Surface Antigen Negative (Negative); ~HepC Num1 0.05 S/CO (0.00-0.79); ~Hepatitis B Surface Antibody NONREACTIVE (Nonreactive); ~Hepatitis C Antibody Nonreactive (Nonreactive)
--- OUTSIDE RECORDS SUMMARY | 2024-12-08 13:59 | XMS_ITS | Clinical Summary ---
Author Organization [facility] Address [address] [place] [address] Care Team Providers Care Tank Truck Loader Name Role Phone Alcides Man MD Primary Care Provider +1- [phone] Social History Tobacco Use Types Packs/Day Years [...] of 2) 11/29/2009 Influenza Vaccine (#1) 2024 Fall Risk Assessment 11/29/2024 Pneumococcal Vaccine (1 of 1 - PCV) [...] age to complete this topic Care Teams Tank Truck Loader Relationship Specialty Start Date End Date Alcides Man MD [address] [place] [address] Dr Edwards [facility] [place] [address] PCP - General Internal Medicine 12/10/20
[2024-12-12 18:53] LABS: VITAMIN D (1,25 OH) D3 50 pg/mL; Vit D (1,25-Dihydroxy) Total 50 pg/mL (18-72); Vitamin D (1,25 OH) D2 <8 pg/mL
== END 2024-12-08 10:59 | disposition home or self-care (01) ==
LOC: HO.LAB 10:58
PROVIDERS: Absent Provider Internal Medicine Nephrology; PCP Internal Medicine; Visit Provider Internal Medicine
DX: Z00.00 Encounter for general adult medical examination without abnormal findings (principal); I12.9 Hypertensive chronic kidney disease with stage 1 through stage 4 chronic kidney disease, or unspecified chronic kidney disease; N18.32 Chronic kidney disease, stage 3b; Z11.4 Encounter for screening for human immunodeficiency virus [HIV]; Z12.5 Encounter for screening for malignant neoplasm of prostate; Z13.1 Encounter for screening for diabetes mellitus
CPT/HCPCS: 36415; 80061; 82570; 82652; 83036; 83970; 84153; 84156; 84443; 85025; 86704; 86706; 86803; 87340; 87389

== ENCOUNTER 2024-12-19 14:34 | Outpatient (REF) | payer MEDICARE, SELFPAY ==
[2024-12-19 15:58] LABS: Anion Gap 14 (12-20); Blood Urea Nitrogen 26 mg/dL (9-16); Calcium 9.5 mg/dL (8.4-10.2); Carbon Dioxide 30 mmol/L (22-29); Chloride 104 mmol/L (96-108); Estimated Glomerular Filt Rate 51; Potassium 4.7 mmol/L (3.3-5.1); Sodium 143 mmol/L (135-145)
--- OUTSIDE RECORDS SUMMARY | 2024-12-19 18:08 | XMS_ITS | Clinical Summary ---
Author Organization [facility] Address [address] [address] Phone Care Team Providers Care Sterile Supervisor Name Role Phone Alcides Man MD Primary Care Provider +1- [phone] Allergies Active Allergy Reactions Criticality Noted Date Comments Clindamycin Rash High 01/21/2023 Iodinated Contrast Media Swelling High 01/21/2023 Dulaglutide Shortness of breath High 01/21/2023 Gi upset/cp Erythromycin Rash High 12/03/2022 Penicillins Rash High 12/03/2022 Shellfish Protein-Containing Drug Products Anaphylaxis High 01/21/2023 Medications gabapentin (NEURONTIN) 300 MG capsule Take 300 mg by mouth 023 Active NovoLOG FLEXPEN 100 UNIT/ML injection 15 UNIT (0.15 ML) SUBCUTANEOUSLY 3 TIMES A DAY 023 Active Toujeo Max SoloStar 300 UNIT/ML solution pen-injector 70 UNIT (0.2333 ML) SUBCUTANEOUSLY DAILY 023 Active atorvastatin (LIPITOR) 10 MG tablet Take 10 mg by mouth 1 (one) time each day in the evening 023 Active omeprazole OTC (PriLOSEC OTC) 20 MG EC tablet Take 30 mg by mouth 1 (one) time each day Do not crush, chew, or split. Active famotidine (PEPCID) 20 MG tablet Take 20 mg by mouth 1 (one) time Active Dapagliflozin Propanediol (Farxiga) 10 MG tablet Take 10 mg by mouth 1 (one) time each day in the morning 90 tablet 3 024 Active lisinopril (PRINIVIL,ZEST RIL) 30 MG tablet Take 30 mg by mouth 1 (one) time each day Active tadalafil (CIALIS) 20 MG tablet Take 20 mg by mouth 1 (one) time each day if needed Active amLODIPine (NORVASC) 10 MG tabletIndicati ons:Hypertensi on Take 1 tablet (10 mg total) by mouth 1 (one) time each day 90 tablet 3 024 2024 Active Cholecalcifero l (Vitamin D3) 50 MCG (1999 UT) tabletIndicati ons:Vitamin D deficiency, not otherwise specified Take 2,000 Units by mouth 1 (one) time each day 30 tablet 11 024 2024 Active furosemide (LASIX) 20 MG tabletIndicati ons:Chronic kidney disease, stage 2 (mild),Hyperte nsion,Vitamin D deficiency, not otherwise specified Take 20 mg by mouth every other day Active diazePAM (VALIUM) 5 MG tablet 023 2024 Discontinued(M ed List Maintenance) furosemide (LASIX) 20 MG tablet Take 20 mg by mouth 1 (one) time each day if needed (for leg swelling) 024 2024 Discontinued Active Problems Problem Noted Date Diagnosed Date Vitamin D deficiency, not otherwise specified Chronic kidney disease, stage 2 (mild) Encounter for screening for malignant neoplasm o f colon 01/21/2023 01/21/2023 Abdominal pain, epigastric 12/03/202212/03 Diverticulosis of colon 12/03/2022 12/04/19 Gastro-esophageal reflux disease without esophag itis 12/03/2022 12/03/2022 History of adenomatous polyp of colon 12/03/2022 12/03/2022 Stage 3b chronic kidney disease 12/03/2022 Proteinuria 12/03/2022 Hypertension 12/03/2022 Hypercalcemia 12/03/2022 Encounters Date Type Department Care Team Description 12/19/2024 Office Communication [facility] [address] [phone] Peggy Lay 12/12/2024 Documentation Only [facility] [address] [phone] Traci Rojas MA 12/08/2024 2:15 PM EDT Office Visit [facility] [address] [phone] Palma Santiago ARNP Chronic kidney disease, stage 2 (mild) (Primary Dx); Hypertension; Vitamin D deficiency, not otherwise specified 12/08/2024 Office Communication [facility] [address] [phone] Palma Santiago ARNP from Last 3 Months Immunizations Immunization Administration Dates Next Due Influenza, Unspecified 12/17/2017 Family History Medical History Relation Comments Cancer Father Relation Status Comments Father Mother Social History Tobacco Use Types Packs/Day Years Used Date Smoking Tobacco: Never Smokeless Tobacco: Never Tobacco Cessation:Counseling Given: Not Answered Alcohol Use Standard Drinks/Week Comments Yes 0 (1 standard drink = 0.6 oz pur e alcohol) ocass. Sex and Gender Information Value Date Recorded Sex Assigned at Not on file Legal Sex Male 3:03 PM EDT Gender Identity Not on file Sexual Orientation Not on file Last Filed Vital Signs Vital Sign Reading Time Taken Comments Blood Pressure 110/60 12/08/2024 2:05 PM EDT Pulse 92 12/08/2024 2:05 PM EDT Temperature 36.6 C (97.8 F) 02/02/2023 1:20 PM EST Respiratory Rate - - Oxygen Saturation 98% 01/13/2024 11: 40 AM EST Inhaled Oxygen Concentration - - Weight 92.9 kg (204 lb 14.4 oz) 12/08/2024 2:05 PM EDT Height 175.3 cm (5' 9 ) 02/02/2023 1:20 PM EST Body Mass Index 30.26 02/02/2023 1:20 PM EST Plan of Treatment Upcoming Encounters Date Type Department Care Team (Late st Contact Info) Description 12/06/2025 1:30 PM EDT Office Visit [facility] [address] [phone] Palma Santiago ARNP [address] [phone] Health Maintenance Due Date Last Done Comments Pneumococcal Vaccine: 50+ Years (1 of 2 - PCV) 11/29/1978 Colorectal Cancer Screening: Annual FOBT 11/29/2008 Colorectal Cancer Screening: Colonoscopy 11/29/2008 Colorectal Cancer Screening: Sigmoidoscopy 11/29/2008 Influenza Vaccine (#1) 2024 8, 11/07/2010, 11/17/2008, Additional history exists Hepatitis B Vaccine Aged Out No longe r eligible based on patient's age to complete this topic Procedures Procedure Name Priority Date/Time Associated Diagnosis Comments PROTEIN / CREATININE RATIO, URINE Routine 12/08/2024 12:13 PM EDT Chronic kidney disease, stage 2 (mild) Hypertension Vitamin D deficiency, not otherwise specified ALBUMIN, URINE, RANDOM Routine 12/08/2024 12:13 PM EDT Chronic kidney disease, stage 2 (mild) Hypertension Vitamin D deficiency, not otherwise specified PTH, INTACT (HC) Routine 12/08/2024 11:2 7 AM EDT Chronic kidney disease, stage 2 (mild) Hypertension Vitamin D deficiency, not otherwise specified from Last 3 Months Results * Protein, Total, Random Urine w/Creatinine (Protein/Creat Ratio) (12/08/2024 12:13 PM EDT) Protein Urine Random <7 <12 mg/dL See order comments Protein/Creatin ine Ratio, Urine TNP <0.2 See order comments Comment: Unable to calculate urine protein creatinine ratio due to low creatinine or protein result. 12/08/2024 12:1 3 PM EDT 12/08/2024 12:13 PM EDT [facility] URINE ORDERABLES Final Result [email or web address] See order comments [place] [address] * Albumin, urine, random (12/08/2024 12:13 PM EDT) Creatinine, Urine 28.15 mg/dL Se e order comments Urine Microalbumin <5.0 mg/L See order comments Microalbumin/Crea tinine Ratio TNP <30 ug/mg cr See order comments Comment: Unable to calculate albumin/creatinine ratio due to low microalbumin or creatinine result. 12/08/2024 12:1 3 PM EDT 12/08/2024 12:13 PM EDT [facility] URINE ORDERABLES Final Result MAGDY See order comments [place] [address] * (ABNORMAL) PTH, Intact (12/08/2024 11:27 AM EDT) Parathyroid Hormone, Intact 106.3(H) 8.7 - 77.1 pg/mL See order comments 12/08/2024 11:2 7 AM EDT 12/08/2024 11:27 AM EDT [facility] HISTORICAL-CONVERSIONS- UNSOLICITED RESULTS Final Result MAGDY See order comments [place] [address] from Last 3 Months Insurance Medicaid [place] Medicare Medicaid [place] Medicaid [facility] Medicare Care Teams Sterile Supervisor Relationship Specialty Start Date End Date Alcides Man MD [address] [place] [address] [address] [place] [address] PCP - General Internal Medicine 12/08/24
--- OUTSIDE RECORDS SUMMARY | 2024-12-19 18:08 | XMS_ITS | Encounter Summary ---
Author Organization [facility] Address [address] [phone] Phone Care Team Providers Care Machine Design Teacher Name Role Phone Alcides Man MD Primary Care Provider +1- [phone] Encounter Details Date Type Department Care Team (Late Contact Info) Description 12/08/2024 Office Communication [facility] [address] [phone] Palma Santiago ARNP [address] [phone] Social History Tobacco Use Types Packs/Day Years Used Date Smoking Tobacco: Never Smokeless Tobacco: Never Alcohol Use Standard Drinks/Week Comments Yes 0 (1 standard drink = 0.6 oz pur e alcohol) ocass. Sex and Gender Information Value Date Recorded Sex Assigned at Not on file Legal Sex Male 3:03 PM EDT Gender Identity Not on file Sexual Orientation Not on file documented as of this encounter Plan of Treatment Upcoming Encounters Date Type Department Care Team (Late st Contact Info) Description 12/06/2025 1:30 PM EDT Office Visit [facility] [address] [phone] Palma Santiago ARNP [address] [phone] documented as of this encounter Visit Diagnoses Not on filedocumented in this encounter Care Teams Machine Design Teacher Relationship Specialty Start Date End Date Alcides Man MD [address] [place] [address] PCP - General Internal Medicine 12/08/24 documented as of this encounter
--- OUTSIDE RECORDS SUMMARY | 2024-12-19 18:08 | XMS_ITS | Clinical Summary ---
Author Organization [facility] Address [address] [place] [address] Care Team Providers Care Fleshing Machine Operator Name Role Phone Alcides Man MD Primary Care Provider +1- [phone] Social History Tobacco Use Types Packs/Day Years [...] age to complete this topic Care Teams Fleshing Machine Operator Relationship Specialty Start Date End Date Alcides Man MD [address] [place] [address] [address] [facility] [place] [address] PCP - General Internal Medicine 12/10/20
--- OUTSIDE RECORDS SUMMARY | 2024-12-19 18:08 | XMS_ITS | Encounter Summary ---
Author Organization [facility] Address [address] [phone] Phone Care Team Providers Care Flight Engineer Manager Name Role Phone Alcides Man MD Primary Care Provider +1- [phone] Encounter Details Date Type Department Care Team (Late Contact Info) Description 12/19/2024 Office Communication [facility] [address] [phone] Peggy Lay [address] [phone] Social History Tobacco Use Types [...] encounter Miscellaneous Notes * Telephone Encounter - Peggy Lay - 12/19/2024 2:26 PM EDT Pt sent message; He is not feeling well but will go to get his blood work either today or Thursday. documented in this encounter Plan of Treatment Upcoming Encounters Date Type Department Care Team (Late Contact Info) Description 12/06/2025 1:30 PM EDT Office Visit [facility] [address] [phone] Palma Santiago ARNP [address] [phone] documented as of this encounter Visit Diagnoses Not on filedocumented in this encounter Care Teams Flight Engineer Manager Relationship Specialty Start Date End Date Alcides Man MD [address] [place] [address] PCP - General Internal Medicine 12/08/24 documented as of this encounter
[2024-12-23 22:53] LABS: VITAMIN D (1,25 OH) D3 36 pg/mL; Vit D (1,25-Dihydroxy) Total 36 pg/mL (18-72); Vitamin D (1,25 OH) D2 <8 pg/mL
== END 2024-12-19 14:35 | disposition home or self-care (01) ==
LOC: HO.LAB 14:34
PROVIDERS: PCP Internal Medicine; Visit Provider Internal Medicine Nephrology
DX: I12.9 Hypertensive chronic kidney disease with stage 1 through stage 4 chronic kidney disease, or unspecified chronic kidney disease (principal); N18.2 Chronic kidney disease, stage 2 (mild); E55.9 Vitamin D deficiency, unspecified
CPT/HCPCS: 36415; 80051; 82310; 82565; 82652; 84520